=== PATIENT | female | born 1960 | race Caucasian/White ===

== ENCOUNTER → 2016-03-07 | Outpatient (CLI) | payer BC ==
[2016-03-07 14:01] LABS: ALBUMIN/GLOBULIN RATIO 1.25 (1.00-1.93); ALKALINE PHOSPHATASE 73 U/L (45-117); ALT/SGPT 23 U/L (12-78); ANION GAP 8 MEQ/L (8-16); AST/SGOT 25 U/L (15-37); BILIRUBIN,TOTAL 0.3 MG/DL (0.2-1.0); BLOOD UREA NITROGEN 12 MG/DL (7-18); CALCIUM LEVEL 9.2 MG/DL (8.5-10.1); CARBON DIOXIDE LEVEL 27 MEQ/L (21-32); CHLORIDE LEVEL 105 MEQ/L (98-107); CREATININE FOR GFR 0.78 MG/DL (0.55-1.02); FERRITIN 68 NG/ML (8-252); GLOMERULAR FILTRATION RATE > 60.0 (>51); GLUCOSE, FASTING 88 MG/DL (70-105); PERCENT SATURATION 37.8 % (13.2-37.4); POTASSIUM SERUM 4.3 MEQ/L (3.5-5.1); SODIUM LEVEL 140 MEQ/L (136-145); TOTAL IRON BINDING CAPACITY 362 UG/DL (250-450); TOTAL PROTEIN 7.2 GM/DL (6.4-8.2)
== END ==
LOC: M SMT 08:37
PROVIDERS: ATTEND Family Medicine
DX: K50.90 Crohn's disease, unspecified, without complications (principal); I10 Essential (primary) hypertension

== ENCOUNTER → 2016-07-05 | Outpatient (CLI) | payer BC ==
[2016-07-05 13:48] LABS: MEAN CORPUSCULAR HEMOGLOBIN 32.6 pg (27.0-33.0); MEAN CORPUSCULAR HGB CONC 33.2 g/dl (32.0-36.5); MEAN CORPUSCULAR VOLUME 98.3 fl (80.0-96.0); WHITE BLOOD COUNT 5.9 K/mm3 (4.0-10.0)
[2016-07-05 13:55] LABS: VITAMIN B12 LEVEL 475 PG/ML (247-911)
[2016-07-05 14:05] LABS: ALBUMIN 3.6 GM/DL (3.2-5.2); ALBUMIN/GLOBULIN RATIO 1.09 (1.00-1.93); ALKALINE PHOSPHATASE 70 U/L (45-117); ALT/SGPT 30 U/L (12-78); ANION GAP 6 MEQ/L (8-16); AST/SGOT 31 U/L (15-37); BILIRUBIN,TOTAL 0.4 MG/DL (0.2-1.0); BLOOD UREA NITROGEN 9 MG/DL (7-18); CALCIUM LEVEL 8.5 MG/DL (8.5-10.1); CARBON DIOXIDE LEVEL 27 MEQ/L (21-32); CHLORIDE LEVEL 106 MEQ/L (98-107); CHOLESTEROL LEVEL 95 MG/DL (<200); CREATININE FOR GFR 0.72 MG/DL (0.55-1.02); FREE T4 1.09 NG/DL (0.76-1.46); GLOMERULAR FILTRATION RATE > 60.0 (>51); GLUCOSE, FASTING 84 MG/DL (70-105); POTASSIUM SERUM 4.3 MEQ/L (3.5-5.1); SODIUM LEVEL 139 MEQ/L (136-145); TOTAL PROTEIN 6.9 GM/DL (6.4-8.2); TRIGLYCERIDES LEVEL 74 MG/DL (<150)
[2016-07-05 14:33] LABS: EOSINOPHILS 5 % (0-5)
[2016-07-05 20:07] LABS: PRETREATED FOLATE FOR RBCFOL 9.3 NG/ML
[2016-07-06 08:48] LABS: ALBUMIN % 55.1 % (55.8-66.1); GAMMA GLOBULIN % 17.4 % (11.1-18.8)
== END ==
LOC: M SMT 08:05
PROVIDERS: ATTEND Family Medicine
DX: D75.89 Other specified diseases of blood and blood-forming organs (principal); E78.5 Hyperlipidemia, unspecified; E03.9 Hypothyroidism, unspecified

== ENCOUNTER → 2016-07-19 | Outpatient (CLI) | payer BC ==
--- NOTE | 2016-07-21 12:37 | SLEEPHOME ---
DATE OF STUDY: 07/19/2016 ORDERED BY: Evan Smith MD Diagnostic home sleep testing was performed due to the concern for the obstructive sleep apnea syndrome. For testing, a NOX-T3 respiratory monitoring device was used. Continuous record was made of pulse, oxygen saturation, airflow, chest and abdominal strain, and body position. 9 hours and 59 minutes of data were reviewed. There were 7 hours and 47 minutes marked as time in bed. During the interval marked time in bed, there were 187 respiratory events identified of 10 seconds in duration or greater for a respiratory event index of 24. The events were obstructive in nature. Baseline pulse rate 65. Pulse rate ranged 32 to 142. Baseline saturation 93%. Lowest oxygen saturation 83%. Testing was performed in both supine and non supine positions. IMPRESSION: Abnormal home sleep testing with repetitive respiratory events and oxygen desaturations to 83% with a respiratory event index of 24 is consistent with the obstructive sleep apnea syndrome. RECOMMENDATION: The patient should be encouraged to undergo form sleep evaluation and in laboratory pressure titration.
== END ==
LOC: M SLEEP HO 15:29
PROVIDERS: ATTEND Family Medicine
DX: R53.83 Other fatigue (principal)

== ENCOUNTER → 2016-07-21 | Outpatient (CLI) | payer BC ==
--- NOTE | 2016-07-21 10:08 | REPMRS ---
Patient History The patient states she has not had a clinical breast exam in over a year. Patient is postmenopausal, has history of large B cell lymphoma cancer at age 46, and had previous chemotherapy at age 46. No known family history of cancer. Taking unspecified hormones for 9 years. Digital Woman Screen Mammo: July 21, 2016 - Exam #: [id number] Bilateral CC and MLO view(s) were taken. Technologist: Shari Lui, Technologist Prior study comparison: September 25, 2013, digital woman screen mammo performed at [facility]. September 06, 2012, digital woman screen mammo performed at [facility]. April 14, 2010, bilateral bilat screen digital mammo performed at [facility]. FINDINGS: There are scattered fibroglandular densities. There is a moderate amount of residual fibroglandular tissue which is fairly symmetric. There is no interval development of dominant mass, architectural distortion, or clustered microcalcification typical of malignancy. There has been no change in the appearance of the mammogram from the prior studies. ASSESSMENT: BI-RADS/ACR category 1 mammogram. Negative. Recommendation Routine screening mammogram of both breasts in 1 year (for women over age 40). This mammogram was interpreted with the aid of an FDA-approved computer-aided dectection system. Electronically Signed By: Ty Casas MD 07/21/16 [id number]
== END ==
LOC: M WHC 09:18
PROVIDERS: ATTEND Family Medicine
DX: Z12.31 Encounter for screening mammogram for malignant neoplasm of breast (principal); Z78.0 Asymptomatic menopausal state; Z92.0 Personal history of contraception

== ENCOUNTER → 2016-11-07 | Outpatient (CLI) | payer BC ==
[~2016-11-07] MED LIST: AMIT75TA; ATEN50TA2; ATOR1TAB21; BALS75CA PO; CARBAMAZEPINE; LINZ145C; OMEP20CA3; SYNT75TA; ZOFR4TAB3 PO
[2016-11-07 13:34] LABS: MEAN CORPUSCULAR HEMOGLOBIN 33.6 pg (27.0-33.0); MEAN CORPUSCULAR HGB CONC 34.2 g/dl (32.0-36.5); MEAN CORPUSCULAR VOLUME 98.1 fl (80.0-96.0); RED CELL DISTRIBUTION WIDTH 12.2 % (11.5-14.5); WHITE BLOOD COUNT 4.8 K/mm3 (4.0-10.0)
[2016-11-07 14:21] LABS: BASOPHILS 1 % (0-4); EOSINOPHILS 1 % (0-5)
[2016-11-07 15:09] LABS: ALBUMIN/GLOBULIN RATIO 1.18 (1.00-1.93); ALKALINE PHOSPHATASE 67 U/L (45-117); ALT/SGPT 29 U/L (12-78); ANION GAP 11 MEQ/L (8-16); AST/SGOT 26 U/L (15-37); BILIRUBIN,TOTAL 0.5 MG/DL (0.2-1.0); BLOOD UREA NITROGEN 14 MG/DL (7-18); CALCIUM LEVEL 9.3 MG/DL (8.5-10.1); CARBON DIOXIDE LEVEL 24 MEQ/L (21-32); CHLORIDE LEVEL 108 MEQ/L (98-107); CREATININE FOR GFR 0.84 MG/DL (0.55-1.02); GLOMERULAR FILTRATION RATE > 60.0 (>51); GLUCOSE, FASTING 88 MG/DL (70-105); MAGNESIUM LEVEL 1.9 MG/DL (1.8-2.4); POTASSIUM SERUM 4.4 MEQ/L (3.5-5.1); SODIUM LEVEL 143 MEQ/L (136-145); TOTAL PROTEIN 7.4 GM/DL (6.4-8.2)
== END ==
LOC: M SMT 08:10
PROVIDERS: ATTEND Family Medicine
DX: D75.89 Other specified diseases of blood and blood-forming organs (principal); I10 Essential (primary) hypertension; E55.9 Vitamin D deficiency, unspecified

== ENCOUNTER 2016-12-08 07:56 | Emergency (ER) | payer BC ==
[~2016-12-08] VITALS: Ht 172.7 cm; Wt 100.0 kg
[2016-12-08] MEDS ORDERED: CARBAMAZEPINE (08:10)
[2016-12-08] MEDS ORDERED: BALS75CA PO (08:10)
[2016-12-08] MEDS ORDERED: ATEN50TA2 (08:20)
[2016-12-08] MEDS ORDERED: ATOR1TAB21 (08:20)
[2016-12-08] MEDS ORDERED: LINZ145C (08:20)
[2016-12-08] MEDS ORDERED: SYNT75TA (08:20)
[2016-12-08] MEDS ORDERED: OMEP20CA3 (08:20)
[2016-12-08] MEDS ORDERED: AMIT75TA (08:20)
[2016-12-08] MEDS ORDERED: NS 1,000 ML IV ONE (08:45)
[2016-12-08] MEDS ORDERED: ONDANSETRON 4MG/2ML VIAL (J2405) IV ONE (08:45)
[2016-12-08 08:53] LABS: BASO % 0.6 % (0.0-1.0); EOS # 0.1 10^3/uL (0.0-0.50); EOS % 1.4 % (0.0-3.0); IMMATURE GRANULOCYTE % 0.3 % (0-0); LYMPH % 15.2 % (24.0-44.0); MEAN CORPUSCULAR HEMOGLOBIN 32.6 pg (27.0-33.0); MEAN CORPUSCULAR HGB CONC 34.1 g/dl (32.0-36.5); MEAN CORPUSCULAR VOLUME 95.5 fl (80.0-96.0); MONO # 0.4 10^3/uL (0.0-0.8); MONO % 6.1 % (0.0-5.0); NEUTROPHILS % 76.4 % (36.0-66.0); PLATELET COUNT, AUTOMATED 203 10^3/uL (150-450); RED CELL DISTRIBUTION WIDTH 12.2 % (11.5-14.5); WHITE BLOOD COUNT 6.6 10^3/uL (4.0-10.0)
--- NOTE | 2016-12-08 09:20 | REP ---
ABDOMEN SERIES: Two views. HISTORY: Bloating. No bowel movements. Question small bowel obstruction. FINDINGS: Bowel gas pattern is unremarkable. There are clips and sutures in the right upper quadrant. Some vascular calcification is seen in the aorta. Phleboliths are noted in the pelvis. Flank stripes are intact. Psoas margins are symmetric. No evidence of free air seen. No significant air fluid level noted. IMPRESSION: Normal bowel gas pattern. Postoperative changes on the right. No radiographic evidence of obstruction. Signed by Yang Casas MD 12/08/2016 11:58 A
[2016-12-08 09:23] LABS: ALBUMIN 3.7 GM/DL (3.2-5.2); ALBUMIN/GLOBULIN RATIO 0.95 (1.00-1.93); ALKALINE PHOSPHATASE 70 U/L (45-117); ALT/SGPT 28 U/L (12-78); AMYLASE 72 U/L (25-115); ANION GAP 7 MEQ/L (8-16); AST/SGOT 25 U/L (15-37); BILIRUBIN,DIRECT 0.2 MG/DL (0.0-0.2); BILIRUBIN,TOTAL 0.5 MG/DL (0.2-1.0); BLOOD UREA NITROGEN 11 MG/DL (7-18); CALCIUM LEVEL 9.2 MG/DL (8.5-10.1); CARBON DIOXIDE LEVEL 23 MEQ/L (21-32); CHLORIDE LEVEL 107 MEQ/L (98-107); CREATININE FOR GFR 0.74 MG/DL (0.55-1.02); GLOMERULAR FILTRATION RATE > 60.0 (>51); GLUCOSE, FASTING 98 MG/DL (70-105); POTASSIUM SERUM 3.8 MEQ/L (3.5-5.1); SODIUM LEVEL 137 MEQ/L (136-145); TOTAL PROTEIN 7.6 GM/DL (6.4-8.2)
[2016-12-08] MEDS ORDERED: ZOFR4TAB3 PO (09:30)
[2016-12-08 09:31] VITALS: BP 134/72
== END 2016-12-08 09:36 | disposition home or self-care (01) ==
LOC: M ED 07:56
DX: K59.00 Constipation, unspecified (principal); I10 Essential (primary) hypertension; E07.9 Disorder of thyroid, unspecified; Z79.899 Other long term (current) drug therapy; Z88.1 Allergy status to other antibiotic agents; Z88.8 Allergy status to other drugs, medicaments and biological substances; Z98.890 Other specified postprocedural states
CPT/HCPCS: 36415; 74020; 80048; 80076; 81001; 82150; 83690; 85025; 96361; 96374; 99283; J2405

== ENCOUNTER → 2016-12-20 | Outpatient (REF) | payer BC ==
[2016-12-20 11:48] LABS: ALBUMIN 3.7 GM/DL (3.2-5.2); ANION GAP 7 MEQ/L (8-16); BLOOD UREA NITROGEN 11 MG/DL (7-18); CALCIUM LEVEL 9.2 MG/DL (8.5-10.1); CARBON DIOXIDE LEVEL 29 MEQ/L (21-32); CHLORIDE LEVEL 106 MEQ/L (98-107); GLOMERULAR FILTRATION RATE > 60.0 (>51); GLUCOSE, FASTING 87 MG/DL (70-105); MAGNESIUM LEVEL 2.2 MG/DL (1.8-2.4); POTASSIUM SERUM 4.5 MEQ/L (3.5-5.1); SODIUM LEVEL 142 MEQ/L (136-145)
== END ==
LOC: M SFHCPLAZ 10:17
PROVIDERS: ATTEND Family Medicine
DX: R06.09 Other forms of dyspnea (principal)

== ENCOUNTER 2017-01-11 13:18 | Emergency (ER) | payer OTHER, BC ==
[~2017-01-11] VITALS: Ht 172.7 cm; Wt 95.5 kg
[2017-01-11] MEDS ORDERED: KETOROLAC 60 MG/2 ML VIAL (J1885) IM ONE (15:45)
[2017-01-11] MEDS ORDERED: MOBI4TAB PO (17:03)
[2017-01-11] MEDS ORDERED: CYCL10TA PO (17:03)
[2017-01-11 17:11] VITALS: BP 151/73
== END 2017-01-11 17:12 | disposition home or self-care (01) ==
LOC: M ED 13:18
DX: S39.012A Strain of muscle, fascia and tendon of lower back, initial encounter (principal); X50.9XXA Other and unspecified overexertion or strenuous movements or postures, initial encounter; Y92.531 Health care provider office as the place of occurrence of the external cause; Y93.F2 Activity, caregiving, lifting; Y99.0 Civilian activity done for income or pay; I10 Essential (primary) hypertension; E78.5 Hyperlipidemia, unspecified; E03.9 Hypothyroidism, unspecified; Z79.899 Other long term (current) drug therapy; Z88.1 Allergy status to other antibiotic agents; Z88.8 Allergy status to other drugs, medicaments and biological substances; Z86.14 Personal history of Methicillin resistant Staphylococcus aureus infection; Z98.890 Other specified postprocedural states; Z87.891 Personal history of nicotine dependence; Z85.72 Personal history of non-Hodgkin lymphomas
CPT/HCPCS: 96372; 99283; J1885

== ENCOUNTER → 2017-03-15 | Outpatient (REF) | payer OTHER ==
[2017-03-15 11:16] LABS: ALBUMIN 3.5 GM/DL (3.2-5.2); ALBUMIN/GLOBULIN RATIO 1.03 (1.00-1.93); ALKALINE PHOSPHATASE 70 U/L (45-117); ALT/SGPT 21 U/L (12-78); ANION GAP 7 MEQ/L (8-16); AST/SGOT 24 U/L (7-37); BILIRUBIN,TOTAL 0.4 MG/DL (0.2-1.0); BLOOD UREA NITROGEN 13 MG/DL (7-18); C REACTIVE PROTEIN QUANTITATIV < 0.30 MG/DL (0.00-0.30); CALCIUM LEVEL 8.6 MG/DL (8.5-10.1); CARBON DIOXIDE LEVEL 26 MEQ/L (21-32); CHLORIDE LEVEL 109 MEQ/L (98-107); CHOLESTEROL LEVEL 82 MG/DL (<200); CHOLESTEROL RISK RATIO 3.037 (<5); CPK CREATINE PHOSPHOKINASE 100 U/L (26-192); CREATININE FOR GFR 0.75 MG/DL (0.55-1.02); FREE T4 1.04 NG/DL (0.76-1.46); GLOMERULAR FILTRATION RATE > 60.0 (>51); GLUCOSE, FASTING 86 MG/DL (70-105); HDL CHOLESTEROL 27 MG/DL (>40); NON-HDL-C 55 MG/DL; POTASSIUM SERUM 3.9 MEQ/L (3.5-5.1); SODIUM LEVEL 142 MEQ/L (136-145); TOTAL PROTEIN 6.9 GM/DL (6.4-8.2); TRIGLYCERIDES LEVEL 65 MG/DL (<150)
[2017-03-15 11:32] LABS: TOTAL 25(OH) VITAMIN D 35.8 NG/ML (30.0-100.0)
== END ==
LOC: M SFHCPLAZ 09:09
DX: E03.9 Hypothyroidism, unspecified (principal); E78.5 Hyperlipidemia, unspecified; I10 Essential (primary) hypertension; Z12.39 Encounter for other screening for malignant neoplasm of breast; E55.9 Vitamin D deficiency, unspecified
CPT/HCPCS: 82550

== ENCOUNTER → 2017-03-17 | Outpatient (CLI) | payer OTHER | LOC: M WUC 11:10 | DX: K59.00 Constipation, unspecified (principal) | CPT/HCPCS: 74018 ==

== ENCOUNTER → 2017-04-12 | Outpatient (CLI) | payer OTHER | LOC: M SLEEP 19:34 | DX: G47.33 Obstructive sleep apnea (adult) (pediatric) (principal) ==

== ENCOUNTER 2017-05-03 07:21 | Day surgery (SDC) | payer OTHER ==
[2017-05-03] MEDS: NS 1,000 ML IV (07:30)
[2017-05-03] MEDS ORDERED: LIDOCAINE 2% INJ 100 MG/5 ML SDV (FOR ANES.) As Ordered (09:02)
[2017-05-03] MEDS ORDERED: PROPOFOL 200 MG/20 ML VIAL As Ordered ×2 (09:02→09:12)
== END 2017-05-03 09:56 | disposition home or self-care (01) ==
LOC: M OPP 07:21
DX: K58.1 Irritable bowel syndrome with constipation (principal); K64.0 First degree hemorrhoids; K62.1 Rectal polyp; K57.30 Diverticulosis of large intestine without perforation or abscess without bleeding; I10 Essential (primary) hypertension; E78.5 Hyperlipidemia, unspecified; E03.9 Hypothyroidism, unspecified; K50.90 Crohn's disease, unspecified, without complications; K57.32 Diverticulitis of large intestine without perforation or abscess without bleeding; K21.9 Gastro-esophageal reflux disease without esophagitis; R12 Heartburn; R06.02 Shortness of breath; F41.9 Anxiety disorder, unspecified; F32.9 Major depressive disorder, single episode, unspecified; Z78.0 Asymptomatic menopausal state; G47.30 Sleep apnea, unspecified; R06.83 Snoring; Z85.72 Personal history of non-Hodgkin lymphomas; Z92.21 Personal history of antineoplastic chemotherapy; Z87.891 Personal history of nicotine dependence; Z87.19 Personal history of other diseases of the digestive system; Z88.8 Allergy status to other drugs, medicaments and biological substances; Z88.1 Allergy status to other antibiotic agents; Z79.899 Other long term (current) drug therapy; Z79.82 Long term (current) use of aspirin; Z80.0 Family history of malignant neoplasm of digestive organs; Z80.7 Family history of other malignant neoplasms of lymphoid, hematopoietic and related tissues
CPT/HCPCS: 45380

== ENCOUNTER → 2017-05-09 | Outpatient (CLI) | payer OTHER ==
[2017-05-09 19:19] LABS: BASO # 0.1 10^3/uL (0.0-0.2); BASO % 1.1 % (0.0-1.0); EOS # 0.2 10^3/uL (0.0-0.50); EOS % 4.4 % (0.0-3.0); HEMOGLOBIN 14.3 g/dl (12.0-16.0); IMMATURE GRANULOCYTE % 0.2 % (0-3.0); LYMPH # 1.5 10^3/uL (1.5-4.5); LYMPH % 27.9 % (24.0-44.0); MEAN CORPUSCULAR HEMOGLOBIN 32.1 pg (27.0-33.0); MEAN CORPUSCULAR HGB CONC 33.3 g/dl (32.0-36.5); MEAN CORPUSCULAR VOLUME 96.4 fl (80.0-96.0); MONO # 0.5 10^3/uL (0.0-0.8); MONO % 9.1 % (0.0-5.0); NEUTROPHILS # 3.2 10^3/uL (1.8-7.7); NEUTROPHILS % 57.3 % (36.0-66.0); PLATELET COUNT, AUTOMATED 177 10^3/uL (150-450); RED BLOOD COUNT 4.46 10^6/uL (4.00-5.40); RED CELL DISTRIBUTION WIDTH 12.2 % (11.5-14.5); WHITE BLOOD COUNT 5.5 10^3/uL (4.0-10.0)
[2017-05-09 19:44] LABS: ALBUMIN 3.9 GM/DL (3.2-5.2); ALBUMIN/GLOBULIN RATIO 1.18 (1.00-1.93); ALKALINE PHOSPHATASE 65 U/L (45-117); ALT/SGPT 25 U/L (12-78); ANION GAP 8 MEQ/L (8-16); AST/SGOT 22 U/L (7-37); BILIRUBIN,TOTAL 0.4 MG/DL (0.2-1.0); BLOOD UREA NITROGEN 15 MG/DL (7-18); CALCIUM LEVEL 8.6 MG/DL (8.5-10.1); CARBON DIOXIDE LEVEL 25 MEQ/L (21-32); CHLORIDE LEVEL 108 MEQ/L (98-107); CREATININE FOR GFR 0.86 MG/DL (0.55-1.30); GLOMERULAR FILTRATION RATE > 60.0 (>51); GLUCOSE, FASTING 87 MG/DL (70-100); MAGNESIUM LEVEL 1.9 MG/DL (1.8-2.4); POTASSIUM SERUM 3.9 MEQ/L (3.5-5.1); SODIUM LEVEL 141 MEQ/L (136-145); TOTAL PROTEIN 7.2 GM/DL (6.4-8.2)
[2017-05-09 19:46] LABS: PTH INTACT 55.8 PG/ML (18.5-88.0); TOTAL 25(OH) VITAMIN D 68.8 NG/ML (30.0-100.0); VITAMIN B12 LEVEL 362 PG/ML (247-911)
[2017-05-09 21:12] LABS: ESTIMATED AVERAGE GLUCOSE 114 MG/DL (60-110); HEMOGLOBIN A1c 5.6 %
[2017-05-11 14:18] LABS: INSULIN LEVEL 17.4 uIU/mL (2.6-24.9)
== END ==
LOC: M SMT 13:34
DX: D75.89 Other specified diseases of blood and blood-forming organs (principal); I10 Essential (primary) hypertension; E66.9 Obesity, unspecified

== ENCOUNTER 2017-08-29 08:20 | Emergency (ER) | payer OTHER ==
[2017-08-29 09:17] LABS: BASO % 0.8 % (0.0-1.0); EOS # 0.3 10^3/uL (0.0-0.50); EOS % 5.2 % (0.0-3.0); HEMOGLOBIN 14.4 g/dl (12.0-15.5); IMMATURE GRANULOCYTE % 0.4 % (0-3.0); LYMPH # 1.1 10^3/uL (1.5-4.5); LYMPH % 22.4 % (24.0-44.0); MEAN CORPUSCULAR HGB CONC 34.3 g/dl (32.0-36.5); MEAN CORPUSCULAR VOLUME 96.1 fl (80.0-96.0); MONO # 0.4 10^3/uL (0.0-0.8); MONO % 7.4 % (0.0-5.0); NEUTROPHILS # 3.2 10^3/uL (1.8-7.7); NEUTROPHILS % 63.8 % (36.0-66.0); PLATELET COUNT, AUTOMATED 181 10^3/uL (150-450); RED BLOOD COUNT 4.37 10^6/uL (4.00-5.40); RED CELL DISTRIBUTION WIDTH 12.1 % (11.5-14.5)
[2017-08-29 09:27] LABS: BEDSIDE GLUCOSE 82 MG/DL (70-105)
[2017-08-29 09:33] LABS: ANION GAP 8 MEQ/L (8-16); BLOOD UREA NITROGEN 10 MG/DL (7-18); CALCIUM LEVEL 8.9 MG/DL (8.5-10.1); CARBON DIOXIDE LEVEL 26 MEQ/L (21-32); CHLORIDE LEVEL 104 MEQ/L (98-107); CK-MB VALUE MASS 1.3 NG/ML (<3.6); CPK CREATINE PHOSPHOKINASE 115 U/L (26-192); CREATININE FOR GFR 0.87 MG/DL (0.55-1.30); GLOMERULAR FILTRATION RATE > 60.0 (>51); GLUCOSE, FASTING 85 MG/DL (70-100); MB/CK RELATIVE INDEX 1.13 (< OR =4); POTASSIUM SERUM 3.9 MEQ/L (3.5-5.1); SODIUM LEVEL 138 MEQ/L (136-145); TROPONIN I < 0.02 NG/ML (< 0.10)
[2017-08-29 09:38] LABS: FREE T4 1.14 NG/DL (0.76-1.46)
[2017-08-29] MEDS: IBUPROFEN 600 MG TAB PO (11:11)
[2017-08-29 11:29] LABS: CK-MB VALUE MASS 1.9 NG/ML (<3.6); CPK CREATINE PHOSPHOKINASE 106 U/L (26-192); MB/CK RELATIVE INDEX 1.79 (< OR =4); TROPONIN I < 0.02 NG/ML (< 0.10)
[2017-08-29 14:32] LABS: CK-MB VALUE MASS 1.8 NG/ML (<3.6); CPK CREATINE PHOSPHOKINASE 98 U/L (26-192); MB/CK RELATIVE INDEX 1.83 (< OR =4); TROPONIN I < 0.02 NG/ML (< 0.10)
== END 2017-08-29 14:57 | disposition home or self-care (01) ==
LOC: M ED 08:20
DX: R55 Syncope and collapse (principal); R94.31 Abnormal electrocardiogram [ECG] [EKG]; I25.10 Atherosclerotic heart disease of native coronary artery without angina pectoris; G47.33 Obstructive sleep apnea (adult) (pediatric); K50.90 Crohn's disease, unspecified, without complications; F33.9 Major depressive disorder, recurrent, unspecified; E07.9 Disorder of thyroid, unspecified; Z86.69 Personal history of other diseases of the nervous system and sense organs; Z87.891 Personal history of nicotine dependence; Z88.8 Allergy status to other drugs, medicaments and biological substances; Z88.1 Allergy status to other antibiotic agents; Z79.890 Hormone replacement therapy; Z79.899 Other long term (current) drug therapy; Z79.82 Long term (current) use of aspirin; Z85.72 Personal history of non-Hodgkin lymphomas
CPT/HCPCS: 71045

== ENCOUNTER 2017-12-04 17:45 | Emergency (ER) | payer OTHER ==
[2017-12-04 18:48] LABS: BASO # 0.1 10^3/uL (0.0-0.2); BASO % 1.1 % (0.0-1.0); EOS # 0.4 10^3/uL (0.0-0.50); EOS % 6.8 % (0.0-3.0); HEMATOCRIT 40.8 % (36.0-47.0); HEMOGLOBIN 13.3 g/dl (12.0-15.5); IMMATURE GRANULOCYTE % 0.3 % (0-3.0); LYMPH # 1.6 10^3/uL (1.5-4.5); LYMPH % 25.4 % (24.0-44.0); MEAN CORPUSCULAR HEMOGLOBIN 32.2 pg (27.0-33.0); MEAN CORPUSCULAR HGB CONC 32.6 g/dl (32.0-36.5); MEAN CORPUSCULAR VOLUME 98.8 fl (80.0-96.0); MONO # 0.6 10^3/uL (0.0-0.8); MONO % 8.5 % (0.0-5.0); NEUTROPHILS # 3.7 10^3/uL (1.8-7.7); NEUTROPHILS % 57.9 % (36.0-66.0); PLATELET COUNT, AUTOMATED 169 10^3/uL (150-450); RED BLOOD COUNT 4.13 10^6/uL (4.00-5.40); RED CELL DISTRIBUTION WIDTH 12.6 % (11.5-14.5); WHITE BLOOD COUNT 6.5 10^3/uL (4.0-10.0)
[2017-12-04 19:37] LABS: ALBUMIN 3.4 GM/DL (3.2-5.2); ALBUMIN/GLOBULIN RATIO 0.94 (1.00-1.93); ALKALINE PHOSPHATASE 75 U/L (45-117); ALT/SGPT 22 U/L (12-78); ANION GAP 7 MEQ/L (8-16); AST/SGOT 21 U/L (7-37); BILIRUBIN,DIRECT 0.1 MG/DL (0.0-0.2); BILIRUBIN,TOTAL 0.3 MG/DL (0.2-1.0); BLOOD UREA NITROGEN 13 MG/DL (7-18); CALCIUM LEVEL 8.7 MG/DL (8.5-10.1); CARBON DIOXIDE LEVEL 28 MEQ/L (21-32); CHLORIDE LEVEL 106 MEQ/L (98-107); CPK CREATINE PHOSPHOKINASE 122 U/L (26-192); CREATININE FOR GFR 1.08 MG/DL (0.55-1.30); GLOMERULAR FILTRATION RATE 55.3 (>51); GLUCOSE, FASTING 101 MG/DL (70-100); LIPASE 199 U/L (73-393); MB/CK RELATIVE INDEX 1.64 (< OR =4); POTASSIUM SERUM 3.9 MEQ/L (3.5-5.1); SODIUM LEVEL 141 MEQ/L (136-145); TROPONIN I < 0.02 NG/ML (< 0.10)
[2017-12-04] MEDS: IBUPROFEN 600 MG TAB PO (20:32)
[2017-12-04] MEDS: ALBUTEROL SULFATE 2.5 MG/0.5 ML INH NEB SOLN NEB (20:46)
== END 2017-12-04 22:06 | disposition home or self-care (01) ==
LOC: M ED 17:45
DX: R09.1 Pleurisy (principal); R06.02 Shortness of breath; I10 Essential (primary) hypertension; K21.9 Gastro-esophageal reflux disease without esophagitis; G47.30 Sleep apnea, unspecified; Z88.6 Allergy status to analgesic agent; Z88.1 Allergy status to other antibiotic agents; Z88.8 Allergy status to other drugs, medicaments and biological substances; Z79.899 Other long term (current) drug therapy; Z79.82 Long term (current) use of aspirin
CPT/HCPCS: 71045

== ENCOUNTER → 2017-12-18 | Outpatient (CLI) | payer OTHER | LOC: M WUC 13:40 | DX: R05 Cough (principal) | CPT/HCPCS: 71046 ==

== ENCOUNTER 2018-01-28 04:38 | Emergency (ER) | payer OTHER ==
[2018-01-28 05:16] LABS: BASO # 0.1 10^3/uL (0.0-0.2); BASO % 1.1 % (0.0-1.0); EOS # 0.8 10^3/uL (0.0-0.50); EOS % 13.1 % (0.0-3.0); HEMATOCRIT 42.7 % (36.0-47.0); HEMOGLOBIN 14.5 g/dl (12.0-15.5); IMMATURE GRANULOCYTE % 0.3 % (0-3.0); LYMPH # 1.3 10^3/uL (1.5-4.5); LYMPH % 21.1 % (24.0-44.0); MEAN CORPUSCULAR HEMOGLOBIN 32.4 pg (27.0-33.0); MEAN CORPUSCULAR VOLUME 95.5 fl (80.0-96.0); MONO # 0.4 10^3/uL (0.0-0.8); MONO % 7.1 % (0.0-5.0); NEUTROPHILS # 3.5 10^3/uL (1.8-7.7); NEUTROPHILS % 57.3 % (36.0-66.0); PLATELET COUNT, AUTOMATED 185 10^3/uL (150-450); RED BLOOD COUNT 4.47 10^6/uL (4.00-5.40); RED CELL DISTRIBUTION WIDTH 12.4 % (11.5-14.5); WHITE BLOOD COUNT 6.2 10^3/uL (4.0-10.0)
[2018-01-28 05:32] LABS: INR 0.94; PROTHROMBIN TIME 12.7 SECONDS (12.1-14.4)
[2018-01-28 05:51] LABS: ANION GAP 7 MEQ/L (8-16); BLOOD UREA NITROGEN 10 MG/DL (7-18); CALCIUM LEVEL 8.6 MG/DL (8.5-10.1); CARBON DIOXIDE LEVEL 25 MEQ/L (21-32); CHLORIDE LEVEL 106 MEQ/L (98-107); CPK CREATINE PHOSPHOKINASE 111 U/L (26-192); GLOMERULAR FILTRATION RATE > 60.0 (>51); GLUCOSE, FASTING 104 MG/DL (70-100); MB/CK RELATIVE INDEX 1.44 (< OR =4); NT-PRO BNP 225 PG/ML (<125); POTASSIUM SERUM 3.9 MEQ/L (3.5-5.1); SODIUM LEVEL 138 MEQ/L (136-145); TROPONIN I < 0.02 NG/ML (< 0.10)
[2018-01-28] MEDS: IPRATROPIUM 0.5MG/ALBUTEROL 2.5MG INH SOL UD 3ML (DUONEB)(J7620) NEB (08:16)
[2018-01-28 08:27] LABS: INFLUENZA A AMPLIFICATION NEGATIVE (NEGATIVE); INFLUENZA B AMPLIFICATION NEGATIVE (NEGATIVE)
== END 2018-01-28 11:27 | disposition home or self-care (01) ==
LOC: M ED 04:38
DX: J06.9 Acute upper respiratory infection, unspecified (principal); J98.01 Acute bronchospasm; I25.10 Atherosclerotic heart disease of native coronary artery without angina pectoris; K50.90 Crohn's disease, unspecified, without complications; G47.33 Obstructive sleep apnea (adult) (pediatric); G43.909 Migraine, unspecified, not intractable, without status migrainosus; Z85.72 Personal history of non-Hodgkin lymphomas; Z88.1 Allergy status to other antibiotic agents; Z88.8 Allergy status to other drugs, medicaments and biological substances; Z88.6 Allergy status to analgesic agent; Z79.899 Other long term (current) drug therapy; Z79.82 Long term (current) use of aspirin
CPT/HCPCS: 71046

== ENCOUNTER 2018-02-05 04:00 | Emergency (ER) | payer OTHER | END 2018-02-05 05:13 | disposition home or self-care (01) | LOC: M ED 04:00 | DX: G47.33 Obstructive sleep apnea (adult) (pediatric) (principal) | CPT/HCPCS: 99283 ==

== ENCOUNTER 2018-04-19 03:17 | Emergency (ER) | payer OTHER ==
[~2018-04-19] VITALS: Ht 172.7 cm; Wt 94.1 kg
[~2018-04-19 03:17] MED LIST changes: +ALBU17IN2 INH; +AMIT24CA7 PO; +ASPI1TAB PO; +ATEN25TA PO; +CALCTAB29 PO; +COMB1DIS TD; +CYCL10TA PO; +FLUO20CA8 PO; +FLUO40CA PO; +IBUP-1022 PO; +LEVO75TA4 PO; +LINZ290C PO; +LORA-243 PO; +MOBI4TAB PO; +OMEP20CA3 PO; +PROAAER10 INH; +SENN8.6C PO; +VITA50005 PO; +ZOFR4TAB14 PO; -ZOFR4TAB3 PO
[2018-04-19 05:31] LABS: INFLUENZA A AMPLIFICATION POSITIVE (NEGATIVE); INFLUENZA B AMPLIFICATION NEGATIVE (NEGATIVE)
[2018-04-19] MEDS ORDERED: ALBUTEROL 90 MCG/ACT 8GM HFA INHALER INH ONE (05:45)
[2018-04-19 05:50] VITALS: BP 145/70
--- NOTE | 2018-04-19 06:01 | REP ---
Clinical: Cough. Technique: PA and lateral. Comparison: 01/28/2018. Findings: Mediastinum and cardiac silhouette are normal. Minimal left-sided atelectasis cannot be excluded and should be correlated with physical examination and auscultation. No focal consolidation, effusion, or pneumothorax. Skeletal structures are intact. Impression: Subtle left lower lobe atelectasis cannot be excluded. Electronically Signed by Art Shields MD 04/19/2018 05:52 A
== END 2018-04-19 05:51 | disposition home or self-care (01) ==
LOC: M ED 03:17
DX: J09.X2 Influenza due to identified novel influenza A virus with other respiratory manifestations (principal); Z85.72 Personal history of non-Hodgkin lymphomas; Z79.82 Long term (current) use of aspirin; Z79.899 Other long term (current) drug therapy; Z88.6 Allergy status to analgesic agent; Z88.1 Allergy status to other antibiotic agents; Z88.8 Allergy status to other drugs, medicaments and biological substances

== ENCOUNTER → 2018-07-03 | Outpatient (CLI) | payer OTHER ==
[~2018-07-03] MED LIST changes: -ASPI1TAB PO; +ASPI81TA26 PO
--- NOTE | 2018-07-04 02:39 | REP ---
Clinical: Lumbar and sciatica. Technique: AP, lateral, bilateral oblique and coned-down views of the lumbosacral spine. Comparison: 12/15/2014. Findings: Progressive changes are appreciated including mild chronic-appearing levoconvex scoliosis, endplate sclerosis/irregularity, marginal spurring/early osteophyte formation, disc space narrowing and hypertrophic facet changes. Findings most pronounced at the L4-5 and L5-S1. No obvious spondylolysis. No acute fracture / compression injury or subluxation. Impression: Progressive moderate multilevel degenerative changes. Electronically Signed by Art Shields MD 07/04/2018 02:30 A
== END ==
LOC: M SMT 12:59
PROVIDERS: ATTEND Physician Assistant Medical
DX: M41.9 Scoliosis, unspecified (principal); M25.78 Osteophyte, vertebrae; M51.36 Other intervertebral disc degeneration, lumbar region; M51.37 Other intervertebral disc degeneration, lumbosacral region

== ENCOUNTER → 2018-07-11 | Outpatient (CLI) | payer OTHER ==
[~2018-07-11] MED LIST changes: +E-Z-GAS II EFFERVESCENT PACKET (SODIUM BICARB./CITRIC ACID/SIMETHICONE) As Ordered ONE; +E-Z-HD 98% w/w 340GM SUSP BTL As Ordered ONE; +E-Z-PAQUE 96% w/w SUSP 176GM BTL As Ordered ONE
--- NOTE | 2018-07-11 16:38 | REP ---
Examination Requested: Upper G.I. Series With KUB Reason For Exam: Dysphasia Upper GI Air Contrast The procedure was performed by DREW Rhoades, under the direct supervision of Dr. Casas. The images were reviewed with Dr. Casas. The linux system engineer film shows no organomegaly or pathological masses. The intestinal gas pattern appears normal. Liquid barium and gas producing crystals were given in the erect position as well as liquid barium in the prone oblique position in order to perform a double contrast upper GI examination. The oral and pharyngeal stages of deglutition were unremarkable. Esophageal transport is efficient and there is no esophagitis, stricture, or mucosal ring noted. There is no hiatal hernia. Gastroesophageal reflux was demonstrated. The stomach chisholm are normally outlined. The rugal folds are smooth and regular. There is no gastritis, neoplasm, ulcer disease noted. The duodenal chisholm are normally outlined. The mucosal folds are smooth and regular. There is no duodenitis, peptic ulcer disease, or neoplasm noted. The visualized portion of the proximal small bowel appears normal in course and caliber. Impression; 1. Gastroesophageal reflux 0.7 minutes of fluoroscopy time was utilized for this procedure. Reviewed by DREW Wilks 07/11/2018 04:00 P Electronically Signed by Yang Casas MD 07/11/2018 04:28 P
== END ==
LOC: M RAD 08:24
PROVIDERS: ATTEND Physician Assistant Medical
DX: K21.9 Gastro-esophageal reflux disease without esophagitis (principal)

== ENCOUNTER → 2018-07-16 | Outpatient (REF) | payer OTHER ==
[~2018-07-16] MED LIST changes: -E-Z-GAS II EFFERVESCENT PACKET (SODIUM BICARB./CITRIC ACID/SIMETHICONE) As Ordered ONE; -E-Z-HD 98% w/w 340GM SUSP BTL As Ordered ONE; -E-Z-PAQUE 96% w/w SUSP 176GM BTL As Ordered ONE
[2018-07-16 10:15] LABS: BASO # 0.1 10^3/uL (0.0-0.2); BASO % 1.2 % (0.0-1.0); EOS # 0.6 10^3/uL (0.0-0.50); EOS % 10.4 % (0.0-3.0); HEMATOCRIT 43.4 % (36.0-47.0); HEMOGLOBIN 14.5 g/dl (12.0-15.5); LYMPH # 1.4 10^3/uL (1.5-4.5); LYMPH % 24.3 % (24.0-44.0); MEAN CORPUSCULAR HEMOGLOBIN 32.5 pg (27.0-33.0); MEAN CORPUSCULAR HGB CONC 33.4 g/dl (32.0-36.5); MEAN CORPUSCULAR VOLUME 97.3 fl (80.0-96.0); MONO # 0.6 10^3/uL (0.0-0.8); MONO % 9.7 % (0.0-5.0); NEUTROPHILS # 3.1 10^3/uL (1.8-7.7); NEUTROPHILS % 54.2 % (36.0-66.0); PLATELET COUNT, AUTOMATED 198 10^3/uL (150-450); RED BLOOD COUNT 4.46 10^6/uL (4.00-5.40); WHITE BLOOD COUNT 5.8 10^3/uL (4.0-10.0)
[2018-07-16 11:01] LABS: ALBUMIN 3.7 GM/DL (3.2-5.2); ALT/SGPT 24 U/L (12-78); BILIRUBIN,TOTAL 0.6 MG/DL (0.2-1.0); BLOOD UREA NITROGEN 9 MG/DL (7-18); CALCIUM LEVEL 8.9 MG/DL (8.5-10.1); CARBON DIOXIDE LEVEL 26 MEQ/L (21-32); CHLORIDE LEVEL 106 MEQ/L (98-107); CREATININE FOR GFR 0.86 MG/DL (0.55-1.30); FREE T4 1.03 NG/DL (0.76-1.46); GLOMERULAR FILTRATION RATE > 60.0 (>51); GLUCOSE, FASTING 85 MG/DL (70-100); POTASSIUM SERUM 4.4 MEQ/L (3.5-5.1); PTH INTACT 115.4 PG/ML (18.5-88.0); SODIUM LEVEL 139 MEQ/L (136-145); TOTAL 25(OH) VITAMIN D 103.8 NG/ML (30.0-100.0); TOTAL PROTEIN 7.3 GM/DL (6.4-8.2); VITAMIN B12 LEVEL 347 PG/ML (247-911)
== END ==
LOC: M SFHCPLAZ 08:42
PROVIDERS: ATTEND Nurse Practitioner Family
DX: D75.89 Other specified diseases of blood and blood-forming organs (principal); E55.9 Vitamin D deficiency, unspecified; E03.9 Hypothyroidism, unspecified; E78.5 Hyperlipidemia, unspecified

== ENCOUNTER → 2018-07-19 | Outpatient (CLI) | payer OTHER ==
--- NOTE | 2018-07-19 17:04 | REP ---
Clinical: Left hip/groin pain. Technique: Frontal view of the pelvis with neutral and frog lateral views of the right and left hip. Findings: Mild generalized age-related changes with increase sclerosis to the acetabular roof and very minimal symmetric joint space narrowing noted. No acute fracture or dislocation. No further overt osteoarthritic degenerative findings identified. Surrounding soft tissues are unremarkable. Impression: Mild symmetric age-related degenerative change. Electronically Signed by Art Shields MD 07/19/2018 04:56 P
== END ==
LOC: M WUC 16:33
PROVIDERS: ATTEND Family Medicine
DX: M25.552 Pain in left hip (principal); M16.0 Bilateral primary osteoarthritis of hip

== ENCOUNTER → 2018-08-03 | Outpatient (CLI) | payer OTHER ==
--- NOTE | 2018-08-03 11:34 | REP ---
MR BRAIN WITHOUT AND WITH CONTRAST: HISTORY: Memory loss. CONTRAST: ProHance 19 mL. COMPARISON: 12/12/2012 A single punctate focus of increased signal intensity on T2-weighted images is present in the subcortical white matter of the right frontal lobe. There is no intraparenchymal hemorrhage, infarct, mass, or midline shift. The sella turcica is partially empty. There is no abnormal enhancement. The ventricular system and cortical sulci are dilated consistent with minimal volume loss. The basilar artery is tortuous. There is no extracerebral collection. Mucosal thickening is present in the ethmoid, maxillary, and right frontal sinuses. IMPRESSION: 1. There is a single punctate focus of increased signal intensity in the subcortical white matter of the right frontal lobe. This is a nonspecific finding. 2. Minimal volume loss. Electronically Signed by King Serna MD 08/03/2018 11:38 A
== END ==
LOC: M PLARAD 09:33
PROVIDERS: ATTEND Family Medicine
DX: G31.9 Degenerative disease of nervous system, unspecified (principal); R41.3 Other amnesia

== ENCOUNTER → 2018-08-10 | Outpatient (REF) | payer OTHER ==
[2018-08-10 12:44] LABS: BASO # 0.1 10^3/uL (0.0-0.2); BASO % 1.4 % (0.0-1.0); EOS # 0.4 10^3/uL (0.0-0.50); EOS % 7.4 % (0.0-3.0); HEMATOCRIT 44.4 % (36.0-47.0); HEMOGLOBIN 14.9 g/dl (12.0-15.5); LYMPH # 1.2 10^3/uL (1.5-4.5); LYMPH % 24.1 % (24.0-44.0); MEAN CORPUSCULAR HEMOGLOBIN 33.4 pg (27.0-33.0); MEAN CORPUSCULAR HGB CONC 33.6 g/dl (32.0-36.5); MEAN CORPUSCULAR VOLUME 99.6 fl (80.0-96.0); MONO # 0.4 10^3/uL (0.0-0.8); MONO % 7.4 % (0.0-5.0); NEUTROPHILS # 2.9 10^3/uL (1.8-7.7); NEUTROPHILS % 59.5 % (36.0-66.0); PLATELET COUNT, AUTOMATED 179 10^3/uL (150-450); RED BLOOD COUNT 4.46 10^6/uL (4.00-5.40); WHITE BLOOD COUNT 4.9 10^3/uL (4.0-10.0)
[2018-08-10 12:48] LABS: ALBUMIN 3.4 GM/DL (3.2-5.2); ALT/SGPT 25 U/L (12-78); BILIRUBIN,TOTAL 0.4 MG/DL (0.2-1.0); BLOOD UREA NITROGEN 9 MG/DL (7-18); CALCIUM LEVEL 8.7 MG/DL (8.5-10.1); CARBON DIOXIDE LEVEL 31 MEQ/L (21-32); CHLORIDE LEVEL 105 MEQ/L (98-107); CHOLESTEROL LEVEL 110 MG/DL (<200); CHOLESTEROL RISK RATIO 2.894 (<5); CPK CREATINE PHOSPHOKINASE 81 U/L (26-192); CREATININE FOR GFR 0.76 MG/DL (0.55-1.30); GLOMERULAR FILTRATION RATE > 60.0 (>51); GLUCOSE, FASTING 87 MG/DL (70-100); HDL CHOLESTEROL 38 MG/DL (>40); LDL CHOLESTEROL 57 MG/DL (<100); NON-HDL-C 72 MG/DL; POTASSIUM SERUM 3.9 MEQ/L (3.5-5.1); SODIUM LEVEL 140 MEQ/L (136-145); TOTAL PROTEIN 7.1 GM/DL (6.4-8.2); TRIGLYCERIDES LEVEL 75 MG/DL (<150)
[2018-08-10 12:49] LABS: VITAMIN B12 LEVEL 534 PG/ML (247-911)
[2018-08-10 13:24] LABS: HEMOGLOBIN A1c 5.6 %
[2018-08-12 00:08] LABS: INSULIN LEVEL 8.3 uIU/mL (2.6-24.9)
== END ==
LOC: M SFHCPLAZ 09:11
PROVIDERS: ATTEND Family Medicine
DX: E53.8 Deficiency of other specified B group vitamins (principal); E78.5 Hyperlipidemia, unspecified

== ENCOUNTER → 2018-08-20 | Outpatient (CLI) | payer OTHER ==
--- NOTE | 2018-08-20 12:04 | REP ---
MR angiography the brain without contrast: History: Memory loss. Para send brain MRI study is from August 03, 2018. Technique: 3-D [id number]-[id number] MR angiography of the brain is acquired in the usual fashion and maximal intensity projection images were generated in rotational format about the vertical and horizontal axes. In addition, source axial T1-weighted images are viewed in cine mode. MR angiographic findings: The distal vertebral arteries are patent and co-dominant. Basilar artery is a little tortuous but widely patent. The posterior cerebral and superior cerebellar vessels are normal and symmetric. The distal internal carotid arteries are unremarkable. Anterior and middle cerebral arteries appear intact. There is no visible bautista aneurysm or arteriovenous malformation. Impression: Unremarkable MR angiography the brain. Electronically Signed by Yang Casas MD 08/20/2018 11:54 A
== END ==
LOC: M RAD 10:54
PROVIDERS: ATTEND Family Medicine
DX: R41.3 Other amnesia (principal)

== ENCOUNTER → 2018-10-26 | Outpatient (CLI) | payer OTHER ==
[~2018-10-26] MED LIST changes: -ALBU17IN2 INH; +AMIT75TA PO; +ASPI-161 PO; +ATOR1TAB21 PO; +AZEL0.1S; +BENZ-18 PO; +CEFU1TAB22; +CEFU50TA PO; +CYAN500T3 PO; +FLON1SPR; +FLUO20CA20 PO; -FLUO20CA8 PO; +FLUO60TA3 PO; +IBUP-1720 PO; +OMEP1CAP73; +OMEP1CAP73 PO; -OMEP20CA3; -OMEP20CA3 PO; +PHEN30CA2 PO; +PRED20TA PO; +PROV108A INH; +PROZ10CA7 PO; +SYNT88TA2 PO; +VENTAER INH
--- NOTE | 2018-10-26 15:40 | REPMRS ---
Patient History The patient states she had a clinical breast exam in 09/2018. Patient is postmenopausal, has history of large b-cell lymphoma cancer at age 46, and had previous chemotherapy at age 46. No known family history of cancer. Taking unspecified hormones for 11 years. Digital Woman Screen Mammo: October 26, 2018 - Exam #: [id number] Bilateral CC and MLO view(s) were taken. Technologist: Shari Lui, Technologist Prior study comparison: July 21, 2016, digital woman screen mammo performed at [facility]. September 25, 2013, digital woman screen mammo performed at [facility] [employer]. September 06, 2012, digital woman screen mammo performed at [facility] [employer]. FINDINGS: There are scattered fibroglandular densities. There is a moderate amount of residual fibroglandular tissue which is fairly symmetric. There is no interval development of dominant mass, architectural distortion, or grouped microcalcification typical of malignancy. There has been no change in the appearance of the mammogram from the prior studies. 3-D tomosynthesis shows no additional findings. Assessment: BI-RADS/ACR category 1 mammogram. Negative Mammogram. Recommendation Routine screening mammogram of both breasts in 1 year (for women over age 40). This patient's Lifetime Breast Cancer RIsk is estimated at 5.3 %. This mammogram was interpreted with the aid of an FDA-approved computer-aided dectection system. Electronically Signed By: Ty Casas MD 10/26/18 1959
== END ==
LOC: M WHC 14:00
PROVIDERS: ATTEND Family Medicine
DX: Z12.31 Encounter for screening mammogram for malignant neoplasm of breast (principal); Z78.0 Asymptomatic menopausal state; Z92.21 Personal history of antineoplastic chemotherapy; Z92.23 Personal history of estrogen therapy

== ENCOUNTER → 2018-10-26 | Outpatient (REF) | payer OTHER ==
[~2018-10-26] MED LIST changes: -AMIT75TA PO; -ASPI-161 PO; -ATOR1TAB21 PO; -AZEL0.1S; -BENZ-18 PO; -CEFU1TAB22; -CEFU50TA PO; -CYAN500T3 PO; -FLON1SPR; -FLUO20CA20 PO; +FLUO20CA8 PO; -FLUO60TA3 PO; -IBUP-1720 PO; -OMEP1CAP73; -OMEP1CAP73 PO; +OMEP20CA4; +OMEP20CA4 PO; -PHEN30CA2 PO; -PRED20TA PO; -PROZ10CA7 PO; -SYNT88TA2 PO; -VENTAER INH
[2018-10-31 15:18] LABS: HPV HYBRID CAPTURE II Negative (Negative)
== END ==
LOC: M LAB REF 17:05
PROVIDERS: ATTEND Nurse Practitioner Women's Health
DX: Z12.4 Encounter for screening for malignant neoplasm of cervix (principal)

== ENCOUNTER → 2018-10-26 | Outpatient (REF) | payer OTHER ==
[~2018-10-26] MED LIST changes: +AMIT75TA PO; +ASPI-161 PO; +ATOR1TAB21 PO; +AZEL0.1S; +BENZ-18 PO; +CEFU1TAB22; +CEFU50TA PO; +CYAN500T3 PO; +FLON1SPR; +FLUO20CA20 PO; -FLUO20CA8 PO; +FLUO60TA3 PO; +IBUP-1720 PO; +OMEP1CAP73; +OMEP1CAP73 PO; -OMEP20CA4; -OMEP20CA4 PO; +PHEN30CA2 PO; +PRED20TA PO; +PROZ10CA7 PO; +SYNT88TA2 PO; +VENTAER INH
== END ==
LOC: M SFHCWAGY 14:23
PROVIDERS: ATTEND Nurse Practitioner Women's Health
DX: Z12.4 Encounter for screening for malignant neoplasm of cervix (principal)

== ENCOUNTER → 2018-11-13 | Outpatient (CLI) | payer OTHER ==
[~2018-11-13] MED LIST changes: -AMIT75TA PO; -ASPI-161 PO; -ATOR1TAB21 PO; -AZEL0.1S; -BENZ-18 PO; -CEFU1TAB22; -CEFU50TA PO; -CYAN500T3 PO; -FLON1SPR; -FLUO20CA20 PO; +FLUO20CA8 PO; -FLUO60TA3 PO; -IBUP-1720 PO; -OMEP1CAP73; -OMEP1CAP73 PO; +OMEP20CA4; +OMEP20CA4 PO; -PHEN30CA2 PO; -PRED20TA PO; -PROZ10CA7 PO; -SYNT88TA2 PO; -VENTAER INH
--- NOTE | 2018-11-14 04:36 | REP ---
Clinical: Left adnexal tenderness Technique: Transabdominal pelvic ultrasound followed by transvaginal examination for better evaluation of the endometrium and adnexa with color Doppler evaluation of the ovaries. Findings: Bladder is unremarkable and measures 8.8 x 4.6 x 4.6 cm . Heterogeneous anteverted uterus measures 6.5 x 3.2 x 4.7 cm. The endometrial complex appears heterogeneous with calcifications and thickened to 9.4 mm. Bilateral ovaries are normal in appearance and vascularity without evidence for torsion. Right ovary measures 1.8 x 1.0 x 1.8 cm ; R I = 0.52 . Left ovary measures 1.8 x 0.8 x 1.3 cm ; R I = 0.49 . No pelvic free fluid or adnexal mass lesion. Impression: 1. Heterogeneous thickened endometrium without discrete definable lesion. 2. Otherwise normal pelvic ultrasound.
== END ==
LOC: M WHC 13:49
PROVIDERS: ATTEND Nurse Practitioner Women's Health
DX: R10.2 Pelvic and perineal pain (principal)

== ENCOUNTER → 2018-11-28 | Outpatient (REF) | payer OTHER | LOC: M SFHCWAGY 10:55 | PROVIDERS: ATTEND Nurse Practitioner Women's Health | DX: R93.89 Abnormal findings on diagnostic imaging of other specified body structures (principal) ==

== ENCOUNTER → 2018-12-10 | Outpatient (REF) | payer OTHER ==
[2018-12-10 16:18] LABS: APPEARANCE, URINE CLOUDY (CLEAR); BACTERIA, URINE AUTO 3+ (NEGATIVE); BILIRUBIN, URINE AUTO NEGATIVE (NEGATIVE); BLOOD, URINE BLOOD 1+ (NEGATIVE); COLOR, URINE YELLOW (YELLOW); GLUCOSE, URINE (UA) AUTO NEGATIVE (NEGATIVE); KETONE, URINE AUTO NEGATIVE (NEGATIVE); LEUKOCYTE ESTERASE, URINE AUTO 2+ (NEGATIVE); MUCUS, URINE SMALL (NEGATIVE); NITRITE, URINE AUTO NEGATIVE (NEGATIVE); PROTEIN, URINE AUTO NEGATIVE (NEGATIVE); RBC, URINE AUTO 3 /HPF (0-3); SPECIFIC GRAVITY URINE AUTO 1.016 (1.002-1.035); SQUAMOUS EPITHELIAL CELL UR AU 10 /HPF (0-6); UROBILINOGEN, URINE AUTO 0.2 mg/dL (0.0-2.0); WBC, URINE AUTO 7 /HPF (0-3)
[2018-12-10 16:21] LABS: BASO # 0.1 10^3/uL (0.0-0.2); BASO % 1.1 % (0.0-1.0); EOS # 0.5 10^3/uL (0.0-0.5); HEMATOCRIT 43.1 % (36.0-47.0); HEMOGLOBIN 13.9 g/dl (12.0-15.5); LYMPH # 1.8 10^3/uL (1.5-5.0); LYMPH % 28.7 % (24.0-44.0); MEAN CORPUSCULAR HEMOGLOBIN 31.9 pg (27.0-33.0); MEAN CORPUSCULAR HGB CONC 32.3 g/dl (32.0-36.5); MEAN CORPUSCULAR VOLUME 98.9 fl (80.0-96.0); MONO # 0.5 10^3/uL (0.0-0.8); MONO % 7.8 % (0.0-5.0); NEUTROPHILS # 3.3 10^3/uL (1.5-8.5); NEUTROPHILS % 54.2 % (36.0-66.0); PLATELET COUNT, AUTOMATED 198 10^3/uL (150-450); RED BLOOD COUNT 4.36 10^6/uL (4.00-5.40); WHITE BLOOD COUNT 6.2 10^3/uL (4.0-10.0)
[2018-12-10 16:28] LABS: ALBUMIN 3.7 GM/DL (3.2-5.2); BILIRUBIN,TOTAL 0.4 MG/DL (0.2-1.0); CALCIUM LEVEL 8.7 MG/DL (8.8-10.2); CREATININE FOR GFR 1.03 MG/DL (0.55-1.30); FREE T4 0.9 NG/DL (0.76-1.46); GLOMERULAR FILTRATION RATE 58.2 (>45); POTASSIUM SERUM 4.2 MEQ/L (3.5-5.1); THYROID STIMULATING HORMONE 5.01 uIU/ML (0.358-3.740); TOTAL PROTEIN 7.3 GM/DL (6.4-8.2)
[2018-12-10 16:59] LABS: MALB URINE SIEMENS 8.6 MG/L; MAU/CREAT RATIO 4.1 MCG/MG (0.0-30.0)
== END ==
LOC: M SFHCPLAZ 13:29
PROVIDERS: ATTEND Family Medicine
DX: E03.9 Hypothyroidism, unspecified (principal); E55.9 Vitamin D deficiency, unspecified; D75.89 Other specified diseases of blood and blood-forming organs; I10 Essential (primary) hypertension

== ENCOUNTER → 2018-12-13 | Outpatient (REF) | payer OTHER ==
[2018-12-13 15:58] LABS: BASO # 0.1 10^3/uL (0.0-0.2); BASO % 0.9 % (0.0-1.0); EOS # 0.6 10^3/uL (0.0-0.5); EOS % 9.9 % (0.0-3.0); HEMATOCRIT 42.9 % (36.0-47.0); HEMOGLOBIN 14.4 g/dl (12.0-15.5); LYMPH # 1.5 10^3/uL (1.5-5.0); MEAN CORPUSCULAR HGB CONC 33.6 g/dl (32.0-36.5); MEAN CORPUSCULAR VOLUME 101.4 fl (80.0-96.0); MONO # 0.5 10^3/uL (0.0-0.8); MONO % 8.9 % (0.0-5.0); NEUTROPHILS % 52.9 % (36.0-66.0); PLATELET COUNT, AUTOMATED 186 10^3/uL (150-450); RED BLOOD COUNT 4.23 10^6/uL (4.00-5.40); WHITE BLOOD COUNT 5.6 10^3/uL (4.0-10.0)
[2018-12-13 16:19] LABS: ALBUMIN 3.7 GM/DL (3.2-5.2); ALT/SGPT 28 U/L (12-78); BILIRUBIN,TOTAL 0.7 MG/DL (0.2-1.0); BLOOD UREA NITROGEN 12 MG/DL (7-18); CALCIUM LEVEL 8.9 MG/DL (8.8-10.2); CARBON DIOXIDE LEVEL 30 MEQ/L (21-32); CHLORIDE LEVEL 105 MEQ/L (98-107); GLOMERULAR FILTRATION RATE > 60.0 (>45); GLUCOSE, FASTING 78 MG/DL (70-100); SODIUM LEVEL 140 MEQ/L (136-145); TOTAL PROTEIN 7.3 GM/DL (6.4-8.2); VITAMIN B12 LEVEL 1099 PG/ML (247-911)
== END ==
LOC: M SFHCPLAZ 13:28
PROVIDERS: ATTEND Family Medicine
DX: E53.8 Deficiency of other specified B group vitamins (principal); E03.9 Hypothyroidism, unspecified

== ENCOUNTER → 2018-12-14 | Outpatient (REF) | payer OTHER ==
[2018-12-14 15:53] LABS: C REACTIVE PROTEIN QUANTITATIV < 0.30 MG/DL (0.00-0.30)
[2018-12-18 10:11] LABS: DRVV SCREEN 38.9 SEC; PTT LUPUS TYPE ANTICOAG SCREEN 0.9 (0-1.2)
[2018-12-21 00:10] LABS: ANA (HEP2) Negative (.); ARSENIC BLOOD 12 ug/L (2-23); LEAD BLOOD None Detected ug/dL (0-4); Lyme Disease IgG Ab 18 kDa Ban Absent (.); Lyme Disease IgG Ab 23 kDa Ban Absent (.); Lyme Disease IgG Ab 28 kDa Ban Present (.); Lyme Disease IgG Ab 30 kDa Ban Absent (.); Lyme Disease IgG Ab 39 kDa Ban Absent (.); Lyme Disease IgG Ab 41 kDa Ban Absent (.); Lyme Disease IgG Ab 45 kDa Ban Absent (.); Lyme Disease IgG Ab 58 kDa Ban Absent (.); Lyme Disease IgG Ab 66 kDa Ban Absent (.); Lyme Disease IgG Ab 93 kDa Ban Absent (.); Lyme Disease IgG West Blot Int Negative (.); Lyme Disease IgG/IgM Antibodie <0.91 ISR (0.00-0.90); Lyme Disease IgM Ab 23 kDa Ban Absent (.); Lyme Disease IgM Ab 39 kDa Ban Absent (.); Lyme Disease IgM Ab 41 kDa Ban Absent (.); Lyme Disease IgM Ab Quantitati 0.97 index (0.00-0.79); Lyme Disease IgM West Blot Int Negative (.); MERCURY BLOOD None Detected ug/L (0.0-14.9); VITAMIN B1 LEVEL WHOLE BLOOD 134.7 nmol/L (66.5-200.0); VITAMIN B6,PYRIDOXAL PHOSPHATE 6.5 ug/L (2.0-32.8); VITAMIN E(ALPHA TOCOPHEROL) 6.6 mg/L (9.0-29.0); VITAMIN E(GAMMA TOCOPHEROL) 1.3 mg/L (0.5-4.9)
== END ==
LOC: M SFHCPLAZ 13:42
PROVIDERS: ATTEND Family Medicine
DX: R41.3 Other amnesia (principal)

== ENCOUNTER → 2019-01-01 | Outpatient (CLI) | payer OTHER ==
--- NOTE | 2019-01-02 05:46 | REP ---
Clinical: Thyroid nodule. Technique: Real time reese scale and color evaluation using linear high frequency transducer. Comparison: 01/06/2016 Findings: Right thyroid lobe measures 3.7 x 1.2 x 1.3 cm and includes 7 x 4 x 7 mm isoechoic stable nonspecific nodule. Left lobe measures 3.6 x 1.1 x 1.0 cm without nodule. Isthmus measures 2.3 mm in width. Impression: Stable nonspecific nodule in the right thyroid lobe. Electronically Signed by Art Shields MD 01/02/2019 05:37 A
== END ==
LOC: M RAD 10:53
PROVIDERS: ATTEND Family Medicine
DX: E04.1 Nontoxic single thyroid nodule (principal)

== ENCOUNTER → 2019-02-25 | Outpatient (REF) | payer OTHER ==
[~2019-02-25] MED LIST changes: +AMIT75TA PO; +ASPI-161 PO; +ATOR1TAB21 PO; +AZEL0.1S; +BENZ-18 PO; +CEFU1TAB22; +CEFU50TA PO; +CYAN500T3 PO; +FLON1SPR; +FLUO20CA20 PO; -FLUO20CA8 PO; +FLUO60TA3 PO; +IBUP-1720 PO; +OMEP-172; +OMEP-172 PO; -OMEP20CA4; -OMEP20CA4 PO; +PHEN30CA2 PO; +PRED20TA PO; +PROZ10CA7 PO; +SYNT88TA2 PO; +VENTAER INH
[2019-02-25 18:02] LABS: INFLUENZA A AMPLIFICATION NEGATIVE (NEGATIVE); INFLUENZA B AMPLIFICATION NEGATIVE (NEGATIVE)
== END ==
LOC: M LAB REF 16:28
PROVIDERS: ATTEND Physician Assistant Medical
DX: J11.1 Influenza due to unidentified influenza virus with other respiratory manifestations (principal)

== ENCOUNTER 2019-02-27 17:41 | Inpatient (IN) | payer OTHER ==
[~2019-02-27] VITALS: Ht 172.7 cm; Wt 97.8 kg
[~2019-02-27 17:41] MED LIST changes: -AMIT75TA PO; -ASPI-161 PO; -ATOR1TAB21 PO; -AZEL0.1S; -BENZ-18 PO; -CEFU1TAB22; -CEFU50TA PO; -CYAN500T3 PO; -FLON1SPR; -FLUO60TA3 PO; -IBUP-1720 PO; -PHEN30CA2 PO; -PRED20TA PO; -PROZ10CA7 PO; -SYNT88TA2 PO; -VENTAER INH
[2019-02-27] MEDS ORDERED: PROZ10CA7 PO (17:53)
[2019-02-27] MEDS ORDERED: CEFU1TAB22 (17:53)
[2019-02-27 18:12] LABS: VENOUS BASE EXCESS -1.9 (-2.0-2.0); VENOUS HCO3 19.8 MEQ/L (23.0-27.0); VENOUS O2 SATURATION 93.9 % (60.0-80.0); VENOUS PARTIAL PRESSURE CO2 26.6 mmHg (38.0-50.0); VENOUS PARTIAL PRESSURE O2 63.5 mmHg (30.0-50.0); VENOUS STANDARD HCO3 22.8 MEQ/L; VENOUS TOTAL CO2 20.6 MEQ/L (24.0-28.0)
[2019-02-27] MEDS ORDERED: NS 1,000 ML IV SCH (18:12)
[2019-02-27 18:15] LABS: BASO % 0.8 % (0.0-1.0); EOS # 0.4 10^3/uL (0.0-0.5); EOS % 8.3 % (0.0-3.0); HEMATOCRIT 42.9 % (36.0-47.0); LYMPH # 1.2 10^3/uL (1.5-5.0); LYMPH % 24.2 % (24.0-44.0); MEAN CORPUSCULAR HEMOGLOBIN 31.5 pg (27.0-33.0); MEAN CORPUSCULAR HGB CONC 32.6 g/dl (32.0-36.5); MEAN CORPUSCULAR VOLUME 96.6 fl (80.0-96.0); MONO # 0.6 10^3/uL (0.0-0.8); NEUTROPHILS # 2.8 10^3/uL (1.5-8.5); NEUTROPHILS % 55.5 % (36.0-66.0); PLATELET COUNT, AUTOMATED 164 10^3/uL (150-450); RED BLOOD COUNT 4.44 10^6/uL (4.00-5.40); WHITE BLOOD COUNT 5.1 10^3/uL (4.0-10.0)
[2019-02-27] MEDS ORDERED: methylPREDNISolone INJ 125 MG/2 ML VIAL (J2930) IV ONE (18:15)
[2019-02-27] MEDS ORDERED: IPRATROPIUM 0.5MG/ALBUTEROL 2.5MG INH SOL UD 3ML (DUONEB)(J7620) NEB PRN (18:15)
[2019-02-27 18:46] LABS: BLOOD UREA NITROGEN 5 MG/DL (7-18); CALCIUM LEVEL 8.4 MG/DL (8.8-10.2); CARBON DIOXIDE LEVEL 21 MEQ/L (21-32); CHLORIDE LEVEL 109 MEQ/L (98-107); CK-MB VALUE MASS 3.7 NG/ML (<3.6); CPK CREATINE PHOSPHOKINASE 397 U/L (26-192); CREATININE FOR GFR 0.74 MG/DL (0.55-1.30); GLOMERULAR FILTRATION RATE > 60.0 (>45); GLUCOSE, FASTING 79 MG/DL (70-100); MB/CK RELATIVE INDEX 0.93 (< OR =4); POTASSIUM SERUM 3.4 MEQ/L (3.5-5.1); SODIUM LEVEL 141 MEQ/L (136-145); TROPONIN I < 0.02 NG/ML (< 0.10)
--- NOTE | 2019-02-27 19:08 | REP ---
Clinical: Cough and dyspnea . Comparison: 04/19/2018 . Technique: PA and lateral. Findings: The mediastinum and cardiac silhouette are normal. The lung coreas are clear and without acute consolidation, effusion, or pneumothorax. The skeletal structures are intact and normal. Impression: 1. No acute cardiopulmonary process. Electronically Signed by Art Shields MD 02/27/2019 06:59 P
[2019-02-27] MEDS ORDERED: IPRATROPIUM 0.5MG/ALBUTEROL 2.5MG INH SOL UD 3ML (DUONEB)(J7620) NEB SCH (20:00)
[2019-02-27] MEDS: IPRATROPIUM 0.5MG/ALBUTEROL 2.5MG INH SOL UD 3ML (DUONEB)(J7620) NEB SCH (20:00)
[2019-02-27] MEDS ORDERED: LEVALBUTEROL 1.25 MG/0.5 ML CONCENTRATE NEB NEB ONE (20:00)
[2019-02-27] MEDS ORDERED: KETOROLAC 30 MG/ML VIAL (J1885) IV ONE (20:00)
--- NOTE | 2019-02-27 20:24 | ECGEPIP ---
[facility] - ED Test Date: 2019-02-27 Pat Name: MISBAH BAUTISTA Department: Room: - Gender: Female Submarine Operator: [facility] : 1960 Requested By: CONSUELO Gutierrez Order Number: [id number] Reading MD: Chris Dowd Measurements Intervals [place] Rate: 81 P: 60 NV: 184 QRS: 8 QRSD: 97 T: 85 QT: 423 QTc: 492 Interpretive Statements SINUS RHYTHM WITH SINUS ARRHYTHMIA POSSIBLE INCOMPLETE RIGHT BUNDLE BRANCH BLOCK POOR R WAVE PROGRESSION NONSPECIFIC ST & T-WAVE ABNORMALITY SIMILAR TO 01/28/18 Electronically Signed on 02-27-2019 20:24:10 EST by Chris Dowd
--- NOTE | 2019-02-27 20:28 | HPEPDOC ---
[facility] Medical History & Physical Date of Admission Feb 27, 2019 Date of Service: Feb 27, 2019 Primary Care Physician: Evan Smith M.D. Attending Physician: Bernard Avendaño MD History and Physical TIME OF SERVICE: 8:27 PM CHIEF COMPLAINT: shortness of breath HISTORY OF PRESENT ILLNESS: This is a 58-year-old female who presents with complaints of shortness of breath for several days associated with a cough productive of green sputum, chills, and mid, 8/10 in severity, sharp, chest pain that is made worse by coughing. She went to an urgent care center yesterday, was diagnosed with bronchitis and given antibiotics. She came to the hospital today because the shortness of breath was worse. She denies being exposed to smoke, denies having fevers. 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 She is also complaining of numbness in both feet and the right hand. REVIEW OF SYSTEMS: 12 point review of systems negative except as listed in HPI PAST MEDICAL/ SURGICAL HISTORY: Asthma (per clinic notes) / COPD ? 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 HOME MEDICATIONS: Please see below PHYSICAL EXAMINATION: VITAL SIGNS: Please see below GEN: well nourished / well developed/ NAD INTEGUMENT: she does not have facial plethora but her face is slightly flushed HEENT:NCAT / lips acyanotic / she does not have pursed lip breathing /NC in place mucus membranes slightly dry and pink / sclera anicteric CVS: RRR/ radial pulses intact / no lower extremity edema LUNGS: there is no nasal flaring /she is able to speak full sentences without stopping to take a breath / she has a wet cough / there is decreased respiratory expansion/ lungs are hyper resonant on percussion / she has expiratory wheezing ABDOMEN: there are no masses or lesions / bowel sounds are present / the abdomen is tympanic on percussion, soft & not tender with palpation MSK/EXTREMITIES: There is no finger nail clubbing/ range of motion intact in all 4 extremities NEURO: CN 2-12 are grossly intact / speech is not dysarthric PSYCH: alert and oriented to person place and time/ able to understand and follow all commands LABORATORY DATA: See below. IMAGING: Chest x-ray " Impression: 1. No acute cardiopulmonary process" MICROBIOLOGY: Please see below. ASSESSMENT: Ms. Garvey is a 58-year-old with a past medical history of BLAZE, GERD, Crohn's (no longer on meds), hypothyroidism, depression, OA, CAD, and dyslipid emia who will be admitted for management of dyspnea 2/2 RSV. PLAN: 1.Dyspnea 2/2 RSV She is a former smoker. Per d/w the ER provider she has acute COPD, but the patient denies being told she has COPD. The clinic notes state that she has Asthma Her O2 sats are within normal limits. The chest x-ray, VBG, troponin, d-dimer, and influenza A&B were unremarkable but RSV was positive. EKG showed normal sinus rhythm with a heart rate of 81 Plan: admit to medical floor / Acapella/ supplemental O2 / aspiration precautions / Dunebs Q6H, Levalbuterol Q1HP, Prednisone + PPI (she received Solu-Medrol in the ER) / Zen Pepper / the day time team can reach out the patient's PCP to request a copy of her PFTs 2. Bilateral lower extremity and right upper extremity paresthesia Cause to be determined She has had the symptoms for several months. Her A1c was 5.6 in July. She has a hx of B12 deficiency but is on a B12 supplement Plan: f/u repeat A1C /if this is negative she can f/u w her PCP to discuss EMG and or Neurology referral on an out patient basis 3. Mild hypokalemia Possibly due to albuterol Plan: Replete potassium/ f/u magnesium 4. Chronic CAD / Dyslpidemia Plan: c/w aspirin, atorvastatin, and atenolol 5. Chronic hypertension. Plan: c/w atenolol 6. Depression Plan: c/w amitriptyline and fluoxetine 7. BLAZE Plan: She can use her own CPAP 8. Hypothyroidism Plan: c/w levothyroxine 9. GERD Plan: c/w omeprazole 10. Hip OA Plan: c/w ibuprofen 11. Obesity BMI is 32.1 This complicates her care She has coexisting sleep apnea. Plan: c/w phentermine / can f/u w PCP for manager business information consult & referral for Bariatric Surgeon / recommend cardiovascular exercise for 40 min 4-5 days a week DVT PROPHYLAXIS: Lovenox DISPOSITION: Likely home after more than 2 midnight's stay Vital Signs Vital Signs Date Time Temp Pulse Resp B/P (MAP) Pulse Ox O2 Delivery O2 Flow Rate FiO2 02/27/19 18:05 Room Air 02/27/19 17:54 97.0 87 22 138/87 (104) 93 Laboratory Data Labs 24H Laboratory Tests 2 02/27/19 18:05: Immature Granulocyte % (Auto) 0.2, Neutrophils (%) (Auto) 55.5, Lymphocytes (%) (Auto) 24.2, Monocytes (%) (Auto) 11.0H, Eosinophils (%) (Auto) 8.3H, Basophils (%) (Auto) 0.8, Neutrophils # (Auto) 2.8, Lymphocytes # (Auto) 1.2L, Monocytes # (Auto) 0.6, Eosinophils # (Auto) 0.4, Basophils # (Auto) 0.0, Nucleated Red Blood Cells % (auto) 0.0, Blood Gas Bicarbonate Standard 22.8, Venous Blood pH 7.490H, Venous Blood Partial Pressure CO2 26.6L, Venous Blood Partial Pressure O2 63.5H, Venous Blood Total Carbon Dioxide 20.6L, Venous Blood HCO3 19.8L, Venous Blood Oxygen Saturation 93.9H, Venous Blood Base Excess -1.9, Anion Gap 11, Glomerular Filtration Rate > 60.0, Lactic Acid Level 1.8, Calcium Level 8.4L, Total Creatine Kinase 397H, Creatine Kinase MB 3.7H, Creatine Kinase MB Relative Index 0.93, Troponin I < 0.02 CBC/BMP Laboratory Tests 02/27/19 18:05 Microbiology Microbiology 02/27/19 Blood Culture, Received Pending Home Medications Scheduled Amitriptyline HCl (Amitriptyline HCl) 75 Mg Tablet, 75 MG PO QHS Aspirin (Aspirin EC) 81 Mg Tablet.dr, 81 MG PO QHS Atenolol (Atenolol) 25 Mg Tablet, 25 MG PO QHS Atorvastatin Calcium (Atorvastatin Calcium) 20 Mg Tablet, 20 MG PO QHS Azelastine HCl (Azelastine HCl) 0.1% Butternut.pump, 2 SPRAY NA DAILY Cefuroxime Axetil (Cefuroxime) 500 Mg Tablet, 500 MG PO BID Cyanocobalamin (Vitamin B-12) (Vitamin B-12) 500 Mcg Tablet, 500 MCG PO QHS Ergocalciferol (Vitamin D2) (Vitamin D2) 50,000 Units Cap, 50,000 UNITS PO 1XWK MONDAY MORNING Estradiol/Norethindrone Acet (Combipatch 0.05-0.25 mg Ptch) 1 Dis Dis, 1 PATCH TD 2XWK Fluoxetine HCl (Fluoxetine HCl) 60 Mg Tablet, 60 MG PO DAILY Fluticasone Propionate (Flonase Allergy Relief) 9.9 Ml Butternut.susp, 2 SPRAYS NA DAILY Levothyroxine Sodium (Synthroid) 88 Mcg Tablet, 88 MCG PO DAILY Lubiprostone (Amitiza) 24 Mcg Cap, 24 MCG PO BID Omeprazole (Omeprazole) 20 Mg Cap, 20 MG PO DAILY Phentermine HCl (Phentermine HCl) 30 Mg Capsule, 30 MG PO DAILY Scheduled PRN Albuterol Sulfate (Ventolin Hfa) 18 Gm Hfa.aer.ad, 2 PUFF INH Q4H PRN for SHORTNESS OF BREATH Ibuprofen (Ibuprofen) 200 Mg Tablet, 600 MG PO Q6H PRN for HEADACHE OR PAIN Allergies Coded Allergies: vancomycin (Verified Allergy, Severe, hearing loss, 02/27/19) acetaminophen (Verified Adverse Reaction, Mild, vomiting, 02/27/19) venlafaxine (Verified Adverse Reaction, Unknown, visual changes, 02/27/19) A-FIB/CHADSVASC A-FIB History Current/History of A-Fib/PAF?: No Current PO Anticoag Therapy: ESTRELLA Perea MD Feb 27, 2019 20:28
[2019-02-27] MEDS ORDERED: MOM 30ML SUSPENSION UDC PO PRN (20:30)
[2019-02-27] MEDS ORDERED: MAALOX 30 ML SUSP *UDC PO PRN (20:30)
[2019-02-27] MEDS ORDERED: ALBUTEROL SULFATE 2.5 MG/0.5 ML INH NEB SOLN NEB PRN (20:30)
[2019-02-27] MEDS ORDERED: VENTAER INH (20:42)
[2019-02-27] MEDS ORDERED: LEVALBUTEROL 1.25 MG/0.5 ML CONCENTRATE NEB NEB PRN (20:45)
[2019-02-27] MEDS ORDERED: BENZONATATE 100 MG CAP PO PRN (20:45)
[2019-02-27] MEDS ORDERED: ATOR1TAB21 PO (20:50)
[2019-02-27] MEDS ORDERED: ASPI-161 PO (20:50)
[2019-02-27] MEDS ORDERED: AMIT75TA PO (20:50)
[2019-02-27] MEDS ORDERED: PHEN30CA2 PO (20:50)
[2019-02-27] MEDS ORDERED: VITA50005 PO (20:50)
[2019-02-27] MEDS ORDERED: AZEL0.1S (20:50)
[2019-02-27] MEDS ORDERED: ATEN25TA PO (20:50)
[2019-02-27] MEDS ORDERED: IBUP-1720 PO (20:50)
[2019-02-27] MEDS ORDERED: CYAN500T3 PO (20:50)
[2019-02-27] MEDS ORDERED: FLUO60TA3 PO (20:50)
[2019-02-27] MEDS ORDERED: CEFU50TA PO (20:50)
[2019-02-27] MEDS ORDERED: SYNT88TA2 PO (20:50)
[2019-02-27] MEDS ORDERED: FLON1SPR (20:50)
[2019-02-27] MEDS ORDERED: POTASSIUM CHLORIDE 10 MEQ SR TABLET PO ONE (21:00)
[2019-02-27] MEDS ORDERED: LevoFLOXacin IV 500 MG in IV 1 EA IV SCH (21:00)
[2019-02-27 21:36] LABS: INFLUENZA A AMPLIFICATION NEGATIVE (NEGATIVE); INFLUENZA B AMPLIFICATION NEGATIVE (NEGATIVE)
[2019-02-27 22:00] VITALS: BP 156/92
[2019-02-27] MEDS: DOCUSATE SODIUM 100 MG CAP PO SCH (22:45)
[2019-02-27] MEDS: ASPIRIN 81 MG ENTERIC TAB PO SCH (22:45)
[2019-02-27] MEDS: ATORVASTATIN 20 MG TAB PO SCH (22:46)
[2019-02-27] MEDS: AMITRIPTYLINE 25 MG TAB PO SCH (22:46)
[2019-02-27] MEDS: CYANOCOBALAMIN 500 MCG TAB PO SCH (22:47)
[2019-02-27] MEDS: atenoloL 25 MG TAB PO SCH (22:47)
[2019-02-27] MEDS: ENOXAPARIN 40 MG/0.4 ML SYRINGE (J1650) SC SCH (22:47)
[2019-02-27] MEDS: IBUPROFEN 600 MG TAB PO PRN (22:49)
[2019-02-27] MEDS: guaiFENesin ER 600 MG TAB PO SCH (22:57)
[2019-02-28 01:39] VITALS: O2SAT 94
[2019-02-28 01:52] VITALS: BP 137/87
[2019-02-28 02:24] LABS: ABG BASE EXCESS -3.4 (-2.0-2.0); ABG O2 SATURATION 98.3 % (95.0-99.0); ABG PARTIAL PRESSURE O2 95.2 mmHg (75.0-100.0); ABG STANDARD HCO3 21.7 MEQ/L (22.0-26.0); ABG TOTAL CO2 16.5 MEQ/L (23.0-31.0); ABG pH (ARTERIAL) 7.559 UNITS (7.350-7.450)
[2019-02-28 02:26] LABS: ABG PARTIAL PRESSURE CO2 18.3 mmHg (35.0-45.0)
[2019-02-28 06:00] VITALS: BP 128/56
[2019-02-28] MEDS: LEVOTHYROXINE 88MCG TABLET (0.088 MG) PO SCH (06:16)
[2019-02-28 06:27] LABS: HEMOGLOBIN 13.6 g/dl (12.0-15.5); MEAN CORPUSCULAR HEMOGLOBIN 31.9 pg (27.0-33.0); MEAN CORPUSCULAR HGB CONC 33.2 g/dl (32.0-36.5); PLATELET COUNT, AUTOMATED 184 10^3/uL (150-450); RED BLOOD COUNT 4.27 10^6/uL (4.00-5.40); WHITE BLOOD COUNT 5.2 10^3/uL (4.0-10.0)
[2019-02-28 06:57] LABS: BLOOD UREA NITROGEN 7 MG/DL (7-18); CALCIUM LEVEL 8.8 MG/DL (8.8-10.2); CARBON DIOXIDE LEVEL 22 MEQ/L (21-32); CHLORIDE LEVEL 110 MEQ/L (98-107); CREATININE FOR GFR 0.81 MG/DL (0.55-1.30); GLOMERULAR FILTRATION RATE > 60.0 (>45); GLUCOSE, FASTING 104 MG/DL (70-100); MAGNESIUM LEVEL 1.7 MG/DL (1.8-2.4); SODIUM LEVEL 140 MEQ/L (136-145)
[2019-02-28 07:04] LABS: HEMOGLOBIN A1c 5.6 %
[2019-02-28] MEDS: IPRATROPIUM 0.5MG/ALBUTEROL 2.5MG INH SOL UD 3ML (DUONEB)(J7620) NEB SCH ×6 (07:36→23:13)
--- NOTE | 2019-02-28 08:37 | IPNPDOC ---
Subjective Date Seen The patient was seen on 02/28/19. Subjective Chief Complaint/HPI Breathing improved. No new symptoms Constitutional: Denies: Chills, Fever Pulmonary: Reports: Dyspnea (improving), Cough Cardiovascular: Denies: Chest Pain, Palpitations Gastrointestinal: Denies: Nausea, Vomiting, Abdominal Pain, Diarrhea, Constipation Objective Physical Examination General Exam: Positive: Alert, No Acute Distress Chest Exam: Positive: Clear to auscultation; Negative: Rales, Rhonchi, Wheezing Heart Exam: Positive: Rate Normal, Regular Rhythm Abdomen Exam: Positive: Normal bowel sounds, Soft; Negative: Tenderness Extremity Exam: Negative: Edema Assessment /Plan Problems (1) COPD exacerbation Status: Acute Response to Treatment: Improving Problem Text: improved with nebulizers and steroids. Wean oxygen ambulate If remains stable, could d/c home with nebulizer D/C abx since this seems to be viral in etiology with positive RSV screen (2) RSV bronchitis Status: Acute Problem Text: This acute and self-limited condition seems to have triggered her COPD exacerbation. Plan/VTE VTE Prophylaxis Ordered?: Yes (Lovenox) Plan Family Medicine Attending Note: I saw and examined Ms. Garvey, discussed with CODY Watt. Agree with her note as documented. When I saw her this afternoon she asked if she could be discharged home. She is primarily concerned because she is not sleeping well. I explained she needs to stay for another dose or two of intravenous steroid, but that I could help her with a sleep agent this evening. If she continues to improve we may be able to discharge tomorrow on oral steroids. 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) VS, I&O, 24H, Fishbone Vital Signs/I&O Vital Signs Date Time Temp Pulse Resp B/P (MAP) Pulse Ox O2 Delivery O2 Flow Rate FiO2 02/28/19 06:54 19 96 Nasal Cannula 2.0 02/28/19 06:17 71 02/28/19 06:00 98.5 128/56 (80) I&O- Last 24 Hours up to 6 AM 02/28/19 06:00 Intake Total 1300 ml Output Total 1225 ml Balance 75 ml Laboratory Data 24H LABS Laboratory Tests 2 02/27/19 18:05: Immature Granulocyte % (Auto) 0.2, Neutrophils (%) (Auto) 55.5, Lymphocytes (%) (Auto) 24.2, Monocytes (%) (Auto) 11.0H, Eosinophils (%) (Auto) 8.3H, Basophils (%) (Auto) 0.8, Neutrophils # (Auto) 2.8, Lymphocytes # (Auto) 1.2L, Monocytes # (Auto) 0.6, Eosinophils # (Auto) 0.4, Basophils # (Auto) 0.0, Nucleated Red Blood Cells % (auto) 0.0, Blood Gas Bicarbonate Standard 22.8, Venous Blood pH 7.490H, Venous Blood Partial Pressure CO2 26.6L, Venous Blood Partial Pressure O2 63.5H, Venous Blood Total Carbon Dioxide 20.6L, Venous Blood HCO3 19.8L, Venous Blood Oxygen Saturation 93.9H, Venous Blood Base Excess -1.9, Anion Gap 11, Glomerular Filtration Rate > 60.0, Lactic Acid Level 1.8, Calcium Level 8.4L, Total Creatine Kinase 397H, Creatine Kinase MB 3.7H, Creatine Kinase MB Relative Index 0.93, Troponin I < 0.02 02/27/19 21:01: Influenza Type A (RT-PCR) NEGATIVE, Influenza Type B (RT-PCR) NEGATIVE, Respiratory Syncytial Virus (RT-PCR POSITIVE 02/28/19 02:13: Blood Gas Bicarbonate Standard 21.7L, Arterial Blood pH 7.559H, Arterial Blood Partial Pressure CO2 18.3*L, Arterial Blood Partial Pressure O2 95.2, Arterial Blood Total CO2 16.5L, Arterial Blood HCO3 16.0L, Arterial Blood Base Excess - 3.4L, Arterial Blood Oxygen Saturation 98.3 02/28/19 02:21: D-Dimer, Quantitative 293.08, WJ-Ahj-X-Type Natriuretic Peptide 725H 02/28/19 06:08: Nucleated Red Blood Cells % (auto) 0.0, Anion Gap 8, Glomerular Filtration Rate > 60.0, Estimated Mean Plasma Glucose 114H, Hemoglobin A1c 5.6, Calcium Level 8.8, Magnesium Level 1.7L CBC/BMP Laboratory Tests 02/27/19 18:05 02/28/19 06:08 Microbiology Microbiology 02/27/19 Blood Culture, Received Pending SCOTT POLO PA-C Feb 28, 2019 8:37 am Evan Brito MD Feb 28, 2019 6:11 pm
[2019-02-28] MEDS: AZELASTINE 137MCG NASAL SPY 30 ML (ASTELIN) SCH (08:50)
[2019-02-28] MEDS: FLUTICASONE PROP 0.05% NASAL SPRAY 16 GM (FLONASE) SCH (08:51)
[2019-02-28] MEDS: FLUoxetine 20 MG CAP PO SCH (08:52)
[2019-02-28] MEDS: predniSONE 20 MG TAB PO SCH (08:52)
[2019-02-28] MEDS: guaiFENesin ER 600 MG TAB PO SCH ×2 (08:52→20:47)
[2019-02-28] MEDS: DOCUSATE SODIUM 100 MG CAP PO SCH ×2 (08:52→20:24)
[2019-02-28] MEDS: OMEPRAZOLE 20 MG CAP PO SCH (08:52)
[2019-02-28] MEDS ORDERED: PANTOPRAZOLE 40MG TAB (PROTONIX) PO SCH (09:00)
[2019-02-28 14:00] VITALS: BP 120/65
[2019-02-28] MEDS ORDERED: zolPIDEM TARTRATE 5 MG TAB PO PRN (16:45)
[2019-02-28] MEDS: AMITRIPTYLINE 25 MG TAB PO SCH (20:24)
[2019-02-28] MEDS: IBUPROFEN 600 MG TAB PO PRN (20:24)
[2019-02-28 20:25] VITALS: BP 128/74
[2019-02-28] MEDS: ASPIRIN 81 MG ENTERIC TAB PO SCH (20:25)
[2019-02-28] MEDS: CYANOCOBALAMIN 500 MCG TAB PO SCH (20:25)
[2019-02-28] MEDS: ATORVASTATIN 20 MG TAB PO SCH (20:25)
[2019-02-28] MEDS: atenoloL 25 MG TAB PO SCH (20:25)
[2019-02-28] MEDS: ENOXAPARIN 40 MG/0.4 ML SYRINGE (J1650) SC SCH (20:48)
[2019-02-28 22:00] VITALS: BP 114/64
[2019-03-01] MEDS: IPRATROPIUM 0.5MG/ALBUTEROL 2.5MG INH SOL UD 3ML (DUONEB)(J7620) NEB SCH ×3 (04:00→11:41)
[2019-03-01 06:00] VITALS: BP 117/65
[2019-03-01] MEDS: LEVOTHYROXINE 88MCG TABLET (0.088 MG) PO SCH (06:12)
[2019-03-01] MEDS: DOCUSATE SODIUM 100 MG CAP PO SCH (08:21)
[2019-03-01] MEDS: guaiFENesin ER 600 MG TAB PO SCH (08:22)
[2019-03-01] MEDS: FLUoxetine 20 MG CAP PO SCH (08:22)
[2019-03-01] MEDS: predniSONE 20 MG TAB PO SCH (08:22)
[2019-03-01] MEDS: AZELASTINE 137MCG NASAL SPY 30 ML (ASTELIN) SCH (08:22)
[2019-03-01] MEDS: OMEPRAZOLE 20 MG CAP PO SCH (08:22)
[2019-03-01] MEDS: FLUTICASONE PROP 0.05% NASAL SPRAY 16 GM (FLONASE) SCH (08:22)
[2019-03-01] MEDS ORDERED: PRED20TA PO (11:21)
[2019-03-01] MEDS ORDERED: BENZ-18 PO (11:22)
--- NOTE | 2019-03-01 14:12 | DSES ---
DATE OF ADMISSION: 02/27/2019 DATE OF DISCHARGE: 03/01/2019 BRIEF HISTORY AND PHYSICAL: The patient is a 58-year-old patient with a history of asthma and possibly chronic obstructive pulmonary disease (COPD) who presented with shortness of breath for several days associated with cough productive of green sputum, chills and sharp chest pain, 8 out of 10, worsened by coughing. He went to the urgent care and diagnosed with bronchitis, given antibiotics. He came to the hospital because of increased shortness of breath. LABORATORIES: On admission: White blood count 5, hemoglobin 14, platelets 164,000. Sodium 141, potassium 3.4, BUN 5, creatinine 0.7, glucose 79. CIP and troponin were unremarkable. D-dimer was normal. Chest x-ray showed no acute cardiopulmonary process. Blood cultures were negative. Influenza screen was negative. RSV screen was positive. HOSPITAL COURSE: The patient was admitted for an asthma exacerbation secondary to RSV and bronchitis. She was given IV Solu-Medrol and nebulized bronchodilators, initially treated with antibiotics but these have been discontinued due to the viral nature of her illness and she has been maintaining her oxygen saturations in the 90s on room air for over 24 hours. She has very little end expiratory wheezes on exam today and feels much better without shortness of breath or chest pain and is stable for discharge home. She does not have a nebulizer at home but is comfortable with her albuterol inhaler and will continue to use this as an outpatient on a scheduled basis three to four times a day to continue to manage and prevent recurrent bronchospasm. DISPOSITION: She is stable for discharge home. Followup with Dr. Smith next week. Diet regular. Activity as tolerate. MEDICATIONS: - benzonatate 200 mg every 8 hours as needed for cough - prednisone 40 mg daily for 5 days - albuterol Ventolin HFA 2 puffs every 6 hours and as needed for shortness of breath - amitriptyline 75 mg at bedtime - aspirin 81 mg daily - atenolol 25 mg daily - atorvastatin 20 mg daily - Azelastine two sprays per nostril daily - B12 500 mcg daily - vitamin D 50,000 international units weekly - estradiol one patch two times a week - fluoxetine 60 mg daily - Flonase two sprays daily - ibuprofen 600 mg as needed for headache - levothyroxine 88 mcg daily - Amitiza 25 mcg twice a day - omeprazole 20 mg daily - phentermine 30 mg daily DISCHARGE DIAGNOSIS: Asthma exacerbation secondary to RSV bronchitis.
== END 2019-03-01 12:25 | disposition home or self-care (01) | DRG 202 ==
LOC: M ED 17:41 → EDBD 17:41 → M ED INP 20:23 → ENRESERV 20:57 → M MSPAV 21:36
PROVIDERS: ADMIT Internal Medicine; ATTEND Family Medicine
DX: J20.5 Acute bronchitis due to respiratory syncytial virus (principal); J45.901 Unspecified asthma with (acute) exacerbation; J44.9 Chronic obstructive pulmonary disease, unspecified; E87.6 Hypokalemia; I25.10 Atherosclerotic heart disease of native coronary artery without angina pectoris; E78.5 Hyperlipidemia, unspecified; I10 Essential (primary) hypertension; G47.33 Obstructive sleep apnea (adult) (pediatric); I34.1 Nonrheumatic mitral (valve) prolapse; E03.9 Hypothyroidism, unspecified; F32.9 Major depressive disorder, single episode, unspecified; D50.9 Iron deficiency anemia, unspecified; K59.09 Other constipation; G52.1 Disorders of glossopharyngeal nerve; Z90.49 Acquired absence of other specified parts of digestive tract; Z87.891 Personal history of nicotine dependence; Z79.82 Long term (current) use of aspirin; Z79.899 Other long term (current) drug therapy; Z88.1 Allergy status to other antibiotic agents; Z88.6 Allergy status to analgesic agent; Z88.8 Allergy status to other drugs, medicaments and biological substances

== ENCOUNTER 2019-03-22 03:32 | Emergency (ER) | payer OTHER ==
[~2019-03-22] VITALS: Ht 172.7 cm; Wt 95.9 kg
[~2019-03-22 03:32] MED LIST changes: +AMIT75TA PO; +ASPI-161 PO; +ATOR1TAB21 PO; +AZEL0.1S; +BENZ-18 PO; +CEFU1TAB22; +CEFU50TA PO; +CYAN500T3 PO; +FLON1SPR; +FLUO60TA3 PO; +IBUP-1720 PO; -OMEP-172; -OMEP-172 PO; +OMEP1CAP73; +OMEP1CAP73 PO; +PHEN30CA2 PO; +PRED20TA PO; +PROZ10CA7 PO; +SYNT88TA2 PO; +VENTAER INH
[2019-03-22 06:30] LABS: BASO % 0.4 % (0.0-1.0); EOS # 0.3 10^3/uL (0.0-0.5); EOS % 3.6 % (0.0-3.0); HEMATOCRIT 42.2 % (36.0-47.0); HEMOGLOBIN 13.5 g/dl (12.0-15.5); LYMPH # 0.6 10^3/uL (1.5-5.0); MEAN CORPUSCULAR HEMOGLOBIN 31.6 pg (27.0-33.0); MEAN CORPUSCULAR VOLUME 98.8 fl (80.0-96.0); MONO # 0.6 10^3/uL (0.0-0.8); MONO % 7.6 % (0.0-5.0); NEUTROPHILS # 6.4 10^3/uL (1.5-8.5); PLATELET COUNT, AUTOMATED 161 10^3/uL (150-450); RED BLOOD COUNT 4.27 10^6/uL (4.00-5.40); WHITE BLOOD COUNT 7.9 10^3/uL (4.0-10.0)
[2019-03-22] MEDS ORDERED: IPRATROPIUM 0.5MG/ALBUTEROL 2.5MG INH SOL UD 3ML (DUONEB)(J7620) NEB ONE (06:30)
[2019-03-22 06:56] LABS: INFLUENZA A AMPLIFICATION NEGATIVE (NEGATIVE); INFLUENZA B AMPLIFICATION NEGATIVE (NEGATIVE)
--- NOTE | 2019-03-22 06:57 | REP ---
Clinical: Cough and dyspnea . Comparison: 02/27/2019 . Technique: PA and lateral. Findings: The mediastinum and cardiac silhouette are normal. The lung coreas are clear and without acute consolidation, effusion, or pneumothorax. The skeletal structures are intact and normal. Impression: 1. No acute cardiopulmonary process. Electronically Signed by Art Shields MD 03/22/2019 06:48 A
[2019-03-22 07:08] LABS: BLOOD UREA NITROGEN 5 MG/DL (7-18); CALCIUM LEVEL 8.4 MG/DL (8.8-10.2); CARBON DIOXIDE LEVEL 27 MEQ/L (21-32); CHLORIDE LEVEL 107 MEQ/L (98-107); CK-MB VALUE MASS 1.3 NG/ML (<3.6); CPK CREATINE PHOSPHOKINASE 99 U/L (26-192); CREATININE FOR GFR 0.59 MG/DL (0.55-1.30); GLOMERULAR FILTRATION RATE > 60.0 (>45); GLUCOSE, FASTING 93 MG/DL (70-100); MB/CK RELATIVE INDEX 1.31 (< OR =4); POTASSIUM SERUM 3.9 MEQ/L (3.5-5.1); SODIUM LEVEL 140 MEQ/L (136-145); TROPONIN I < 0.02 NG/ML (< 0.10)
[2019-03-22] MEDS ORDERED: KETOROLAC 30 MG/ML VIAL (J1885) IV ONE (07:15)
[2019-03-22] MEDS ORDERED: MEDR4PAK PO (09:05)
[2019-03-22 10:20] VITALS: BP 130/70
--- NOTE | 2019-03-22 20:27 | ECGEPIP ---
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
== END 2019-03-22 10:32 | disposition home or self-care (01) ==
LOC: M ED 03:32
DX: J44.0 Chronic obstructive pulmonary disease with (acute) lower respiratory infection (principal); J20.9 Acute bronchitis, unspecified; I10 Essential (primary) hypertension; K21.9 Gastro-esophageal reflux disease without esophagitis; E78.5 Hyperlipidemia, unspecified; E03.9 Hypothyroidism, unspecified; G47.33 Obstructive sleep apnea (adult) (pediatric); I34.1 Nonrheumatic mitral (valve) prolapse; Z99.89 Dependence on other enabling machines and devices; Z79.899 Other long term (current) drug therapy; Z79.890 Hormone replacement therapy; Z79.82 Long term (current) use of aspirin; Z88.1 Allergy status to other antibiotic agents; Z88.8 Allergy status to other drugs, medicaments and biological substances
CPT/HCPCS: 71046; 80048; 82550; 82553; 84484; 85025; 87486; 87502; 87581; 87633; 87798; 93005; 93041; 94760; 96374; 99284; J1885

== ENCOUNTER → 2019-03-27 | Outpatient (CLI) | payer OTHER ==
[~2019-03-27] MED LIST changes: +MEDR4PAK PO
--- NOTE | 2019-03-28 01:19 | REPPI ---
Clinical: Shortness of breath. Technique: PA and lateral. Comparison: 03/22/2019. Findings: Mediastinum and cardiac silhouette are stable and within normal limits. Lung coreas demonstrate chronic emphysematous disease and interstitial changes without focal consolidation. No effusion. No pneumothorax. Skeletal structures intact. Impression: Chronic stable changes. Emphysematous disease. Electronically Signed by rAt Shields MD 03/28/2019 01:10 A
== END ==
LOC: M PLAIMG 15:41
PROVIDERS: ATTEND Nurse Practitioner Family
DX: R06.02 Shortness of breath (principal)

== ENCOUNTER → 2019-03-27 | Outpatient (REF) | payer OTHER ==
[2019-03-27 16:14] LABS: BASO # 0.1 10^3/uL (0.0-0.2); BASO % 0.8 % (0.0-1.0); EOS # 0.2 10^3/uL (0.0-0.5); EOS % 2.1 % (0.0-3.0); HEMATOCRIT 45.7 % (36.0-47.0); HEMOGLOBIN 14.5 g/dl (12.0-15.5); LYMPH # 2.1 10^3/uL (1.5-5.0); LYMPH % 28.1 % (24.0-44.0); MEAN CORPUSCULAR HEMOGLOBIN 31.5 pg (27.0-33.0); MEAN CORPUSCULAR HGB CONC 31.7 g/dl (32.0-36.5); MEAN CORPUSCULAR VOLUME 99.3 fl (80.0-96.0); MONO # 0.7 10^3/uL (0.0-0.8); MONO % 9.2 % (0.0-5.0); NEUTROPHILS # 4.4 10^3/uL (1.5-8.5); NEUTROPHILS % 58.9 % (36.0-66.0); PLATELET COUNT, AUTOMATED 250 10^3/uL (150-450); WHITE BLOOD COUNT 7.5 10^3/uL (4.0-10.0)
[2019-03-27 16:39] LABS: ALBUMIN 3.8 GM/DL (3.2-5.2); ALT/SGPT 28 U/L (12-78); BILIRUBIN,TOTAL 0.3 MG/DL (0.2-1.0); BLOOD UREA NITROGEN 18 MG/DL (7-18); CALCIUM LEVEL 8.7 MG/DL (8.8-10.2); CARBON DIOXIDE LEVEL 31 MEQ/L (21-32); CHLORIDE LEVEL 104 MEQ/L (98-107); CREATININE FOR GFR 0.88 MG/DL (0.55-1.30); GLOMERULAR FILTRATION RATE > 60.0 (>45); GLUCOSE, FASTING 86 MG/DL (70-100); POTASSIUM SERUM 3.8 MEQ/L (3.5-5.1); SODIUM LEVEL 140 MEQ/L (136-145); TOTAL PROTEIN 7.8 GM/DL (6.4-8.2)
== END ==
LOC: M SFHCPLAZ 15:27
PROVIDERS: ATTEND Nurse Practitioner Family
DX: R06.02 Shortness of breath (principal)

== ENCOUNTER → 2019-03-28 | Outpatient (REF) | payer OTHER | LOC: M SFHCPLAZ 10:50 | PROVIDERS: ATTEND Nurse Practitioner Family | DX: R06.02 Shortness of breath (principal) ==

== ENCOUNTER → 2019-04-19 | Outpatient (CLI) | payer OTHER ==
--- NOTE | 2019-04-19 08:35 | REP ---
Clinical: Emphysema. Technique: Axial noncontrast images from the thoracic inlet to the upper abdomen with coronal and sagittal re-formations. Comparison: 03/03/2009 Findings: Biapical and minimal bibasilar scarring is appreciated. The lung coreas are otherwise relatively well aerated, symmetric and clear. No significant emphysematous changes are appreciated. No consolidation, nodule or mass. No pleural effusion. No pneumothorax. Tracheobronchial tree is patent and relatively normal. No axillary, hilar, or mediastinal adenopathy. Mild atherosclerotic changes to the coronary arteries and thoracic aorta noted without cardiomegaly or aneurysm. No pericardial effusion. Surrounding musculoskeletal structures are intact. Limited upper abdomen demonstrates normal bilateral adrenal glands. Impression: 1. Mild biapical and bibasilar scarring. 2. No acute mediastinal or pleuroparenchymal process appreciated. Electronically Signed by Art Sheilds MD 04/19/2019 08:26 A
== END ==
LOC: M RAD 06:58
PROVIDERS: ATTEND Nurse Practitioner Family
DX: J43.9 Emphysema, unspecified (principal)

== ENCOUNTER 2019-04-28 07:32 | Emergency (ER) | payer OTHER ==
[~2019-04-28] VITALS: Ht 172.7 cm; Wt 95.5 kg
[2019-04-28] MEDS ORDERED: IBUPROFEN 800 MG TAB PO ONE (08:30)
[2019-04-28 08:46] VITALS: BP 118/72
--- NOTE | 2019-04-28 09:40 | REP ---
LEFT ANKLE, FOUR VIEWS: Four views of left ankle performed. No acute fracture or dislocation is seen. Ankle mortise is anatomic. There is moderate posterior and inferior calcaneal spurring. IMPRESSION: No acute fracture or dislocation. Electronically Signed by Rj Garza MD 04/28/2019 06:28 P
== END 2019-04-28 08:49 | disposition home or self-care (01) ==
LOC: M ED 07:32
DX: S93.402A Sprain of unspecified ligament of left ankle, initial encounter (principal); W18.12XA Fall from or off toilet with subsequent striking against object, initial encounter; Y92.018 Other place in single-family (private) house as the place of occurrence of the external cause; J44.9 Chronic obstructive pulmonary disease, unspecified; I10 Essential (primary) hypertension; C85.10 Unspecified B-cell lymphoma, unspecified site; G47.33 Obstructive sleep apnea (adult) (pediatric); I34.1 Nonrheumatic mitral (valve) prolapse; Z79.899 Other long term (current) drug therapy; Z79.890 Hormone replacement therapy; Z79.82 Long term (current) use of aspirin; Z88.1 Allergy status to other antibiotic agents; Z88.8 Allergy status to other drugs, medicaments and biological substances

== ENCOUNTER → 2019-05-10 | Outpatient (REF) | payer OTHER ==
[2019-05-10 14:10] LABS: BASO # 0.1 10^3/uL (0.0-0.2); EOS # 0.3 10^3/uL (0.0-0.5); EOS % 4.8 % (0.0-3.0); HEMATOCRIT 44.1 % (36.0-47.0); HEMOGLOBIN 14.2 g/dl (12.0-15.5); LYMPH # 1.5 10^3/uL (1.5-5.0); LYMPH % 20.9 % (24.0-44.0); MEAN CORPUSCULAR HEMOGLOBIN 31.5 pg (27.0-33.0); MEAN CORPUSCULAR HGB CONC 32.2 g/dl (32.0-36.5); MEAN CORPUSCULAR VOLUME 97.8 fl (80.0-96.0); MONO # 0.5 10^3/uL (0.0-0.8); MONO % 7.4 % (0.0-5.0); NEUTROPHILS # 4.6 10^3/uL (1.5-8.5); NEUTROPHILS % 65.6 % (36.0-66.0); PLATELET COUNT, AUTOMATED 209 10^3/uL (150-450); RED BLOOD COUNT 4.51 10^6/uL (4.00-5.40)
[2019-05-10 14:22] LABS: ALT/SGPT 37 U/L (12-78); BLOOD UREA NITROGEN 11 MG/DL (7-18); CALCIUM LEVEL 9.8 MG/DL (8.8-10.2); CARBON DIOXIDE LEVEL 33 MEQ/L (21-32); CHLORIDE LEVEL 100 MEQ/L (98-107); CREATININE FOR GFR 0.88 MG/DL (0.55-1.30); GLOMERULAR FILTRATION RATE > 60.0 (>45); GLUCOSE, FASTING 82 MG/DL (70-100); POTASSIUM SERUM 4.5 MEQ/L (3.5-5.1); SODIUM LEVEL 138 MEQ/L (136-145)
[2019-05-10 14:23] LABS: ALBUMIN 3.9 GM/DL (3.2-5.2); BILIRUBIN,TOTAL 0.3 MG/DL (0.2-1.0); C REACTIVE PROTEIN QUANTITATIV < 0.30 MG/DL (0.00-0.30); CHOLESTEROL LEVEL 137 MG/DL (<200); CHOLESTEROL RISK RATIO 3.605 (<5); CPK CREATINE PHOSPHOKINASE 101 U/L (26-192); FREE T4 1.02 NG/DL (0.76-1.46); HDL CHOLESTEROL 38 MG/DL (>40); LDL CHOLESTEROL 76 MG/DL (<100); NON-HDL-C 99 MG/DL; TOTAL PROTEIN 7.5 GM/DL (6.4-8.2); TRIGLYCERIDES LEVEL 115 MG/DL (<150)
[2019-05-10 14:29] LABS: HEMOGLOBIN A1c 5.4 %
[2019-05-10 14:31] LABS: ERYTHROCYTE SEDIMENTATION RATE 14 mm/hr (0-30)
[2019-05-12 00:08] LABS: INSULIN LEVEL 8.6 uIU/mL (2.6-24.9)
== END ==
LOC: M SFHCPLAZ 13:10
PROVIDERS: ATTEND Family Medicine
DX: E55.9 Vitamin D deficiency, unspecified (principal); G62.9 Polyneuropathy, unspecified

== ENCOUNTER → 2019-05-21 | Outpatient (CLI) | payer OTHER ==
--- NOTE | 2019-05-21 16:10 | REP ---
MRI brain without contrast: History: Cognitive impairment. Comparison brain MRI study August 03, 2018. Comparison CT study August 29, 2017. Technique: Axial and sagittal imaging planes are utilized for T1 and T2-weighted scans. Sequences include spin-echo, fast spin echo, FLAIR, and diffusion weighted sequences. MRI findings: No bony calvarial lesion is seen. Craniocervical junction and upper cervical cord are normal in appearance. There is minimal generalized volume loss again seen unchanged. There are two or three tiny foci of subcortical white matter hyperintensity in the frontal lobes bilaterally unchanged from the comparison study allowing for slight differences in instrumentation. These are consistent with mild small vessel changes. There is no evidence of intracranial infarct, hemorrhage, acute ischemia, mass, extra-axial fluid collection or midline shift. Impression: Minimal small vessel changes. No acute intracranial abnormality. Electronically Signed by Yang Casas MD 05/21/2019 05:19 P
== END ==
LOC: M RAD 13:21
PROVIDERS: ATTEND Family Medicine
DX: G31.84 Mild cognitive impairment of uncertain or unknown etiology (principal)

== ENCOUNTER → 2019-07-24 | Outpatient (CLI) | payer OTHER ==
[~2019-07-24] MED LIST changes: +CYCL-707 PO; -CYCL10TA PO
--- NOTE | 2019-07-24 09:14 | PFTRPT ---
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 Review Status: Not Reviewed Pre-Bronch Post-Bronch Pred Actual %Pred Actual %Chng SPIROMETRY FVC (L) 3.79 2.46 64 FEV1 (L) 2.92 1.97 67 FEV1/FVC (%) 78 80 102 FEF 25% (L/sec) 5.38 5.82 108 FEF 50% (L/sec) 3.60 3.49 96 FEF 75% (L/sec) 1.19 1.36 114 FEF 25-75% (L/sec) 2.55 2.83 110 FEF Max (L/sec) 6.88 5.97 86 FIVC (L) 2.22 FIF 50% (L/sec) 3.82 0.72 18 FIF Max (L/sec) 1.42 MVV (L/min) 99 53 53 Expiratory Time (sec) 7.15 Back Extrap Vol (L) 0.10 Time To FEFmax (sec) 0.078 LUNG VOLUMES SVC (L) 3.44 6.39 185 IC (L) 2.43 2.95 121 ERV (L) 1.01 1.66 164 TGV (L) 3.22 2.99 92 DIFFUSION DLCOunc (ml/min/mmHg) 23.16 15.25 65 DL/VA (ml/min/mmHg/L) 4.10 3.25 79 VA (L) 5.65 4.70 83 BHT (sec) 11.09 IVC (L) 2.77 TLC (SB) (L) 4.85 AIRWAYS RESISTANCE Raw (cmH2O/L/s) 1.86 2.02 108 Gaw (L/s/cmH2O) 1.03 0.53 51 sRaw (cmH2O*s) 4.76 6.19 130 sGaw (1/cmH2O*s) 0.20 0.17 86
== END ==
LOC: M CARPUL 08:04
PROVIDERS: ATTEND Family Medicine
DX: J45.20 Mild intermittent asthma, uncomplicated (principal)

== ENCOUNTER → 2019-08-12 | Outpatient (CLI) | payer OTHER ==
--- NOTE | 2019-08-14 11:38 | REP ---
CT IACs/TEMPORAL BONES: 08/12/2019 INDICATION: Ear pain. Vestibulopathy. TECHNIQUE: Axial images of he temporal bone/IACs were performed with coronal reconstructions provided. No IV contrast administered. COMPARISON: 04/19/2006. FINDINGS: There are no pleural effusions bilaterally. The middle and inner ear anatomy is unremarkable bilaterally. The IACs and cerebellopontine/medullary angles are unremarkable bilaterally. No significant ocular, intraorbital or intracranial abnormalities are detected. The EACs are unremarkable bilaterally. IMPRESSION: Unremarkable IACs/Temporal bones bilaterally. Electronically Signed by Max Paez DO 08/16/2019 08:35 A
== END ==
LOC: M RAD 06:51
PROVIDERS: ATTEND Family Medicine
DX: H81.91 Unspecified disorder of vestibular function, right ear (principal)

== ENCOUNTER → 2019-08-12 | Outpatient (CLI) | payer OTHER ==
[~2019-08-12] MED LIST changes: +METHACHOLINE KIT (J7674) INH ONE
--- NOTE | 2019-08-12 08:26 | PFTRPT ---
Height: 68.00 Inches Weight: 215.00 Lbs BSA: 2.11 Diagnosis: J45.20 DATE OF PROCEDURE: 08/12/2019 ORDERED BY: Dr. Smith INTERPRETATION: Study of excellent technical quality. Under protocol, methacholine was administered. At a dose of 0.25 mg or 1.375 CDUs, a 35% decline in the FEV1 was noted. PC of 0.06 is significant. Flow rates did return to baseline post bronchodilator administration. IMPRESSION: Positive methacholine challenge study. MTDD
== END ==
LOC: M CARPUL 08-05 12:47
PROVIDERS: ATTEND Family Medicine
DX: J45.20 Mild intermittent asthma, uncomplicated (principal)
CPT/HCPCS: 94070; J7674

== ENCOUNTER → 2019-10-22 | Outpatient (CLI) | payer OTHER, SELFPAY ==
[~2019-10-22] MED LIST changes: -METHACHOLINE KIT (J7674) INH ONE
[2019-10-22 16:45] LABS: HEMATOCRIT 42.6 % (36.0-47.0); HEMOGLOBIN 14.1 g/dl (12.0-15.5); MEAN CORPUSCULAR HEMOGLOBIN 31.8 pg (27.0-33.0); MEAN CORPUSCULAR HGB CONC 33.1 g/dl (32.0-36.5); MEAN CORPUSCULAR VOLUME 96.2 fl (80.0-96.0); PLATELET COUNT, AUTOMATED 189 10^3/uL (150-450); RED BLOOD COUNT 4.43 10^6/uL (4.00-5.40); WHITE BLOOD COUNT 5.2 10^3/uL (4.0-10.0)
[2019-10-22 18:31] LABS: ALBUMIN 3.6 GM/DL (3.2-5.2); ALT/SGPT 39 U/L (12-78); BILIRUBIN,TOTAL 0.6 MG/DL (0.2-1.0); BLOOD UREA NITROGEN 12 MG/DL (7-18); CALCIUM LEVEL 9.3 MG/DL (8.8-10.2); CARBON DIOXIDE LEVEL 28 MEQ/L (21-32); CHLORIDE LEVEL 104 MEQ/L (98-107); CREATININE FOR GFR 0.83 MG/DL (0.55-1.30); FREE T4 1.28 NG/DL (0.76-1.46); GLOMERULAR FILTRATION RATE > 60.0 (>45); GLUCOSE, FASTING 85 MG/DL (70-100); LDH LACTATE DEHYDROGENASE 229 U/L (84-246); POTASSIUM SERUM 4.1 MEQ/L (3.5-5.1); SODIUM LEVEL 139 MEQ/L (136-145); TOTAL PROTEIN 7.6 GM/DL (6.4-8.2); VITAMIN B12 LEVEL 1162 PG/ML (247-911)
[2019-10-22 22:21] LABS: HEMOGLOBIN A1c 5.5 %
== END ==
LOC: M PLALAB 13:47
PROVIDERS: ATTEND Family Medicine
DX: R73.01 Impaired fasting glucose (principal); G31.84 Mild cognitive impairment of uncertain or unknown etiology; E03.9 Hypothyroidism, unspecified

== ENCOUNTER → 2019-12-03 | Outpatient (CLI) | payer OTHER, SELFPAY ==
[2019-12-03 13:50] LABS: BLOOD UREA NITROGEN 10 MG/DL (7-18); CREATININE FOR GFR 0.72 MG/DL (0.55-1.30); GLOMERULAR FILTRATION RATE > 60.0 (>45); RHEUMATOID FACTOR QUANT < 10.0 IU/ML (<15.0); TOTAL PROTEIN 7.2 GM/DL (6.4-8.2)
[2019-12-03 13:59] LABS: VITAMIN B12 LEVEL 608 PG/ML
[2019-12-03 14:01] LABS: FOLATE 4.9 NG/ML
[2019-12-03 14:22] LABS: HEMOGLOBIN A1c 5.3 %
[2019-12-05 14:54] LABS: ALBUMIN % 53.3 % (55.8-66.1); ALPHA-1-GLOBULIN % 4.1 % (2.9-4.9); ALPHA-2-GLOBULINS % 9.6 % (7.1-11.8)
[2019-12-05 14:55] LABS: ALBUMIN 3.84 GM/DL (3.29-5.55); ALPHA-2-GLOBULINS 0.69 GM/DL (0.42-0.99); BETA-1-GLOBULINS 0.55 GM/DL (0.28-0.60); BETA-1-GLOBULINS % 7.7 % (4.7-7.2); BETA-2-GLOBULINS 0.37 GM/DL (0.19-0.55); BETA-2-GLOBULINS % 5.2 % (3.2-6.5); GAMMA GLOBULIN % 20.1 % (11.1-18.8); GAMMA GLOBULINS 1.45 GM/DL (0.65-1.58)
[2019-12-06 13:07] LABS: ANTINUCLEAR ANTIBODIES DIRECT Negative (Negative); Lyme Disease IgG/IgM Antibodie <0.91 ISR (0.00-0.90); Lyme Disease IgM Ab Quantitati <0.80 index (0.00-0.79); VITAMIN E(ALPHA TOCOPHEROL) 11.5 mg/L (9.0-29.0); VITAMIN E(GAMMA TOCOPHEROL) 0.6 mg/L (0.5-4.9)
[2019-12-08 18:07] LABS: CERULOPLASMIN 25.7 mg/dL (19.0-39.0); VITAMIN B1 LEVEL WHOLE BLOOD 116.3 nmol/L (66.5-200.0); VITAMIN B6,PYRIDOXAL PHOSPHATE 4.7 ug/L (2.0-32.8)
== END ==
LOC: M WUC 09:45
PROVIDERS: ATTEND Psychiatry & Neurology Neurology
DX: G62.9 Polyneuropathy, unspecified (principal); M10.9 Gout, unspecified; R53.1 Weakness

== ENCOUNTER → 2019-12-05 | Outpatient (CLI) | payer OTHER, SELFPAY ==
[2019-12-09 23:08] LABS: LEAD BLOOD ADULT 1 ug/dL (0-4); MERCURY LEVEL <1.0 ug/L (0.0-14.9)
== END ==
LOC: M WUC 13:44
PROVIDERS: ATTEND Psychiatry & Neurology Neurology
DX: G62.9 Polyneuropathy, unspecified (principal); R53.1 Weakness; R26.9 Unspecified abnormalities of gait and mobility

== ENCOUNTER → 2019-12-16 | Outpatient (REF) | payer SELFPAY | LOC: M LABWUC 14:30 | PROVIDERS: ATTEND Psychiatry & Neurology Neurology | DX: M10.9 Gout, unspecified (principal); G62.9 Polyneuropathy, unspecified; R53.83 Other fatigue ==

== ENCOUNTER → 2020-03-12 | Outpatient (REF) | payer OTHER ==
[2020-03-12 14:07] LABS: BASO # 0.1 10^3/uL (0.0-0.2); BASO % 1.3 % (0.0-1.0); EOS # 0.4 10^3/uL (0.0-0.5); EOS % 9.6 % (0.0-3.0); HEMATOCRIT 43.8 % (36.0-47.0); HEMOGLOBIN 13.8 g/dl (12.0-15.5); LYMPH # 1.3 10^3/uL (1.5-5.0); LYMPH % 28.3 % (24.0-44.0); MEAN CORPUSCULAR HEMOGLOBIN 31.3 pg (27.0-33.0); MEAN CORPUSCULAR HGB CONC 31.5 g/dl (32.0-36.5); MEAN CORPUSCULAR VOLUME 99.3 fl (80.0-96.0); MONO # 0.5 10^3/uL (0.0-0.8); MONO % 10.3 % (0.0-5.0); NEUTROPHILS # 2.3 10^3/uL (1.5-8.5); NEUTROPHILS % 50.5 % (36.0-66.0); PLATELET COUNT, AUTOMATED 169 10^3/uL (150-450); RED BLOOD COUNT 4.41 10^6/uL (4.00-5.40); WHITE BLOOD COUNT 4.5 10^3/uL (4.0-10.0)
[2020-03-12 14:39] LABS: ALBUMIN 3.5 GM/DL (3.2-5.2); ALT/SGPT 50 U/L (12-78); BILIRUBIN,TOTAL 0.3 MG/DL (0.2-1.0); BLOOD UREA NITROGEN 17 MG/DL (7-18); CALCIUM LEVEL 9.3 MG/DL (8.8-10.2); CARBON DIOXIDE LEVEL 30 MEQ/L (21-32); CHLORIDE LEVEL 107 MEQ/L (98-107); CHOLESTEROL LEVEL 118 MG/DL (<200); CHOLESTEROL RISK RATIO 3.189 (<5); GLOMERULAR FILTRATION RATE > 60.0 (>45); GLUCOSE, FASTING 93 MG/DL (70-100); HDL CHOLESTEROL 37 MG/DL (>40); LDL CHOLESTEROL 63 MG/DL (<100); NON-HDL-C 81 MG/DL; POTASSIUM SERUM 4.6 MEQ/L (3.5-5.1); SODIUM LEVEL 139 MEQ/L (136-145); TOTAL PROTEIN 7.1 GM/DL (6.4-8.2); TRIGLYCERIDES LEVEL 88 MG/DL (<150)
[2020-03-12 14:45] LABS: PTH INTACT 47.3 PG/ML (18.5-88.0)
[2020-03-17 06:38] LABS: ALBUMIN 3.78 GM/DL (3.29-5.55); ALBUMIN % 53.2 % (55.8-66.1); ALPHA-1-GLOBULIN % 4.1 % (2.9-4.9); ALPHA-1-GLOBULINS 0.29 GM/DL (0.17-0.41); ALPHA-2-GLOBULINS % 11.2 % (7.1-11.8); BETA-1-GLOBULINS % 7.1 % (4.7-7.2); BETA-2-GLOBULINS % 5.1 % (3.2-6.5); GAMMA GLOBULIN % 19.3 % (11.1-18.8)
[2020-03-17 06:39] LABS: BETA-2-GLOBULINS 0.36 GM/DL (0.19-0.55); GAMMA GLOBULINS 1.37 GM/DL (0.65-1.58)
== END ==
LOC: M SFHCPLAZ 09:11
PROVIDERS: ATTEND Family Medicine
DX: D75.89 Other specified diseases of blood and blood-forming organs (principal); E55.9 Vitamin D deficiency, unspecified; E78.5 Hyperlipidemia, unspecified

== ENCOUNTER → 2020-07-21 | Outpatient (REF) | payer OTHER ==
[2020-07-21 14:23] LABS: BLOOD UREA NITROGEN 8 MG/DL (7-18); CALCIUM LEVEL 9.1 MG/DL (8.8-10.2); CARBON DIOXIDE LEVEL 28 MEQ/L (21-32); CHLORIDE LEVEL 105 MEQ/L (98-107); CREATININE FOR GFR 0.63 MG/DL (0.55-1.30); GLOMERULAR FILTRATION RATE > 60.0 (>45); GLUCOSE, FASTING 83 MG/DL (70-100); NT-PRO BNP 356 PG/ML (<125); POTASSIUM SERUM 4.2 MEQ/L (3.5-5.1); SODIUM LEVEL 140 MEQ/L (136-145)
== END ==
LOC: M SFHCPLAZ 11:14
PROVIDERS: ATTEND Nurse Practitioner Family
DX: M79.89 Other specified soft tissue disorders (principal)

== ENCOUNTER → 2020-07-21 | Outpatient (CLI) | payer OTHER ==
[~2020-07-21] MED LIST changes: +ERGO500029 PO
--- NOTE | 2020-07-21 14:45 | REP ---
INDICATION: SWELLING MADDI LEG COMPARISON: None. TECHNIQUE: Garza scale and color Doppler evaluation bilateral lower extremities using linear high frequency transducer. FINDINGS: Ultrasound examination of the right and left lower extremity deep venous structures from the common femoral vein to the popliteal vein demonstrates normal compressibility flow and wave patterns in response to respiration and augmentation. There is no evidence for deep venous thrombosis. IMPRESSION: No evidence for deep venous thrombosis. <Electronically signed by Art Shields > 07/21/20 [id number]
== END ==
LOC: M RAD 14:17
PROVIDERS: ATTEND Nurse Practitioner Family
DX: M79.89 Other specified soft tissue disorders (principal)

== ENCOUNTER → 2020-07-31 | Outpatient (REF) | payer OTHER ==
[2020-07-31 17:23] LABS: ALBUMIN 3.6 GM/DL (3.2-5.2); BLOOD UREA NITROGEN 13 MG/DL (7-18); CARBON DIOXIDE LEVEL 26 MEQ/L (21-32); CHLORIDE LEVEL 105 MEQ/L (98-107); CREATININE FOR GFR 0.74 MG/DL (0.55-1.30); GLOMERULAR FILTRATION RATE > 60.0 (>45); GLUCOSE, FASTING 85 MG/DL (70-100); NT-PRO BNP 218 PG/ML (<125); PHOSPHORUS LEVEL 3.6 MG/DL (2.5-4.9); POTASSIUM SERUM 3.8 MEQ/L (3.5-5.1); SODIUM LEVEL 140 MEQ/L (136-145); TROPONIN I < 0.02 NG/ML (< 0.10)
== END ==
LOC: M PLALAB 13:34
PROVIDERS: ATTEND Family Medicine
DX: M79.89 Other specified soft tissue disorders (principal)

== ENCOUNTER → 2020-08-05 | Outpatient (CLI) | payer OTHER ==
[~2020-08-05] MED LIST changes: -ERGO500029 PO
--- NOTE | 2020-08-06 14:38 | ECHO ---
ECHOCARDIOGRAM DATE OF PROCEDURE: 08/05/2020 Age: 59 Gender: Height: Weight: REFERRING PROVIDER: HUSSAIN Zapien. REASON FOR THE TESTING: Essential hypertension. 2D MEASUREMENTS: IVS 1.1 cm LV 5.1 cm LVPW 1.0 cm LA 3.3 cm Aorta 3.7 cm DOPPLER MEASUREMENT Peak velocity across the LVOT 1.0 m/s Mitral E 1.0 Mitral A 0.9 with a ratio of 1.1 2D COMMENTS: 1. Normal left ventricular size, wall thickness, and normal global left ventricular systolic function. The estimated left ventricular systolic ejection fraction is 60 to 65%. 2. Normal left atrium. Normal right atrium and right ventricle. 3. The atrial septum appeared to be normal without evidence of defect or shunt. 4. Borderline enlarged aortic root at 3.7 cm. 5. No pericardial effusion seen. 6. Normal aortic valve and tricuspid valve, and the pulmonic valve was not well visualized. The posterior mitral valve leaflets appeared to be mildly prolapsing. The proximal pulmonary artery branches were not well visualized. 7. The inferior vena cava was not visualized. DOPPLER: Doppler detects mild eccentric anteriorly directed mitral regurgitation, trace tricuspid regurgitation, and trace pulmonic regurgitation. Could not assess the pulmonary pressure. IMPRESSION: 1. Normal global left ventricular systolic function. Assessment of the left ventricular diastolic function also appeared to be normal. 2. Posterior mitral valve leaflet prolapse with only mild mitral regurgitation. 3. Trace tricuspid regurgitation. Could not assess the pulmonary artery systolic pressure.
== END ==
LOC: M CARPUL 11:16
PROVIDERS: ATTEND Nurse Practitioner Family
DX: I10 Essential (primary) hypertension (principal)

== ENCOUNTER → 2020-09-21 | Outpatient (CLI) | payer OTHER ==
[~2020-09-21] MED LIST changes: +ERGO500029 PO
[2020-09-21 10:38] LABS: BASO # 0.1 10^3/uL (0.0-0.2); BASO % 1.2 % (0.0-1.0); EOS # 0.3 10^3/uL (0.0-0.5); EOS % 5.8 % (0.0-3.0); HEMATOCRIT 42.9 % (36.0-47.0); LYMPH # 1.2 10^3/uL (1.5-5.0); LYMPH % 24.4 % (24.0-44.0); MEAN CORPUSCULAR HGB CONC 32.6 g/dl (32.0-36.5); MEAN CORPUSCULAR VOLUME 94.9 fl (80.0-96.0); MONO # 0.5 10^3/uL (0.0-0.8); MONO % 10.1 % (2.0-8.0); NEUTROPHILS # 2.9 10^3/uL (1.5-8.5); NEUTROPHILS % 58.1 % (36.0-66.0); PLATELET COUNT, AUTOMATED 173 10^3/uL (150-450); RED BLOOD COUNT 4.52 10^6/uL (4.00-5.40)
[2020-09-21 10:54] LABS: HEMATOCRIT 42.9 % (36.0-47.0)
[2020-09-21 11:35] LABS: ALBUMIN 3.5 GM/DL (3.2-5.2); ALT/SGPT 38 U/L (12-78); BILIRUBIN,TOTAL 0.8 MG/DL (0.2-1.0); BLOOD UREA NITROGEN 15 MG/DL (7-18); CALCIUM LEVEL 8.9 MG/DL (8.8-10.2); CARBON DIOXIDE LEVEL 27 MEQ/L (21-32); CHLORIDE LEVEL 102 MEQ/L (98-107); CREATININE FOR GFR 0.76 MG/DL (0.55-1.30); FREE T4 1.05 NG/DL (0.76-1.46); GLOMERULAR FILTRATION RATE > 60.0 (>45); GLUCOSE, FASTING 97 MG/DL (70-100); POTASSIUM SERUM 3.6 MEQ/L (3.5-5.1); SODIUM LEVEL 136 MEQ/L (136-145); THYROID STIMULATING HORMONE 0.693 uIU/ML (0.358-3.740); TOTAL PROTEIN 7.1 GM/DL (6.4-8.2); VITAMIN B12 LEVEL 577 PG/ML (247-911)
[2020-09-21 12:00] LABS: HEMOGLOBIN A1c 5.5 %
== END ==
LOC: M PLALAB 09:00
PROVIDERS: ATTEND Family Medicine
DX: E03.9 Hypothyroidism, unspecified (principal); E53.8 Deficiency of other specified B group vitamins; C85.90 Non-Hodgkin lymphoma, unspecified, unspecified site

== ENCOUNTER → 2020-11-04 | Outpatient (CLI) | payer OTHER ==
--- NOTE | 2020-11-04 15:37 | REPMRS ---
Patient History The patient states she has not had a clinical breast exam in over a year. Patient is postmenopausal, has history of lymphoma at age 46, and had previous chemotherapy at age 46. No known family history of cancer. Took unspecified hormones for 11 years. Patient states no breast complaints today. Patient has signed MRS History Sheet. Digital Woman Screen Mammo: November 04, 2020 - Exam #: [id number] Bilateral CC and MLO view(s) were taken. Technologist: Deana Guerra, Technologist Prior study comparison: October 26, 2018, bilateral digital woman screen mammo performed at [facility]. July 21, 2016, digital woman screen mammo performed at [facility]. FINDINGS: There are scattered fibroglandular densities. Screening. Digital screening (2D) mammography was performed bilaterally in the CC and MLO projections. Additionally, breast tomosynthesis (3D mammography) was performed bilaterally in the CC and MLO projections. Todays exam was compared to the prior exam/exams. By history, the patient has no complaints of a palpable breast abnormality or other significant breast complaints. The breasts are unchanged in size and shape. There are no john-soft tissue densities or spiculated masses. There is no internal architectural distortion. Once again, stable benign appearing calcifications are seen..There are no suspicious john-calcific clusters. Skin thickening or nipple retraction is not present. IMPRESSION: BI-RADS Category 2- Benign Findings. There is no evidence of malignant alteration of the breasts. Followup examination recommended in one year. The Volpara volumetric breast density category is B, there are scattered areas of fibroglandular densities. This mammogram was read with the assistance of [facility],an FDA approved computer aided detection system for mammography. The lifetime Tyrer-Cuzick score is 4.9 % Negative x-ray reports should not delay surgical consultation if a dominant or clinically suspicious mass is present. Not all breast cancers can be identified by mammography. Therefore, we recommend that you continue to perform regular breast self-examination and physical examination and then promptly contact your physician of any concerns or changes. Adenosis and dense breasts may obscure an underlying neoplasm. Assessment: BI-RADS/ACR category 2 mammogram. Benign Findings. Recommendation Routine screening mammogram of both breasts in 1 year. Electronically Signed By: Shahzad Taveras, 11/04/20 [id number]
--- NOTE | 2020-11-04 15:50 | DEXAMM ---
INDICATION: BORDERLINE OSTEOPENIA. COMPARISON: 09/25/2013, 04/25/2007. TECHNIQUE: Bone density was measured using dual-energy x-ray absorptiometry (DEXA). FINDINGS: AP SPINE L1-L4 BMD 1.511 g/cm2 Young Adult T-Score 2.4 Age Matched Z-Score 3.7. LT FEMUR, TOTAL BMD 1.036 g/cm2 Young Adult T-Score 0.2 Age Matched Z-Score 1.3. LT NECK BMD 0.960 g/cm2 Young Adult T-Score -0.6 Age Matched Z-Score 0.8. RT FEMUR, TOTAL BMD 1.066 g/cm2 Young Adult T-Score 0.5 Age Matched Z-Score 1.5. RT NECK BMD 0.990 g/cm2 Young Adult T-Score -0.3 Age Matched Z-Score 1.0. IMPRESSION: There is normal bone density of the spine. There is normal bone density of the left hip. There is normal bone density of the right hip. The density of the spine has increased 13.8% since the initial exam on 04/25/2007. The density of the spine decreased 4.8% since most recent exam on 09/25/2013. The density of the left hip has decreased 0.7% since initial exam on 04/25/2007. The density of the left hip has decreased 10.1% since most recent exam on 09/25/2013. The density of the right hip has increased 2.1% since the initial exam on 04/25/2007. The density of the right hip has decreased 7.5% since the most recent exam on 09/25/2013. FOLLOW-UP: Recommendation for the next bone density exam: 5 years. <Electronically signed by Rj Garza > 11/04/20 [id number]
== END ==
LOC: M WHC 14:39
PROVIDERS: ATTEND Family Medicine
DX: Z12.31 Encounter for screening mammogram for malignant neoplasm of breast (principal); M81.0 Age-related osteoporosis without current pathological fracture

== ENCOUNTER → 2021-02-02 | Outpatient (CLI) | payer OTHER ==
[2021-02-02 11:40] LABS: BASO # 0.1 10^3/uL (0.0-0.2); BASO % 1.3 % (0.0-1.0); EOS # 0.4 10^3/uL (0.0-0.5); HEMOGLOBIN 13.7 g/dl (12.0-15.5); LYMPH # 1.5 10^3/uL (1.5-5.0); MEAN CORPUSCULAR HEMOGLOBIN 31.1 pg (27.0-33.0); MEAN CORPUSCULAR HGB CONC 31.9 g/dl (32.0-36.5); MEAN CORPUSCULAR VOLUME 97.5 fl (80.0-96.0); MONO # 0.5 10^3/uL (0.0-0.8); NEUTROPHILS # 2.8 10^3/uL (1.5-8.5); NEUTROPHILS % 53.3 % (36.0-66.0); PLATELET COUNT, AUTOMATED 197 10^3/uL (150-450); RED BLOOD COUNT 4.41 10^6/uL (4.00-5.40); WHITE BLOOD COUNT 5.3 10^3/uL (4.0-10.0)
[2021-02-02 12:27] LABS: ALBUMIN 3.4 GM/DL (3.2-5.2); ALT/SGPT 36 U/L (12-78); BILIRUBIN,TOTAL 0.4 MG/DL (0.2-1.0); BLOOD UREA NITROGEN 9 MG/DL (7-18); CALCIUM LEVEL 8.8 MG/DL (8.8-10.2); CARBON DIOXIDE LEVEL 31 MEQ/L (21-32); CHLORIDE LEVEL 105 MEQ/L (98-107); CREATININE FOR GFR 0.86 MG/DL (0.55-1.30); GLOMERULAR FILTRATION RATE > 60.0 (>45); GLUCOSE, FASTING 100 MG/DL (70-100); MAGNESIUM LEVEL 2.9 MG/DL (1.8-2.4); NT-PRO BNP 75 PG/ML (<125); POTASSIUM SERUM 3.9 MEQ/L (3.5-5.1); SODIUM LEVEL 140 MEQ/L (136-145); TOTAL PROTEIN 7.3 GM/DL (6.4-8.2)
[2021-02-02 12:30] LABS: HEMOGLOBIN A1c 5.3 %
[2021-02-02 13:01] LABS: TOTAL 25(OH) VITAMIN D 88.6 NG/ML (30.0-100.0)
== END ==
LOC: M WUC 09:28
PROVIDERS: ATTEND Family Medicine
DX: I50.32 Chronic diastolic (congestive) heart failure (principal); E55.9 Vitamin D deficiency, unspecified; D75.89 Other specified diseases of blood and blood-forming organs; R73.01 Impaired fasting glucose

== ENCOUNTER → 2021-02-16 | Outpatient (CLI) | payer OTHER ==
[2021-02-16 16:07] LABS: APPEARANCE, URINE CLOUDY (CLEAR); BACTERIA, URINE AUTO NEGATIVE (NEGATIVE); BILIRUBIN, URINE AUTO NEGATIVE (NEGATIVE); BLOOD, URINE BLOOD 2+ (NEGATIVE); COLOR, URINE STRAW (YELLOW); GLUCOSE, URINE (UA) AUTO NEGATIVE (NEGATIVE); KETONE, URINE AUTO NEGATIVE (NEGATIVE); LEUKOCYTE ESTERASE, URINE AUTO 3+ (NEGATIVE); NITRITE, URINE AUTO NEGATIVE (NEGATIVE); PROTEIN, URINE AUTO NEGATIVE (NEGATIVE); RBC, URINE AUTO 18 /HPF (0-3); SPECIFIC GRAVITY URINE AUTO 1.003 (1.002-1.035); SQUAMOUS EPITHELIAL CELL UR AU 1 /HPF (0-6); UROBILINOGEN, URINE AUTO 0.2 mg/dL (0.0-2.0); WBC, URINE AUTO TNTC /HPF (0-3)
== END ==
LOC: M WUC 14:12
PROVIDERS: ATTEND Family Medicine
DX: R30.0 Dysuria (principal)

== ENCOUNTER → 2021-04-30 | Outpatient (CLI) | payer OTHER ==
[~2021-04-30] MED LIST changes: +FLUO-96 PO; -FLUO20CA20 PO; -PHEN30CA2 PO; +PHEN30CA21 PO
[2021-04-30 16:15] LABS: BASO # 0.1 10^3/uL (0.0-0.2); BASO % 1.4 % (0.0-1.0); EOS # 0.5 10^3/uL (0.0-0.5); EOS % 7.8 % (0.0-3.0); HEMATOCRIT 41.5 % (36.0-47.0); HEMOGLOBIN 13.2 g/dl (12.0-15.5); LYMPH # 1.9 10^3/uL (1.5-5.0); LYMPH % 32.5 % (24.0-44.0); MEAN CORPUSCULAR HEMOGLOBIN 31.3 pg (27.0-33.0); MEAN CORPUSCULAR HGB CONC 31.8 g/dl (32.0-36.5); MEAN CORPUSCULAR VOLUME 98.3 fl (80.0-96.0); MONO # 0.6 10^3/uL (0.0-0.8); MONO % 10.4 % (2.0-8.0); NEUTROPHILS # 2.8 10^3/uL (1.5-8.5); NEUTROPHILS % 47.7 % (36.0-66.0); PLATELET COUNT, AUTOMATED 203 10^3/uL (150-450); RED BLOOD COUNT 4.22 10^6/uL (4.00-5.40); WHITE BLOOD COUNT 5.8 10^3/uL (4.0-10.0)
[2021-04-30 16:42] LABS: ALBUMIN 3.6 GM/DL (3.2-5.2); ALT/SGPT 51 U/L (12-78); BILIRUBIN,TOTAL 0.2 MG/DL (0.2-1.0); BLOOD UREA NITROGEN 11 MG/DL (7-18); C REACTIVE PROTEIN QUANTITATIV 0.33 MG/DL (0.00-0.30); CALCIUM LEVEL 9.1 MG/DL (8.8-10.2); CARBON DIOXIDE LEVEL 31 MEQ/L (21-32); CHLORIDE LEVEL 104 MEQ/L (98-107); CHOLESTEROL LEVEL 127 MG/DL (<200); CHOLESTEROL RISK RATIO 3.527 (<5); CREATININE FOR GFR 0.75 MG/DL (0.55-1.30); FERRITIN 61 NG/ML (8-252); FREE T4 1.09 NG/DL (0.76-1.46); GLOMERULAR FILTRATION RATE > 60.0 (>45); GLUCOSE, FASTING 112 MG/DL (70-100); HDL CHOLESTEROL 36 MG/DL (>40); LDL CHOLESTEROL 64 MG/DL (<100); NON-HDL-C 91 MG/DL; POTASSIUM SERUM 3.9 MEQ/L (3.5-5.1); SODIUM LEVEL 140 MEQ/L (136-145); THYROID STIMULATING HORMONE 0.791 uIU/ML (0.358-3.740); TOTAL PROTEIN 7.2 GM/DL (6.4-8.2); TRIGLYCERIDES LEVEL 137 MG/DL (<150); VITAMIN B12 LEVEL 1010 PG/ML (247-911)
== END ==
LOC: M WUC 10:23
PROVIDERS: ATTEND Family Medicine
DX: E78.5 Hyperlipidemia, unspecified (principal); E53.8 Deficiency of other specified B group vitamins

== ENCOUNTER 2021-05-24 03:27 | Emergency (ER) | payer OTHER ==
[~2021-05-24] VITALS: Ht 172.7 cm; Wt 102.3 kg
[2021-05-24] MEDS ORDERED: ALKATAB12 PO (03:36)
[2021-05-24] MEDS ORDERED: COMBIVENT RESPIMAT 100-20MCG INHALER 4GM INH ONE (04:55)
[2021-05-24 05:16] LABS: BASO % 0.4 % (0.0-1.0); EOS # 0.4 10^3/uL (0.0-0.5); EOS % 5.7 % (0.0-3.0); HEMATOCRIT 37.2 % (36.0-47.0); HEMOGLOBIN 12.4 g/dl (12.0-15.5); LYMPH # 0.9 10^3/uL (1.5-5.0); LYMPH % 12.2 % (24.0-44.0); MEAN CORPUSCULAR HEMOGLOBIN 31.2 pg (27.0-33.0); MEAN CORPUSCULAR HGB CONC 33.3 g/dl (32.0-36.5); MEAN CORPUSCULAR VOLUME 93.5 fl (80.0-96.0); MONO # 0.7 10^3/uL (0.0-0.8); MONO % 10.2 % (2.0-8.0); NEUTROPHILS % 71.2 % (36.0-66.0); PLATELET COUNT, AUTOMATED 151 10^3/uL (150-450); RED BLOOD COUNT 3.98 10^6/uL (4.00-5.40)
[2021-05-24 05:38] LABS: BLOOD UREA NITROGEN 7 MG/DL (7-18); CALCIUM LEVEL 8.3 MG/DL (8.8-10.2); CARBON DIOXIDE LEVEL 30 MEQ/L (21-32); CHLORIDE LEVEL 105 MEQ/L (98-107); CREATININE FOR GFR 0.72 MG/DL (0.55-1.30); GLOMERULAR FILTRATION RATE > 60.0 (>45); GLUCOSE, FASTING 107 MG/DL (70-100); MAGNESIUM LEVEL 2.1 MG/DL (1.8-2.4); POTASSIUM SERUM 3.6 MEQ/L (3.5-5.1); SODIUM LEVEL 139 MEQ/L (136-145)
[2021-05-24] MEDS ORDERED: PRED20TA PO (06:26)
[2021-05-24] MEDS ORDERED: DOXY-443 PO (06:26)
[2021-05-24] MEDS ORDERED: BENZ200C70 PO (06:26)
[2021-05-24 06:46] VITALS: BP 159/92
== END 2021-05-24 07:00 | disposition home or self-care (01) ==
LOC: M ED 03:27
DX: J45.901 Unspecified asthma with (acute) exacerbation (principal); R53.1 Weakness; I10 Essential (primary) hypertension; K21.9 Gastro-esophageal reflux disease without esophagitis; E78.5 Hyperlipidemia, unspecified; E03.9 Hypothyroidism, unspecified; F32.A Depression, unspecified; Z88.1 Allergy status to other antibiotic agents; Z88.8 Allergy status to other drugs, medicaments and biological substances; Z79.890 Hormone replacement therapy; Z79.899 Other long term (current) drug therapy

== ENCOUNTER → 2021-07-02 | Outpatient (CLI) | payer OTHER ==
[~2021-07-02] MED LIST changes: +ALKATAB12 PO; +BENZ200C70 PO; +DOXY-443 PO
== END ==
LOC: M PLALAB 13:49
PROVIDERS: ATTEND Physician Assistant
DX: R05.9 Cough, unspecified (principal)

== ENCOUNTER → 2021-08-12 | Outpatient (REF) | payer OTHER | LOC: M SFHCPLAZ 15:06 | PROVIDERS: ATTEND Physician Assistant | DX: R30.0 Dysuria (principal) ==

== ENCOUNTER 2021-08-31 06:03 | Emergency (ER) | payer OTHER ==
[~2021-08-31] VITALS: Ht 172.7 cm; Wt 102.5 kg
[2021-08-31] MEDS ORDERED: MONT10TA97 PO (06:22)
[2021-08-31] MEDS ORDERED: GOOD8.6T2 PO (06:22)
[2021-08-31] MEDS ORDERED: ANOR1AER PO (06:22)
[2021-08-31] MEDS ORDERED: CELE1CAP4 PO (06:22)
[2021-08-31 06:48] LABS: BILIRUBIN, URINE MANUAL NEGATIVE (NEGATIVE); GLUCOSE, URINE (UA) MANUAL NEGATIVE (NEGATIVE); KETONE, URINE MANUAL NEGATIVE (NEGATIVE); UROBILINOGEN, URINE MANUAL NORMAL (NORMAL)
[2021-08-31 07:00] LABS: RBC, URINE TNTC /hpf (0-3); SQUAMOUS EPITHELIAL CELL URINE SMALL AMOUNT /hpf (SMALL AMT)
[2021-08-31 07:01] LABS: BACTERIA, URINE LARGE AMOUNT
[2021-08-31] MEDS ORDERED: BACT800T5 PO (07:38)
[2021-08-31] MEDS ORDERED: BACTRIM 160MG/800MG DS TAB PO ONE (07:40)
[2021-08-31 07:43] VITALS: BP 117/70
== END 2021-08-31 07:47 | disposition home or self-care (01) ==
LOC: M ED 06:03
DX: N39.0 Urinary tract infection, site not specified (principal); E78.5 Hyperlipidemia, unspecified; I10 Essential (primary) hypertension; F17.200 Nicotine dependence, unspecified, uncomplicated; J44.9 Chronic obstructive pulmonary disease, unspecified; Z88.1 Allergy status to other antibiotic agents; Z88.6 Allergy status to analgesic agent; Z88.8 Allergy status to other drugs, medicaments and biological substances

== ENCOUNTER → 2021-09-13 | Outpatient (CLI) | payer OTHER ==
[~2021-09-13] MED LIST changes: +ANOR1AER PO; +BACT800T5 PO; +CELE1CAP4 PO; +GOOD8.6T2 PO; +MONT10TA97 PO
== END ==
LOC: M WHC 11:50
PROVIDERS: ATTEND Family Medicine
DX: N39.0 Urinary tract infection, site not specified (principal)

== ENCOUNTER → 2021-09-14 | Outpatient (REF) | payer OTHER | LOC: M SFHCPLAZ 16:44 | PROVIDERS: ATTEND Physician Assistant | DX: R33.9 Retention of urine, unspecified (principal) ==

== ENCOUNTER → 2021-09-16 | Outpatient (REF) | payer OTHER ==
[2021-09-16 18:47] LABS: APPEARANCE, URINE CLEAR (CLEAR); BACTERIA, URINE AUTO 1+ (NEGATIVE); BILIRUBIN, URINE AUTO NEGATIVE (NEGATIVE); BLOOD, URINE BLOOD NEGATIVE (NEGATIVE); COLOR, URINE YELLOW (YELLOW); GLUCOSE, URINE (UA) AUTO NEGATIVE (NEGATIVE); KETONE, URINE AUTO NEGATIVE (NEGATIVE); LEUKOCYTE ESTERASE, URINE AUTO 3+ (NEGATIVE); MUCUS, URINE SMALL (NEGATIVE); NITRITE, URINE AUTO NEGATIVE (NEGATIVE); PROTEIN, URINE AUTO NEGATIVE (NEGATIVE); RBC, URINE AUTO 2 /HPF (0-3); SPECIFIC GRAVITY URINE AUTO 1.009 (1.002-1.035); SQUAMOUS EPITHELIAL CELL UR AU 3 /HPF (0-6); UROBILINOGEN, URINE AUTO 0.2 mg/dL (0.0-2.0); WBC, URINE AUTO 9 /HPF (0-3)
== END ==
LOC: M SMT 16:48
PROVIDERS: ATTEND Nurse Practitioner Women's Health
DX: N39.0 Urinary tract infection, site not specified (principal)

== ENCOUNTER → 2021-11-03 | Outpatient (CLI) | payer OTHER ==
[~2021-11-03] MED LIST changes: +ALBU6.7H6 INH; -PROV108A INH
[2021-11-03 12:52] LABS: BASO # 0.1 10^3/uL (0.0-0.2); BASO % 0.9 % (0.0-1.0); EOS # 0.3 10^3/uL (0.0-0.5); HEMATOCRIT 42.8 % (36.0-47.0); HEMOGLOBIN 13.7 g/dl (12.0-15.5); LYMPH # 1.4 10^3/uL (1.5-5.0); LYMPH % 25.6 % (24.0-44.0); MEAN CORPUSCULAR HEMOGLOBIN 30.7 pg (27.0-33.0); MONO # 0.5 10^3/uL (0.0-0.8); NEUTROPHILS % 57.3 % (36.0-66.0); PLATELET COUNT, AUTOMATED 189 10^3/uL (150-450); RED BLOOD COUNT 4.46 10^6/uL (4.00-5.40); WHITE BLOOD COUNT 5.3 10^3/uL (4.0-10.0)
[2021-11-03 13:44] LABS: ALBUMIN 3.5 GM/DL (3.2-5.2); ALT/SGPT 43 U/L (12-78); BILIRUBIN,TOTAL 0.4 MG/DL (0.2-1.0); BLOOD UREA NITROGEN 13 MG/DL (7-18); CALCIUM LEVEL 9.6 MG/DL (8.8-10.2); CARBON DIOXIDE LEVEL 32 MEQ/L (21-32); CHLORIDE LEVEL 102 MEQ/L (98-107); CREATININE FOR GFR 0.79 MG/DL (0.55-1.30); FERRITIN 24 NG/ML (8-252); GLOMERULAR FILTRATION RATE > 60.0 (>45); GLUCOSE, FASTING 97 MG/DL (70-100); MAGNESIUM LEVEL 2.1 MG/DL (1.8-2.4); NT-PRO BNP 167 PG/ML (<125); POTASSIUM SERUM 3.4 MEQ/L (3.5-5.1); SODIUM LEVEL 137 MEQ/L (136-145); TOTAL PROTEIN 6.8 GM/DL (6.4-8.2)
[2021-11-03 14:16] LABS: PTH INTACT 75.6 PG/ML (18.5-88.0); TOTAL 25(OH) VITAMIN D 98.7 NG/ML (30.0-100.0)
== END ==
LOC: M WUC 09:08
PROVIDERS: ATTEND Family Medicine
DX: I50.32 Chronic diastolic (congestive) heart failure (principal); E55.9 Vitamin D deficiency, unspecified; D75.89 Other specified diseases of blood and blood-forming organs

== ENCOUNTER → 2021-11-04 | Outpatient (REF) | payer MEDICARE, OTHER ==
[2021-11-04 20:06] LABS: APPEARANCE, URINE MANUAL HAZY (CLEAR); COLOR, URINE MANUAL YELLOW (YELLOW)
[2021-11-04 20:07] LABS: BILIRUBIN, URINE MANUAL NEGATIVE (NEGATIVE); BLOOD URINE MANUAL POSITIVE (NEGATIVE); GLUCOSE, URINE (UA) MANUAL NEGATIVE (NEGATIVE); KETONE, URINE MANUAL NEGATIVE (NEGATIVE); LEUKOCYTE ESTERASE, URINE MAN POSITIVE (NEGATIVE); NITRITE, URINE MANUAL POSITIVE (NEGATIVE); PH,URINE MAN 6.5 UNITS (5.0 - 7.0); PROTEIN, URINE MANUAL 1+ mg/dL (NEGATIVE); UROBILINOGEN, URINE MANUAL NORMAL (NORMAL)
[2021-11-04 20:13] LABS: BACTERIA, URINE MOD AMOUNT; RBC, URINE TNTC /hpf (0-3); SQUAMOUS EPITHELIAL CELL URINE MOD AMOUNT /hpf (SMALL AMT); WBC, URINE TNTC /hpf (0-3)
[2021-11-04 20:14] LABS: HYALINE CAST, URINE 0-1 /lpf (0-1)
== END ==
LOC: M SFHCPLAZ 12:45
PROVIDERS: ATTEND Family Medicine
DX: N39.0 Urinary tract infection, site not specified (principal)

== ENCOUNTER → 2022-01-06 | Outpatient (CLI) | payer MEDICARE, OTHER | LOC: M RAD 09:22 | PROVIDERS: ATTEND Family Medicine | DX: E04.1 Nontoxic single thyroid nodule (principal) ==

== ENCOUNTER → 2022-03-21 | Outpatient (CLI) | payer MEDICARE, OTHER ==
[~2022-03-21] MED LIST changes: +FLUO60TA PO; -FLUO60TA3 PO
[2022-03-21 12:43] LABS: BASO % 0.8 % (0.0-1.0); EOS # 0.3 10^3/uL (0.0-0.5); EOS % 5.9 % (0.0-3.0); HEMATOCRIT 43.8 % (36.0-47.0); HEMOGLOBIN 14.1 g/dl (12.0-15.5); LYMPH # 1.6 10^3/uL (1.5-5.0); LYMPH % 33.1 % (24.0-44.0); MEAN CORPUSCULAR HEMOGLOBIN 31.2 pg (27.0-33.0); MEAN CORPUSCULAR HGB CONC 32.2 g/dl (32.0-36.5); MEAN CORPUSCULAR VOLUME 96.9 fl (80.0-96.0); MONO # 0.5 10^3/uL (0.0-0.8); MONO % 9.8 % (2.0-8.0); NEUTROPHILS # 2.5 10^3/uL (1.5-8.5); NEUTROPHILS % 50.2 % (36.0-66.0); PLATELET COUNT, AUTOMATED 180 10^3/uL (150-450); RED BLOOD COUNT 4.52 10^6/uL (4.00-5.40); WHITE BLOOD COUNT 4.9 10^3/uL (4.0-10.0)
[2022-03-21 13:08] LABS: ALBUMIN 3.4 G/DL (3.2-5.2); ALKALINE PHOSPHATASE 127 U/L (46-116); ALT/SGPT 45 U/L (7.0-40); AST/SGOT 38 U/L (<34); BILIRUBIN,TOTAL 0.4 MG/DL (0.3-1.2); BLOOD UREA NITROGEN 11 MG/DL (9-23); CALCIUM LEVEL 8.8 MG/DL (8.3-10.6); CARBON DIOXIDE LEVEL 31 MMOL/L (20-31); CHLORIDE LEVEL 106 MMOL/L (98-107); CHOLESTEROL LEVEL 90 MG/DL (<200); CHOLESTEROL RISK RATIO 2.91 (<5); CPK CREATINE PHOSPHOKINASE 64 U/L (34-145); CREATININE FOR GFR 0.75 MG/DL (0.55-1.30); GLOMERULAR FILTRATION RATE > 60.0 (>45); GLUCOSE, FASTING 89 MG/DL (74-106); HDL CHOLESTEROL 30.9 MG/DL (>40); LDL CHOLESTEROL 44.7 MG/DL (<100); NON-HDL-C 59 MG/DL; POTASSIUM SERUM 4.1 MMOL/L (3.5-5.1); SODIUM LEVEL 142 MMOL/L (136-145); TOTAL PROTEIN 6.6 G/DL (5.7-8.2); TRIGLYCERIDES LEVEL 72 MG/DL (<150)
[2022-03-21 13:12] LABS: C REACTIVE PROTEIN QUANTITATIV < 0.40 MG/DL (<1.0); FERRITIN 45.2 NG/ML (7.3-270.7)
[2022-03-22 06:08] LABS: APOLIPOPROTEIN B/A-1 RATIO 0.5 ratio (0.0-0.6)
== END ==
LOC: M WUC 11:10
PROVIDERS: ATTEND Family Medicine
DX: E53.8 Deficiency of other specified B group vitamins (principal); E78.5 Hyperlipidemia, unspecified

== ENCOUNTER → 2022-07-18 | Outpatient (CLI) | payer MEDICARE, OTHER ==
[~2022-07-18] MED LIST changes: -FLUO60TA PO; +FLUO60TA16 PO
[2022-07-18 17:12] LABS: BASO # 0.1 10^3/uL (0.0-0.2); BASO % 1.1 % (0.0-1.0); EOS # 0.3 10^3/uL (0.0-0.5); EOS % 5.5 % (0.0-3.0); HEMATOCRIT 43.4 % (36.0-47.0); HEMOGLOBIN 14.1 g/dl (12.0-15.5); LYMPH # 1.5 10^3/uL (1.5-5.0); LYMPH % 26.5 % (24.0-44.0); MEAN CORPUSCULAR HGB CONC 32.5 g/dl (32.0-36.5); MEAN CORPUSCULAR VOLUME 98.4 fl (80.0-96.0); MONO # 0.5 10^3/uL (0.0-0.8); MONO % 9.2 % (2.0-8.0); NEUTROPHILS # 3.3 10^3/uL (1.5-8.5); NEUTROPHILS % 57.5 % (36.0-66.0); PLATELET COUNT, AUTOMATED 193 10^3/uL (150-450); RED BLOOD COUNT 4.41 10^6/uL (4.00-5.40); WHITE BLOOD COUNT 5.7 10^3/uL (4.0-10.0)
[2022-07-18 17:20] LABS: ALBUMIN 3.6 G/DL (3.2-5.2); ALKALINE PHOSPHATASE 112 U/L (46-116); ALT/SGPT 38 U/L (7.0-40); AST/SGOT 35 U/L (<34); BILIRUBIN,TOTAL 0.4 MG/DL (0.3-1.2); BLOOD UREA NITROGEN 10 MG/DL (9-23); CARBON DIOXIDE LEVEL 29 MMOL/L (20-31); CHLORIDE LEVEL 104 MMOL/L (98-107); CREATININE FOR GFR 0.74 MG/DL (0.55-1.30); GLOMERULAR FILTRATION RATE > 60.0 (>45); GLUCOSE, FASTING 88 MG/DL (74-106); SODIUM LEVEL 136 MMOL/L (136-145); TOTAL PROTEIN 7.1 G/DL (5.7-8.2)
[2022-07-18 17:22] LABS: THYROID STIMULATING HORMONE 0.868 uIU/ML (0.55-4.78); VITAMIN B12 LEVEL 434 PG/ML (211-911)
[2022-07-18 17:23] LABS: FREE T4 1.07 NG/DL (0.89-1.76)
[2022-07-18 17:42] LABS: HEMOGLOBIN A1c 5.3 % (4.0-6.0)
== END ==
LOC: M WUC 11:10
PROVIDERS: ATTEND Family Medicine
DX: R73.01 Impaired fasting glucose (principal); E03.9 Hypothyroidism, unspecified; E53.8 Deficiency of other specified B group vitamins; C85.90 Non-Hodgkin lymphoma, unspecified, unspecified site; D50.9 Iron deficiency anemia, unspecified; K76.0 Fatty (change of) liver, not elsewhere classified

== ENCOUNTER → 2022-07-20 | Outpatient (REF) | payer MEDICARE | LOC: M SFHCWAGY 15:22 | PROVIDERS: ATTEND Nurse Practitioner Family | DX: Z12.4 Encounter for screening for malignant neoplasm of cervix (principal); R87.610 Atypical squamous cells of undetermined significance on cytologic smear of cervix (ASC-US); N95.2 Postmenopausal atrophic vaginitis | CPT/HCPCS: 87624; G0123 ==

== ENCOUNTER → 2022-07-20 | Outpatient (CLI) | payer MEDICARE, OTHER | LOC: M WHC 10:37 | PROVIDERS: ATTEND Nurse Practitioner Family | DX: Z12.31 Encounter for screening mammogram for malignant neoplasm of breast (principal) ==

== ENCOUNTER 2022-08-02 05:59 | Emergency (ER) | payer MEDICARE ==
[~2022-08-02] VITALS: Ht 172.7 cm; Wt 99.1 kg
[2022-08-02] MEDS ORDERED: NYST-38 (06:11)
[2022-08-02] MEDS ORDERED: PHEN30CA21 (06:11)
[2022-08-02] MEDS ORDERED: CETIRIZINE (ZyrTEC) 10 MG TAB PO ONE (07:35)
[2022-08-02] MEDS ORDERED: CETI-24 PO (08:03)
[2022-08-02 08:08] VITALS: BP 116/85; TEMP 97.6; O2SAT 96
== END 2022-08-02 08:44 | disposition home or self-care (01) ==
LOC: M ED 05:59
DX: K14.6 Glossodynia (principal); Z88.6 Allergy status to analgesic agent; Z88.1 Allergy status to other antibiotic agents; Z88.8 Allergy status to other drugs, medicaments and biological substances; Z79.51 Long term (current) use of inhaled steroids; Z79.82 Long term (current) use of aspirin; Z79.899 Other long term (current) drug therapy

== ENCOUNTER → 2022-08-18 | Outpatient (REF) | payer MEDICARE ==
[~2022-08-18] MED LIST changes: +CETI-24 PO; +NYST-38; +PHEN30CA21
== END ==
LOC: M SFHCPLAZ 16:57
PROVIDERS: ATTEND Family Medicine
DX: K76.0 Fatty (change of) liver, not elsewhere classified (principal); D50.9 Iron deficiency anemia, unspecified; E78.5 Hyperlipidemia, unspecified

== ENCOUNTER 2022-09-20 09:42 | Emergency (ER) | payer MEDICARE ==
[~2022-09-20] VITALS: Ht 172.7 cm; Wt 97.5 kg
[2022-09-20 09:43] VITALS: BP 140/92; TEMP 97.4; O2SAT 93
[2022-09-20] MEDS ORDERED: IPRATROPIUM 0.5MG/ALBUTEROL 2.5MG INH SOL UD 3ML (DUONEB) NEB ONE (12:10)
[2022-09-20 12:51] LABS: BASO % 0.9 % (0.0-1.0); EOS # 0.2 10^3/uL (0.0-0.5); EOS % 4.5 % (0.0-3.0); HEMOGLOBIN 13.9 g/dl (12.0-15.5); LYMPH # 0.8 10^3/uL (1.5-5.0); LYMPH % 18.4 % (24.0-44.0); MEAN CORPUSCULAR HEMOGLOBIN 31.4 pg (27.0-33.0); MEAN CORPUSCULAR HGB CONC 33.1 g/dl (32.0-36.5); MONO # 0.5 10^3/uL (0.0-0.8); MONO % 10.5 % (2.0-8.0); NEUTROPHILS # 2.9 10^3/uL (1.5-8.5); NEUTROPHILS % 65.5 % (36.0-66.0); PLATELET COUNT, AUTOMATED 156 10^3/uL (150-450); RED BLOOD COUNT 4.42 10^6/uL (4.00-5.40); WHITE BLOOD COUNT 4.4 10^3/uL (4.0-10.0)
[2022-09-20 13:09] LABS: INR 0.98; PROTHROMBIN TIME 13.2 SECONDS (12.5-14.5)
[2022-09-20 13:10] LABS: PARTIAL THROMBOPLASTIN TIME 28.9 SECONDS (24.8-34.2)
[2022-09-20 13:12] LABS: ALBUMIN 3.4 G/DL (3.2-5.2); BILIRUBIN,DIRECT 0.2 MG/DL (<0.4); BILIRUBIN,TOTAL 0.4 MG/DL (0.3-1.2); MB/CK RELATIVE INDEX 1.19 (< OR =4); TOTAL PROTEIN 6.8 G/DL (5.7-8.2)
[2022-09-20 13:14] LABS: FREE T4 1.1 NG/DL (0.89-1.76); THYROID STIMULATING HORMONE 0.129 uIU/ML (0.55-4.78); THYROXINE (T4) 13.3 UG/DL (4.5-10.9)
[2022-09-20] MEDS ORDERED: ISOVUE-370 76% 100ML VIAL As Ordered ONE (13:19)
== END 2022-09-20 15:45 | disposition left against medical advice (07) ==
LOC: M ED 09:42
DX: R07.9 Chest pain, unspecified (principal); I11.9 Hypertensive heart disease without heart failure; I50.20 Unspecified systolic (congestive) heart failure; E78.5 Hyperlipidemia, unspecified; K21.9 Gastro-esophageal reflux disease without esophagitis; G47.33 Obstructive sleep apnea (adult) (pediatric); J44.9 Chronic obstructive pulmonary disease, unspecified; E03.9 Hypothyroidism, unspecified; F41.9 Anxiety disorder, unspecified; F32.A Depression, unspecified; Z85.79 Personal history of other malignant neoplasms of lymphoid, hematopoietic and related tissues; Z87.891 Personal history of nicotine dependence; Z79.82 Long term (current) use of aspirin; Z88.6 Allergy status to analgesic agent; Z88.8 Allergy status to other drugs, medicaments and biological substances; Z88.1 Allergy status to other antibiotic agents; Z79.899 Other long term (current) drug therapy; Z79.51 Long term (current) use of inhaled steroids
CPT/HCPCS: 71275; 80047; 80076; 82550; 82553; 83605; 83690; 83880; 84436; 84439; 84443; 84484; 85025; 85610; 85730; 87040; 87880; 93005; 94640; 94760; 99284; Q9967

== ENCOUNTER → 2022-09-26 | Outpatient (CLI) | payer MEDICARE ==
[2022-09-26 13:20] LABS: BASO % 0.8 % (0.0-1.0); EOS # 0.4 10^3/uL (0.0-0.5); EOS % 7.5 % (0.0-3.0); HEMATOCRIT 44.2 % (36.0-47.0); HEMOGLOBIN 14.6 g/dl (12.0-15.5); LYMPH # 1.4 10^3/uL (1.5-5.0); LYMPH % 27.6 % (24.0-44.0); MEAN CORPUSCULAR HEMOGLOBIN 31.5 pg (27.0-33.0); MEAN CORPUSCULAR VOLUME 95.5 fl (80.0-96.0); MONO # 0.5 10^3/uL (0.0-0.8); MONO % 9.9 % (2.0-8.0); NEUTROPHILS # 2.7 10^3/uL (1.5-8.5); NEUTROPHILS % 54.2 % (36.0-66.0); PLATELET COUNT, AUTOMATED 205 10^3/uL (150-450); RED BLOOD COUNT 4.63 10^6/uL (4.00-5.40); WHITE BLOOD COUNT 4.9 10^3/uL (4.0-10.0)
[2022-09-26 13:31] LABS: INR 0.95; PROTHROMBIN TIME 12.9 SECONDS (12.5-14.5)
[2022-09-26 13:32] LABS: PARTIAL THROMBOPLASTIN TIME 29.5 SECONDS (24.8-34.2)
[2022-09-26 13:49] LABS: C REACTIVE PROTEIN QUANTITATIV < 0.40 MG/DL (<1.0)
[2022-09-26 13:50] LABS: CPK CREATINE PHOSPHOKINASE 53 U/L (34-145)
[2022-09-26 13:54] LABS: ALBUMIN 3.9 G/DL (3.2-5.2); ALKALINE PHOSPHATASE 106 U/L (46-116); ALT/SGPT 34 U/L (7.0-40); AST/SGOT 29 U/L (<34); BILIRUBIN,TOTAL 0.4 MG/DL (0.3-1.2); BLOOD UREA NITROGEN 11 MG/DL (9-23); CALCIUM LEVEL 9.2 MG/DL (8.3-10.6); CARBON DIOXIDE LEVEL 30 MMOL/L (20-31); CHLORIDE LEVEL 102 MMOL/L (98-107); CHOLESTEROL LEVEL 109 MG/DL (<200); CHOLESTEROL RISK RATIO 3.82 (<5); CREATININE FOR GFR 0.72 MG/DL (0.55-1.30); GLOMERULAR FILTRATION RATE > 60.0 (>45); GLUCOSE, FASTING 84 MG/DL (74-106); HDL CHOLESTEROL 28.5 MG/DL (>40); LDL CHOLESTEROL 58.1 MG/DL (<100); NON-HDL-C 80.5 MG/DL; POTASSIUM SERUM 4.5 MMOL/L (3.5-5.1); SODIUM LEVEL 139 MMOL/L (136-145); TOTAL PROTEIN 7.4 G/DL (5.7-8.2); TRIGLYCERIDES LEVEL 112 MG/DL (<150)
[2022-09-27 20:07] LABS: H PYLORI SERUM QUANT IgG ABY 0.59 (0.00-0.79); TISSUE TRANSGLUTAMINASE IgA <2 U/mL (0-3)
== END ==
LOC: M PLALAB 11:39
PROVIDERS: ATTEND Family Medicine
DX: D50.9 Iron deficiency anemia, unspecified (principal); K76.0 Fatty (change of) liver, not elsewhere classified; E78.5 Hyperlipidemia, unspecified

== ENCOUNTER → 2022-10-04 | Outpatient (CLI) | payer MEDICARE | LOC: M CARPUL 10:11 | PROVIDERS: ATTEND Family Medicine | DX: I05.9 Rheumatic mitral valve disease, unspecified (principal) ==

== ENCOUNTER 2022-10-19 17:37 | Emergency (ER) | payer MEDICARE ==
[~2022-10-19] VITALS: Ht 172.7 cm; Wt 95.9 kg
[2022-10-19] MEDS ORDERED: FURO40TA2 (18:02)
[2022-10-19] MEDS ORDERED: GAS-CAP4 PO (18:02)
[2022-10-19 19:11] LABS: LIPASE 31 U/L (12-53)
[2022-10-19 19:13] LABS: ALBUMIN 3.6 G/DL (3.2-5.2); ALKALINE PHOSPHATASE 98 U/L (46-116); ALT/SGPT 33 U/L (7.0-40); AST/SGOT 28 U/L (<34); BILIRUBIN,DIRECT 0.1 MG/DL (<0.4); BILIRUBIN,TOTAL 0.4 MG/DL (0.3-1.2); BLOOD UREA NITROGEN 13 MG/DL (9-23); CALCIUM LEVEL 9.6 MG/DL (8.3-10.6); CARBON DIOXIDE LEVEL 28 MMOL/L (20-31); CHLORIDE LEVEL 102 MMOL/L (98-107); CREATININE FOR GFR 0.74 MG/DL (0.55-1.30); GLOMERULAR FILTRATION RATE > 60.0 (>45); GLUCOSE, FASTING 91 MG/DL (74-106); POTASSIUM SERUM 3.9 MMOL/L (3.5-5.1); SODIUM LEVEL 140 MMOL/L (136-145); TOTAL PROTEIN 7.1 G/DL (5.7-8.2)
[2022-10-19 19:14] LABS: BASO # 0.1 10^3/uL (0.0-0.2); BASO % 0.8 % (0.0-1.0); EOS # 0.5 10^3/uL (0.0-0.5); EOS % 6.8 % (0.0-3.0); HEMATOCRIT 43.4 % (36.0-47.0); HEMOGLOBIN 14.3 g/dl (12.0-15.5); LYMPH # 2.4 10^3/uL (1.5-5.0); MEAN CORPUSCULAR HEMOGLOBIN 31.4 pg (27.0-33.0); MEAN CORPUSCULAR HGB CONC 32.9 g/dl (32.0-36.5); MEAN CORPUSCULAR VOLUME 95.2 fl (80.0-96.0); MONO # 0.8 10^3/uL (0.0-0.8); MONO % 9.6 % (2.0-8.0); NEUTROPHILS # 4.1 10^3/uL (1.5-8.5); NEUTROPHILS % 52.7 % (36.0-66.0); PLATELET COUNT, AUTOMATED 212 10^3/uL (150-450); RED BLOOD COUNT 4.56 10^6/uL (4.00-5.40); THYROID STIMULATING HORMONE 0.886 uIU/ML (0.55-4.78); WHITE BLOOD COUNT 7.8 10^3/uL (4.0-10.0)
[2022-10-19 19:19] LABS: CPK CREATINE PHOSPHOKINASE 65 U/L (34-145); MB/CK RELATIVE INDEX 1.53 (< OR =4)
[2022-10-19] MEDS ORDERED: SUCRALFATE SUSP 1GM/10ML UD PO ONE (19:40)
[2022-10-19] MEDS ORDERED: MORPHINE 2 MG/ML 1ML VIAL IV PRN (19:40)
[2022-10-19] MEDS ORDERED: ISOVUE-370 76% 100ML VIAL As Ordered ONE (19:41)
[2022-10-19 19:59] LABS: CK-MB VALUE MASS 1.1 NG/ML (<3.6)
[2022-10-19 20:04] LABS: MB/CK RELATIVE INDEX 1.8 (< OR =4)
[2022-10-19] MEDS ORDERED: PRED20TA PO (21:55)
[2022-10-19] MEDS ORDERED: SUCR1TA PO (21:55)
[2022-10-19] MEDS ORDERED: KETOROLAC 30 MG/ML 1ML VIAL IV ONE (21:55)
[2022-10-19] MEDS ORDERED: OMEP40CA4 PO (21:55)
[2022-10-19 22:17] VITALS: BP 129/68; TEMP 96.4; O2SAT 96
== END 2022-10-19 22:19 | disposition home or self-care (01) ==
LOC: M ED 17:37 → EDBD 17:37 → M ED 22:19
DX: R07.89 Other chest pain (principal); I25.10 Atherosclerotic heart disease of native coronary artery without angina pectoris; G43.909 Migraine, unspecified, not intractable, without status migrainosus; K50.90 Crohn's disease, unspecified, without complications; K76.0 Fatty (change of) liver, not elsewhere classified; Z85.72 Personal history of non-Hodgkin lymphomas; Z87.891 Personal history of nicotine dependence; Z88.6 Allergy status to analgesic agent; Z88.1 Allergy status to other antibiotic agents; Z79.82 Long term (current) use of aspirin; Z79.899 Other long term (current) drug therapy
CPT/HCPCS: 71045; 71275; 74177; 80048; 80076; 81001; 82550; 82553; 83690; 83880; 84443; 84484; 85025; 87086; 87486; 87581; 87633; 87798; 93005; 93041; 94760; 96374; 96375; 99285; J1885; Q9967

== ENCOUNTER → 2022-12-09 | Outpatient (CLI) | payer MEDICARE ==
[~2022-12-09] MED LIST changes: +CLOP75TA99 PO; +FURO40TA2; +GAS-CAP4 PO; +OMEP40CA4 PO; +SUCR1TA PO
[2022-12-09 14:52] LABS: BASO # 0.1 10^3/uL (0.0-0.2); BASO % 1.1 % (0.0-1.0); EOS # 0.5 10^3/uL (0.0-0.5); EOS % 7.1 % (0.0-3.0); HEMATOCRIT 42.9 % (36.0-47.0); HEMOGLOBIN 14.5 g/dl (12.0-15.5); LYMPH % 30.8 % (24.0-44.0); MEAN CORPUSCULAR HEMOGLOBIN 32.1 pg (27.0-33.0); MEAN CORPUSCULAR HGB CONC 33.8 g/dl (32.0-36.5); MEAN CORPUSCULAR VOLUME 94.9 fl (80.0-96.0); MONO # 0.5 10^3/uL (0.0-0.8); MONO % 7.9 % (2.0-8.0); NEUTROPHILS # 3.5 10^3/uL (1.5-8.5); NEUTROPHILS % 52.9 % (36.0-66.0); PLATELET COUNT, AUTOMATED 222 10^3/uL (150-450); RED BLOOD COUNT 4.52 10^6/uL (4.00-5.40); WHITE BLOOD COUNT 6.6 10^3/uL (4.0-10.0)
[2022-12-09 15:15] LABS: BLOOD UREA NITROGEN 12 MG/DL (9-23); CALCIUM LEVEL 9.5 MG/DL (8.3-10.6); CARBON DIOXIDE LEVEL 30 MMOL/L (20-31); CHLORIDE LEVEL 101 MMOL/L (98-107); CREATININE FOR GFR 0.86 MG/DL (0.55-1.30); GLOMERULAR FILTRATION RATE > 60.0 (>45); GLUCOSE, FASTING 89 MG/DL (74-106); SODIUM LEVEL 137 MMOL/L (136-145)
== END ==
LOC: M LAB 14:11
PROVIDERS: ATTEND Internal Medicine Cardiovascular Disease
DX: I25.118 Atherosclerotic heart disease of native coronary artery with other forms of angina pectoris (principal)

== ENCOUNTER → 2022-12-09 | Outpatient (CLI) | payer MEDICARE ==
[2022-12-09 16:23] LABS: BASO # 0.1 10^3/uL (0.0-0.2); BASO % 1.2 % (0.0-1.0); EOS # 0.5 10^3/uL (0.0-0.5); EOS % 7.1 % (0.0-3.0); HEMATOCRIT 43.9 % (36.0-47.0); HEMOGLOBIN 14.5 g/dl (12.0-15.5); LYMPH # 2.3 10^3/uL (1.5-5.0); LYMPH % 31.5 % (24.0-44.0); MEAN CORPUSCULAR HEMOGLOBIN 31.9 pg (27.0-33.0); MEAN CORPUSCULAR VOLUME 96.7 fl (80.0-96.0); MONO # 0.7 10^3/uL (0.0-0.8); NEUTROPHILS # 3.7 10^3/uL (1.5-8.5); NEUTROPHILS % 50.9 % (36.0-66.0); PLATELET COUNT, AUTOMATED 235 10^3/uL (150-450); RED BLOOD COUNT 4.54 10^6/uL (4.00-5.40); WHITE BLOOD COUNT 7.3 10^3/uL (4.0-10.0)
[2022-12-09 16:38] LABS: PROTHROMBIN TIME 12.9 SECONDS (12.5-14.5)
[2022-12-09 16:51] LABS: ALBUMIN 3.9 G/DL (3.2-5.2); ALKALINE PHOSPHATASE 124 U/L (46-116); ALT/SGPT 44 U/L (7.0-40); AST/SGOT 37 U/L (<34); BILIRUBIN,TOTAL 0.4 MG/DL (0.3-1.2); BLOOD UREA NITROGEN 12 MG/DL (9-23); CALCIUM LEVEL 9.3 MG/DL (8.3-10.6); CARBON DIOXIDE LEVEL 33 MMOL/L (20-31); CHLORIDE LEVEL 101 MMOL/L (98-107); CREATININE FOR GFR 0.88 MG/DL (0.55-1.30); GLOMERULAR FILTRATION RATE > 60.0 (>45); GLUCOSE, FASTING 85 MG/DL (74-106); POTASSIUM SERUM 4.3 MMOL/L (3.5-5.1); SODIUM LEVEL 139 MMOL/L (136-145); TOTAL PROTEIN 7.8 G/DL (5.7-8.2)
== END ==
LOC: M WUC 13:56
PROVIDERS: ATTEND Family Medicine
DX: I25.118 Atherosclerotic heart disease of native coronary artery with other forms of angina pectoris (principal)

== ENCOUNTER → 2022-12-29 | Outpatient (CLI) | payer MEDICARE ==
[2022-12-29 14:19] LABS: CPK CREATINE PHOSPHOKINASE 81 U/L (34-145)
[2022-12-29 14:20] LABS: RHEUMATOID FACTOR QUANT < 3.5 IU/ML (<14)
[2023-01-04 14:08] LABS: ANA (HEP2) Negative (.); ASPERGILLUS FUMIGATUS AB Negative (Negative); AUREOBASIDIUM PULLULANS Negative (Negative); CYCLIC CITRULLINATED PEPTIDE 11 units (0-19); MICROPOLYSPORA FAENI AB Negative (Negative); PIGEON SERUM AB Negative (Negative); THERMOACTINOMYCES SACCHARI Negative (Negative); THERMOACTINOMYCES VULGARIS Negative (Negative)
== END ==
LOC: M PLALAB 09:29
PROVIDERS: ATTEND Family Medicine
DX: J84.9 Interstitial pulmonary disease, unspecified (principal)

== ENCOUNTER → 2022-12-29 | Outpatient (REF) | payer MEDICARE | LOC: M SFHCPLAZ 09:20 | PROVIDERS: ATTEND Family Medicine | DX: J84.9 Interstitial pulmonary disease, unspecified (principal) ==

== ENCOUNTER → 2023-01-06 | Outpatient (REF) | payer MEDICARE | LOC: M SFHCPLAZ 13:50 | PROVIDERS: ATTEND Family Medicine | DX: J45.30 Mild persistent asthma, uncomplicated (principal) ==

== ENCOUNTER → 2023-01-23 | Outpatient (REF) | payer MEDICARE | LOC: M SFHCPLAZ 11:28 | PROVIDERS: ATTEND Family Medicine | DX: J84.9 Interstitial pulmonary disease, unspecified (principal) ==

== ENCOUNTER → 2023-01-25 | Outpatient (CLI) | payer MEDICARE ==
[~2023-01-25] MED LIST changes: +ISOVUE-370 76% 100ML VIAL ONE
== END ==
LOC: M PLAIMG 08:29
PROVIDERS: ATTEND Family Medicine
DX: J84.9 Interstitial pulmonary disease, unspecified (principal)
CPT/HCPCS: 71260; Q9967

== ENCOUNTER 2023-02-02 15:31 | Emergency (ER) | payer MEDICARE ==
[~2023-02-02] VITALS: Ht 172.7 cm; Wt 102.6 kg
[~2023-02-02 15:31] MED LIST changes: -ISOVUE-370 76% 100ML VIAL ONE
[2023-02-02 16:36] LABS: BASO % 0.8 % (0.0-1.0); EOS # 0.3 10^3/uL (0.0-0.5); EOS % 5.6 % (0.0-3.0); HEMATOCRIT 43.5 % (36.0-47.0); HEMOGLOBIN 14.3 g/dl (12.0-15.5); LYMPH # 1.5 10^3/uL (1.5-5.0); LYMPH % 29.3 % (24.0-44.0); MEAN CORPUSCULAR HEMOGLOBIN 31.4 pg (27.0-33.0); MEAN CORPUSCULAR HGB CONC 32.9 g/dl (32.0-36.5); MEAN CORPUSCULAR VOLUME 95.4 fl (80.0-96.0); MONO # 0.4 10^3/uL (0.0-0.8); MONO % 7.3 % (2.0-8.0); NEUTROPHILS % 56.8 % (36.0-66.0); PLATELET COUNT, AUTOMATED 202 10^3/uL (150-450); RED BLOOD COUNT 4.56 10^6/uL (4.00-5.40); WHITE BLOOD COUNT 5.2 10^3/uL (4.0-10.0)
[2023-02-02 16:47] LABS: INR 1.06; PROTHROMBIN TIME 13.5 SECONDS (12.5-14.5)
[2023-02-02 17:06] LABS: ALBUMIN 3.8 G/DL (3.2-5.2); ALKALINE PHOSPHATASE 94 U/L (46-116); ALT/SGPT 33 U/L (7.0-40); AST/SGOT 28 U/L (<34); BILIRUBIN,DIRECT 0.1 MG/DL (<0.4); BILIRUBIN,TOTAL 0.3 MG/DL (0.3-1.2); BLOOD UREA NITROGEN 12 MG/DL (9-23); CALCIUM LEVEL 9.4 MG/DL (8.3-10.6); CARBON DIOXIDE LEVEL 27 MMOL/L (20-31); CHLORIDE LEVEL 105 MMOL/L (98-107); CREATININE FOR GFR 0.79 MG/DL (0.55-1.30); GLOMERULAR FILTRATION RATE > 60.0 (>45); GLUCOSE, FASTING 90 MG/DL (74-106); POTASSIUM SERUM 3.9 MMOL/L (3.5-5.1); SODIUM LEVEL 139 MMOL/L (136-145); TOTAL PROTEIN 7.4 G/DL (5.7-8.2)
[2023-02-02 17:08] LABS: THYROID STIMULATING HORMONE 2.788 uIU/ML (0.55-4.78)
[2023-02-02] MEDS ORDERED: ISOVUE-370 76% 100ML VIAL As Ordered ONE (17:35)
[2023-02-02 18:18] VITALS: BP 118/75; TEMP 97; O2SAT 98
== END 2023-02-02 18:25 | disposition home or self-care (01) ==
LOC: M ED 15:31
DX: R53.83 Other fatigue (principal); I50.9 Heart failure, unspecified; F32.A Depression, unspecified; F41.9 Anxiety disorder, unspecified; D50.9 Iron deficiency anemia, unspecified; E66.9 Obesity, unspecified; Z85.72 Personal history of non-Hodgkin lymphomas; Z86.14 Personal history of Methicillin resistant Staphylococcus aureus infection; Z87.891 Personal history of nicotine dependence; Z79.82 Long term (current) use of aspirin; Z79.899 Other long term (current) drug therapy; Z79.02 Long term (current) use of antithrombotics/antiplatelets; Z88.6 Allergy status to analgesic agent; Z88.1 Allergy status to other antibiotic agents; Z88.8 Allergy status to other drugs, medicaments and biological substances
CPT/HCPCS: 71045; 71275; 80048; 80076; 81001; 83605; 84443; 85025; 85610; 87040; 87086; 87486; 87581; 87633; 87798; 93005; 94760; 99284; Q9967

== ENCOUNTER → 2023-02-13 | Outpatient (CLI) | payer MEDICARE | LOC: M CARPUL 13:24 | PROVIDERS: ATTEND Family Medicine | DX: J84.9 Interstitial pulmonary disease, unspecified (principal) ==

== ENCOUNTER 2023-02-19 18:31 | Emergency (ER) | payer MEDICARE ==
[2023-02-19] MEDS ORDERED: dexAMETHasone 20MG/5ML VIAL IM ONE (19:25)
[2023-02-19] MEDS ORDERED: IPRATROPIUM 0.5MG/ALBUTEROL 2.5MG INH SOL UD 3ML (DUONEB) NEB ONE ×3 (19:25)
[2023-02-19] MEDS ORDERED: KETOROLAC TROMETHAMINE 10 MG TAB PO ONE ×2 (21:10)
[2023-02-19] MEDS ORDERED: LIDOCAINE 5% (LIDODERM) PATCH TD ONE (21:10)
[2023-02-19] MEDS ORDERED: KETO10TAB PO (21:22)
[2023-02-19] MEDS ORDERED: COMBAER6 INH (21:22)
[2023-02-19] MEDS ORDERED: PRED20TA PO (21:22)
[2023-02-19] MEDS ORDERED: LIDO5DIS41 TD (21:22)
[2023-02-19 22:18] VITALS: BP 134/85; TEMP 98.5; O2SAT 97
[2023-02-20] MEDS ORDERED: COMBIVENT RESPIMAT 100-20MCG INHALER 4GM INH SCH ×2 (09:00)
== END 2023-02-19 22:23 | disposition home or self-care (01) ==
LOC: M ED 18:31
DX: J06.9 Acute upper respiratory infection, unspecified (principal); J45.909 Unspecified asthma, uncomplicated; Z87.09 Personal history of other diseases of the respiratory system; I50.9 Heart failure, unspecified; I10 Essential (primary) hypertension; E78.5 Hyperlipidemia, unspecified; K21.9 Gastro-esophageal reflux disease without esophagitis; F41.9 Anxiety disorder, unspecified; Z85.72 Personal history of non-Hodgkin lymphomas; Z79.02 Long term (current) use of antithrombotics/antiplatelets; Z79.82 Long term (current) use of aspirin; Z79.899 Other long term (current) drug therapy; Z88.6 Allergy status to analgesic agent; Z88.1 Allergy status to other antibiotic agents; Z88.8 Allergy status to other drugs, medicaments and biological substances
CPT/HCPCS: 71101; 87486; 87581; 87633; 87798; 93005; 94640; 96372; 99284; J1100

== ENCOUNTER 2023-02-23 13:40 | Inpatient (IN) | payer MEDICARE ==
[~2023-02-23] VITALS: Ht 172.7 cm; Wt 104.5 kg
[~2023-02-23 13:40] MED LIST changes: +COMBAER6 INH; +KETO10TAB PO; +LIDO5DIS41 TD
[2023-02-23 14:00] LABS: ABG BASE EXCESS -0.3 (-2.0-2.0); ABG HCO3 23.7 MMOL/L (22.0-26.0); ABG O2 SATURATION 95.5 % (95.0-99.0); ABG PARTIAL PRESSURE CO2 36.9 mmHg (35.0-45.0); ABG STANDARD HCO3 24.2 MMOL/L. (22.0-26.0); ABG TOTAL CO2 24.9 MMOL/L (23.0-31.0); ABG pH (ARTERIAL) 7.426 UNITS (7.350-7.450)
[2023-02-23] MEDS ORDERED: ACETAMINOPHEN 650MG SUPP PR ONE (14:00)
[2023-02-23] MEDS ORDERED: ACETAMINOPHEN 650MG SUPP As Ordered ONE (14:01)
[2023-02-23 14:19] LABS: BASO % 0.2 % (0.0-1.0); EOS % 0.2 % (0.0-3.0); HEMATOCRIT 46.2 % (36.0-47.0); HEMOGLOBIN 14.8 g/dl (12.0-15.5); LYMPH # 0.8 10^3/uL (1.5-5.0); LYMPH % 17.8 % (24.0-44.0); MEAN CORPUSCULAR HEMOGLOBIN 31.8 pg (27.0-33.0); MEAN CORPUSCULAR VOLUME 99.4 fl (80.0-96.0); MONO # 0.1 10^3/uL (0.0-0.8); MONO % 1.8 % (2.0-8.0); NEUTROPHILS # 3.5 10^3/uL (1.5-8.5); NEUTROPHILS % 79.8 % (36.0-66.0); PLATELET COUNT, AUTOMATED 149 10^3/uL (150-450); RED BLOOD COUNT 4.65 10^6/uL (4.00-5.40); WHITE BLOOD COUNT 4.4 10^3/uL (4.0-10.0)
[2023-02-23] MEDS ORDERED: AZITHROMYCIN INJ 500 MG, VIAL MATE ADAPTER 1 EACH in NS 250 ML IV ONE (14:40)
[2023-02-23] MEDS ORDERED: NS 500 ML IV ONE (14:40)
[2023-02-23] MEDS ORDERED: cefTRIAXone SOD 2 GM in D5W MINI-BAG PLUS 50 ML IV ONE (14:40)
[2023-02-23 14:48] LABS: ALBUMIN 3.2 G/DL (3.2-5.2); ALKALINE PHOSPHATASE 86 U/L (46-116); ALT/SGPT 44 U/L (7.0-40); AST/SGOT 33 U/L (<34); BILIRUBIN,DIRECT 0.2 MG/DL (<0.4); BILIRUBIN,TOTAL 0.7 MG/DL (0.3-1.2); BLOOD UREA NITROGEN 14 MG/DL (9-23); CALCIUM LEVEL 8.4 MG/DL (8.3-10.6); CARBON DIOXIDE LEVEL 29 MMOL/L (20-31); CHLORIDE LEVEL 104 MMOL/L (98-107); CK-MB VALUE MASS < 1.0 NG/ML (<3.6); CREATININE FOR GFR 0.84 MG/DL (0.55-1.30); GLOMERULAR FILTRATION RATE > 60.0 (>45); GLUCOSE, FASTING 106 MG/DL (74-106); SODIUM LEVEL 139 MMOL/L (136-145); THYROID STIMULATING HORMONE 2.176 uIU/ML (0.55-4.78); TOTAL PROTEIN 6.8 G/DL (5.7-8.2)
[2023-02-23 14:51] LABS: PROCALCITONIN 0.15 ng/ml
[2023-02-23] MEDS: NS 1,000 ML IV SCH ×2 (14:53→22:40)
[2023-02-23 15:23] LABS: CPK CREATINE PHOSPHOKINASE 67 U/L (34-145); MB/CK RELATIVE INDEX 1.49 (< OR =4)
[2023-02-23] MEDS ORDERED: IBUPROFEN 600MG TAB PO ONE (15:25)
[2023-02-23 15:35] LABS: CK-MB VALUE MASS < 1.0 NG/ML (<3.6)
[2023-02-23 15:38] LABS: CPK CREATINE PHOSPHOKINASE 64 U/L (34-145); MB/CK RELATIVE INDEX 1.56 (< OR =4)
[2023-02-23 15:42] LABS: THYROXINE (T4) 5.6 UG/DL (4.5-10.9)
[2023-02-23] MEDS ORDERED: NS 2,620 ML in IV 1 EA IV ONE (15:50)
[2023-02-23] MEDS ORDERED: HYDROCORTISONE 100MG/2ML VIAL IV ONE (16:35)
[2023-02-23] MEDS ORDERED: MOM 30ML SUSPENSION UDC PO PRN (18:05)
[2023-02-23] MEDS ORDERED: HYDROCORTISONE 100MG/2ML VIAL IV SCH (18:20)
[2023-02-23] MEDS ORDERED: FLUO40CA PO (19:18)
[2023-02-23] MEDS ORDERED: FLUTISP NARES (19:18)
[2023-02-23] MEDS ORDERED: SYMB80INH INH (19:18)
[2023-02-23] MEDS ORDERED: LEVO100T5 PO (19:23)
[2023-02-23] MEDS ORDERED: KETO10TAB PO (19:23)
[2023-02-23 19:28] LABS: INR 1.26; PROTHROMBIN TIME 15.4 SECONDS (12.5-14.5)
[2023-02-23] MEDS ORDERED: med rec comment (19:28)
[2023-02-23] MEDS ORDERED: HOME MED LIST COMPLETE! XX SCH (19:30)
[2023-02-23] MEDS: IPRATROPIUM 0.5MG/ALBUTEROL 2.5MG INH SOL UD 3ML (DUONEB) NEB SCH (20:11)
[2023-02-23 20:47] VITALS: BP 101/58; TEMP 97; O2SAT 94
[2023-02-23] MEDS ORDERED: ALBUTEROL 90 MCG/ACT 8GM HFA INHALER INH PRN (21:40)
[2023-02-23] MEDS: DOCUSATE SODIUM 100MG CAPSULE PO SCH (21:44)
[2023-02-23] MEDS: PIPERACILLIN/TAZOBACTAM SOD 4.5 GM in D5W MINI-BAG PLUS 50 ML IV SCH (21:44)
[2023-02-23] MEDS: CYANOCOBALAMIN 500 MCG TAB PO SCH (23:30)
[2023-02-23] MEDS: HYDROCORTISONE 100MG/2ML VIAL IV SCH (23:30)
[2023-02-23] MEDS: ATORVASTATIN 20 MG TAB PO SCH (23:31)
[2023-02-23] MEDS: KETOROLAC TROMETHAMINE 10 MG TAB PO SCH (23:31)
[2023-02-23] MEDS: AMITRIPTYLINE 25MG TABLET PO SCH (23:32)
[2023-02-23 23:36] VITALS: BP 98/56; TEMP 97.8; O2SAT 94
[2023-02-23] MEDS: ASPIRIN 81MG ENTERIC TABLET PO SCH (23:38)
[2023-02-24] VITALS (16 sets, daily range): BP systolic 109–137; BP diastolic 57–69; TEMP 96.6–98.6; O2SAT 92–99
[2023-02-24] MEDS: IPRATROPIUM 0.5MG/ALBUTEROL 2.5MG INH SOL UD 3ML (DUONEB) NEB SCH ×7 (00:07→23:35)
[2023-02-24] MEDS: PIPERACILLIN/TAZOBACTAM SOD 4.5 GM in D5W MINI-BAG PLUS 50 ML IV SCH ×4 (02:35→21:09)
[2023-02-24] MEDS: NS 1,000 ML IV SCH (06:15)
[2023-02-24] MEDS: LEVOTHYROXINE 100MCG TABLET (0.1MG) PO SCH (06:15)
[2023-02-24] MEDS: SYMBICORT 80/4.5MCG INHALER 6GM INH SCH ×2 (07:50→19:58)
[2023-02-24] MEDS: HYDROCORTISONE 100MG/2ML VIAL IV SCH (08:56)
[2023-02-24] MEDS: LIDOCAINE 5% (LIDODERM) PATCH TD SCH (08:56)
[2023-02-24] MEDS: CLOPIDOGREL 75 MG TAB PO SCH (08:57)
[2023-02-24] MEDS: ENOXAPARIN 40MG/0.4ML SYRINGE (J1650 PER 10MG) SC SCH (08:57)
[2023-02-24] MEDS: FLUoxetine 20MG CAP PO SCH (08:57)
[2023-02-24] MEDS: DOCUSATE SODIUM 100MG CAPSULE PO SCH ×2 (08:57→21:11)
[2023-02-24] MEDS: KETOROLAC TROMETHAMINE 10 MG TAB PO SCH (08:57)
[2023-02-24] MEDS: FLUTICASONE PROP 0.05% NASAL SPRAY 16 GM (FLONASE) NARES SCH (08:58)
[2023-02-24] MEDS ORDERED: AZITHROMYCIN INJ 500 MG, VIAL MATE ADAPTER 1 EACH in NS 250 ML IV SCH (09:00)
[2023-02-24 09:20] LABS: MEAN CORPUSCULAR HEMOGLOBIN 31.8 pg (27.0-33.0); MEAN CORPUSCULAR HGB CONC 32.2 g/dl (32.0-36.5); MEAN CORPUSCULAR VOLUME 98.8 fl (80.0-96.0); PLATELET COUNT, AUTOMATED 112 10^3/uL (150-450); RED BLOOD COUNT 3.46 10^6/uL (4.00-5.40)
[2023-02-24 09:23] LABS: HEMATOCRIT 34.2 % (36.0-47.0)
[2023-02-24 09:39] LABS: BLOOD UREA NITROGEN 15 MG/DL (9-23); CALCIUM LEVEL 7.3 MG/DL (8.3-10.6); CARBON DIOXIDE LEVEL 24 MMOL/L (20-31); CHLORIDE LEVEL 110 MMOL/L (98-107); CREATININE FOR GFR 0.65 MG/DL (0.55-1.30); GLOMERULAR FILTRATION RATE > 60.0 (>45); GLUCOSE, FASTING 111 MG/DL (74-106); MAGNESIUM LEVEL 1.6 MG/DL (1.8-2.4); POTASSIUM SERUM 3.6 MMOL/L (3.5-5.1); SODIUM LEVEL 142 MMOL/L (136-145)
[2023-02-24] MEDS: AZITHROMYCIN 250MG TABLET PO SCH (11:14)
[2023-02-24] MEDS: MAG SULF 1GM/100ML (MAG RUN) 1 GM in IV 1 EA IV SCH ×4 (12:42→15:13)
[2023-02-24] MEDS: MIRALAX *UNIT DOSE* 17GM PACKET PO SCH (21:10)
[2023-02-24] MEDS: CYANOCOBALAMIN 500 MCG TAB PO SCH (21:10)
[2023-02-24] MEDS: AMITRIPTYLINE 25MG TABLET PO SCH (21:10)
[2023-02-24] MEDS: ASPIRIN 81MG ENTERIC TABLET PO SCH (21:10)
[2023-02-24] MEDS: ATORVASTATIN 20 MG TAB PO SCH (21:11)
[2023-02-25] VITALS (13 sets, daily range): BP systolic 122–158; BP diastolic 68–74; TEMP 97–97.8; O2SAT 92–97
[2023-02-25] MEDS: PIPERACILLIN/TAZOBACTAM SOD 4.5 GM in D5W MINI-BAG PLUS 50 ML IV SCH ×3 (02:21→14:42)
[2023-02-25] MEDS: IPRATROPIUM 0.5MG/ALBUTEROL 2.5MG INH SOL UD 3ML (DUONEB) NEB SCH ×6 (03:00→23:21)
[2023-02-25 05:56] LABS: HEMOGLOBIN 10.5 g/dl (12.0-15.5); MEAN CORPUSCULAR HEMOGLOBIN 31.1 pg (27.0-33.0); MEAN CORPUSCULAR HGB CONC 31.8 g/dl (32.0-36.5); MEAN CORPUSCULAR VOLUME 97.6 fl (80.0-96.0); PLATELET COUNT, AUTOMATED 116 10^3/uL (150-450); RED BLOOD COUNT 3.38 10^6/uL (4.00-5.40); WHITE BLOOD COUNT 9.2 10^3/uL (4.0-10.0)
[2023-02-25] MEDS: LEVOTHYROXINE 100MCG TABLET (0.1MG) PO SCH (05:59)
[2023-02-25 06:20] LABS: BLOOD UREA NITROGEN 11 MG/DL (9-23); CALCIUM LEVEL 7.7 MG/DL (8.3-10.6); CARBON DIOXIDE LEVEL 27 MMOL/L (20-31); CHLORIDE LEVEL 109 MMOL/L (98-107); CREATININE FOR GFR 0.61 MG/DL (0.55-1.30); GLOMERULAR FILTRATION RATE > 60.0 (>45); GLUCOSE, FASTING 114 MG/DL (74-106); MAGNESIUM LEVEL 2.1 MG/DL (1.8-2.4); SODIUM LEVEL 142 MMOL/L (136-145)
[2023-02-25] MEDS: SYMBICORT 80/4.5MCG INHALER 6GM INH SCH ×2 (07:23→20:16)
[2023-02-25] MEDS ORDERED: IBUPROFEN 600MG TAB PO PRN (08:05)
[2023-02-25] MEDS ORDERED: IBUPROFEN 400MG TAB PO PRN (08:05)
[2023-02-25] MEDS: LIDOCAINE 5% (LIDODERM) PATCH TD SCH ×2 (09:00→09:21)
[2023-02-25] MEDS: methylPREDNISolone 125MG 2ML VIAL IV SCH ×3 (09:20→21:39)
[2023-02-25] MEDS: AZITHROMYCIN 250MG TABLET PO SCH (09:20)
[2023-02-25] MEDS: ENOXAPARIN 40MG/0.4ML SYRINGE (J1650 PER 10MG) SC SCH (09:20)
[2023-02-25] MEDS: CLOPIDOGREL 75 MG TAB PO SCH (09:21)
[2023-02-25] MEDS: POTASSIUM CHLORIDE 10MEQ SR TABLET PO SCH ×2 (09:21→11:26)
[2023-02-25] MEDS: MIRALAX *UNIT DOSE* 17GM PACKET PO SCH ×2 (09:21→20:33)
[2023-02-25] MEDS: FLUoxetine 20MG CAP PO SCH (09:21)
[2023-02-25] MEDS: FLUTICASONE PROP 0.05% NASAL SPRAY 16 GM (FLONASE) NARES SCH (09:21)
[2023-02-25] MEDS: DOCUSATE SODIUM 100MG CAPSULE PO SCH ×2 (09:22→20:35)
[2023-02-25] MEDS: guaiFENesin/CODEINE SYRUP 5 ML UDC PO SCH ×3 (11:26→23:56)
[2023-02-25] MEDS: BENZONATATE 100MG CAPSULE PO SCH ×2 (14:42→20:34)
[2023-02-25] MEDS: GABAPENTIN 100 MG CAP PO SCH ×2 (14:42→20:35)
[2023-02-25] MEDS ORDERED: cefTRIAXone SOD 1 GM in D5W MINI-BAG PLUS 50 ML IV SCH (20:00)
[2023-02-25] MEDS: ASPIRIN 81MG ENTERIC TABLET PO SCH (20:33)
[2023-02-25] MEDS: AMITRIPTYLINE 25MG TABLET PO SCH (20:34)
[2023-02-25] MEDS: CYANOCOBALAMIN 500 MCG TAB PO SCH (20:34)
[2023-02-25] MEDS: ATORVASTATIN 20 MG TAB PO SCH (20:35)
[2023-02-26] VITALS (11 sets, daily range): BP systolic 136–153; BP diastolic 74–80; TEMP 97–97.1; O2SAT 90–99
[2023-02-26] MEDS: IPRATROPIUM 0.5MG/ALBUTEROL 2.5MG INH SOL UD 3ML (DUONEB) NEB SCH ×3 (03:51→11:55)
[2023-02-26] MEDS: methylPREDNISolone 125MG 2ML VIAL IV SCH ×2 (04:58→10:28)
[2023-02-26] MEDS: LEVOTHYROXINE 100MCG TABLET (0.1MG) PO SCH (05:01)
[2023-02-26] MEDS: guaiFENesin/CODEINE SYRUP 5 ML UDC PO SCH ×2 (05:01→12:30)
[2023-02-26 06:02] LABS: HEMATOCRIT 33.9 % (36.0-47.0); HEMOGLOBIN 11.1 g/dl (12.0-15.5); MEAN CORPUSCULAR HEMOGLOBIN 31.4 pg (27.0-33.0); MEAN CORPUSCULAR HGB CONC 32.7 g/dl (32.0-36.5); PLATELET COUNT, AUTOMATED 130 10^3/uL (150-450); RED BLOOD COUNT 3.53 10^6/uL (4.00-5.40); WHITE BLOOD COUNT 8.7 10^3/uL (4.0-10.0)
[2023-02-26 06:41] LABS: BLOOD UREA NITROGEN 11 MG/DL (9-23); CALCIUM LEVEL 8.2 MG/DL (8.3-10.6); CARBON DIOXIDE LEVEL 25 MMOL/L (20-31); CHLORIDE LEVEL 108 MMOL/L (98-107); CREATININE FOR GFR 0.49 MG/DL (0.55-1.30); GLOMERULAR FILTRATION RATE > 60.0 (>45); GLUCOSE, FASTING 155 MG/DL (74-106); SODIUM LEVEL 141 MMOL/L (136-145)
[2023-02-26] MEDS: SYMBICORT 80/4.5MCG INHALER 6GM INH SCH (07:04)
[2023-02-26] MEDS: LIDOCAINE 5% (LIDODERM) PATCH TD SCH ×2 (09:00→10:31)
[2023-02-26] MEDS: BENZONATATE 100MG CAPSULE PO SCH (10:27)
[2023-02-26] MEDS: AZITHROMYCIN 250MG TABLET PO SCH (10:27)
[2023-02-26] MEDS: ENOXAPARIN 40MG/0.4ML SYRINGE (J1650 PER 10MG) SC SCH (10:27)
[2023-02-26] MEDS: GABAPENTIN 100 MG CAP PO SCH (10:27)
[2023-02-26] MEDS: FLUoxetine 20MG CAP PO SCH (10:28)
[2023-02-26] MEDS: CLOPIDOGREL 75 MG TAB PO SCH (10:28)
[2023-02-26] MEDS: DOCUSATE SODIUM 100MG CAPSULE PO SCH (10:28)
[2023-02-26] MEDS: FLUTICASONE PROP 0.05% NASAL SPRAY 16 GM (FLONASE) NARES SCH (10:28)
[2023-02-26] MEDS: MIRALAX *UNIT DOSE* 17GM PACKET PO SCH (10:28)
[2023-02-26] MEDS ORDERED: IPRA0.00 INH ×2 (12:51→12:54)
[2023-02-26] MEDS ORDERED: IPRA0.00 NEB (12:51)
[2023-02-26] MEDS ORDERED: PRED20TA PO (12:51)
[2023-02-26] MEDS ORDERED: BENZ-18 PO (12:51)
[2023-02-26] MEDS ORDERED: AMOX875T2 PO (12:51)
[2023-02-26] MEDS ORDERED: PRED10TA2 PO (12:51)
[2023-02-26] MEDS ORDERED: GUAI1SOL7 PO (12:51)
[2023-02-26] MEDS ORDERED: MIRA3350 PO (12:51)
[2023-02-26] MEDS ORDERED: NEBU1EAC78 MC (14:40)
[2023-02-27] MEDS ORDERED: predniSONE 20 MG TAB PO SCH (09:00)
== END 2023-02-26 14:30 | disposition home health service (06) | DRG 871 ==
LOC: M ED 13:40 → EDBD 13:40 → M ED INP 18:02 → M PCU 20:30
PROVIDERS: ADMIT Student in an Organized Health Care Education/Training Program; ATTEND Student in an Organized Health Care Education/Training Program
DX: A41.9 Sepsis, unspecified organism (principal); J12.89 Other viral pneumonia; J96.01 Acute respiratory failure with hypoxia; J15.69 Pneumonia due to other Gram-negative bacteria; G93.41 Metabolic encephalopathy; I50.32 Chronic diastolic (congestive) heart failure; K50.90 Crohn's disease, unspecified, without complications; J45.31 Mild persistent asthma with (acute) exacerbation; I25.10 Atherosclerotic heart disease of native coronary artery without angina pectoris; F17.200 Nicotine dependence, unspecified, uncomplicated; D50.9 Iron deficiency anemia, unspecified; K29.80 Duodenitis without bleeding; K57.90 Diverticulosis of intestine, part unspecified, without perforation or abscess without bleeding; L92.0 Granuloma annulare; E03.9 Hypothyroidism, unspecified; K59.00 Constipation, unspecified; M72.2 Plantar fascial fibromatosis; G47.33 Obstructive sleep apnea (adult) (pediatric); G31.84 Mild cognitive impairment of uncertain or unknown etiology; G89.29 Other chronic pain; F32.A Depression, unspecified; G50.0 Trigeminal neuralgia; I11.0 Hypertensive heart disease with heart failure; E87.6 Hypokalemia; B97.29 Other coronavirus as the cause of diseases classified elsewhere; E83.42 Hypomagnesemia; Z79.82 Long term (current) use of aspirin; Z79.02 Long term (current) use of antithrombotics/antiplatelets; Z79.899 Other long term (current) drug therapy; Z79.890 Hormone replacement therapy; Z88.1 Allergy status to other antibiotic agents; Z88.6 Allergy status to analgesic agent; Z85.79 Personal history of other malignant neoplasms of lymphoid, hematopoietic and related tissues; Z88.8 Allergy status to other drugs, medicaments and biological substances; Z90.49 Acquired absence of other specified parts of digestive tract

== ENCOUNTER → 2023-04-13 | Outpatient (CLI) | payer MEDICARE ==
[~2023-04-13] MED LIST changes: +AMOX875T2 PO; -ASPI-161 PO; +ASPI-615 PO; +FLUTISP NARES; +GUAI1SOL7 PO; +IPRA0.00 INH; +IPRA0.00 NEB; +LEVO100T5 PO; +MIRA3350 PO; +NEBU1EAC78 MC; +PRED10TA2 PO; +SYMB80INH INH; +med rec comment
[2023-04-13 11:38] LABS: BASO # 0.1 10^3/uL (0.0-0.2); BASO % 1.6 % (0.0-1.0); EOS # 0.4 10^3/uL (0.0-0.5); EOS % 7.7 % (0.0-3.0); HEMATOCRIT 40.8 % (36.0-47.0); HEMOGLOBIN 13.4 g/dl (12.0-15.5); LYMPH # 1.5 10^3/uL (1.5-5.0); LYMPH % 29.5 % (24.0-44.0); MEAN CORPUSCULAR HEMOGLOBIN 30.8 pg (27.0-33.0); MEAN CORPUSCULAR HGB CONC 32.8 g/dl (32.0-36.5); MEAN CORPUSCULAR VOLUME 93.8 fl (80.0-96.0); MONO # 0.5 10^3/uL (0.0-0.8); MONO % 9.8 % (2.0-8.0); NEUTROPHILS # 2.6 10^3/uL (1.5-8.5); NEUTROPHILS % 51.2 % (36.0-66.0); PLATELET COUNT, AUTOMATED 189 10^3/uL (150-450); RED BLOOD COUNT 4.35 10^6/uL (4.00-5.40); WHITE BLOOD COUNT 5.1 10^3/uL (4.0-10.0)
[2023-04-13 11:50] LABS: INR 1.05; PROTHROMBIN TIME 13.4 SECONDS (12.5-14.5)
[2023-04-13 11:51] LABS: PARTIAL THROMBOPLASTIN TIME 31.1 SECONDS (24.8-34.2)
[2023-04-13 11:59] LABS: C REACTIVE PROTEIN QUANTITATIV < 0.40 MG/DL (<1.0)
[2023-04-13 12:00] LABS: ALBUMIN 3.6 G/DL (3.2-5.2); ALKALINE PHOSPHATASE 93 U/L (46-116); ALT/SGPT 28 U/L (7.0-40); AST/SGOT 26 U/L (<34); BILIRUBIN,TOTAL 0.4 MG/DL (0.3-1.2); BLOOD UREA NITROGEN 10 MG/DL (9-23); CALCIUM LEVEL 8.8 MG/DL (8.3-10.6); CARBON DIOXIDE LEVEL 30 MMOL/L (20-31); CHLORIDE LEVEL 101 MMOL/L (98-107); CHOLESTEROL LEVEL 112 MG/DL (<200); CHOLESTEROL RISK RATIO 3.28 (<5); CPK CREATINE PHOSPHOKINASE 72 U/L (34-145); CREATININE FOR GFR 0.75 MG/DL (0.55-1.30); GLOMERULAR FILTRATION RATE > 60.0 (>45); GLUCOSE, FASTING 94 MG/DL (74-106); HDL CHOLESTEROL 34.1 MG/DL (>40); LDL CHOLESTEROL 62.1 MG/DL (<100); NON-HDL-C 77.9 MG/DL; SODIUM LEVEL 135 MMOL/L (136-145); TOTAL PROTEIN 7.1 G/DL (5.7-8.2); TRIGLYCERIDES LEVEL 79 MG/DL (<150)
[2023-04-13 12:03] LABS: FERRITIN 52.2 NG/ML (7.3-270.7)
== END ==
LOC: M WUC 10:06
PROVIDERS: ATTEND Family Medicine
DX: K76.0 Fatty (change of) liver, not elsewhere classified (principal); D50.9 Iron deficiency anemia, unspecified; E78.5 Hyperlipidemia, unspecified

== ENCOUNTER → 2023-04-20 | Outpatient (REF) | payer MEDICARE | LOC: M SFHCPLAZ 16:41 | PROVIDERS: ATTEND Family Medicine | DX: I50.32 Chronic diastolic (congestive) heart failure (principal); G50.0 Trigeminal neuralgia; E03.9 Hypothyroidism, unspecified ==

== ENCOUNTER → 2023-04-24 | Outpatient (CLI) | payer MEDICARE ==
[2023-04-24 10:32] LABS: ALBUMIN 3.5 G/DL (3.2-5.2); ALKALINE PHOSPHATASE 95 U/L (46-116); ALT/SGPT 30 U/L (7.0-40); AST/SGOT 30 U/L (<34); BILIRUBIN,TOTAL 0.3 MG/DL (0.3-1.2); BLOOD UREA NITROGEN 11 MG/DL (9-23); CALCIUM LEVEL 9.1 MG/DL (8.3-10.6); CARBON DIOXIDE LEVEL 30 MMOL/L (20-31); CHLORIDE LEVEL 103 MMOL/L (98-107); CREATININE FOR GFR 0.72 MG/DL (0.55-1.30); GLOMERULAR FILTRATION RATE > 60.0 (>45); GLUCOSE, FASTING 93 MG/DL (74-106); MAGNESIUM LEVEL 1.8 MG/DL (1.8-2.4); SODIUM LEVEL 136 MMOL/L (136-145)
[2023-04-24 10:36] LABS: FREE T4 0.64 NG/DL (0.89-1.76); THYROID STIMULATING HORMONE 1.881 uIU/ML (0.55-4.78)
[2023-04-24 10:53] LABS: HEMOGLOBIN A1c 5.3 % (4.0-6.0)
== END ==
LOC: M WUC 08:48
PROVIDERS: ATTEND Family Medicine
DX: I50.32 Chronic diastolic (congestive) heart failure (principal); G50.0 Trigeminal neuralgia

== ENCOUNTER → 2023-07-14 | Outpatient (CLI) | payer MEDICARE ==
[~2023-07-14] MED LIST changes: +DOXY-323 PO; -DOXY-443 PO
[2023-07-14 15:20] LABS: BASO # 0.1 10^3/uL (0.0-0.2); EOS # 0.4 10^3/uL (0.0-0.5); EOS % 4.3 % (0.0-3.0); HEMATOCRIT 42.2 % (36.0-47.0); HEMOGLOBIN 14.5 g/dl (12.0-15.5); LYMPH # 1.6 10^3/uL (1.5-5.0); LYMPH % 19.7 % (24.0-44.0); MEAN CORPUSCULAR HEMOGLOBIN 31.4 pg (27.0-33.0); MEAN CORPUSCULAR HGB CONC 34.4 g/dl (32.0-36.5); MEAN CORPUSCULAR VOLUME 91.3 fl (80.0-96.0); MONO # 0.7 10^3/uL (0.0-0.8); MONO % 8.1 % (2.0-8.0); NEUTROPHILS # 5.5 10^3/uL (1.5-8.5); NEUTROPHILS % 66.7 % (36.0-66.0); PLATELET COUNT, AUTOMATED 226 10^3/uL (150-450); RED BLOOD COUNT 4.62 10^6/uL (4.00-5.40); WHITE BLOOD COUNT 8.2 10^3/uL (4.0-10.0)
[2023-07-14 15:45] LABS: ALBUMIN 3.9 G/DL (3.2-5.2); ALKALINE PHOSPHATASE 123 U/L (46-116); ALT/SGPT 51 U/L (7.0-40); AST/SGOT 40 U/L (<34); BILIRUBIN,TOTAL 0.4 MG/DL (0.3-1.2); BLOOD UREA NITROGEN 11 MG/DL (9-23); CALCIUM LEVEL 9.4 MG/DL (8.3-10.6); CARBON DIOXIDE LEVEL 29 MMOL/L (20-31); CHLORIDE LEVEL 96 MMOL/L (98-107); CREATININE FOR GFR 0.73 MG/DL (0.55-1.30); GLOMERULAR FILTRATION RATE > 60.0 (>45); GLUCOSE, FASTING 89 MG/DL (74-106); POTASSIUM SERUM 4.3 MMOL/L (3.5-5.1); SODIUM LEVEL 132 MMOL/L (136-145); TOTAL PROTEIN 7.8 G/DL (5.7-8.2)
== END ==
LOC: M PLALAB 14:28
PROVIDERS: ATTEND Physician Assistant
DX: R05.1 Acute cough (principal); J18.9 Pneumonia, unspecified organism; E42 Marasmic kwashiorkor; R06.02 Shortness of breath

== ENCOUNTER → 2023-07-28 | Outpatient (CLI) | payer MEDICARE ==
[~2023-07-28] MED LIST changes: +BREO1INH3; +FLUC100T3; +ONDA-282; +cephalexin
== END ==
LOC: M PLAIMG 09:41
PROVIDERS: ATTEND Physician Assistant
DX: J18.9 Pneumonia, unspecified organism (principal)

== ENCOUNTER 2023-07-30 07:47 | Emergency (ER) | payer MEDICARE ==
[~2023-07-30] VITALS: Ht 172.7 cm; Wt 99.0 kg
[~2023-07-30 07:47] MED LIST changes: -BREO1INH3; -FLUC100T3; -ONDA-282; -cephalexin
[2023-07-30] MEDS ORDERED: ONDA-282 (08:05)
[2023-07-30] MEDS ORDERED: BREO1INH3 (08:05)
[2023-07-30] MEDS ORDERED: FLUC100T3 (08:05)
[2023-07-30] MEDS ORDERED: cephalexin (08:05)
[2023-07-30] MEDS: ALBUTEROL SULFATE 2.5MG/0.5ML INH NEB SOLN NEB ONE (10:42)
[2023-07-30 10:52] LABS: BASO % 0.6 % (0.0-1.0); EOS # 0.3 10^3/uL (0.0-0.5); EOS % 6.4 % (0.0-3.0); HEMOGLOBIN 13.6 g/dl (12.0-15.5); LYMPH % 20.8 % (24.0-44.0); MEAN CORPUSCULAR HEMOGLOBIN 31.3 pg (27.0-33.0); MONO # 0.4 10^3/uL (0.0-0.8); MONO % 8.8 % (2.0-8.0); NEUTROPHILS # 3.2 10^3/uL (1.5-8.5); NEUTROPHILS % 63.2 % (36.0-66.0); PLATELET COUNT, AUTOMATED 183 10^3/uL (150-450); RED BLOOD COUNT 4.35 10^6/uL (4.00-5.40)
[2023-07-30 11:17] LABS: BLOOD UREA NITROGEN 18 MG/DL (9-23); CALCIUM LEVEL 8.9 MG/DL (8.3-10.6); CARBON DIOXIDE LEVEL 31 MMOL/L (20-31); CHLORIDE LEVEL 94 MMOL/L (98-107); CREATININE FOR GFR 0.81 MG/DL (0.55-1.30); GLOMERULAR FILTRATION RATE > 60.0 (>45); GLUCOSE, FASTING 87 MG/DL (74-106); MAGNESIUM LEVEL 1.8 MG/DL (1.8-2.4); POTASSIUM SERUM 3.8 MMOL/L (3.5-5.1); SODIUM LEVEL 128 MMOL/L (136-145)
[2023-07-30 11:22] LABS: FREE T4 0.83 NG/DL (0.89-1.76); THYROID STIMULATING HORMONE 1.423 uIU/ML (0.55-4.78)
[2023-07-30] MEDS: NS 1,000 ML IV ONE (11:22)
[2023-07-30 14:09] VITALS: BP 112/66; TEMP 97.8; O2SAT 95
== END 2023-07-30 14:17 | disposition home or self-care (01) ==
LOC: M ED 07:47
DX: I95.1 Orthostatic hypotension (principal); E87.1 Hypo-osmolality and hyponatremia; I44.0 Atrioventricular block, first degree; R00.1 Bradycardia, unspecified; I45.81 Long QT syndrome; M51.36 Other intervertebral disc degeneration, lumbar region; M25.861 Other specified joint disorders, right knee; I10 Essential (primary) hypertension; J44.9 Chronic obstructive pulmonary disease, unspecified; C83.30 Diffuse large B-cell lymphoma, unspecified site; Z87.891 Personal history of nicotine dependence; Z88.6 Allergy status to analgesic agent; Z88.1 Allergy status to other antibiotic agents; Z88.8 Allergy status to other drugs, medicaments and biological substances; Z79.52 Long term (current) use of systemic steroids; Z79.82 Long term (current) use of aspirin; Z79.02 Long term (current) use of antithrombotics/antiplatelets; Z79.899 Other long term (current) drug therapy

== ENCOUNTER → 2023-08-04 | Outpatient (CLI) | payer MEDICARE ==
[~2023-08-04] MED LIST changes: +BREO1INH3; +FLUC100T3; +ONDA-282; +cephalexin
[2023-08-04 13:34] LABS: OSMOLALITY URINE 371 MOSM/KG (50-1400)
[2023-08-04 13:40] LABS: BASO # 0.1 10^3/uL (0.0-0.2); BASO % 1.2 % (0.0-1.0); EOS # 0.4 10^3/uL (0.0-0.5); EOS % 7.2 % (0.0-3.0); HEMATOCRIT 41.6 % (36.0-47.0); HEMOGLOBIN 14.3 g/dl (12.0-15.5); LYMPH # 1.4 10^3/uL (1.5-5.0); LYMPH % 24.7 % (24.0-44.0); MEAN CORPUSCULAR HEMOGLOBIN 31.5 pg (27.0-33.0); MEAN CORPUSCULAR HGB CONC 34.4 g/dl (32.0-36.5); MEAN CORPUSCULAR VOLUME 91.6 fl (80.0-96.0); MONO # 0.6 10^3/uL (0.0-0.8); MONO % 10.7 % (2.0-8.0); NEUTROPHILS # 3.3 10^3/uL (1.5-8.5); NEUTROPHILS % 55.9 % (36.0-66.0); PLATELET COUNT, AUTOMATED 205 10^3/uL (150-450); RED BLOOD COUNT 4.54 10^6/uL (4.00-5.40); WHITE BLOOD COUNT 5.8 10^3/uL (4.0-10.0)
[2023-08-04 13:53] LABS: SODIUM,RANDOM URINE 54 MMOL/L
[2023-08-04 14:03] LABS: CORTISOL BASELINE 10.4 UG/DL (4.3-22.4)
[2023-08-04 14:05] LABS: C REACTIVE PROTEIN QUANTITATIV < 0.40 MG/DL (<1.0)
[2023-08-04 14:06] LABS: FREE T4 0.85 NG/DL (0.89-1.76)
[2023-08-04 14:07] LABS: IRON (FE) 95 UG/DL (50-170); PERCENT SATURATION 25.2 % (13.2-45.0); THYROID STIMULATING HORMONE 4.736 uIU/ML (0.55-4.78); TOTAL IRON BINDING CAPACITY 377 UG/DL (250-425)
[2023-08-04 14:08] LABS: ALBUMIN 3.6 G/DL (3.2-5.2); ALKALINE PHOSPHATASE 119 U/L (46-116); ALT/SGPT 46 U/L (7.0-40); AST/SGOT 39 U/L (<34); BILIRUBIN,TOTAL 0.3 MG/DL (0.3-1.2); BLOOD UREA NITROGEN 10 MG/DL (9-23); CALCIUM LEVEL 9.4 MG/DL (8.3-10.6); CARBON DIOXIDE LEVEL 28 MMOL/L (20-31); CHLORIDE LEVEL 92 MMOL/L (98-107); FERRITIN 51.1 NG/ML (7.3-270.7); GLOMERULAR FILTRATION RATE > 60.0 (>45); GLUCOSE, FASTING 78 MG/DL (74-106); POTASSIUM SERUM 5.1 MMOL/L (3.5-5.1); SODIUM LEVEL 124 MMOL/L (136-145); TOTAL PROTEIN 7.3 G/DL (5.7-8.2)
[2023-08-04 14:12] LABS: ERYTHROCYTE SEDIMENTATION RATE 34 mm/hr (0-30)
[2023-08-04 14:21] LABS: OSMOLALITY SERUM 260 MOSM/KG (280-301)
== END ==
LOC: M PLALAB 12:28
PROVIDERS: ATTEND Physician Assistant
DX: R55 Syncope and collapse (principal); R42 Dizziness and giddiness; R53.1 Weakness; R53.83 Other fatigue; R79.89 Other specified abnormal findings of blood chemistry; I50.32 Chronic diastolic (congestive) heart failure

== ENCOUNTER → 2023-08-04 | Outpatient (CLI) | payer MEDICARE | LOC: M RAD 13:14 | PROVIDERS: ATTEND Physician Assistant | DX: R55 Syncope and collapse (principal); R42 Dizziness and giddiness; R53.1 Weakness; R53.83 Other fatigue; R79.89 Other specified abnormal findings of blood chemistry; I50.32 Chronic diastolic (congestive) heart failure; E22.2 Syndrome of inappropriate secretion of antidiuretic hormone | CPT/HCPCS: 36415; 70450; 80053; 80183; 82533; 82728; 83550; 83880; 83930; 83935; 84300; 84439; 84443; 84484; 85025; 85652; 86140; G0463 ==

== ENCOUNTER → 2023-08-07 | Outpatient (CLI) | payer MEDICARE ==
[2023-08-07 15:40] LABS: ALBUMIN 3.8 G/DL (3.2-5.2); BLOOD UREA NITROGEN 10 MG/DL (9-23); CALCIUM LEVEL 9.4 MG/DL (8.3-10.6); CARBON DIOXIDE LEVEL 30 MMOL/L (20-31); CHLORIDE LEVEL 92 MMOL/L (98-107); CREATININE FOR GFR 0.74 MG/DL (0.55-1.30); GLOMERULAR FILTRATION RATE > 60.0 (>45); GLUCOSE, FASTING 79 MG/DL (74-106); PHOSPHORUS LEVEL 5.1 MG/DL (2.4-5.1); POTASSIUM SERUM 4.8 MMOL/L (3.5-5.1); SODIUM LEVEL 125 MMOL/L (136-145)
== END ==
LOC: M PLALAB 13:15
PROVIDERS: ATTEND Physician Assistant
DX: R55 Syncope and collapse (principal); R42 Dizziness and giddiness; R53.1 Weakness; R79.89 Other specified abnormal findings of blood chemistry

== ENCOUNTER → 2023-08-24 | Outpatient (REF) | payer MEDICARE | LOC: M SFHCPLAZ 17:05 | PROVIDERS: ATTEND Family Medicine | DX: I50.32 Chronic diastolic (congestive) heart failure (principal); J47.9 Bronchiectasis, uncomplicated; E22.2 Syndrome of inappropriate secretion of antidiuretic hormone ==

== ENCOUNTER → 2023-08-25 | Outpatient (CLI) | payer MEDICARE ==
[2023-08-25 17:01] LABS: C REACTIVE PROTEIN QUANTITATIV < 0.40 MG/DL (<1.0)
[2023-08-25 17:03] LABS: ALBUMIN 3.5 G/DL (3.2-5.2); ALKALINE PHOSPHATASE 116 U/L (46-116); ALT/SGPT 44 U/L (7.0-40); AST/SGOT 39 U/L (<34); BILIRUBIN,TOTAL 0.4 MG/DL (0.3-1.2); BLOOD UREA NITROGEN 12 MG/DL (9-23); CARBON DIOXIDE LEVEL 29 MMOL/L (20-31); CHLORIDE LEVEL 103 MMOL/L (98-107); CREATININE FOR GFR 0.76 MG/DL (0.55-1.30); GLOMERULAR FILTRATION RATE > 60.0 (>45); GLUCOSE, FASTING 85 MG/DL (74-106); POTASSIUM SERUM 4.4 MMOL/L (3.5-5.1); SODIUM LEVEL 137 MMOL/L (136-145)
[2023-08-25 17:05] LABS: FERRITIN 49.6 NG/ML (7.3-270.7)
[2023-08-25 17:12] LABS: BASO # 0.1 10^3/uL (0.0-0.2); BASO % 0.8 % (0.0-1.0); EOS # 0.4 10^3/uL (0.0-0.5); EOS % 4.6 % (0.0-3.0); HEMATOCRIT 40.9 % (36.0-47.0); HEMOGLOBIN 13.5 g/dl (12.0-15.5); LYMPH # 1.6 10^3/uL (1.5-5.0); MEAN CORPUSCULAR HEMOGLOBIN 31.8 pg (27.0-33.0); MEAN CORPUSCULAR VOLUME 96.5 fl (80.0-96.0); MONO # 0.7 10^3/uL (0.0-0.8); MONO % 8.4 % (2.0-8.0); NEUTROPHILS # 5.9 10^3/uL (1.5-8.5); PLATELET COUNT, AUTOMATED 213 10^3/uL (150-450); RED BLOOD COUNT 4.24 10^6/uL (4.00-5.40); WHITE BLOOD COUNT 8.7 10^3/uL (4.0-10.0)
[2023-08-25 17:19] LABS: ERYTHROCYTE SEDIMENTATION RATE 29 mm/hr (0-30)
[2023-08-25 17:30] LABS: OSMOLALITY SERUM 292 MOSM/KG (280-301)
== END ==
LOC: M WUC 10:49
PROVIDERS: ATTEND Family Medicine
DX: I50.32 Chronic diastolic (congestive) heart failure (principal); J47.9 Bronchiectasis, uncomplicated; E22.2 Syndrome of inappropriate secretion of antidiuretic hormone

== ENCOUNTER → 2023-08-28 | Outpatient (REF) | payer MEDICARE | LOC: M SFHCPLAZ 09:05 | PROVIDERS: ATTEND Family Medicine | DX: I50.32 Chronic diastolic (congestive) heart failure (principal); J47.9 Bronchiectasis, uncomplicated; E22.2 Syndrome of inappropriate secretion of antidiuretic hormone ==

== ENCOUNTER → 2023-08-30 | Outpatient (CLI) | payer MEDICARE | LOC: M WHC 07:46 | PROVIDERS: ATTEND Family Medicine | DX: Z12.31 Encounter for screening mammogram for malignant neoplasm of breast (principal) ==

== ENCOUNTER → 2023-09-01 | Outpatient (CLI) | payer MEDICARE ==
[~2023-09-01] MED LIST changes: +ISOVUE-370 76% 100ML VIAL As Ordered ONE
== END ==
LOC: M RAD 07:24
PROVIDERS: ATTEND Family Medicine
DX: R05.8 Other specified cough (principal)
CPT/HCPCS: 71260; Q9967

== ENCOUNTER 2023-09-13 05:43 | Emergency (ER) | payer MEDICARE ==
[~2023-09-13] VITALS: Ht 172.7 cm; Wt 104.9 kg
[~2023-09-13 05:43] MED LIST changes: -ISOVUE-370 76% 100ML VIAL As Ordered ONE
[2023-09-13] MEDS: IPRATROPIUM 0.5MG/ALBUTEROL 2.5MG INH SOL UD 3ML (DUONEB) NEB SCH (07:16)
[2023-09-13 07:54] LABS: ALBUMIN 3.7 G/DL (3.2-5.2); ALKALINE PHOSPHATASE 121 U/L (46-116); ALT/SGPT 52 U/L (7.0-40); AST/SGOT 46 U/L (<34); BILIRUBIN,TOTAL 0.3 MG/DL (0.3-1.2); BLOOD UREA NITROGEN 9 MG/DL (9-23); CALCIUM LEVEL 8.9 MG/DL (8.3-10.6); CARBON DIOXIDE LEVEL 31 MMOL/L (20-31); CHLORIDE LEVEL 104 MMOL/L (98-107); CREATININE FOR GFR 0.72 MG/DL (0.55-1.30); GLOMERULAR FILTRATION RATE > 60.0 (>45); GLUCOSE, FASTING 98 MG/DL (74-106); POTASSIUM SERUM 4.2 MMOL/L (3.5-5.1); SODIUM LEVEL 139 MMOL/L (136-145); TOTAL PROTEIN 7.3 G/DL (5.7-8.2)
[2023-09-13 07:57] LABS: BASO # 0.1 10^3/uL (0.0-0.2); BASO % 1.4 % (0.0-1.0); EOS # 0.4 10^3/uL (0.0-0.5); EOS % 7.4 % (0.0-3.0); HEMATOCRIT 42.8 % (36.0-47.0); HEMOGLOBIN 13.9 g/dl (12.0-15.5); LYMPH # 1.2 10^3/uL (1.5-5.0); LYMPH % 21.4 % (24.0-44.0); MEAN CORPUSCULAR HEMOGLOBIN 31.8 pg (27.0-33.0); MEAN CORPUSCULAR HGB CONC 32.5 g/dl (32.0-36.5); MEAN CORPUSCULAR VOLUME 97.9 fl (80.0-96.0); MONO # 0.6 10^3/uL (0.0-0.8); MONO % 9.8 % (2.0-8.0); NEUTROPHILS # 3.4 10^3/uL (1.5-8.5); NEUTROPHILS % 59.8 % (36.0-66.0); PLATELET COUNT, AUTOMATED 176 10^3/uL (150-450); RED BLOOD COUNT 4.37 10^6/uL (4.00-5.40); WHITE BLOOD COUNT 5.7 10^3/uL (4.0-10.0)
[2023-09-13 08:06] LABS: CK-MB VALUE MASS 1.6 NG/ML (<3.6)
[2023-09-13] MEDS ORDERED: CLOT10TR (08:06)
[2023-09-13] MEDS ORDERED: MIRA3350 (08:06)
[2023-09-13] MEDS ORDERED: PREG50CA3 (08:06)
[2023-09-13] MEDS ORDERED: ESOM20CA25 (08:06)
[2023-09-13] MEDS ORDERED: AZEL1SPR3 (08:06)
[2023-09-13 08:07] LABS: MB/CK RELATIVE INDEX 2.25 (< OR =4)
[2023-09-13 09:53] VITALS: BP 144/69; TEMP 96.4; O2SAT 97
[2023-09-13] MEDS ORDERED: CEPH250T PO (09:57)
[2023-09-13] MEDS ORDERED: VENTAER INH (09:57)
[2023-09-13] MEDS ORDERED: PRED20TA PO (09:57)
== END 2023-09-13 10:27 | disposition home or self-care (01) ==
LOC: M ED 05:43
DX: R07.9 Chest pain, unspecified (principal); R05.9 Cough, unspecified; R74.01 Elevation of levels of liver transaminase levels; Z88.1 Allergy status to other antibiotic agents; Z88.8 Allergy status to other drugs, medicaments and biological substances; Z79.51 Long term (current) use of inhaled steroids; Z79.1 Long term (current) use of non-steroidal anti-inflammatories (NSAID); Z79.52 Long term (current) use of systemic steroids; Z79.899 Other long term (current) drug therapy

== ENCOUNTER → 2023-10-12 | Outpatient (CLI) | payer MEDICARE ==
[~2023-10-12] MED LIST changes: +AZEL1SPR3; +CEPH250T PO; +CLOT10TR; +ESOM20CA25; +MIRA3350; +PREG50CA3
[2023-10-12 13:07] LABS: BASO % 0.8 % (0.0-1.0); EOS # 0.3 10^3/uL (0.0-0.5); HEMATOCRIT 41.7 % (36.0-47.0); HEMOGLOBIN 13.8 g/dl (12.0-15.5); LYMPH # 1.1 10^3/uL (1.5-5.0); LYMPH % 22.6 % (24.0-44.0); MEAN CORPUSCULAR HEMOGLOBIN 32.2 pg (27.0-33.0); MEAN CORPUSCULAR HGB CONC 33.1 g/dl (32.0-36.5); MEAN CORPUSCULAR VOLUME 97.2 fl (80.0-96.0); MONO # 0.5 10^3/uL (0.0-0.8); MONO % 11.2 % (2.0-8.0); NEUTROPHILS # 2.9 10^3/uL (1.5-8.5); NEUTROPHILS % 59.2 % (36.0-66.0); PLATELET COUNT, AUTOMATED 185 10^3/uL (150-450); RED BLOOD COUNT 4.29 10^6/uL (4.00-5.40); WHITE BLOOD COUNT 4.8 10^3/uL (4.0-10.0)
[2023-10-12 13:28] LABS: ALBUMIN 3.7 G/DL (3.2-5.2); ALKALINE PHOSPHATASE 111 U/L (46-116); ALT/SGPT 54 U/L (7.0-40); AST/SGOT 53 U/L (<34); BILIRUBIN,TOTAL 0.3 MG/DL (0.3-1.2); BLOOD UREA NITROGEN 10 MG/DL (9-23); CARBON DIOXIDE LEVEL 29 MMOL/L (20-31); CHLORIDE LEVEL 105 MMOL/L (98-107); CREATININE FOR GFR 0.74 MG/DL (0.55-1.30); GLOMERULAR FILTRATION RATE > 60.0 (>45); GLUCOSE, FASTING 93 MG/DL (74-106); MAGNESIUM LEVEL 1.8 MG/DL (1.8-2.4); SODIUM LEVEL 139 MMOL/L (136-145)
== END ==
LOC: M LAB 12:07
PROVIDERS: ATTEND Physician Assistant Medical
DX: J40 Bronchitis, not specified as acute or chronic (principal)

== ENCOUNTER → 2023-10-19 | Outpatient (CLI) | payer MEDICARE | LOC: M PLALAB 09:01 → M PLAIMG 09:01 | PROVIDERS: ATTEND Physician Assistant Medical | DX: J45.901 Unspecified asthma with (acute) exacerbation (principal); I51.7 Cardiomegaly; I70.0 Atherosclerosis of aorta ==

== ENCOUNTER 2023-11-25 09:23 | Emergency (ER) | payer MEDICARE ==
[~2023-11-25] VITALS: Ht 172.7 cm; Wt 105.9 kg
[2023-11-25] MEDS ORDERED: GABA-284 (09:31)
[2023-11-25 11:38] VITALS: BP 136/85; TEMP 97.6; O2SAT 94
== END 2023-11-25 11:51 | disposition home or self-care (01) ==
LOC: M ED 09:23
DX: K05.5 Other periodontal diseases (principal); I10 Essential (primary) hypertension; I25.119 Atherosclerotic heart disease of native coronary artery with unspecified angina pectoris; Z88.1 Allergy status to other antibiotic agents; Z88.8 Allergy status to other drugs, medicaments and biological substances; Z79.51 Long term (current) use of inhaled steroids; Z79.1 Long term (current) use of non-steroidal anti-inflammatories (NSAID); Z79.899 Other long term (current) drug therapy

== ENCOUNTER → 2023-11-28 | Outpatient (REF) | payer MEDICARE ==
[~2023-11-28] MED LIST changes: -DOXY-323 PO; +DOXY-441 PO; +GABA-284
== END ==
LOC: M SFHCPLAZ 10:10
DX: J15.211 Pneumonia due to Methicillin susceptible Staphylococcus aureus (principal)

== ENCOUNTER → 2023-11-28 | Outpatient (CLI) | payer MEDICARE ==
[~2023-11-28] MED LIST changes: +DOXY-323 PO; -DOXY-441 PO
== END ==
LOC: M PLAIMG 10:43
PROVIDERS: ATTEND Family Medicine
DX: J15.211 Pneumonia due to Methicillin susceptible Staphylococcus aureus (principal)

== ENCOUNTER → 2023-12-22 | Outpatient (CLI) | payer MEDICARE ==
[~2023-12-22] MED LIST changes: -DOXY-323 PO; +DOXY-441 PO
== END ==
LOC: M PLALAB 09:40
PROVIDERS: ATTEND Family Medicine
DX: J47.1 Bronchiectasis with (acute) exacerbation (principal); Z53.9 Procedure and treatment not carried out, unspecified reason

== ENCOUNTER → 2023-12-26 | Outpatient (REF) | payer MEDICARE | LOC: M SFHCPLAZ 15:02 | PROVIDERS: ATTEND Family Medicine | DX: J47.9 Bronchiectasis, uncomplicated (principal) ==

== ENCOUNTER 2024-01-04 15:45 | Inpatient (IN) | payer MEDICARE ==
[~2024-01-04] VITALS: Ht 172.7 cm; Wt 104.7 kg
[2024-01-04] VITALS (16 sets, daily range): BP systolic 133; BP diastolic 76; TEMP 97.5; O2SAT 85–93
[~2024-01-04 15:45] MED LIST changes: -AZEL0.1S; +AZEL137S8; -BREO1INH3; +BREO1INH3 INH; -ESOM20CA25; +ESOM20CA25 PO; -GABA-284; +GABA-284 PO; -GOOD8.6T2 PO; -MIRA3350; +SENN-117 PO
[2024-01-04] MEDS ORDERED: MONT10TA97 PO (16:05)
[2024-01-04] MEDS ORDERED: TORS10TA3 PO (16:05)
[2024-01-04] MEDS ORDERED: BACTDSTA PO (16:05)
[2024-01-04] MEDS: IPRATROPIUM 0.5MG/ALBUTEROL 2.5MG INH SOL UD 3ML (DUONEB) NEB ONE (16:22)
[2024-01-04 16:41] LABS: BASO # 0.1 10^3/uL (0.0-0.2); BASO % 0.8 % (0.0-1.0); EOS # 0.3 10^3/uL (0.0-0.5); EOS % 3.8 % (0.0-3.0); HEMATOCRIT 43.4 % (36.0-47.0); HEMOGLOBIN 14.3 g/dl (12.0-15.5); LYMPH # 1.4 10^3/uL (1.5-5.0); LYMPH % 18.5 % (24.0-44.0); MEAN CORPUSCULAR HEMOGLOBIN 31.3 pg (27.0-33.0); MEAN CORPUSCULAR HGB CONC 32.9 g/dl (32.0-36.5); MONO # 0.4 10^3/uL (0.0-0.8); MONO % 5.7 % (2.0-8.0); NEUTROPHILS # 5.3 10^3/uL (1.5-8.5); NEUTROPHILS % 70.8 % (36.0-66.0); PLATELET COUNT, AUTOMATED 219 10^3/uL (150-450); RED BLOOD COUNT 4.57 10^6/uL (4.00-5.40); WHITE BLOOD COUNT 7.4 10^3/uL (4.0-10.0)
[2024-01-04] MEDS: methylPREDNISolone 125MG 2ML VIAL IV ONE (16:50)
[2024-01-04] MEDS: IPRATROPIUM 0.5MG/ALBUTEROL 2.5MG INH SOL UD 3ML (DUONEB) NEB SCH ×2 (16:58→20:00)
[2024-01-04 17:03] LABS: ALBUMIN 3.5 G/DL (3.2-5.2); ALKALINE PHOSPHATASE 125 U/L (35-104); ALT/SGPT 84 U/L (7.0-40); AST/SGOT 88 U/L (<34); BILIRUBIN,DIRECT < 0.1 MG/DL (<0.4); BILIRUBIN,TOTAL 0.3 MG/DL (0.3-1.2); BLOOD UREA NITROGEN 16 MG/DL (9-23); CALCIUM LEVEL 9.5 MG/DL (8.3-10.6); CARBON DIOXIDE LEVEL 26 MMOL/L (20-31); CHLORIDE LEVEL 102 MMOL/L (98-107); CREATININE FOR GFR 0.91 MG/DL (0.55-1.30); GLOMERULAR FILTRATION RATE > 60.0 (>45); GLUCOSE, FASTING 171 MG/DL (74-106); POTASSIUM SERUM 3.7 MMOL/L (3.5-5.1); SODIUM LEVEL 134 MMOL/L (136-145); TOTAL PROTEIN 7.9 G/DL (5.7-8.2)
[2024-01-04] MEDS ORDERED: HOME MED LIST COMPLETE! XX SCH (19:05)
[2024-01-04] MEDS ORDERED: LevoFLOXacin 750 MG TABLET PO SCH (19:30)
[2024-01-04] MEDS ORDERED: MIRALAX *UNIT DOSE* 17GM PACKET PO PRN (19:30)
[2024-01-04] MEDS ORDERED: ALBUTEROL SULFATE 2.5MG/0.5ML INH NEB SOLN NEB PRN (19:30)
[2024-01-04] MEDS ORDERED: MAALOX 30 ML SUSP *UDC PO PRN (19:30)
[2024-01-04] MEDS ORDERED: ALBUTEROL 90 MCG/ACT 8GM HFA INHALER INH PRN (19:30)
[2024-01-04 20:43] LABS: MAGNESIUM LEVEL 1.9 MG/DL (1.8-2.4); PHOSPHORUS LEVEL 4.3 MG/DL (2.4-5.1)
[2024-01-04 20:50] LABS: PROCALCITONIN 0.04 ng/ml
[2024-01-04] MEDS ORDERED: POTASSIUM CHLORIDE 10MEQ SR TABLET PO SCH (21:00)
[2024-01-04 21:09] LABS: VENOUS BASE EXCESS -5.7 (-2.0-2.0); VENOUS HCO3 19.7 MMOL/L (23.0-27.0); VENOUS O2 SATURATION 84.4 % (60.0-80.0); VENOUS PARTIAL PRESSURE CO2 38.3 mmHg (38.0-50.0); VENOUS PARTIAL PRESSURE O2 52.6 mmHg (30.0-50.0); VENOUS PH 7.329 UNITS (7.330-7.430); VENOUS STANDARD HCO3 19.6 MMOL/L; VENOUS TOTAL CO2 20.9 MMOL/L (24.0-28.0)
[2024-01-04] MEDS: CEFDINIR 300 MG CAP (OMNICEF) PO SCH (21:15)
[2024-01-04] MEDS: AMITRIPTYLINE 25MG TABLET PO SCH (21:15)
[2024-01-04] MEDS: methylPREDNISolone 125MG 2ML VIAL IV SCH (21:15)
[2024-01-04] MEDS: MONTELUKAST 10 MG TAB PO SCH (21:15)
[2024-01-04] MEDS: FUROSEMIDE 20MG/2ML VIAL IV SCH (21:15)
[2024-01-04] MEDS: DOCUSATE SODIUM 100MG CAPSULE PO SCH (21:15)
[2024-01-04] MEDS: GABAPENTIN 400MG CAP PO SCH (21:15)
[2024-01-04] MEDS: atenoloL 25 MG TAB PO SCH (21:16)
[2024-01-04] MEDS: CYANOCOBALAMIN 500 MCG TAB PO SCH (21:16)
[2024-01-04 21:22] LABS: INR 0.96; PARTIAL THROMBOPLASTIN TIME 27.3 SECONDS (24.8-34.2); PROTHROMBIN TIME 13.1 SECONDS (12.5-14.5)
[2024-01-05 04:00] VITALS: BP 119/71; TEMP 97.9; O2SAT 91
[2024-01-05] MEDS: LEVOTHYROXINE 100MCG TABLET (0.1MG) PO SCH (05:36)
[2024-01-05 06:15] LABS: HEMATOCRIT 41.3 % (36.0-47.0); MEAN CORPUSCULAR HGB CONC 33.9 g/dl (32.0-36.5); MEAN CORPUSCULAR VOLUME 94.5 fl (80.0-96.0); PLATELET COUNT, AUTOMATED 218 10^3/uL (150-450); RED BLOOD COUNT 4.37 10^6/uL (4.00-5.40); WHITE BLOOD COUNT 10.1 10^3/uL (4.0-10.0)
[2024-01-05] MEDS: IBUPROFEN 600MG TAB PO PRN (06:44)
[2024-01-05 06:48] LABS: ALBUMIN 3.3 G/DL (3.2-5.2); ALKALINE PHOSPHATASE 116 U/L (35-104); ALT/SGPT 80 U/L (7.0-40); AST/SGOT 71 U/L (<34); BILIRUBIN,TOTAL 0.3 MG/DL (0.3-1.2); BLOOD UREA NITROGEN 16 MG/DL (9-23); CARBON DIOXIDE LEVEL 24 MMOL/L (20-31); CHLORIDE LEVEL 102 MMOL/L (98-107); CHOLESTEROL LEVEL 119 MG/DL (<200); CHOLESTEROL RISK RATIO 2.89 (<5); CREATININE FOR GFR 0.73 MG/DL (0.55-1.30); GLOMERULAR FILTRATION RATE > 60.0 (>45); GLUCOSE, FASTING 158 MG/DL (74-106); HDL CHOLESTEROL 41.1 MG/DL (>40); LDL CHOLESTEROL 70.1 MG/DL (<100); NON-HDL-C 77.9 MG/DL; POTASSIUM SERUM 4.2 MMOL/L (3.5-5.1); SODIUM LEVEL 135 MMOL/L (136-145); TOTAL PROTEIN 7.6 G/DL (5.7-8.2); TRIGLYCERIDES LEVEL 39 MG/DL (<150)
[2024-01-05 06:53] LABS: PROCALCITONIN <0.04 ng/ml
[2024-01-05 08:16] VITALS: BP 119/71; TEMP 97; O2SAT 93
[2024-01-05] MEDS ORDERED: ENTER DRUG NAME HERE (PATIENT'S OWN MED) INH SCH (09:00)
[2024-01-05] MEDS: FLUTICASONE PROP 0.05% NASAL SPRAY 16 GM (FLONASE) NARES SCH (09:57)
[2024-01-05] MEDS: ENOXAPARIN 40MG/0.4ML SYRINGE (J1650 PER 10MG) SC SCH (09:58)
[2024-01-05] MEDS: ASPIRIN 81MG ENTERIC TABLET PO SCH (10:59)
[2024-01-05] MEDS: PANTOPRAZOLE 40MG TAB (PROTONIX) PO SCH (11:00)
[2024-01-05] MEDS: FLUoxetine 20MG CAP PO SCH (11:00)
[2024-01-05] MEDS: ADVAIR HFA 230/21MCG INHALER INH SCH (11:48)
[2024-01-05] MEDS: IPRATROPIUM 0.5MG/ALBUTEROL 2.5MG INH SOL UD 3ML (DUONEB) NEB SCH (11:49)
[2024-01-05 12:27] VITALS: BP 122/67; TEMP 97; O2SAT 97
[2024-01-05 16:00] VITALS: BP 115/78; TEMP 97.7; O2SAT 91
[2024-01-05] MEDS ORDERED: ACETAMINOPHEN 500 MG TAB PO ONE (16:35)
[2024-01-05] MEDS: methylPREDNISolone 125MG 2ML VIAL IV SCH (16:54)
[2024-01-05] MEDS: ACETAMINOPHEN *IV* 1,000 MG in IV 1 EA IV ONE (17:48)
[2024-01-05 20:00] VITALS: BP 110/67; TEMP 97.9; O2SAT 93
[2024-01-05] MEDS ORDERED: SYMBICORT 160/4.5MCG INHALER 6GM INH SCH (20:00)
[2024-01-05] MEDS: MOM 30ML SUSPENSION UDC PO PRN (20:58)
[2024-01-05] MEDS: METHOCARBAMOL 1,000 MG/10 ML VIAL IV ONE (22:37)
[2024-01-06] VITALS (12 sets, daily range): BP systolic 103–121; BP diastolic 48–80; TEMP 97–98.1; O2SAT 86–96
[2024-01-06 06:22] LABS: BASO % 0.1 % (0.0-1.0); HEMATOCRIT 38.4 % (36.0-47.0); HEMOGLOBIN 13.1 g/dl (12.0-15.5); LYMPH # 0.7 10^3/uL (1.5-5.0); LYMPH % 3.8 % (24.0-44.0); MEAN CORPUSCULAR HEMOGLOBIN 31.9 pg (27.0-33.0); MEAN CORPUSCULAR HGB CONC 34.1 g/dl (32.0-36.5); MEAN CORPUSCULAR VOLUME 93.4 fl (80.0-96.0); MONO # 0.4 10^3/uL (0.0-0.8); MONO % 2.4 % (2.0-8.0); NEUTROPHILS # 17.3 10^3/uL (1.5-8.5); PLATELET COUNT, AUTOMATED 217 10^3/uL (150-450); RED BLOOD COUNT 4.11 10^6/uL (4.00-5.40); WHITE BLOOD COUNT 18.6 10^3/uL (4.0-10.0)
[2024-01-06 07:01] LABS: BLOOD UREA NITROGEN 26 MG/DL (9-23); CARBON DIOXIDE LEVEL 23 MMOL/L (20-31); CHLORIDE LEVEL 103 MMOL/L (98-107); CREATININE FOR GFR 0.85 MG/DL (0.55-1.30); GLOMERULAR FILTRATION RATE > 60.0 (>45); GLUCOSE, FASTING 144 MG/DL (74-106); POTASSIUM SERUM 4.2 MMOL/L (3.5-5.1); SODIUM LEVEL 134 MMOL/L (136-145)
[2024-01-06] MEDS: FUROSEMIDE 40 MG TAB PO SCH (17:03)
[2024-01-06] MEDS: methylPREDNISolone 125MG 2ML VIAL IV SCH (20:50)
[2024-01-07] VITALS: BP 111/47; TEMP 97.9; O2SAT 90
[2024-01-07 04:00] VITALS: BP 112/52; TEMP 97.7; O2SAT 89
[2024-01-07 06:24] LABS: BASO % 0.1 % (0.0-1.0); HEMATOCRIT 38.1 % (36.0-47.0); HEMOGLOBIN 12.7 g/dl (12.0-15.5); LYMPH # 1.6 10^3/uL (1.5-5.0); LYMPH % 15.5 % (24.0-44.0); MEAN CORPUSCULAR HGB CONC 33.3 g/dl (32.0-36.5); MONO # 0.8 10^3/uL (0.0-0.8); MONO % 7.1 % (2.0-8.0); NEUTROPHILS # 8.1 10^3/uL (1.5-8.5); NEUTROPHILS % 76.9 % (36.0-66.0); PLATELET COUNT, AUTOMATED 181 10^3/uL (150-450); RED BLOOD COUNT 3.97 10^6/uL (4.00-5.40); WHITE BLOOD COUNT 10.5 10^3/uL (4.0-10.0)
[2024-01-07 06:50] LABS: ALBUMIN 3.1 G/DL (3.2-5.2); ALKALINE PHOSPHATASE 84 U/L (35-104); ALT/SGPT 62 U/L (7.0-40); AST/SGOT 48 U/L (<34); BILIRUBIN,DIRECT 0.1 MG/DL (<0.4); BILIRUBIN,TOTAL 0.3 MG/DL (0.3-1.2); BLOOD UREA NITROGEN 25 MG/DL (9-23); CALCIUM LEVEL 9.5 MG/DL (8.3-10.6); CARBON DIOXIDE LEVEL 26 MMOL/L (20-31); CHLORIDE LEVEL 107 MMOL/L (98-107); CREATININE FOR GFR 0.82 MG/DL (0.55-1.30); GLOMERULAR FILTRATION RATE > 60.0 (>45); GLUCOSE, FASTING 102 MG/DL (74-106); POTASSIUM SERUM 4.1 MMOL/L (3.5-5.1); SODIUM LEVEL 139 MMOL/L (136-145); TOTAL PROTEIN 6.4 G/DL (5.7-8.2)
[2024-01-07 08:44] VITALS: BP 111/54
[2024-01-07] MEDS ORDERED: PRED10TA2 PO (11:59)
[2024-01-07] MEDS ORDERED: CEFD300CAP PO (11:59)
[2024-01-07] MEDS: PREVNAR-20 VACCINE 0.5ML SYRINGE IM.IMMUN ONE (12:03)
[2024-01-07] MEDS: predniSONE 20 MG TAB PO SCH (12:03)
== END 2024-01-07 13:07 | disposition home or self-care (01) | DRG 291 ==
LOC: M ED 15:45 → EDBD 15:45 → M ED INP 19:28 → M MSPAV 20:46
PROVIDERS: ADMIT Student in an Organized Health Care Education/Training Program; ATTEND Internal Medicine Nephrology
PROC: B246ZZZ Ultrasonography of Right and Left Heart (ICD-10-PCS; principal; 2024-01-05)
DX: I11.0 Hypertensive heart disease with heart failure (principal); I50.33 Acute on chronic diastolic (congestive) heart failure; J96.01 Acute respiratory failure with hypoxia; J44.1 Chronic obstructive pulmonary disease with (acute) exacerbation; K50.90 Crohn's disease, unspecified, without complications; J45.909 Unspecified asthma, uncomplicated; I25.10 Atherosclerotic heart disease of native coronary artery without angina pectoris; G47.33 Obstructive sleep apnea (adult) (pediatric); G50.0 Trigeminal neuralgia; G43.909 Migraine, unspecified, not intractable, without status migrainosus; K21.9 Gastro-esophageal reflux disease without esophagitis; E03.9 Hypothyroidism, unspecified; F41.9 Anxiety disorder, unspecified; I34.0 Nonrheumatic mitral (valve) insufficiency; F32.A Depression, unspecified; I27.20 Pulmonary hypertension, unspecified; R27.0 Ataxia, unspecified; R29.6 Repeated falls; G25.3 Myoclonus; D50.9 Iron deficiency anemia, unspecified; K59.09 Other constipation; E78.5 Hyperlipidemia, unspecified; G31.84 Mild cognitive impairment of uncertain or unknown etiology; K74.00 Hepatic fibrosis, unspecified; Z87.891 Personal history of nicotine dependence; Z79.82 Long term (current) use of aspirin; Z79.890 Hormone replacement therapy; Z79.899 Other long term (current) drug therapy; Z88.1 Allergy status to other antibiotic agents; Z88.6 Allergy status to analgesic agent; Z88.8 Allergy status to other drugs, medicaments and biological substances; Z85.79 Personal history of other malignant neoplasms of lymphoid, hematopoietic and related tissues; Z90.49 Acquired absence of other specified parts of digestive tract

== ENCOUNTER 2024-01-24 05:58 | Inpatient (IN) | payer MEDICARE ==
[~2024-01-24] VITALS: Ht 170.2 cm; Wt 104.5 kg
[2024-01-24] VITALS (22 sets, daily range): BP systolic 106–120; BP diastolic 59–64; TEMP 96.5–96.8; O2SAT 84–98
[~2024-01-24 05:58] MED LIST changes: +BACTDSTA PO; +CEFD300CAP PO; +TORS10TA3 PO
[2024-01-24 06:25] LABS: VENOUS BASE EXCESS 3.9 (-2.0-2.0); VENOUS HCO3 28.6 MMOL/L (23.0-27.0); VENOUS O2 SATURATION 94.9 % (60.0-80.0); VENOUS PARTIAL PRESSURE CO2 43.3 mmHg (38.0-50.0); VENOUS PARTIAL PRESSURE O2 75.1 mmHg (30.0-50.0); VENOUS PH 7.438 UNITS (7.330-7.430); VENOUS STANDARD HCO3 27.9 MMOL/L; VENOUS TOTAL CO2 29.9 MMOL/L (24.0-28.0)
[2024-01-24 06:38] LABS: BASO % 0.2 % (0.0-1.0); EOS # 0.1 10^3/uL (0.0-0.5); HEMATOCRIT 37.6 % (36.0-47.0); HEMOGLOBIN 12.6 g/dl (12.0-15.5); LYMPH % 7.6 % (24.0-44.0); MEAN CORPUSCULAR HEMOGLOBIN 31.7 pg (27.0-33.0); MEAN CORPUSCULAR HGB CONC 33.5 g/dl (32.0-36.5); MEAN CORPUSCULAR VOLUME 94.7 fl (80.0-96.0); MONO # 0.9 10^3/uL (0.0-0.8); MONO % 6.6 % (2.0-8.0); NEUTROPHILS # 11.4 10^3/uL (1.5-8.5); NEUTROPHILS % 83.9 % (36.0-66.0); PLATELET COUNT, AUTOMATED 134 10^3/uL (150-450); RED BLOOD COUNT 3.97 10^6/uL (4.00-5.40); WHITE BLOOD COUNT 13.6 10^3/uL (4.0-10.0)
[2024-01-24 07:03] LABS: CPK CREATINE PHOSPHOKINASE 150 U/L (34-145)
[2024-01-24 07:32] LABS: ALBUMIN 2.6 G/DL (3.2-5.2); ALKALINE PHOSPHATASE 131 U/L (35-104); ALT/SGPT 75 U/L (7.0-40); AST/SGOT 59 U/L (<34); BILIRUBIN,DIRECT 0.3 MG/DL (<0.4); BILIRUBIN,TOTAL 0.5 MG/DL (0.3-1.2); BLOOD UREA NITROGEN 10 MG/DL (9-23); CALCIUM LEVEL 8.5 MG/DL (8.3-10.6); CARBON DIOXIDE LEVEL 32 MMOL/L (20-31); CHLORIDE LEVEL 99 MMOL/L (98-107); CK-MB VALUE MASS < 1.0 NG/ML (<3.6); CREATININE FOR GFR 0.79 MG/DL (0.55-1.30); GLOMERULAR FILTRATION RATE > 60.0 (>45); GLUCOSE, FASTING 116 MG/DL (74-106); MB/CK RELATIVE INDEX 0.66 (< OR =4); SODIUM LEVEL 139 MMOL/L (136-145); TOTAL PROTEIN 6.1 G/DL (5.7-8.2)
[2024-01-24] MEDS: cefTRIAXone SOD 1 GM in DEXTROSE 5% (D5W) ADV/MINI-BAG 50 ML IV ONE ×2 (08:40→16:35)
[2024-01-24] MEDS ORDERED: ATOR1TAB21 PO (09:16)
[2024-01-24] MEDS ORDERED: IPRA0.00 INH (09:16)
[2024-01-24] MEDS ORDERED: HOME MED LIST COMPLETE! XX SCH (09:20)
[2024-01-24] MEDS ORDERED: ACETAMINOPHEN 650MG ER TAB (TYLENOL ARTHRITIS) PO SCH (11:40)
[2024-01-24] MEDS: IBUPROFEN 600MG TAB PO ONE (11:50)
[2024-01-24] MEDS ORDERED: IPRATROPIUM 0.02% SOLN 0.5MG 2.5ML NEB INH PRN (13:15)
[2024-01-24] MEDS ORDERED: FORMOTEROL FUMARATE 20 MCG/2 ML INHALATION SOLUTION (PERFOROMIST) INH ONE (14:30)
[2024-01-24 14:49] LABS: CK-MB VALUE MASS < 1.0 NG/ML (<3.6)
[2024-01-24 14:51] LABS: CPK CREATINE PHOSPHOKINASE 105 U/L (34-145); MB/CK RELATIVE INDEX 0.95 (< OR =4)
[2024-01-24] MEDS: DOXYCYCLINE HYCLATE 100MG TABLET PO SCH (14:54)
[2024-01-24] MEDS: POTASSIUM CHLORIDE 10MEQ SR TABLET PO ONE (14:54)
[2024-01-24] MEDS: guaiFENesin ER TABLET 600 MG TAB PO SCH (14:54)
[2024-01-24] MEDS: methylPREDNISolone 125MG 2ML VIAL IV ONE (14:54)
[2024-01-24] MEDS: MIDODRINE 5 MG TAB PO ONE ×2 (14:55→16:36)
[2024-01-24 15:04] LABS: PROCALCITONIN 0.21 ng/ml
[2024-01-24] MEDS ORDERED: IPRATROPIUM 0.5MG/ALBUTEROL 2.5MG INH SOL UD 3ML (DUONEB) INH PRN (15:15)
[2024-01-24] MEDS ORDERED: FLUTICASONE PROP 0.05% NASAL SPRAY 16 GM (FLONASE) NARES PRN (15:15)
[2024-01-24] MEDS ORDERED: MIRALAX *UNIT DOSE* 17GM PACKET PO PRN (15:15)
[2024-01-24] MEDS: LEVALBUTEROL 1.25MG 0.5ML CONCENTRATE NEB INH SCH (15:50)
[2024-01-24] MEDS: FORMOTEROL FUMARATE 20 MCG/2 ML INHALATION SOLUTION (PERFOROMIST) INH ONE (15:50)
[2024-01-24] MEDS: IPRATROPIUM 0.02% SOLN 0.5MG 2.5ML NEB INH SCH (15:50)
[2024-01-24] MEDS: GABAPENTIN 400MG CAP PO SCH (16:36)
[2024-01-24] MEDS: AMITRIPTYLINE 25MG TABLET PO SCH (20:15)
[2024-01-24] MEDS: MONTELUKAST 10 MG TAB PO SCH (20:15)
[2024-01-24] MEDS: atenoloL 25 MG TAB PO SCH (20:15)
[2024-01-24] MEDS: methylPREDNISolone 40MG 1ML VIAL IV SCH (20:16)
[2024-01-24] MEDS: CYANOCOBALAMIN 500 MCG TAB PO SCH (20:16)
[2024-01-24] MEDS: HEPARIN SOD (PORCINE) 5000UNITS/ML 1ML VIAL/SYRINGE SQ SCH (20:16)
[2024-01-24] MEDS: FORMOTEROL FUMARATE 20 MCG/2 ML INHALATION SOLUTION (PERFOROMIST) INH SCH (20:33)
[2024-01-24] MEDS: GLYCOPYRROLATE INJ 0.2 MG/ML 2 ML VIAL NEB SCH (20:33)
[2024-01-24 22:08] LABS: ABG BASE EXCESS 3.2 (-2.0-2.0); ABG HCO3 25.5 MMOL/L (22.0-26.0); ABG O2 SATURATION 88.6 % (95.0-99.0); ABG PARTIAL PRESSURE O2 51.4 mmHg (75.0-100.0); ABG STANDARD HCO3 27.1 MMOL/L. (22.0-26.0); ABG TOTAL CO2 26.5 MMOL/L (23.0-31.0)
[2024-01-24] MEDS: LEVALBUTEROL 1.25MG 0.5ML CONCENTRATE NEB INH PRN (22:32)
[2024-01-24 22:37] LABS: BASO % 0.1 % (0.0-1.0); HEMATOCRIT 36.8 % (36.0-47.0); HEMOGLOBIN 12.5 g/dl (12.0-15.5); LYMPH # 0.3 10^3/uL (1.5-5.0); LYMPH % 2.6 % (24.0-44.0); MEAN CORPUSCULAR HEMOGLOBIN 31.8 pg (27.0-33.0); MEAN CORPUSCULAR VOLUME 93.6 fl (80.0-96.0); MONO # 0.1 10^3/uL (0.0-0.8); MONO % 1.1 % (2.0-8.0); NEUTROPHILS # 12.3 10^3/uL (1.5-8.5); NEUTROPHILS % 95.2 % (36.0-66.0); PLATELET COUNT, AUTOMATED 164 10^3/uL (150-450); RED BLOOD COUNT 3.93 10^6/uL (4.00-5.40); WHITE BLOOD COUNT 12.9 10^3/uL (4.0-10.0)
[2024-01-25] VITALS (9 sets, daily range): BP systolic 104–125; BP diastolic 55–62; TEMP 97.4–97.7; O2SAT 91–96
[2024-01-25] MEDS: RAMELTEON 8 MG TAB (ROZEREM) PO PRN (02:23)
[2024-01-25] MEDS: LEVOTHYROXINE 100MCG TABLET (0.1MG) PO SCH (05:51)
[2024-01-25 06:36] LABS: BASO % 0.1 % (0.0-1.0); HEMATOCRIT 34.2 % (36.0-47.0); HEMOGLOBIN 11.7 g/dl (12.0-15.5); LYMPH # 0.6 10^3/uL (1.5-5.0); LYMPH % 4.4 % (24.0-44.0); MEAN CORPUSCULAR HEMOGLOBIN 31.4 pg (27.0-33.0); MEAN CORPUSCULAR HGB CONC 34.2 g/dl (32.0-36.5); MEAN CORPUSCULAR VOLUME 91.7 fl (80.0-96.0); MONO # 0.3 10^3/uL (0.0-0.8); MONO % 2.4 % (2.0-8.0); NEUTROPHILS # 12.9 10^3/uL (1.5-8.5); NEUTROPHILS % 92.4 % (36.0-66.0); PLATELET COUNT, AUTOMATED 171 10^3/uL (150-450); RED BLOOD COUNT 3.73 10^6/uL (4.00-5.40)
[2024-01-25] MEDS: MIDODRINE 5 MG TAB PO ONE (06:54)
[2024-01-25 07:15] LABS: HEPATITIS B SURFACE ANTIGEN NEGATIVE (NEGATIVE)
[2024-01-25 07:18] LABS: BLOOD UREA NITROGEN 12 MG/DL (9-23); CALCIUM LEVEL 8.7 MG/DL (8.3-10.6); CARBON DIOXIDE LEVEL 27 MMOL/L (20-31); CHLORIDE LEVEL 100 MMOL/L (98-107); CREATININE FOR GFR 0.66 MG/DL (0.55-1.30); GLOMERULAR FILTRATION RATE > 60.0 (>45); GLUCOSE, FASTING 167 MG/DL (74-106); POTASSIUM SERUM 2.9 MMOL/L (3.5-5.1); SODIUM LEVEL 134 MMOL/L (136-145)
[2024-01-25] MEDS ORDERED: ISOVUE-370 76% 100ML VIAL As Ordered ONE (07:22)
[2024-01-25 07:34] LABS: HEPATITIS B CORE ANTIBODY IGM NEGATIVE (NEGATIVE)
[2024-01-25 07:35] LABS: HEPATITIS C VIRUS ABY INDEX 0.21 INDEX (<0.8)
[2024-01-25] MEDS: ATORVASTATIN 20 MG TAB PO SCH (08:40)
[2024-01-25] MEDS: guaiFENesin ER TABLET 600 MG TAB PO SCH (08:40)
[2024-01-25] MEDS: ASPIRIN 81MG ENTERIC TABLET PO SCH (08:40)
[2024-01-25] MEDS: cefTRIAXone SOD 2 GM in DEXTROSE 5% (D5W) ADV/MINI-BAG 50 ML IV SCH (08:40)
[2024-01-25] MEDS: FLUoxetine 20MG CAP PO SCH (08:41)
[2024-01-25] MEDS: TORSEMIDE 10 MG TABLET PO SCH (08:41)
[2024-01-25] MEDS: POTASSIUM CHLORIDE 10MEQ SR TABLET PO ONE (08:41)
[2024-01-26] VITALS (9 sets, daily range): BP systolic 100–141; BP diastolic 52–71; TEMP 96.5–97.5; O2SAT 92–96
[2024-01-26 07:04] LABS: BASO % 0.1 % (0.0-1.0); HEMOGLOBIN 12.2 g/dl (12.0-15.5); LYMPH # 0.6 10^3/uL (1.5-5.0); LYMPH % 3.4 % (24.0-44.0); MEAN CORPUSCULAR HEMOGLOBIN 32.3 pg (27.0-33.0); MEAN CORPUSCULAR HGB CONC 33.9 g/dl (32.0-36.5); MEAN CORPUSCULAR VOLUME 95.2 fl (80.0-96.0); MONO # 0.5 10^3/uL (0.0-0.8); MONO % 2.8 % (2.0-8.0); NEUTROPHILS # 15.1 10^3/uL (1.5-8.5); NEUTROPHILS % 92.6 % (36.0-66.0); PLATELET COUNT, AUTOMATED 192 10^3/uL (150-450); RED BLOOD COUNT 3.78 10^6/uL (4.00-5.40); WHITE BLOOD COUNT 16.3 10^3/uL (4.0-10.0)
[2024-01-26 08:08] LABS: BLOOD UREA NITROGEN 18 MG/DL (9-23); CALCIUM LEVEL 9.5 MG/DL (8.3-10.6); CARBON DIOXIDE LEVEL 25 MMOL/L (20-31); CHLORIDE LEVEL 105 MMOL/L (98-107); CREATININE FOR GFR 0.68 MG/DL (0.55-1.30); GLOMERULAR FILTRATION RATE > 60.0 (>45); GLUCOSE, FASTING 147 MG/DL (74-106); POTASSIUM SERUM 3.7 MMOL/L (3.5-5.1); SODIUM LEVEL 139 MMOL/L (136-145)
[2024-01-26] MEDS: MIDODRINE 5 MG TAB PO ONE (09:41)
[2024-01-26] MEDS: metOLazone 5 MG TAB PO ONE (09:42)
[2024-01-26] MEDS: POTASSIUM CHLORIDE 10MEQ SR TABLET PO SCH (09:42)
[2024-01-26] MEDS: FUROSEMIDE 40MG/4ML VIAL IV SCH (10:27)
[2024-01-26] MEDS ORDERED: CALCIUM CARBONATE 500 MG CHEW U/D PO PRN (10:40)
[2024-01-26] MEDS: CALCIUM CARBONATE 500 MG CHEW U/D PO ONE (11:40)
[2024-01-26] MEDS: FUROSEMIDE 40MG/4ML VIAL IV ONE (15:28)
[2024-01-26 18:53] LABS: BLOOD UREA NITROGEN 22 MG/DL (9-23); CALCIUM LEVEL 9.8 MG/DL (8.3-10.6); CARBON DIOXIDE LEVEL 27 MMOL/L (20-31); CHLORIDE LEVEL 100 MMOL/L (98-107); CREATININE FOR GFR 0.97 MG/DL (0.55-1.30); GLOMERULAR FILTRATION RATE > 60.0 (>45); GLUCOSE, FASTING 243 MG/DL (74-106); MAGNESIUM LEVEL 1.7 MG/DL (1.8-2.4); POTASSIUM SERUM 3.2 MMOL/L (3.5-5.1); SODIUM LEVEL 137 MMOL/L (136-145)
[2024-01-26] MEDS: MAGNESIUM OXIDE 400MG TAB (MAG-OX) PO ONE (20:38)
[2024-01-26] MEDS: POTASSIUM CHLORIDE 10MEQ SR TABLET PO ONE (20:39)
[2024-01-26] MEDS: MAG SULF 1GM/100ML (MAG RUN) 1 GM in IV 1 EA IV ONE (20:39)
[2024-01-26] MEDS ORDERED: FUROSEMIDE 40MG/4ML VIAL IV ONE (21:00)
[2024-01-26] MEDS: methylPREDNISolone 40MG 1ML VIAL IV SCH (21:52)
[2024-01-26] MEDS: IBUPROFEN 600MG TAB PO ONE (23:19)
[2024-01-27] VITALS (9 sets, daily range): BP systolic 111–137; BP diastolic 53–78; TEMP 97.1–97.9; O2SAT 84–97
[2024-01-27] MEDS: metOLazone 5 MG TAB PO ONE (05:47)
[2024-01-27] MEDS: FUROSEMIDE 40MG/4ML VIAL IV ONE (06:34)
[2024-01-27 07:14] LABS: BASO % 0.2 % (0.0-1.0); HEMATOCRIT 38.1 % (36.0-47.0); LYMPH # 0.8 10^3/uL (1.5-5.0); LYMPH % 6.5 % (24.0-44.0); MEAN CORPUSCULAR HEMOGLOBIN 31.9 pg (27.0-33.0); MEAN CORPUSCULAR HGB CONC 34.1 g/dl (32.0-36.5); MEAN CORPUSCULAR VOLUME 93.4 fl (80.0-96.0); MONO # 0.6 10^3/uL (0.0-0.8); MONO % 4.3 % (2.0-8.0); NEUTROPHILS # 11.3 10^3/uL (1.5-8.5); NEUTROPHILS % 88.5 % (36.0-66.0); PLATELET COUNT, AUTOMATED 215 10^3/uL (150-450); RED BLOOD COUNT 4.08 10^6/uL (4.00-5.40); WHITE BLOOD COUNT 12.8 10^3/uL (4.0-10.0)
[2024-01-27 07:30] LABS: BLOOD UREA NITROGEN 24 MG/DL (9-23); CALCIUM LEVEL 9.8 MG/DL (8.3-10.6); CARBON DIOXIDE LEVEL 26 MMOL/L (20-31); CHLORIDE LEVEL 100 MMOL/L (98-107); CREATININE FOR GFR 0.85 MG/DL (0.55-1.30); GLOMERULAR FILTRATION RATE > 60.0 (>45); GLUCOSE, FASTING 139 MG/DL (74-106); POTASSIUM SERUM 3.9 MMOL/L (3.5-5.1); SODIUM LEVEL 135 MMOL/L (136-145)
[2024-01-27] MEDS: POTASSIUM CHLORIDE 10MEQ SR TABLET PO SCH (08:13)
[2024-01-27] MEDS: MAGNESIUM OXIDE 400MG TAB (MAG-OX) PO SCH (09:00)
[2024-01-27 09:17] LABS: MAGNESIUM LEVEL 2.6 MG/DL (1.8-2.4)
[2024-01-27] MEDS: IBUPROFEN 400MG TAB PO PRN (15:56)
[2024-01-28 03:17] VITALS: BP 131/63; TEMP 97.6; O2SAT 90
[2024-01-28 06:35] LABS: BASO % 0.2 % (0.0-1.0); HEMATOCRIT 40.5 % (36.0-47.0); HEMOGLOBIN 13.6 g/dl (12.0-15.5); LYMPH # 1.1 10^3/uL (1.5-5.0); LYMPH % 11.3 % (24.0-44.0); MEAN CORPUSCULAR HEMOGLOBIN 31.1 pg (27.0-33.0); MEAN CORPUSCULAR HGB CONC 33.6 g/dl (32.0-36.5); MEAN CORPUSCULAR VOLUME 92.7 fl (80.0-96.0); MONO # 0.6 10^3/uL (0.0-0.8); MONO % 6.4 % (2.0-8.0); NEUTROPHILS # 7.5 10^3/uL (1.5-8.5); NEUTROPHILS % 80.6 % (36.0-66.0); PLATELET COUNT, AUTOMATED 231 10^3/uL (150-450); RED BLOOD COUNT 4.37 10^6/uL (4.00-5.40); WHITE BLOOD COUNT 9.3 10^3/uL (4.0-10.0)
[2024-01-28 07:05] LABS: BLOOD UREA NITROGEN 25 MG/DL (9-23); CALCIUM LEVEL 10.1 MG/DL (8.3-10.6); CARBON DIOXIDE LEVEL 27 MMOL/L (20-31); CHLORIDE LEVEL 96 MMOL/L (98-107); CREATININE FOR GFR 0.76 MG/DL (0.55-1.30); GLOMERULAR FILTRATION RATE > 60.0 (>45); GLUCOSE, FASTING 129 MG/DL (74-106); POTASSIUM SERUM 4.1 MMOL/L (3.5-5.1); SODIUM LEVEL 135 MMOL/L (136-145)
[2024-01-28 07:52] LABS: MAGNESIUM LEVEL 2.2 MG/DL (1.8-2.4)
[2024-01-28] MEDS: CEFDINIR 300 MG CAP (OMNICEF) PO SCH (08:36)
[2024-01-28 08:43] VITALS: BP 152/79; TEMP 97.5; O2SAT 91
[2024-01-28] MEDS ORDERED: predniSONE 20 MG TAB PO ONE (08:45)
[2024-01-28] MEDS ORDERED: DOXY100T PO (08:50)
[2024-01-28] MEDS ORDERED: CEFD300CAP PO (08:50)
[2024-01-28] MEDS ORDERED: IPRA0.00 INH (08:53)
[2024-01-28] MEDS ORDERED: TALK1KIT MC (08:53)
[2024-01-28] MEDS ORDERED: METO25TA PO (08:53)
[2024-01-28] MEDS ORDERED: ALBU8.5H INH (08:53)
[2024-01-28] MEDS ORDERED: PRED20TA PO (08:53)
[2024-01-28] MEDS ORDERED: LASI40TA9 PO (08:53)
[2024-01-28] MEDS ORDERED: PRED10TA2 PO (08:54)
[2024-01-28] MEDS: metOLazone 5 MG TAB PO ONE (09:08)
[2024-01-28 09:46] VITALS: BP 136/78
[2024-01-28] MEDS: FUROSEMIDE 40MG/4ML VIAL IV ONE ×2 (09:51→12:22)
[2024-01-28] MEDS: MIDODRINE 5 MG TAB PO ONE (12:21)
[2024-01-28 12:27] VITALS: BP 119/73
[2024-01-29] MEDS ORDERED: predniSONE 20 MG TAB PO SCH (09:00)
[2024-01-29 20:01] LABS: URINE STREP PNEUMONIAE ANTIGEN NOT DETECTED (NOT DETECT)
[2024-01-30 06:10] LABS: ANA PATTERN Cytoplasmic (NEGATIVE); ANA SCREEN, IFA POSITIVE (NEGATIVE); ANA TITER 1:40 titer (<1:40)
[2024-01-30 16:26] LABS: MYCOPLASMA PNEUMONIAE IGG 1.71 (<=0.90)
== END 2024-01-28 13:26 | disposition home health service (06) | DRG 193 ==
LOC: M ED 05:58 → EDBD 05:58 → M ED INP 13:09 → M MS4PR 14:45 → M PCU 01-25 11:05
PROVIDERS: ADMIT General Practice; ATTEND General Practice
DX: J18.9 Pneumonia, unspecified organism (principal); J96.01 Acute respiratory failure with hypoxia; I50.33 Acute on chronic diastolic (congestive) heart failure; J44.0 Chronic obstructive pulmonary disease with (acute) lower respiratory infection; J44.1 Chronic obstructive pulmonary disease with (acute) exacerbation; Z68.41 Body mass index [BMI] 40.0-44.9, adult; E66.2 Morbid (severe) obesity with alveolar hypoventilation; K50.90 Crohn's disease, unspecified, without complications; J47.0 Bronchiectasis with acute lower respiratory infection; E87.6 Hypokalemia; K76.0 Fatty (change of) liver, not elsewhere classified; M47.817 Spondylosis without myelopathy or radiculopathy, lumbosacral region; R53.1 Weakness; G50.0 Trigeminal neuralgia; G43.909 Migraine, unspecified, not intractable, without status migrainosus; E78.5 Hyperlipidemia, unspecified; I25.10 Atherosclerotic heart disease of native coronary artery without angina pectoris; I11.0 Hypertensive heart disease with heart failure; J45.909 Unspecified asthma, uncomplicated; K21.9 Gastro-esophageal reflux disease without esophagitis; E03.9 Hypothyroidism, unspecified; F41.9 Anxiety disorder, unspecified; F32.A Depression, unspecified; R26.0 Ataxic gait; R29.6 Repeated falls; K59.09 Other constipation; D50.9 Iron deficiency anemia, unspecified; G31.84 Mild cognitive impairment of uncertain or unknown etiology; K74.00 Hepatic fibrosis, unspecified; I95.9 Hypotension, unspecified; Z79.82 Long term (current) use of aspirin; Z79.890 Hormone replacement therapy; Z79.899 Other long term (current) drug therapy; Z88.1 Allergy status to other antibiotic agents; Z88.6 Allergy status to analgesic agent; Z88.8 Allergy status to other drugs, medicaments and biological substances

== ENCOUNTER 2024-02-01 15:40 | Inpatient (IN) | payer MEDICARE ==
[2024-01-31] MEDS: NS 1,000 ML IV SCH (01:07)
[~2024-02-01] VITALS: Ht 172.7 cm; Wt 105.8 kg
[~2024-02-01 15:40] MED LIST changes: +ALBU8.5H INH; +DOXY100T PO; +LASI40TA9 PO; +METO25TA PO; +TALK1KIT MC
[2024-02-01 16:21] LABS: BASO % 0.3 % (0.0-1.0); EOS % 0.1 % (0.0-3.0); HEMATOCRIT 49.7 % (36.0-47.0); HEMOGLOBIN 16.9 g/dl (12.0-15.5); LYMPH % 6.4 % (24.0-44.0); MEAN CORPUSCULAR HEMOGLOBIN 31.7 pg (27.0-33.0); MEAN CORPUSCULAR VOLUME 93.2 fl (80.0-96.0); MONO # 0.5 10^3/uL (0.0-0.8); MONO % 3.2 % (2.0-8.0); NEUTROPHILS # 13.6 10^3/uL (1.5-8.5); NEUTROPHILS % 87.6 % (36.0-66.0); PLATELET COUNT, AUTOMATED 354 10^3/uL (150-450); RED BLOOD COUNT 5.33 10^6/uL (4.00-5.40); WHITE BLOOD COUNT 15.5 10^3/uL (4.0-10.0)
[2024-02-01 17:42] LABS: FREE T4 1.28 NG/DL (0.89-1.76); THYROID STIMULATING HORMONE 1.164 uIU/ML (0.55-4.78)
[2024-02-01 17:43] LABS: ALBUMIN 3.3 G/DL (3.2-5.2); BILIRUBIN,DIRECT 0.1 MG/DL (<0.4); BILIRUBIN,TOTAL 0.3 MG/DL (0.3-1.2); CALCIUM LEVEL 10.1 MG/DL (8.3-10.6); CREATININE FOR GFR 1.46 MG/DL (0.55-1.30); GLOMERULAR FILTRATION RATE 38.3 (>45); MAGNESIUM LEVEL 2.1 MG/DL (1.8-2.4); POTASSIUM SERUM 3.4 MMOL/L (3.5-5.1); TOTAL PROTEIN 7.4 G/DL (5.7-8.2)
[2024-02-01] MEDS: NS 500 ML IV ONE (18:21)
[2024-02-01] MEDS ORDERED: DOXY100T PO (19:24)
[2024-02-01] MEDS ORDERED: CEFD1CAP9 PO (19:24)
[2024-02-01] MEDS ORDERED: HOME MED LIST COMPLETE! XX SCH (19:25)
[2024-02-01 21:15] LABS: AMORPHOUS SEDIMENT SMALL (NEGATIVE); APPEARANCE, URINE HAZY (CLEAR); BACTERIA, URINE AUTO NEGATIVE (NEGATIVE); BILIRUBIN, URINE AUTO NEGATIVE (NEGATIVE); BLOOD, URINE BLOOD NEGATIVE (NEGATIVE); COLOR, URINE YELLOW (YELLOW); GLUCOSE, URINE (UA) AUTO NEGATIVE (NEGATIVE); KETONE, URINE AUTO NEGATIVE (NEGATIVE); LEUKOCYTE ESTERASE, URINE AUTO TRACE (NEGATIVE); MUCUS, URINE SMALL (NEGATIVE); NITRITE, URINE AUTO NEGATIVE (NEGATIVE); PROTEIN, URINE AUTO NEGATIVE (NEGATIVE); RBC, URINE AUTO 2 /HPF (0-3); SPECIFIC GRAVITY URINE AUTO 1.014 (1.002-1.035); SQUAMOUS EPITHELIAL CELL UR AU 2 /HPF (0-6); UROBILINOGEN, URINE AUTO 0.2 mg/dL (0.0-2.0); WBC, URINE AUTO 2 /HPF (0-3)
[2024-02-01] MEDS ORDERED: ACETAMINOPHEN 325 MG TAB PO PRN (22:10)
[2024-02-01] MEDS ORDERED: MAALOX 30 ML SUSP *UDC PO PRN (22:10)
[2024-02-01] MEDS: IPRATROPIUM 0.5MG/ALBUTEROL 2.5MG INH SOL UD 3ML (DUONEB) NEB PRN (22:55)
[2024-02-01 23:02] LABS: PROCALCITONIN 0.07 ng/ml
[2024-02-01] MEDS: NS 1,000 ML IV ONE (23:06)
[2024-02-01] MEDS: DOCUSATE SODIUM 100MG CAPSULE PO SCH (23:15)
[2024-02-01] MEDS: POTASSIUM CHLORIDE 10% LIQ 20MEQ/15ML UDC PO ONE (23:15)
[2024-02-02] MEDS: HEPARIN SOD (PORCINE) 5000UNITS/ML 1ML VIAL/SYRINGE SC SCH (06:21)
[2024-02-02 06:29] LABS: HEMATOCRIT 42.5 % (36.0-47.0); MEAN CORPUSCULAR HEMOGLOBIN 31.8 pg (27.0-33.0); MEAN CORPUSCULAR HGB CONC 34.1 g/dl (32.0-36.5); MEAN CORPUSCULAR VOLUME 93.2 fl (80.0-96.0); PLATELET COUNT, AUTOMATED 308 10^3/uL (150-450); RED BLOOD COUNT 4.56 10^6/uL (4.00-5.40); WHITE BLOOD COUNT 13.5 10^3/uL (4.0-10.0)
[2024-02-02 06:40] LABS: HEMOGLOBIN 14.5 g/dl (12.0-15.5)
[2024-02-02 06:57] LABS: ALBUMIN 2.8 G/DL (3.2-5.2); BILIRUBIN,TOTAL 0.5 MG/DL (0.3-1.2); CALCIUM LEVEL 8.9 MG/DL (8.3-10.6); CREATININE FOR GFR 1.05 MG/DL (0.55-1.30); POTASSIUM SERUM 3.5 MMOL/L (3.5-5.1); TOTAL PROTEIN 6.2 G/DL (5.7-8.2)
[2024-02-02] MEDS: MOM 30ML SUSPENSION UDC PO PRN (08:11)
[2024-02-02 09:05] VITALS: BP 113/94; TEMP 97.3; O2SAT 94
[2024-02-02] MEDS ORDERED: ONDANSETRON 4MG 2ML VIAL IV PRN (09:30)
[2024-02-02] MEDS: oxyCODONE 5MG TAB PO ONE (10:02)
[2024-02-02] MEDS ORDERED: FLUTICASONE PROP 0.05% NASAL SPRAY 16 GM (FLONASE) NARES PRN (10:50)
[2024-02-02] MEDS ORDERED: ALBUTEROL 90 MCG/ACT 8GM HFA INHALER INH PRN (10:50)
[2024-02-02] MEDS ORDERED: IPRATROPIUM 0.5MG/ALBUTEROL 2.5MG INH SOL UD 3ML (DUONEB) INH PRN (10:50)
[2024-02-02] MEDS: MIRALAX *UNIT DOSE* 17GM PACKET PO PRN (11:25)
[2024-02-02] MEDS: ATORVASTATIN 20 MG TAB PO SCH (11:26)
[2024-02-02] MEDS: predniSONE 10MG TAB PO SCH (11:26)
[2024-02-02] MEDS: ASPIRIN 81MG ENTERIC TABLET PO SCH (11:26)
[2024-02-02] MEDS: SENNA 8.6 MG TAB (SENOKOT) PO PRN (11:26)
[2024-02-02] MEDS: PANTOPRAZOLE 40MG TAB (PROTONIX) PO SCH (11:26)
[2024-02-02] MEDS: BISACODYL 10MG SUPP PR PRN (11:26)
[2024-02-02 11:45] VITALS: BP 108/89; TEMP 97.3; O2SAT 92
[2024-02-02] MEDS: LEVOTHYROXINE 100MCG TABLET (0.1MG) PO SCH (13:00)
[2024-02-02 16:30] VITALS: BP 130/75; TEMP 97.2; O2SAT 93
[2024-02-02] MEDS: IBUPROFEN 600MG TAB PO ONE (18:15)
[2024-02-02] MEDS: guaiFENesin ER TABLET 600 MG TAB PO PRN (18:16)
[2024-02-02 20:00] VITALS: BP 152/81; TEMP 97.3; O2SAT 89
[2024-02-02] MEDS: CYANOCOBALAMIN 500 MCG TAB PO SCH (20:59)
[2024-02-02] MEDS: MONTELUKAST 10 MG TAB PO SCH (20:59)
[2024-02-03 00:23] VITALS: BP 116/67; TEMP 97.3; O2SAT 90
[2024-02-03 04:00] VITALS: BP 108/51; TEMP 97.7; O2SAT 97
[2024-02-03 04:03] VITALS: BP 110/60
[2024-02-03 04:10] VITALS: BP 112/59
[2024-02-03 06:15] LABS: HEMATOCRIT 37.7 % (36.0-47.0); MEAN CORPUSCULAR HEMOGLOBIN 31.5 pg (27.0-33.0); MEAN CORPUSCULAR HGB CONC 32.9 g/dl (32.0-36.5); MEAN CORPUSCULAR VOLUME 95.7 fl (80.0-96.0); RED BLOOD COUNT 3.94 10^6/uL (4.00-5.40); WHITE BLOOD COUNT 6.8 10^3/uL (4.0-10.0)
[2024-02-03 06:17] LABS: HEMOGLOBIN 12.4 g/dl (12.0-15.5); PLATELET COUNT, AUTOMATED 175 10^3/uL (150-450)
[2024-02-03 06:32] LABS: ALBUMIN 2.5 G/DL (3.2-5.2); ALKALINE PHOSPHATASE 110 U/L (35-104); ALT/SGPT 68 U/L (7.0-40); AST/SGOT 45 U/L (<34); BILIRUBIN,TOTAL 0.6 MG/DL (0.3-1.2); BLOOD UREA NITROGEN 29 MG/DL (9-23); CALCIUM LEVEL 8.9 MG/DL (8.3-10.6); CARBON DIOXIDE LEVEL 29 MMOL/L (20-31); CHLORIDE LEVEL 104 MMOL/L (98-107); CREATININE FOR GFR 0.74 MG/DL (0.55-1.30); GLOMERULAR FILTRATION RATE > 60.0 (>45); GLUCOSE, FASTING 76 MG/DL (74-106); POTASSIUM SERUM 3.7 MMOL/L (3.5-5.1); SODIUM LEVEL 137 MMOL/L (136-145); TOTAL PROTEIN 5.5 G/DL (5.7-8.2)
[2024-02-03] MEDS: oxyCODONE 5MG TAB PO ONE (06:58)
[2024-02-03] MEDS: ADVAIR HFA 230/21MCG INHALER INH SCH (07:13)
[2024-02-03 08:06] VITALS: BP_SYST 110; BP_SYST 128; BP_SYST 131; BP_DIAS 58; BP_DIAS 66
[2024-02-03] MEDS: guaiFENesin ER TABLET 600 MG TAB PO SCH (10:16)
[2024-02-03] MEDS: MELOXICAM (MOBIC) 7.5 MG TAB PO ONE (10:16)
[2024-02-03] MEDS: NS 500 ML IV ONE (10:17)
[2024-02-03] MEDS ORDERED: MUCI600T31 PO (11:05)
[2024-02-03] MEDS ORDERED: MELO15TA28 PO ×2 (11:05→11:43)
[2024-02-03] MEDS ORDERED: SENO8.6T5 PO (11:05)
[2024-02-03] MEDS ORDERED: ATEN25TA PO (11:34)
[2024-02-03 11:50] VITALS: BP 132/69; TEMP 97; O2SAT 93
[2024-02-06] MEDS ORDERED: predniSONE 20 MG TAB PO SCH (09:00)
[2024-02-10] MEDS ORDERED: predniSONE 10MG TAB PO SCH (09:00)
== END 2024-02-03 13:21 | disposition home health service (06) | DRG 312 ==
LOC: EDBD 15:40 → EDSEX 15:40 → M ED 15:40 → M ED INP 22:06 → M MSPAV 02-02 09:05
PROVIDERS: ADMIT Family Medicine; ATTEND Student in an Organized Health Care Education/Training Program
PROC: B246ZZZ Ultrasonography of Right and Left Heart (ICD-10-PCS; principal; 2024-02-03)
DX: I95.1 Orthostatic hypotension (principal); K50.90 Crohn's disease, unspecified, without complications; N17.9 Acute kidney failure, unspecified; C83.30 Diffuse large B-cell lymphoma, unspecified site; I50.32 Chronic diastolic (congestive) heart failure; J44.9 Chronic obstructive pulmonary disease, unspecified; J45.909 Unspecified asthma, uncomplicated; I25.10 Atherosclerotic heart disease of native coronary artery without angina pectoris; G43.909 Migraine, unspecified, not intractable, without status migrainosus; K21.9 Gastro-esophageal reflux disease without esophagitis; E78.5 Hyperlipidemia, unspecified; I11.0 Hypertensive heart disease with heart failure; F32.A Depression, unspecified; J47.9 Bronchiectasis, uncomplicated; K59.09 Other constipation; E86.0 Dehydration; E03.9 Hypothyroidism, unspecified; K76.0 Fatty (change of) liver, not elsewhere classified; D50.9 Iron deficiency anemia, unspecified; E87.6 Hypokalemia; F41.9 Anxiety disorder, unspecified; G47.33 Obstructive sleep apnea (adult) (pediatric); G50.0 Trigeminal neuralgia; Z90.49 Acquired absence of other specified parts of digestive tract; K74.00 Hepatic fibrosis, unspecified; Z79.82 Long term (current) use of aspirin; Z79.890 Hormone replacement therapy; Z79.899 Other long term (current) drug therapy; Z88.1 Allergy status to other antibiotic agents; Z88.6 Allergy status to analgesic agent; Z88.8 Allergy status to other drugs, medicaments and biological substances

== ENCOUNTER → 2024-02-06 | Outpatient (CLI) | payer MEDICARE ==
[~2024-02-06] MED LIST changes: +CEFD1CAP9 PO; +MELO15TA28 PO; +MUCI600T31 PO; +SENO8.6T5 PO
[2024-02-06 14:34] LABS: BASO % 0.2 % (0.0-1.0); EOS # 0.1 10^3/uL (0.0-0.5); EOS % 0.4 % (0.0-3.0); HEMATOCRIT 41.5 % (36.0-47.0); HEMOGLOBIN 13.8 g/dl (12.0-15.5); LYMPH # 2.6 10^3/uL (1.5-5.0); LYMPH % 21.9 % (24.0-44.0); MEAN CORPUSCULAR HEMOGLOBIN 31.4 pg (27.0-33.0); MEAN CORPUSCULAR HGB CONC 33.3 g/dl (32.0-36.5); MEAN CORPUSCULAR VOLUME 94.3 fl (80.0-96.0); MONO % 8.5 % (2.0-8.0); NEUTROPHILS # 8.2 10^3/uL (1.5-8.5); NEUTROPHILS % 68.1 % (36.0-66.0); PLATELET COUNT, AUTOMATED 194 10^3/uL (150-450)
[2024-02-06 14:43] LABS: ALBUMIN 2.9 G/DL (3.2-5.2); ALKALINE PHOSPHATASE 113 U/L (35-104); ALT/SGPT 101 U/L (7.0-40); AST/SGOT 72 U/L (<34); BILIRUBIN,TOTAL 0.5 MG/DL (0.3-1.2); BLOOD UREA NITROGEN 16 MG/DL (9-23); CALCIUM LEVEL 9.6 MG/DL (8.3-10.6); CARBON DIOXIDE LEVEL 28 MMOL/L (20-31); CHLORIDE LEVEL 105 MMOL/L (98-107); CREATININE FOR GFR 0.74 MG/DL (0.55-1.30); GLOMERULAR FILTRATION RATE > 60.0 (>45); GLUCOSE, FASTING 79 MG/DL (74-106); MAGNESIUM LEVEL 1.8 MG/DL (1.8-2.4); POTASSIUM SERUM 4.1 MMOL/L (3.5-5.1); SODIUM LEVEL 139 MMOL/L (136-145); TOTAL PROTEIN 6.4 G/DL (5.7-8.2)
[2024-02-06 14:46] LABS: FERRITIN 150.4 NG/ML (7.3-270.7)
== END ==
LOC: M PLALAB 10:30
DX: J47.9 Bronchiectasis, uncomplicated (principal); I50.32 Chronic diastolic (congestive) heart failure; J15.212 Pneumonia due to Methicillin resistant Staphylococcus aureus; R09.89 Other specified symptoms and signs involving the circulatory and respiratory systems

== ENCOUNTER → 2024-02-06 | Outpatient (REF) | payer MEDICARE | LOC: M SFHCPLAZ 10:27 | DX: R09.89 Other specified symptoms and signs involving the circulatory and respiratory systems (principal); J47.9 Bronchiectasis, uncomplicated; I50.32 Chronic diastolic (congestive) heart failure; J15.212 Pneumonia due to Methicillin resistant Staphylococcus aureus ==

== ENCOUNTER 2024-02-16 13:39 | Emergency (ER) | payer MEDICARE ==
[~2024-02-16] VITALS: Ht 172.7 cm; Wt 107.4 kg
[2024-02-16 14:45] LABS: BASO % 0.5 % (0.0-1.0); EOS # 0.1 10^3/uL (0.0-0.5); HEMATOCRIT 38.7 % (36.0-47.0); HEMOGLOBIN 12.7 g/dl (12.0-15.5); LYMPH # 1.2 10^3/uL (1.5-5.0); LYMPH % 20.3 % (24.0-44.0); MEAN CORPUSCULAR HEMOGLOBIN 31.5 pg (27.0-33.0); MEAN CORPUSCULAR HGB CONC 32.8 g/dl (32.0-36.5); MONO # 0.5 10^3/uL (0.0-0.8); NEUTROPHILS # 4.1 10^3/uL (1.5-8.5); NEUTROPHILS % 68.9 % (36.0-66.0); PLATELET COUNT, AUTOMATED 143 10^3/uL (150-450); RED BLOOD COUNT 4.03 10^6/uL (4.00-5.40); WHITE BLOOD COUNT 5.9 10^3/uL (4.0-10.0)
[2024-02-16 15:07] LABS: LIPASE 57 U/L (12-53)
[2024-02-16 15:08] LABS: CK-MB VALUE MASS < 1.0 NG/ML (<3.6)
[2024-02-16 15:09] LABS: CPK CREATINE PHOSPHOKINASE 51 U/L (34-145); INR 0.89; MB/CK RELATIVE INDEX 1.96 (< OR =4); PARTIAL THROMBOPLASTIN TIME 26.3 SECONDS (24.8-34.2); PROTHROMBIN TIME 12.4 SECONDS (12.5-14.5)
[2024-02-16 15:10] LABS: ALBUMIN 3.3 G/DL (3.2-5.2); ALKALINE PHOSPHATASE 106 U/L (35-104); ALT/SGPT 86 U/L (7.0-40); AST/SGOT 63 U/L (<34); BILIRUBIN,DIRECT 0.1 MG/DL (<0.4); BILIRUBIN,TOTAL 0.4 MG/DL (0.3-1.2); BLOOD UREA NITROGEN 20 MG/DL (9-23); CARBON DIOXIDE LEVEL 26 MMOL/L (20-31); CHLORIDE LEVEL 107 MMOL/L (98-107); CREATININE FOR GFR 0.88 MG/DL (0.55-1.30); GLOMERULAR FILTRATION RATE > 60.0 (>45); GLUCOSE, FASTING 85 MG/DL (74-106); POTASSIUM SERUM 3.9 MMOL/L (3.5-5.1); SODIUM LEVEL 140 MMOL/L (136-145); TOTAL PROTEIN 6.5 G/DL (5.7-8.2)
[2024-02-16 15:12] LABS: FREE T4 0.98 NG/DL (0.89-1.76)
[2024-02-16] MEDS ORDERED: ISOVUE-370 76% 100ML VIAL As Ordered ONE (15:29)
[2024-02-16 16:11] LABS: CK-MB VALUE MASS < 1.0 NG/ML (<3.6)
[2024-02-16 16:13] LABS: CPK CREATINE PHOSPHOKINASE 46 U/L (34-145); MB/CK RELATIVE INDEX 2.17 (< OR =4)
[2024-02-16 18:15] VITALS: O2SAT 96
[2024-02-16 18:30] VITALS: BP 131/60; TEMP 97.9
== END 2024-02-16 18:32 | disposition home or self-care (01) ==
LOC: M ED 13:39
DX: R07.9 Chest pain, unspecified (principal); I45.81 Long QT syndrome; I10 Essential (primary) hypertension; I25.2 Old myocardial infarction; E78.5 Hyperlipidemia, unspecified; E03.9 Hypothyroidism, unspecified; F10.10 Alcohol abuse, uncomplicated; Z87.891 Personal history of nicotine dependence; Z88.1 Allergy status to other antibiotic agents; Z88.8 Allergy status to other drugs, medicaments and biological substances; Z79.51 Long term (current) use of inhaled steroids; Z79.1 Long term (current) use of non-steroidal anti-inflammatories (NSAID); Z79.2 Long term (current) use of antibiotics; Z79.52 Long term (current) use of systemic steroids; Z79.899 Other long term (current) drug therapy
CPT/HCPCS: 36415; 70450; 71045; 71275; 74177; 80047; 80048; 80076; 82550; 82553; 83605; 83690; 83880; 84439; 84443; 84484; 85025; 85610; 85730; 87040; 93005; 93041; 94760; 99285; Q9967

== ENCOUNTER → 2024-02-16 | Outpatient (REF) | payer MEDICARE | LOC: M SFHCPLAZ 08:11 | DX: Z53.9 Procedure and treatment not carried out, unspecified reason (principal) ==

== ENCOUNTER → 2024-02-27 | Outpatient (REF) | payer MEDICARE | LOC: M SFHCPLAZ 12:20 | DX: J15.212 Pneumonia due to Methicillin resistant Staphylococcus aureus (principal) ==

== ENCOUNTER → 2024-03-07 | Outpatient (REF) | payer MEDICARE | LOC: M SFHCPLAZ 10:18 | DX: J18.9 Pneumonia, unspecified organism (principal) ==

== ENCOUNTER → 2024-03-07 | Outpatient (CLI) | payer MEDICARE ==
[2024-03-07 13:08] LABS: HEMATOCRIT 40.9 % (36.0-47.0); HEMOGLOBIN 13.3 g/dl (12.0-15.5); MEAN CORPUSCULAR HEMOGLOBIN 31.4 pg (27.0-33.0); MEAN CORPUSCULAR HGB CONC 32.5 g/dl (32.0-36.5); MEAN CORPUSCULAR VOLUME 96.7 fl (80.0-96.0); PLATELET COUNT, AUTOMATED 199 10^3/uL (150-450); RED BLOOD COUNT 4.23 10^6/uL (4.00-5.40); WHITE BLOOD COUNT 6.8 10^3/uL (4.0-10.0)
[2024-03-07 13:37] LABS: ALBUMIN 3.4 G/DL (3.2-5.2); ALKALINE PHOSPHATASE 111 U/L (35-104); ALT/SGPT 69 U/L (7.0-40); AST/SGOT 85 U/L (<34); BILIRUBIN,TOTAL 0.3 MG/DL (0.3-1.2); BLOOD UREA NITROGEN 12 MG/DL (9-23); CALCIUM LEVEL 9.6 MG/DL (8.3-10.6); CARBON DIOXIDE LEVEL 25 MMOL/L (20-31); CHLORIDE LEVEL 110 MMOL/L (98-107); CREATININE FOR GFR 0.74 MG/DL (0.55-1.30); GLOMERULAR FILTRATION RATE > 60.0 (>45); GLUCOSE, FASTING 93 MG/DL (74-106); POTASSIUM SERUM 4.3 MMOL/L (3.5-5.1); SODIUM LEVEL 141 MMOL/L (136-145); TOTAL PROTEIN 6.8 G/DL (5.7-8.2)
== END ==
LOC: M PLALAB 09:53
DX: I50.32 Chronic diastolic (congestive) heart failure (principal)

== ENCOUNTER 2024-03-24 18:48 | Emergency (ER) | payer MEDICARE ==
[~2024-03-24] VITALS: Ht 172.7 cm; Wt 105.0 kg
[2024-03-24 19:01] VITALS: BP 163/81; TEMP 102.7; O2SAT 95
== END 2024-03-24 20:24 | disposition left against medical advice (07) ==
LOC: EDBD 18:48 → M ED 18:48
DX: Z53.21 Procedure and treatment not carried out due to patient leaving prior to being seen by health care provider (principal)

== ENCOUNTER → 2024-04-16 | Outpatient (CLI) | payer MEDICARE ==
[~2024-04-16] MED LIST changes: -AMIT24CA7 PO; +LUBI24CA32 PO
[2024-04-16 11:20] LABS: ALBUMIN 3.4 G/DL (3.2-5.2); ALKALINE PHOSPHATASE 124 U/L (35-104); ALT/SGPT 103 U/L (7.0-40); AST/SGOT 106 U/L (<34); BILIRUBIN,TOTAL 0.5 MG/DL (0.3-1.2); BLOOD UREA NITROGEN 11 MG/DL (9-23); CALCIUM LEVEL 9.8 MG/DL (8.3-10.6); CARBON DIOXIDE LEVEL 34 MMOL/L (20-31); CHLORIDE LEVEL 98 MMOL/L (98-107); CREATININE FOR GFR 0.69 MG/DL (0.55-1.30); GLOMERULAR FILTRATION RATE > 60.0 (>45); GLUCOSE, FASTING 92 MG/DL (74-106); POTASSIUM SERUM 3.3 MMOL/L (3.5-5.1); SODIUM LEVEL 142 MMOL/L (136-145); TOTAL PROTEIN 7.1 G/DL (5.7-8.2)
== END ==
LOC: M PLALAB 08:46
DX: I10 Essential (primary) hypertension (principal)

== ENCOUNTER → 2024-04-30 | Outpatient (CLI) | payer MEDICARE ==
[2024-04-30 15:48] LABS: BASO # 0.1 10^3/uL (0.0-0.2); BASO % 0.7 % (0.0-1.0); EOS # 0.4 10^3/uL (0.0-0.5); EOS % 4.8 % (0.0-3.0); HEMATOCRIT 41.5 % (36.0-47.0); HEMOGLOBIN 13.2 g/dl (12.0-15.5); LYMPH # 1.5 10^3/uL (1.5-5.0); LYMPH % 20.4 % (24.0-44.0); MEAN CORPUSCULAR HEMOGLOBIN 30.7 pg (27.0-33.0); MEAN CORPUSCULAR HGB CONC 31.8 g/dl (32.0-36.5); MEAN CORPUSCULAR VOLUME 96.5 fl (80.0-96.0); MONO # 0.7 10^3/uL (0.0-0.8); MONO % 9.5 % (2.0-8.0); NEUTROPHILS # 4.7 10^3/uL (1.5-8.5); NEUTROPHILS % 64.3 % (36.0-66.0); PLATELET COUNT, AUTOMATED 208 10^3/uL (150-450); WHITE BLOOD COUNT 7.2 10^3/uL (4.0-10.0)
[2024-04-30 16:19] LABS: FERRITIN 58.3 NG/ML (7.3-270.7)
[2024-04-30 16:27] LABS: ALBUMIN 3.2 G/DL (3.2-5.2); ALKALINE PHOSPHATASE 128 U/L (35-104); ALT/SGPT 80 U/L (7.0-40); AST/SGOT 90 U/L (<34); BILIRUBIN,TOTAL 0.3 MG/DL (0.3-1.2); BLOOD UREA NITROGEN < 5 MG/DL (9-23); CALCIUM LEVEL 8.9 MG/DL (8.3-10.6); CARBON DIOXIDE LEVEL 28 MMOL/L (20-31); CHLORIDE LEVEL 106 MMOL/L (98-107); CREATININE FOR GFR 0.67 MG/DL (0.55-1.30); GLOMERULAR FILTRATION RATE > 60.0 (>45); GLUCOSE, FASTING 95 MG/DL (74-106); POTASSIUM SERUM 4.5 MMOL/L (3.5-5.1); SODIUM LEVEL 142 MMOL/L (136-145); TOTAL PROTEIN 6.9 G/DL (5.7-8.2)
== END ==
LOC: M WUC 09:52
PROVIDERS: ATTEND Family Medicine
DX: I10 Essential (primary) hypertension (principal); E03.9 Hypothyroidism, unspecified; D50.9 Iron deficiency anemia, unspecified

== ENCOUNTER → 2024-05-21 | Outpatient (CLI) | payer MEDICARE ==
[2024-05-21 09:24] LABS: ALBUMIN 3.1 G/DL (3.2-5.2); ALKALINE PHOSPHATASE 169 U/L (35-104); ALT/SGPT 95 U/L (7.0-40); AST/SGOT 124 U/L (<34); BILIRUBIN,TOTAL 0.3 MG/DL (0.3-1.2); BLOOD UREA NITROGEN 6 MG/DL (9-23); CALCIUM LEVEL 9.5 MG/DL (8.3-10.6); CARBON DIOXIDE LEVEL 32 MMOL/L (20-31); CHLORIDE LEVEL 104 MMOL/L (98-107); CREATININE FOR GFR 0.72 MG/DL (0.55-1.30); GLOMERULAR FILTRATION RATE > 60.0 (>45); GLUCOSE, FASTING 90 MG/DL (74-106); POTASSIUM SERUM 4.5 MMOL/L (3.5-5.1); SODIUM LEVEL 141 MMOL/L (136-145); TOTAL PROTEIN 7.6 G/DL (5.7-8.2)
[2024-05-21 09:31] LABS: BASO # 0.1 10^3/uL (0.0-0.2); BASO % 1.1 % (0.0-1.0); EOS # 0.3 10^3/uL (0.0-0.5); EOS % 4.7 % (0.0-3.0); HEMATOCRIT 43.7 % (36.0-47.0); HEMOGLOBIN 14.1 g/dl (12.0-15.5); LYMPH # 1.4 10^3/uL (1.5-5.0); LYMPH % 19.4 % (24.0-44.0); MEAN CORPUSCULAR HEMOGLOBIN 29.7 pg (27.0-33.0); MEAN CORPUSCULAR HGB CONC 32.3 g/dl (32.0-36.5); MONO # 0.6 10^3/uL (0.0-0.8); MONO % 8.8 % (2.0-8.0); NEUTROPHILS # 4.7 10^3/uL (1.5-8.5); NEUTROPHILS % 65.6 % (36.0-66.0); PLATELET COUNT, AUTOMATED 244 10^3/uL (150-450); RED BLOOD COUNT 4.75 10^6/uL (4.00-5.40); WHITE BLOOD COUNT 7.1 10^3/uL (4.0-10.0)
[2024-05-21 09:33] LABS: PROCALCITONIN 0.08 ng/ml
== END ==
LOC: M LAB 08:38
PROVIDERS: ATTEND Family Medicine
DX: J40 Bronchitis, not specified as acute or chronic (principal)

== ENCOUNTER → 2024-05-21 | Outpatient (REF) | payer MEDICARE | LOC: M SFHCPLAZ 09:52 | PROVIDERS: ATTEND Physician Assistant Medical | DX: J40 Bronchitis, not specified as acute or chronic (principal) ==

== ENCOUNTER → 2024-05-29 | Outpatient (REF) | payer MEDICARE | LOC: M SFHCPLAZ 12:03 | PROVIDERS: ATTEND Family Medicine | DX: J40 Bronchitis, not specified as acute or chronic (principal) ==

== ENCOUNTER 2024-07-11 21:09 | Emergency (ER) | payer MEDICARE ==
[~2024-07-11] VITALS: Ht 172.7 cm; Wt 105.0 kg
[~2024-07-11 21:09] MED LIST changes: -CLOT10TR; +CLOT10TR11; +LIDO1ADH93 TD; -LIDO5DIS41 TD
[2024-07-11 22:42] LABS: BASO # 0.1 10^3/uL (0.0-0.2); BASO % 1.1 % (0.0-1.0); EOS # 0.2 10^3/uL (0.0-0.5); EOS % 2.4 % (0.0-3.0); HEMATOCRIT 46.7 % (36.0-47.0); HEMOGLOBIN 15.7 g/dl (12.0-15.5); LYMPH # 1.9 10^3/uL (1.5-5.0); LYMPH % 22.8 % (24.0-44.0); MEAN CORPUSCULAR HGB CONC 33.6 g/dl (32.0-36.5); MEAN CORPUSCULAR VOLUME 89.3 fl (80.0-96.0); MONO # 0.9 10^3/uL (0.0-0.8); MONO % 10.4 % (2.0-8.0); NEUTROPHILS # 5.3 10^3/uL (1.5-8.5); NEUTROPHILS % 63.2 % (36.0-66.0); PLATELET COUNT, AUTOMATED 234 10^3/uL (150-450); RED BLOOD COUNT 5.23 10^6/uL (4.00-5.40); WHITE BLOOD COUNT 8.4 10^3/uL (4.0-10.0)
[2024-07-11 23:10] LABS: ALBUMIN 3.6 G/DL (3.2-5.2); ALKALINE PHOSPHATASE 254 U/L (35-104); ALT/SGPT 95 U/L (7.0-40); AST/SGOT 158 U/L (<34); BILIRUBIN,TOTAL 0.5 MG/DL (0.3-1.2); BLOOD UREA NITROGEN 23 MG/DL (9-23); CALCIUM LEVEL 9.8 MG/DL (8.3-10.6); CARBON DIOXIDE LEVEL 33 MMOL/L (20-31); CHLORIDE LEVEL 90 MMOL/L (98-107); CREATININE FOR GFR 1.02 MG/DL (0.55-1.30); GLOMERULAR FILTRATION RATE 61.1 (>45); GLUCOSE, FASTING 133 MG/DL (74-106); POTASSIUM SERUM 2.6 MMOL/L (3.5-5.1); SODIUM LEVEL 136 MMOL/L (136-145); TOTAL PROTEIN 8.1 G/DL (5.7-8.2)
[2024-07-12] MEDS: POTASSIUM CHLORIDE 10% LIQ 20MEQ/15ML UDC PO ONE ×2 (00:32→01:52)
[2024-07-12] MEDS: KCL 10MEQ/100ML SWI (KRUN) 10 MEQ in IV 1 EA IV ONE ×2 (00:35→01:53)
[2024-07-12 00:44] LABS: MAGNESIUM LEVEL 1.8 MG/DL (1.8-2.4)
[2024-07-12 00:51] LABS: CK-MB VALUE MASS < 1.0 NG/ML (<3.6)
[2024-07-12 01:07] LABS: CPK CREATINE PHOSPHOKINASE 75 U/L (34-145); MB/CK RELATIVE INDEX 1.33 (< OR =4)
[2024-07-12] MEDS: CALCIUM CARBONATE 500 MG CHEW U/D PO ONE (02:22)
[2024-07-12 03:02] VITALS: BP 98/51; TEMP 97; O2SAT 94
[2024-07-12] MEDS ORDERED: POTA-298 PO (03:08)
== END 2024-07-12 03:40 | disposition home or self-care (01) ==
LOC: M ED 21:09
DX: E87.6 Hypokalemia (principal); K21.9 Gastro-esophageal reflux disease without esophagitis; E55.9 Vitamin D deficiency, unspecified; I50.22 Chronic systolic (congestive) heart failure; I11.0 Hypertensive heart disease with heart failure; J44.9 Chronic obstructive pulmonary disease, unspecified; E78.5 Hyperlipidemia, unspecified; F17.210 Nicotine dependence, cigarettes, uncomplicated; Z88.1 Allergy status to other antibiotic agents; Z88.6 Allergy status to analgesic agent; Z88.8 Allergy status to other drugs, medicaments and biological substances; Z79.1 Long term (current) use of non-steroidal anti-inflammatories (NSAID); Z79.51 Long term (current) use of inhaled steroids; Z79.899 Other long term (current) drug therapy

== ENCOUNTER → 2024-09-06 | Outpatient (REF) | payer MEDICARE ==
[~2024-09-06] MED LIST changes: +ALBU2.5V10 NEB; +BUDE10.2 PO; +CALC500T60 PO; +DICL100G10 TOP; +POTA-298 PO
== END ==
LOC: M SFHCPLAZ 16:09
PROVIDERS: ATTEND Family Medicine
DX: R25.2 Cramp and spasm (principal)

== ENCOUNTER 2024-10-01 06:43 | Emergency (ER) | payer MEDICARE ==
[~2024-10-01] VITALS: Ht 172.7 cm; Wt 101.7 kg
[~2024-10-01 06:43] MED LIST changes: +PROZ10CA11 PO; -PROZ10CA7 PO; +SENN-225 PO; -SENO8.6T5 PO
[2024-10-01 07:35] LABS: BASO # 0.1 10^3/uL (0.0-0.2); BASO % 1.4 % (0.0-1.0); EOS # 0.2 10^3/uL (0.0-0.5); EOS % 3.1 % (0.0-3.0); LYMPH # 0.9 10^3/uL (1.5-5.0); LYMPH % 18.1 % (24.0-44.0); MONO # 0.5 10^3/uL (0.0-0.8); MONO % 9.6 % (2.0-8.0); NEUTROPHILS # 3.5 10^3/uL (1.5-8.5); NEUTROPHILS % 67.8 % (36.0-66.0); PLATELET COUNT, AUTOMATED 125 10^3/uL (150-450)
[2024-10-01 08:04] LABS: CALCIUM LEVEL 8.3 MG/DL (8.3-10.6); CARBON DIOXIDE LEVEL 27.0 MMOL/L (20-31); CHLORIDE LEVEL 104.0 MMOL/L (98-107); CREATININE FOR GFR 0.78 MG/DL (0.55-1.30); GLOMERULAR FILTRATION RATE 83.7 (>45); POTASSIUM SERUM 3.4 MMOL/L (3.5-5.1); SODIUM LEVEL 142.0 MMOL/L (136-145)
[2024-10-01 08:12] VITALS: BP 115/65; TEMP 97.7; O2SAT 94
== END 2024-10-01 08:38 | disposition home or self-care (01) ==
LOC: M ED 06:43
DX: R53.83 Other fatigue (principal); I10 Essential (primary) hypertension; J44.9 Chronic obstructive pulmonary disease, unspecified; Z88.1 Allergy status to other antibiotic agents; Z88.8 Allergy status to other drugs, medicaments and biological substances; Z79.51 Long term (current) use of inhaled steroids; Z79.1 Long term (current) use of non-steroidal anti-inflammatories (NSAID); Z79.2 Long term (current) use of antibiotics; Z79.899 Other long term (current) drug therapy

== ENCOUNTER → 2024-10-09 | Outpatient (CLI) | payer MEDICARE ==
[~2024-10-09] MED LIST changes: -IBUP-1022 PO; +IBUP600T42 PO; +LEVO125T4 PO; +LEVO1TAB39 PO; +PRAM0.123 PO; +TAMS-18 PO
[2024-10-09 17:49] LABS: PLATELET COUNT, AUTOMATED 146 10^3/uL (150-450)
[2024-10-09 18:09] LABS: ALT/SGPT 60.0 U/L (7.0-40); AST/SGOT 129.0 U/L (<34); CALCIUM LEVEL 8.9 MG/DL (8.3-10.6); CARBON DIOXIDE LEVEL 27.0 MMOL/L (20-31); CHLORIDE LEVEL 104.0 MMOL/L (98-107); CREATININE FOR GFR 0.85 MG/DL (0.55-1.30); GLOMERULAR FILTRATION RATE 75.5 (>45); POTASSIUM SERUM 4.2 MMOL/L (3.5-5.1); SODIUM LEVEL 142.0 MMOL/L (136-145)
== END ==
LOC: M PLALAB 14:43
PROVIDERS: ATTEND Nurse Practitioner Adult Health
DX: I10 Essential (primary) hypertension (principal); M25.561 Pain in right knee; M25.562 Pain in left knee; N39.0 Urinary tract infection, site not specified

== ENCOUNTER 2024-10-27 11:48 | Emergency (ER) | payer MEDICARE ==
[~2024-10-27] VITALS: Ht 172.7 cm; Wt 100.5 kg
[~2024-10-27 11:48] MED LIST changes: -LEVO125T4 PO; -LEVO1TAB39 PO; -PRAM0.123 PO; -TAMS-18 PO
[2024-10-27 17:31] LABS: BASO # 0.1 10^3/uL (0.0-0.2); BASO % 1.0 % (0.0-1.0); EOS # 0.2 10^3/uL (0.0-0.5); EOS % 3.1 % (0.0-3.0); LYMPH # 1.0 10^3/uL (1.5-5.0); LYMPH % 20.0 % (24.0-44.0); MONO # 0.4 10^3/uL (0.0-0.8); MONO % 8.4 % (2.0-8.0); NEUTROPHILS # 3.4 10^3/uL (1.5-8.5); NEUTROPHILS % 67.3 % (36.0-66.0); PLATELET COUNT, AUTOMATED 115 10^3/uL (150-450)
[2024-10-27 18:04] LABS: CALCIUM LEVEL 8.3 MG/DL (8.3-10.6); CARBON DIOXIDE LEVEL 29 MMOL/L (20-31); CHLORIDE LEVEL 106 MMOL/L (98-107); CREATININE FOR GFR 0.67 MG/DL (0.55-1.30); GLOMERULAR FILTRATION RATE > 90.0 (>45); POTASSIUM SERUM 3.2 MMOL/L (3.5-5.1); SODIUM LEVEL 144 MMOL/L (136-145)
[2024-10-27 18:09] LABS: CPK CREATINE PHOSPHOKINASE 112 U/L (34-145)
[2024-10-27 19:43] VITALS: BP 123/63; TEMP 96.8; O2SAT 95
[2024-10-28] MEDS ORDERED: PRAM0.123 PO (16:02)
[2024-10-28] MEDS ORDERED: COMBAER6 INH (16:02)
[2024-10-30 15:06] LABS: VITAMIN D 1,25 DIHYDROXY 51.1 pg/mL (24.8-81.5)
[2024-11-01 13:29] LABS: VITAMIN B2 (RIBOFLAVIN) 22.1 nmol/L (6.2-39.0)
== END 2024-10-27 19:44 | disposition home or self-care (01) ==
LOC: M ED 11:48
DX: R29.6 Repeated falls (principal); R94.6 Abnormal results of thyroid function studies; I45.81 Long QT syndrome; I25.119 Atherosclerotic heart disease of native coronary artery with unspecified angina pectoris; D50.9 Iron deficiency anemia, unspecified; E03.9 Hypothyroidism, unspecified; Z87.891 Personal history of nicotine dependence; Z88.1 Allergy status to other antibiotic agents; Z88.6 Allergy status to analgesic agent; Z79.51 Long term (current) use of inhaled steroids; Z79.1 Long term (current) use of non-steroidal anti-inflammatories (NSAID); Z79.899 Other long term (current) drug therapy

== ENCOUNTER 2024-10-28 10:12 | Observation (INO) | payer MEDICARE ==
[~2024-10-28] VITALS: Ht 172.7 cm; Wt 99.2 kg
[~2024-10-28 10:12] MED LIST changes: +ALBU2.5V10 INH; -ALBU2.5V10 NEB
[2024-10-28 10:50] LABS: VENOUS BASE EXCESS 2.5 (-2.0-2.0); VENOUS HCO3 27.3 MMOL/L (23.0-27.0); VENOUS O2 SATURATION 72.6 % (60.0-80.0); VENOUS PARTIAL PRESSURE CO2 42.8 mmHg (38.0-50.0); VENOUS PARTIAL PRESSURE O2 39.9 mmHg (30.0-50.0); VENOUS PH 7.423 UNITS (7.330-7.430); VENOUS STANDARD HCO3 26.1 MMOL/L; VENOUS TOTAL CO2 28.6 MMOL/L (24.0-28.0)
[2024-10-28] MEDS ORDERED: ISOVUE-370 76% 100 ML VIAL As Ordered ONE (11:05)
[2024-10-28 11:06] LABS: BASO # 0.1 10^3/uL (0.0-0.2); BASO % 1.2 % (0.0-1.0); EOS # 0.2 10^3/uL (0.0-0.5); EOS % 3.3 % (0.0-3.0); LYMPH # 0.8 10^3/uL (1.5-5.0); LYMPH % 14.0 % (24.0-44.0); MONO # 0.5 10^3/uL (0.0-0.8); MONO % 8.7 % (2.0-8.0); NEUTROPHILS # 4.2 10^3/uL (1.5-8.5); NEUTROPHILS % 72.5 % (36.0-66.0); PLATELET COUNT, AUTOMATED 131 10^3/uL (150-450)
[2024-10-28] MEDS: IPRATROPIUM 0.5 MG/ALBUTEROL 2.5 MG INH SOL UD 3 ML NEB ONE (11:08)
[2024-10-28] MEDS: ALBUTEROL SULFATE 2.5 MG/0.5 ML INH CONCENTRATE NEB SOLN INH ONE (11:08)
[2024-10-28 11:17] LABS: INR 1.14
[2024-10-28 11:31] LABS: CK-MB VALUE MASS 2.5 NG/ML (<3.6)
[2024-10-28 11:33] LABS: ALT/SGPT 56.0 U/L (7.0-40); AST/SGOT 120.0 U/L (<34); CALCIUM LEVEL 8.2 MG/DL (8.3-10.6); CARBON DIOXIDE LEVEL 27.0 MMOL/L (20-31); CHLORIDE LEVEL 104.0 MMOL/L (98-107); CPK CREATINE PHOSPHOKINASE 112.0 U/L (34-145); CREATININE FOR GFR 0.76 MG/DL (0.55-1.30); GLOMERULAR FILTRATION RATE 86.4 (>45); MB/CK RELATIVE INDEX 2.23 (< OR =4); POTASSIUM SERUM 3.0 MMOL/L (3.5-5.1); SODIUM LEVEL 144.0 MMOL/L (136-145)
[2024-10-28 11:34] LABS: THYROXINE (T4) 10.0 UG/DL (4.5-10.9)
[2024-10-28] MEDS: LIDOCAINE 2% 5 ML JELLY UROJET TOP ONE ×2 (11:50→14:35)
[2024-10-28 12:08] LABS: MAGNESIUM LEVEL 1.7 MG/DL (1.8-2.4)
[2024-10-28] MEDS: PIPERACILLIN/TAZOBACTAM SOD 4.5 GM in DEXTROSE 5% (D5W) ADV/MINI-BAG 50 ML IV ONE (13:09)
[2024-10-28] MEDS: MAG SULF 1GM/100ML (MAG RUN) 1 GM in IV 1 EA IV ONE (13:10)
[2024-10-28] MEDS: KCL 10MEQ/100ML SWI (KRUN) 10 MEQ in IV 1 EA IV ONE (13:10)
[2024-10-28] MEDS: POTASSIUM CHLORIDE 10MEQ SR TABLET PO ONE (13:11)
[2024-10-28 13:46] LABS: CK-MB VALUE MASS 2.3 NG/ML (<3.6); CPK CREATINE PHOSPHOKINASE 140.0 U/L (34-145); MB/CK RELATIVE INDEX 1.64 (< OR =4)
[2024-10-28 14:53] LABS: KETONE, URINE AUTO RFX NEGATIVE (NEGATIVE); MUCUS, URINE RFX SMALL (NEGATIVE); NITRITE, URINE AUTO RFX NEGATIVE (NEGATIVE); RBC, URINE AUTO RFX 3 /HPF (0-3); SQUAM EPITHELIAL CELL UR AURFX 0 /HPF (0-6)
[2024-10-28 14:54] LABS: LEUKOCYTE ESTERASE UR AUTO RFX 3+ (NEGATIVE); WBC, URINE AUTO RFX 164 /HPF (0-3)
[2024-10-28] MEDS: NS 500 ML IV ONE (15:00)
[2024-10-28] MEDS ORDERED: PRAM0.123 PO (16:02)
[2024-10-28] MEDS ORDERED: COMBAER6 INH (16:02)
[2024-10-28] MEDS ORDERED: HOME MED LIST COMPLETE! XX SCH (16:05)
[2024-10-28] MEDS: cefTRIAXone SOD 1 GM in DEXTROSE 5% (D5W) ADV/MINI-BAG 50 ML IV SCH (16:51)
[2024-10-28 17:04] LABS: FREE T4 1.17 NG/DL (0.89-1.76)
[2024-10-28 17:30] VITALS: BP 152/80; TEMP 97.4; O2SAT 94
[2024-10-28 17:37] LABS: HEPATITIS C VIRUS ABY INDEX 0.11 INDEX (<0.8)
[2024-10-28 17:39] LABS: VITAMIN B12 LEVEL > 2000 PG/ML (211-911)
[2024-10-28] MEDS: KCL 20MEQ IN 0.45NS 1000ML 1,000 ML IV SCH (18:43)
[2024-10-28] MEDS: MAGNESIUM OXIDE 400 MG TAB PO SCH (20:16)
[2024-10-28 20:53] VITALS: BP 121/78; TEMP 98.1; O2SAT 99
[2024-10-28 23:45] VITALS: BP 96/65; TEMP 98; O2SAT 93
[2024-10-29 04:22] VITALS: BP 125/75; TEMP 97.7; O2SAT 94
[2024-10-29] MEDS: LEVOTHYROXINE 125 MCG TABLET (0.125 MG) PO SCH (05:42)
[2024-10-29 06:28] LABS: PLATELET COUNT, AUTOMATED 108 10^3/uL (150-450)
[2024-10-29 06:59] LABS: CALCIUM LEVEL 8.5 MG/DL (8.3-10.6); CARBON DIOXIDE LEVEL 26 MMOL/L (20-31); CHLORIDE LEVEL 107 MMOL/L (98-107); CREATININE FOR GFR 0.59 MG/DL (0.55-1.30); GLOMERULAR FILTRATION RATE > 90.0 (>45); POTASSIUM SERUM 3.4 MMOL/L (3.5-5.1); SODIUM LEVEL 143 MMOL/L (136-145)
[2024-10-29] MEDS: IPRATROPIUM 0.5 MG/ALBUTEROL 2.5 MG INH SOL UD 3 ML NEB SCH (07:27)
[2024-10-29] MEDS: ENOXAPARIN 40 MG/0.4 ML SYRINGE (J1650 PER 10MG) SC SCH (08:07)
[2024-10-29] MEDS ORDERED: LIDOCAINE 2% 5 ML JELLY UROJET TOP PRN (08:30)
[2024-10-29 12:00] VITALS: BP 137/74; TEMP 96.5; O2SAT 96
[2024-10-29] MEDS ORDERED: FLUTICASONE PROPIONATE 0.05% NASAL SPRAY 16 GM NARES PRN (12:00)
[2024-10-29] MEDS: POTASSIUM CHLORIDE 10MEQ SR TABLET PO ONE ×3 (12:32→22:58)
[2024-10-29] MEDS: IBUPROFEN 400 MG TAB PO ONE (12:32)
[2024-10-29] MEDS: FLUoxetine 20 MG CAP PO SCH (14:59)
[2024-10-29] MEDS: CYANOCOBALAMIN 500 MCG TAB PO SCH (14:59)
[2024-10-29] MEDS: ASPIRIN 81 MG ENTERIC TABLET PO SCH (14:59)
[2024-10-29] MEDS: CALCIUM CARBONATE 500 MG CHEW U/D PO SCH (14:59)
[2024-10-29] MEDS: GABAPENTIN 100 MG CAP PO SCH (15:00)
[2024-10-29] MEDS: CYCLOBENZAPRINE 10 MG TABLET PO ONE (17:01)
[2024-10-29] MEDS ORDERED: IPRATROPIUM 0.5 MG/ALBUTEROL 2.5 MG INH SOL UD 3 ML NEB PRN (17:05)
[2024-10-29] MEDS: IPRATROPIUM 0.5 MG/ALBUTEROL 2.5 MG INH SOL UD 3 ML NEB ONE (17:19)
[2024-10-29 17:54] LABS: MAGNESIUM LEVEL 1.8 MG/DL (1.8-2.4); POTASSIUM SERUM 3.4 MMOL/L (3.5-5.1)
[2024-10-29] MEDS: CALCIUM CARBONATE 500 MG CHEW U/D PO ONE (18:26)
[2024-10-29] MEDS: MAG SULF 1GM/100ML (MAG RUN) 1 GM in IV 1 EA IV ONE ×2 (18:54→22:59)
[2024-10-29 19:48] VITALS: BP 131/60; TEMP 97; O2SAT 97
[2024-10-29] MEDS: TAMSULOSIN 0.4 MG CAP PO SCH (20:34)
[2024-10-29] MEDS: PRAMIPEXOLE 0.125 MG TAB PO SCH (20:34)
[2024-10-29] MEDS: MONTELUKAST 10 MG TAB PO SCH (20:35)
[2024-10-29] MEDS: AMITRIPTYLINE 25 MG TABLET PO SCH (20:35)
[2024-10-29] MEDS: ATORVASTATIN 20 MG TAB PO SCH (20:35)
[2024-10-30 01:00] VITALS: BP 158/53; TEMP 97.9; O2SAT 98
[2024-10-30] MEDS: DICLOFENAC EPOLAMINE 1.3% PATCH TOP SCH (02:25)
[2024-10-30 03:54] VITALS: BP 128/59; TEMP 97.9; O2SAT 95
[2024-10-30] MEDS: IBUPROFEN 400 MG TAB PO ONE (05:23)
[2024-10-30 06:21] LABS: BASO # 0.1 10^3/uL (0.0-0.2); BASO % 0.9 % (0.0-1.0); EOS # 0.2 10^3/uL (0.0-0.5); EOS % 2.9 % (0.0-3.0); LYMPH # 0.9 10^3/uL (1.5-5.0); LYMPH % 15.5 % (24.0-44.0); MONO # 0.6 10^3/uL (0.0-0.8); MONO % 11.2 % (2.0-8.0); NEUTROPHILS # 3.8 10^3/uL (1.5-8.5); NEUTROPHILS % 69.1 % (36.0-66.0); PLATELET COUNT, AUTOMATED 102 10^3/uL (150-450)
[2024-10-30 06:53] LABS: IRON (FE) 52 UG/DL (50-170); PERCENT SATURATION 17.2 % (13.2-45.0)
[2024-10-30 06:56] LABS: CALCIUM LEVEL 8.6 MG/DL (8.3-10.6); CARBON DIOXIDE LEVEL 25 MMOL/L (20-31); CHLORIDE LEVEL 107 MMOL/L (98-107); CREATININE FOR GFR 0.61 MG/DL (0.55-1.30); GLOMERULAR FILTRATION RATE > 90.0 (>45); POTASSIUM SERUM 4.7 MMOL/L (3.5-5.1); SODIUM LEVEL 142 MMOL/L (136-145)
[2024-10-30] MEDS ORDERED: LEVO1TAB39 PO (10:38)
[2024-10-30] MEDS ORDERED: TAMS-18 PO (10:38)
[2024-10-30] MEDS ORDERED: LEVO125T4 PO (10:39)
== END 2024-10-30 12:14 | disposition home or self-care (01) ==
LOC: M ED 10:12 → EDBD 10:12 → M ED INP 15:26 → M MSPAV 17:43
PROVIDERS: ADMIT Internal Medicine; ATTEND General Practice
DX: R53.1 Weakness (principal); R29.6 Repeated falls; M25.511 Pain in right shoulder; R53.81 Other malaise; R42 Dizziness and giddiness; N39.0 Urinary tract infection, site not specified; R33.9 Retention of urine, unspecified; Z96.0 Presence of urogenital implants; E87.6 Hypokalemia; E83.42 Hypomagnesemia; E03.9 Hypothyroidism, unspecified; J44.9 Chronic obstructive pulmonary disease, unspecified; I50.32 Chronic diastolic (congestive) heart failure; I11.0 Hypertensive heart disease with heart failure; K74.60 Unspecified cirrhosis of liver; K76.0 Fatty (change of) liver, not elsewhere classified; G50.0 Trigeminal neuralgia; E78.5 Hyperlipidemia, unspecified; K21.9 Gastro-esophageal reflux disease without esophagitis; F32.A Depression, unspecified; F03.90 Unspecified dementia, unspecified severity, without behavioral disturbance, psychotic disturbance, mood disturbance, and anxiety; M25.551 Pain in right hip; W01.190A Fall on same level from slipping, tripping and stumbling with subsequent striking against furniture, initial encounter; Y92.230 Patient room in hospital as the place of occurrence of the external cause; Y93.01 Activity, walking, marching and hiking; Z90.89 Acquired absence of other organs; Z98.51 Tubal ligation status; Z86.69 Personal history of other diseases of the nervous system and sense organs; Z98.890 Other specified postprocedural states; Z88.1 Allergy status to other antibiotic agents; Z88.8 Allergy status to other drugs, medicaments and biological substances; Z88.6 Allergy status to analgesic agent; Z91.81 History of falling; Z79.899 Other long term (current) drug therapy; Z79.82 Long term (current) use of aspirin; Z79.890 Hormone replacement therapy
CPT/HCPCS: 36415; 51701; 70450; 70551; 71045; 71275; 73030; 73521; 74177; 80047; 80048; 80074; 80076; 81001; 82140; 82330; 82550; 82553; 82607; 82803; 83550; 83605; 83735; 83880; 84132; 84145; 84436; 84439; 84443; 84484; 85025; 85027; 85610; 87040; 87088; 87186; 87486; 87581; 87633; 87798; 93005; 93041; 94640; 94760; 96365; 96366; 96367; 96372; 96375; 97116; 97161; 97165; 97530; 97535; 99285; G0378; J0696; J1650; J2543; J2919; J3475; Q9967

== ENCOUNTER 2024-11-10 19:28 | Inpatient (IN) | payer MEDICARE ==
[~2024-11-10] VITALS: Ht 172.7 cm; Wt 103.0 kg
[~2024-11-10 19:28] MED LIST changes: +LEVO125T4 PO; +LEVO1TAB39 PO; +PRAM0.123 PO; +TAMS-18 PO
[2024-11-10 20:05] LABS: BASO # 0.1 10^3/uL (0.0-0.2); BASO % 1.0 % (0.0-1.0); EOS # 0.3 10^3/uL (0.0-0.5); EOS % 3.1 % (0.0-3.0); LYMPH # 1.4 10^3/uL (1.5-5.0); LYMPH % 13.0 % (24.0-44.0); MONO # 1.2 10^3/uL (0.0-0.8); MONO % 10.6 % (2.0-8.0); NEUTROPHILS # 7.9 10^3/uL (1.5-8.5); NEUTROPHILS % 71.9 % (36.0-66.0); PLATELET COUNT, AUTOMATED 166 10^3/uL (150-450)
[2024-11-10 20:31] LABS: CALCIUM LEVEL 7.8 MG/DL (8.3-10.6); CARBON DIOXIDE LEVEL 28 MMOL/L (20-31); CHLORIDE LEVEL 104 MMOL/L (98-107); CREATININE FOR GFR 0.72 MG/DL (0.55-1.30); GLOMERULAR FILTRATION RATE > 90.0 (>45); POTASSIUM SERUM 3.3 MMOL/L (3.5-5.1); SODIUM LEVEL 140 MMOL/L (136-145)
[2024-11-10] MEDS: CEFEPIME HCL 1 GM in DEXTROSE 5% (D5W) ADV/MINI-BAG 50 ML IV ONE (22:29)
[2024-11-10] MEDS: IPRATROPIUM 0.5 MG/ALBUTEROL 2.5 MG INH SOL UD 3 ML NEB ONE (22:29)
[2024-11-10 23:13] LABS: ALT/SGPT 50.0 U/L (7.0-40); AST/SGOT 112.0 U/L (<34); CK-MB VALUE MASS 1.8 NG/ML (<3.6)
[2024-11-10 23:37] LABS: CPK CREATINE PHOSPHOKINASE 117.0 U/L (34-145); MB/CK RELATIVE INDEX 1.53 (< OR =4)
[2024-11-10] MEDS: LACTULOSE 20 GM/30 ML SYRUP UDC PO ONE (23:59)
[2024-11-11] MEDS ORDERED: ISOVUE-370 76% 100 ML VIAL As Ordered ONE (00:03)
[2024-11-11 00:19] LABS: KETONE, URINE AUTO RFX NEGATIVE (NEGATIVE); LEUKOCYTE ESTERASE UR AUTO RFX 1+ (NEGATIVE); MUCUS, URINE RFX SMALL (NEGATIVE); NITRITE, URINE AUTO RFX NEGATIVE (NEGATIVE); RBC, URINE AUTO RFX 0 /HPF (0-3); SQUAM EPITHELIAL CELL UR AURFX 1 /HPF (0-6); WBC, URINE AUTO RFX 9 /HPF (0-3)
[2024-11-11] MEDS ORDERED: LACTULOSE 20 GM/30 ML SYRUP UDC PO PRN (02:45)
[2024-11-11 04:43] LABS: PLATELET COUNT, AUTOMATED 133 10^3/uL (150-450)
[2024-11-11 05:00] LABS: INR 1.29
[2024-11-11 05:20] LABS: ALT/SGPT 49.0 U/L (7.0-40); AST/SGOT 102.0 U/L (<34); CALCIUM LEVEL 7.5 MG/DL (8.3-10.6); CARBON DIOXIDE LEVEL 28.0 MMOL/L (20-31); CHLORIDE LEVEL 106.0 MMOL/L (98-107); CREATININE FOR GFR 0.78 MG/DL (0.55-1.30); GLOMERULAR FILTRATION RATE 83.7 (>45); MAGNESIUM LEVEL 1.6 MG/DL (1.8-2.4); POTASSIUM SERUM 3.2 MMOL/L (3.5-5.1); SODIUM LEVEL 138.0 MMOL/L (136-145)
[2024-11-11] MEDS: CEFEPIME HCL 2 GM in DEXTROSE 5% (D5W) ADV/MINI-BAG 50 ML IV SCH (06:12)
[2024-11-11] MEDS: POTASSIUM CHLORIDE 10% LIQ 20MEQ/15ML UDC PO ONE (06:32)
[2024-11-11] MEDS: KCL 10MEQ/100ML SWI (KRUN) 10 MEQ in IV 1 EA IV SCH (06:48)
[2024-11-11] MEDS: LIDOCAINE 1% MDV 20 ML VIAL SC SCH (08:15)
[2024-11-11] MEDS: MAG SULF 1GM/100ML (MAG RUN) 1 GM in IV 1 EA IV SCH (09:29)
[2024-11-11 09:32] LABS: APPEARANCE, BODY FLUID CLEAR (CLEAR); ASCITES FL COLOR PALE YELLOW (COLORLESS); SOURCE, BODY FLUID ASCITES
[2024-11-11] MEDS: LACTULOSE 20 GM/30 ML SYRUP UDC PO SCH ×2 (09:36→21:00)
[2024-11-11] MEDS ORDERED: LEVO125T4 PO (12:12)
[2024-11-11] MEDS ORDERED: TAMS-18 PO (12:15)
[2024-11-11] MEDS ORDERED: FURO40TA2 PO (12:15)
[2024-11-11] MEDS ORDERED: VENTAER INH (12:17)
[2024-11-11] MEDS ORDERED: VITA200C21 PO (12:17)
[2024-11-11] MEDS ORDERED: HOME MED LIST COMPLETE! XX SCH (12:20)
[2024-11-11 12:54] VITALS: BP 132/80; TEMP 97.3; O2SAT 94
[2024-11-11 15:49] LABS: CALCIUM LEVEL 8.0 MG/DL (8.3-10.6); CARBON DIOXIDE LEVEL 28 MMOL/L (20-31); CHLORIDE LEVEL 107 MMOL/L (98-107); CREATININE FOR GFR 0.67 MG/DL (0.55-1.30); GLOMERULAR FILTRATION RATE > 90.0 (>45); MAGNESIUM LEVEL 2.1 MG/DL (1.8-2.4); POTASSIUM SERUM 3.8 MMOL/L (3.5-5.1); SODIUM LEVEL 138 MMOL/L (136-145)
[2024-11-11] MEDS ORDERED: ALBUTEROL SULFATE 2.5 MG/0.5 ML INH CONCENTRATE NEB SOLN INH PRN (16:45)
[2024-11-11] MEDS ORDERED: FLUTICASONE PROPIONATE 0.05% NASAL SPRAY 16 GM NARES PRN (16:45)
[2024-11-11] MEDS ORDERED: ALBUTEROL 90 MCG/ACT 8 GM HFA INHALER INH PRN (16:45)
[2024-11-11] MEDS: KETOROLAC 30 MG/ML 1 ML VIAL IV ONE (17:02)
[2024-11-11] MEDS: COMBIVENT RESPIMAT 100-20 MCG INHALER 4 GM INH SCH (17:35)
[2024-11-11] MEDS ORDERED: LACTULOSE 20 GM/30 ML SYRUP UDC PR ONE (18:00)
[2024-11-11 20:45] VITALS: BP 125/84; TEMP 97.7; O2SAT 95
[2024-11-11] MEDS: HEPARIN SOD 5000 UNITS/ML 1 ML VIAL/SYRINGE SQ SCH (21:09)
[2024-11-11] MEDS: GABAPENTIN 400 MG CAP PO SCH (21:09)
[2024-11-11] MEDS: AMITRIPTYLINE 25 MG TABLET PO SCH (21:09)
[2024-11-11] MEDS: TAMSULOSIN 0.4 MG CAP PO SCH (21:10)
[2024-11-11] MEDS: MONTELUKAST 10 MG TAB PO SCH (21:10)
[2024-11-11] MEDS: ATORVASTATIN 20 MG TAB PO SCH (21:10)
[2024-11-11] MEDS: PRAMIPEXOLE 0.125 MG TAB PO SCH (21:15)
[2024-11-12] VITALS (24 sets, daily range): BP systolic 121–171; BP diastolic 59–92; TEMP 97–98.4; O2SAT 93–100
[2024-11-12] MEDS: LEVOTHYROXINE 125 MCG TABLET (0.125 MG) PO SCH (05:33)
[2024-11-12 06:23] LABS: PLATELET COUNT, AUTOMATED 119 10^3/uL (150-450)
[2024-11-12 06:57] LABS: ALT/SGPT 46 U/L (7.0-40); AST/SGOT 100 U/L (<34); CALCIUM LEVEL 8.0 MG/DL (8.3-10.6); CARBON DIOXIDE LEVEL 24 MMOL/L (20-31); CHLORIDE LEVEL 105 MMOL/L (98-107); CREATININE FOR GFR 0.65 MG/DL (0.55-1.30); GLOMERULAR FILTRATION RATE > 90.0 (>45); POTASSIUM SERUM 3.7 MMOL/L (3.5-5.1); SODIUM LEVEL 137 MMOL/L (136-145)
[2024-11-12] MEDS ORDERED: levETIRAcetam INJection 1,000 MG in DEXTROSE 5% (D5W) MINI-BAG PLU 100 ML IV ONE (09:10)
[2024-11-12 09:32] LABS: ABG BASE EXCESS 1.5 (-2.0-2.0); ABG HCO3 25.0 MMOL/L (22.0-26.0); ABG O2 SATURATION 98.2 % (95.0-99.0); ABG PARTIAL PRESSURE CO2 36.0 mmHg (35.0-45.0); ABG PARTIAL PRESSURE O2 121.1 mmHg (75.0-100.0); ABG STANDARD HCO3 25.8 MMOL/L. (22.0-26.0); ABG TOTAL CO2 26.1 MMOL/L (23.0-31.0); ABG pH (ARTERIAL) 7.459 UNITS (7.350-7.450)
[2024-11-12] MEDS: FUROSEMIDE 40 MG/4 ML VIAL IV STA (09:34)
[2024-11-12] MEDS: levETIRAcetam INJection 1,000 MG in IV 1 EA IV STA (09:34)
[2024-11-12 09:47] LABS: CPK CREATINE PHOSPHOKINASE 99 U/L (34-145)
[2024-11-12 10:01] LABS: ALT/SGPT 52 U/L (7.0-40); AST/SGOT 105 U/L (<34); CALCIUM LEVEL 8.4 MG/DL (8.3-10.6); CARBON DIOXIDE LEVEL 24 MMOL/L (20-31); CHLORIDE LEVEL 104 MMOL/L (98-107); CK-MB VALUE MASS 3.4 NG/ML (<3.6); CREATININE FOR GFR 0.65 MG/DL (0.55-1.30); GLOMERULAR FILTRATION RATE > 90.0 (>45); MB/CK RELATIVE INDEX 3.43 (< OR =4); POTASSIUM SERUM 3.6 MMOL/L (3.5-5.1); SODIUM LEVEL 136 MMOL/L (136-145)
[2024-11-12] MEDS: CALCIUM CARBONATE 500 MG CHEW U/D PO SCH (11:00)
[2024-11-12] MEDS: FLUoxetine 20 MG CAP PO SCH (11:00)
[2024-11-12] MEDS: DOXYCYCLINE HYCLATE 100 MG TABLET PO SCH (11:00)
[2024-11-12] MEDS: FUROSEMIDE 40 MG TAB PO SCH (11:00)
[2024-11-12] MEDS: ASPIRIN 81 MG ENTERIC TABLET PO SCH (11:02)
[2024-11-12] MEDS: LACTULOSE 20 GM/30 ML SYRUP UDC PR ONE (11:34)
[2024-11-12] MEDS: LACTULOSE 20 GM/30 ML SYRUP UDC PR SCH (14:00)
[2024-11-12] MEDS ORDERED: D10W 1,000 ML IV SCH (17:15)
[2024-11-12] MEDS ORDERED: cefTRIAXone SOD 1 GM in DEXTROSE 5% (D5W) ADV/MINI-BAG 50 ML IV SCH (18:00)
[2024-11-12] MEDS ORDERED: CEFEPIME HCL 1 GM in DEXTROSE 5% (D5W) ADV/MINI-BAG 50 ML IV SCH (18:00)
[2024-11-12] MEDS: D10W 500 ML IV SCH (18:40)
[2024-11-12] MEDS: CEFEPIME HCL 2 GM in DEXTROSE 5% (D5W) ADV/MINI-BAG 50 ML IV SCH (21:13)
[2024-11-12] MEDS: DOXYCYCLINE HYCLATE 100 MG in DEXTROSE 5% (D5W) MINI-BAG PLU 100 ML IV SCH (21:38)
[2024-11-13] VITALS (8 sets, daily range): BP systolic 127–148; BP diastolic 63–77; TEMP 97.1–98.1; O2SAT 91–95
[2024-11-13 06:07] LABS: PLATELET COUNT, AUTOMATED 121 10^3/uL (150-450)
[2024-11-13 06:44] LABS: ALT/SGPT 48 U/L (7.0-40); AST/SGOT 88 U/L (<34); CALCIUM LEVEL 8.7 MG/DL (8.3-10.6); CARBON DIOXIDE LEVEL 25 MMOL/L (20-31); CHLORIDE LEVEL 108 MMOL/L (98-107); CREATININE FOR GFR 0.61 MG/DL (0.55-1.30); GLOMERULAR FILTRATION RATE > 90.0 (>45); POTASSIUM SERUM 3.4 MMOL/L (3.5-5.1); SODIUM LEVEL 141 MMOL/L (136-145)
[2024-11-13] MEDS ORDERED: POTASSIUM CHLORIDE 10% LIQ 20MEQ/15ML UDC PO ONE (08:05)
[2024-11-13] MEDS: DOXYCYCLINE HYCLATE 100 MG TABLET PO SCH (08:47)
[2024-11-13] MEDS: POTASSIUM CHLORIDE 10MEQ SR TABLET PO ONE (08:49)
[2024-11-13] MEDS: predniSONE 20 MG TAB PO SCH (08:49)
[2024-11-13] MEDS ORDERED: predniSONE 20 MG TAB PO SCH (09:00)
[2024-11-13] MEDS: CEFDINIR 300 MG CAP PO SCH (11:50)
[2024-11-13] MEDS: IPRATROPIUM 0.5 MG/ALBUTEROL 2.5 MG INH SOL UD 3 ML NEB SCH (12:13)
[2024-11-13 12:33] LABS: MAGNESIUM LEVEL 1.9 MG/DL (1.8-2.4); PHOSPHORUS LEVEL 2.6 MG/DL (2.4-5.1)
[2024-11-13] MEDS ORDERED: LACTULOSE 20 GM/30 ML SYRUP UDC PO SCH (21:00)
[2024-11-14 00:07] VITALS: BP 115/62; TEMP 97.8; O2SAT 92
[2024-11-14 04:14] VITALS: BP 126/69; TEMP 96.8; O2SAT 93
[2024-11-14 06:22] LABS: PLATELET COUNT, AUTOMATED 146 10^3/uL (150-450)
[2024-11-14 06:57] LABS: ALT/SGPT 46 U/L (7.0-40); AST/SGOT 81 U/L (<34); CALCIUM LEVEL 8.6 MG/DL (8.3-10.6); CARBON DIOXIDE LEVEL 24 MMOL/L (20-31); CHLORIDE LEVEL 106 MMOL/L (98-107); CREATININE FOR GFR 0.67 MG/DL (0.55-1.30); GLOMERULAR FILTRATION RATE > 90.0 (>45); POTASSIUM SERUM 3.4 MMOL/L (3.5-5.1); SODIUM LEVEL 139 MMOL/L (136-145)
[2024-11-14 08:12] VITALS: BP 141/68; TEMP 96.8; O2SAT 94
[2024-11-14 08:15] VITALS: BP 141/68
[2024-11-14] MEDS: POTASSIUM CHLORIDE 10MEQ SR TABLET PO SCH (08:15)
[2024-11-14] MEDS: LACTULOSE 20 GM/30 ML SYRUP UDC PO SCH (08:16)
[2024-11-14] MEDS ORDERED: LACT20EL PO (11:59)
[2024-11-14] MEDS ORDERED: CEFD300CAP PO (11:59)
[2024-11-14] MEDS ORDERED: PRED20TA PO (11:59)
[2024-11-14] MEDS ORDERED: DOXY100T PO (11:59)
== END 2024-11-14 13:11 | disposition home health service (06) | DRG 193 ==
LOC: M ED 19:28 → M ED INP 19:29 → M MSPAV 11-11 12:53 → EEVIPCON 11-11 18:45 → OBSVTOIN 11-11 18:45 → M ICU 11-12 09:30
PROVIDERS: ADMIT Student in an Organized Health Care Education/Training Program; ATTEND Internal Medicine
PROC: 0W9G3ZZ Drainage of Peritoneal Cavity, Percutaneous Approach (ICD-10-PCS; principal; 2024-11-11 08:08)
DX: J18.9 Pneumonia, unspecified organism (principal); J96.01 Acute respiratory failure with hypoxia; G93.41 Metabolic encephalopathy; I50.32 Chronic diastolic (congestive) heart failure; J44.0 Chronic obstructive pulmonary disease with (acute) lower respiratory infection; R18.8 Other ascites; N39.0 Urinary tract infection, site not specified; J44.1 Chronic obstructive pulmonary disease with (acute) exacerbation; Y95 Nosocomial condition; K74.60 Unspecified cirrhosis of liver; K76.0 Fatty (change of) liver, not elsewhere classified; E03.9 Hypothyroidism, unspecified; G50.0 Trigeminal neuralgia; E78.5 Hyperlipidemia, unspecified; K21.9 Gastro-esophageal reflux disease without esophagitis; F32.A Depression, unspecified; F03.90 Unspecified dementia, unspecified severity, without behavioral disturbance, psychotic disturbance, mood disturbance, and anxiety; K59.00 Constipation, unspecified; R94.31 Abnormal electrocardiogram [ECG] [EKG]; E83.42 Hypomagnesemia; K76.82 Hepatic encephalopathy; E87.6 Hypokalemia; E83.51 Hypocalcemia; E88.09 Other disorders of plasma-protein metabolism, not elsewhere classified; R54 Age-related physical debility; Z79.82 Long term (current) use of aspirin; Z79.890 Hormone replacement therapy; Z79.899 Other long term (current) drug therapy; Z88.1 Allergy status to other antibiotic agents; Z88.6 Allergy status to analgesic agent; Z88.8 Allergy status to other drugs, medicaments and biological substances

== ENCOUNTER 2024-11-19 10:45 | Inpatient (IN) | payer MEDICARE ==
[~2024-11-19 10:45] MED LIST changes: +FURO40TA2 PO; +LACT20EL PO; +VITA200C21 PO
[2024-11-19 11:23] LABS: BASO # 0.0 10^3/uL (0.0-0.2); BASO % 0.4 % (0.0-1.0); EOS # 0.2 10^3/uL (0.0-0.5); EOS % 2.2 % (0.0-3.0); LYMPH # 1.5 10^3/uL (1.5-5.0); LYMPH % 14.9 % (24.0-44.0); MONO # 1.5 10^3/uL (0.0-0.8); MONO % 15.0 % (2.0-8.0); NEUTROPHILS # 6.9 10^3/uL (1.5-8.5); NEUTROPHILS % 67.2 % (36.0-66.0); PLATELET COUNT, AUTOMATED 129 10^3/uL (150-450)
[2024-11-19 11:32] LABS: INR 1.17
[2024-11-19 12:01] LABS: ALT/SGPT 95.0 U/L (7.0-40); AST/SGOT 163.0 U/L (<34); CALCIUM LEVEL 7.8 MG/DL (8.3-10.6); CARBON DIOXIDE LEVEL 27.0 MMOL/L (20-31); CHLORIDE LEVEL 98.0 MMOL/L (98-107); CK-MB VALUE MASS 2.0 NG/ML (<3.6); CPK CREATINE PHOSPHOKINASE 70.0 U/L (34-145); CREATININE FOR GFR 0.81 MG/DL (0.55-1.30); GLOMERULAR FILTRATION RATE 80.0 (>45); MB/CK RELATIVE INDEX 2.85 (< OR =4); POTASSIUM SERUM 4.6 MMOL/L (3.5-5.1); SODIUM LEVEL 137.0 MMOL/L (136-145)
[2024-11-19] MEDS ORDERED: PRED20TA PO (13:22)
[2024-11-19] MEDS ORDERED: SPIR50TA4 PO (13:22)
[2024-11-19] MEDS ORDERED: LACT20EL PO (13:22)
[2024-11-19] MEDS ORDERED: FLEEENE12 PR (13:24)
[2024-11-19] MEDS ORDERED: MILKSUS3 PO (13:24)
[2024-11-19] MEDS ORDERED: HOME MED LIST COMPLETE! XX SCH (13:25)
[2024-11-19] MEDS ORDERED: ISOVUE-370 76% 100 ML VIAL As Ordered ONE (14:11)
[2024-11-19] MEDS: LACTULOSE 20 GM/30 ML SYRUP UDC PO ONE (14:15)
[2024-11-19] MEDS: LACTULOSE 20 GM/30 ML SYRUP UDC PO SCH (18:11)
[2024-11-19] MEDS: PANTOPRAZOLE 40MG TAB PO SCH (20:46)
[2024-11-19] MEDS: TAMSULOSIN 0.4 MG CAP PO SCH (20:46)
[2024-11-19] MEDS: GABAPENTIN 400 MG CAP PO SCH (20:46)
[2024-11-19] MEDS: ATORVASTATIN 20 MG TAB PO SCH (20:46)
[2024-11-19] MEDS: MONTELUKAST 10 MG TAB PO SCH (20:46)
[2024-11-19] MEDS: DOCUSATE SODIUM 100 MG CAPSULE PO SCH (20:47)
[2024-11-19] MEDS: CEFDINIR 300 MG CAP PO SCH (22:13)
[2024-11-19] MEDS: AMITRIPTYLINE 25 MG TABLET PO SCH (22:13)
[2024-11-19] MEDS: PRAMIPEXOLE 0.125 MG TAB PO SCH (22:13)
[2024-11-19] MEDS: IPRATROPIUM 0.5 MG/ALBUTEROL 2.5 MG INH SOL UD 3 ML NEB SCH (22:20)
[2024-11-20 01:02] VITALS: BP 109/56; TEMP 97.3; O2SAT 93
[2024-11-20 03:20] VITALS: BP 110/57; TEMP 97.7; O2SAT 94
[2024-11-20] MEDS: LEVOTHYROXINE 125 MCG TABLET (0.125 MG) PO SCH (06:23)
[2024-11-20 06:48] LABS: BASO # 0.0 10^3/uL (0.0-0.2); BASO % 0.7 % (0.0-1.0); EOS # 0.2 10^3/uL (0.0-0.5); EOS % 3.7 % (0.0-3.0); LYMPH # 0.9 10^3/uL (1.5-5.0); LYMPH % 15.0 % (24.0-44.0); MONO # 0.8 10^3/uL (0.0-0.8); MONO % 13.0 % (2.0-8.0); NEUTROPHILS # 4.1 10^3/uL (1.5-8.5); NEUTROPHILS % 67.3 % (36.0-66.0); PLATELET COUNT, AUTOMATED 98 10^3/uL (150-450)
[2024-11-20 07:28] LABS: CALCIUM LEVEL 7.9 MG/DL (8.3-10.6); CARBON DIOXIDE LEVEL 31 MMOL/L (20-31); CHLORIDE LEVEL 101 MMOL/L (98-107); CREATININE FOR GFR 0.70 MG/DL (0.55-1.30); GLOMERULAR FILTRATION RATE > 90.0 (>45); POTASSIUM SERUM 3.6 MMOL/L (3.5-5.1); SODIUM LEVEL 138 MMOL/L (136-145)
[2024-11-20] MEDS: FLUoxetine 20 MG CAP PO SCH (08:17)
[2024-11-20] MEDS: predniSONE 20 MG TAB PO SCH (08:18)
[2024-11-20] MEDS: ASPIRIN 81 MG ENTERIC TABLET PO SCH (08:18)
[2024-11-20 08:19] VITALS: BP 115/76
[2024-11-20] MEDS: SPIRONOLACTONE 50 MG TAB PO SCH (08:19)
[2024-11-20] MEDS: FUROSEMIDE 40 MG TAB PO SCH (08:19)
[2024-11-20 10:23] LABS: ALT/SGPT 74 U/L (7.0-40); AST/SGOT 114 U/L (<34)
[2024-11-20] MEDS ORDERED: LACT20EL PO (11:13)
[2024-11-20] MEDS ORDERED: PRED20TA PO (11:13)
[2024-11-20] MEDS: BISACODYL 10 MG SUPP PR ONE (11:16)
== END 2024-11-20 13:10 | disposition home or self-care (01) | DRG 433 ==
LOC: M ED 10:45 → M ED INP 16:38 → M MSPAV 11-20 00:58
PROVIDERS: ADMIT Internal Medicine Nephrology; ATTEND Internal Medicine Nephrology
DX: K74.60 Unspecified cirrhosis of liver (principal); R18.8 Other ascites; I85.10 Secondary esophageal varices without bleeding; J90 Pleural effusion, not elsewhere classified; J98.11 Atelectasis; K76.6 Portal hypertension; K50.90 Crohn's disease, unspecified, without complications; I50.32 Chronic diastolic (congestive) heart failure; K76.82 Hepatic encephalopathy; F03.90 Unspecified dementia, unspecified severity, without behavioral disturbance, psychotic disturbance, mood disturbance, and anxiety; J44.9 Chronic obstructive pulmonary disease, unspecified; J47.9 Bronchiectasis, uncomplicated; Z79.82 Long term (current) use of aspirin; Z79.890 Hormone replacement therapy; Z79.899 Other long term (current) drug therapy; Z88.1 Allergy status to other antibiotic agents; Z88.6 Allergy status to analgesic agent; Z88.8 Allergy status to other drugs, medicaments and biological substances; J45.30 Mild persistent asthma, uncomplicated; I25.10 Atherosclerotic heart disease of native coronary artery without angina pectoris; G47.33 Obstructive sleep apnea (adult) (pediatric); R26.89 Other abnormalities of gait and mobility; K57.30 Diverticulosis of large intestine without perforation or abscess without bleeding; K44.9 Diaphragmatic hernia without obstruction or gangrene; K21.9 Gastro-esophageal reflux disease without esophagitis; I27.20 Pulmonary hypertension, unspecified; E03.9 Hypothyroidism, unspecified; G25.81 Restless legs syndrome; I11.0 Hypertensive heart disease with heart failure; E78.5 Hyperlipidemia, unspecified; D50.9 Iron deficiency anemia, unspecified; K59.09 Other constipation; Z90.49 Acquired absence of other specified parts of digestive tract; Z85.79 Personal history of other malignant neoplasms of lymphoid, hematopoietic and related tissues; Z99.3 Dependence on wheelchair

== ENCOUNTER 2024-11-25 11:07 | Inpatient (IN) | payer MEDICARE ==
[~2024-11-25] VITALS: Ht 172.7 cm; Wt 105.1 kg
[~2024-11-25 11:07] MED LIST changes: +FLEEENE12 PR; +MILKSUS3 PO; +SPIR50TA4 PO
[2024-11-25 11:39] LABS: BASO # 0.0 10^3/uL (0.0-0.2); BASO % 0.4 % (0.0-1.0); EOS # 0.2 10^3/uL (0.0-0.5); EOS % 1.5 % (0.0-3.0); LYMPH # 1.2 10^3/uL (1.5-5.0); LYMPH % 10.7 % (24.0-44.0); MONO # 0.8 10^3/uL (0.0-0.8); MONO % 7.2 % (2.0-8.0); NEUTROPHILS # 8.7 10^3/uL (1.5-8.5); NEUTROPHILS % 79.9 % (36.0-66.0); PLATELET COUNT, AUTOMATED 111 10^3/uL (150-450)
[2024-11-25 12:23] LABS: KETONE, URINE AUTO RFX NEGATIVE (NEGATIVE); LEUKOCYTE ESTERASE UR AUTO RFX NEGATIVE (NEGATIVE); MUCUS, URINE RFX SMALL (NEGATIVE); NITRITE, URINE AUTO RFX NEGATIVE (NEGATIVE); RBC, URINE AUTO RFX 0 /HPF (0-3); SQUAM EPITHELIAL CELL UR AURFX 0 /HPF (0-6); WBC, URINE AUTO RFX 2 /HPF (0-3); YEAST LIKE CELL URINE AUTO RFX LARGE
[2024-11-25 12:35] LABS: AMPHETAMINES LEVEL URINE NEGATIVE (NEGATIVE); BARBITURATES URINE NEGATIVE (NEGATIVE); BENZODIAZEPINES URINE NEGATIVE (NEGATIVE); CANNABINOIDS URINE NEGATIVE (NEGATIVE); COCAINE METABOLITE URINE NEGATIVE (NEGATIVE); METHADONE URINE NEGATIVE (NEGATIVE); OPIATES URINE NEGATIVE (NEGATIVE); PHENCYCLIDINE URINE NEGATIVE (NEGATIVE)
[2024-11-25 12:53] LABS: VENOUS BASE EXCESS 3.6 (-2.0-2.0); VENOUS HCO3 26.4 MMOL/L (23.0-27.0); VENOUS O2 SATURATION 99.5 % (60.0-80.0); VENOUS PARTIAL PRESSURE CO2 34.2 mmHg (38.0-50.0); VENOUS PARTIAL PRESSURE O2 169.8 mmHg (30.0-50.0); VENOUS PH 7.505 UNITS (7.330-7.430); VENOUS STANDARD HCO3 27.8 MMOL/L; VENOUS TOTAL CO2 27.4 MMOL/L (24.0-28.0)
[2024-11-25 12:57] LABS: ALT/SGPT 74 U/L (7.0-40); AST/SGOT 103 U/L (<34); CALCIUM LEVEL 8.5 MG/DL (8.3-10.6); CARBON DIOXIDE LEVEL 29 MMOL/L (20-31); CHLORIDE LEVEL 101 MMOL/L (98-107); CREATININE FOR GFR 0.70 MG/DL (0.55-1.30); GLOMERULAR FILTRATION RATE > 90.0 (>45); POTASSIUM SERUM 3.8 MMOL/L (3.5-5.1); SODIUM LEVEL 138 MMOL/L (136-145)
[2024-11-25 14:37] LABS: SALICYLATE LEVEL < 3.0 MG/DL (<30)
[2024-11-25 14:40] LABS: ETHYL ALCOHOL (ETHANOL) < 0.003 % (0.000-0.010)
[2024-11-25] MEDS: LACTULOSE 20 GM/30 ML SYRUP UDC PO ONE (15:03)
[2024-11-25] MEDS ORDERED: FLUTICASONE PROPIONATE 0.05% NASAL SPRAY 16 GM NARES PRN (15:45)
[2024-11-25] MEDS ORDERED: HOME MED LIST COMPLETE! XX SCH (15:45)
[2024-11-25] MEDS ORDERED: XIFA550T PO (15:56)
[2024-11-25] MEDS ORDERED: PILL CUTTER 1 EACH XX PRN (16:05)
[2024-11-25] MEDS: LACTULOSE 20 GM/30 ML SYRUP UDC PO SCH (16:54)
[2024-11-25] MEDS: COMBIVENT RESPIMAT 100-20 MCG INHALER 4 GM INH SCH (19:39)
[2024-11-25] MEDS: AMITRIPTYLINE 25 MG TABLET PO SCH (21:36)
[2024-11-25] MEDS: MONTELUKAST 10 MG TAB PO SCH (21:36)
[2024-11-25] MEDS: ATORVASTATIN 20 MG TAB PO SCH (21:36)
[2024-11-25] MEDS: PRAMIPEXOLE 0.125 MG TAB PO SCH (21:36)
[2024-11-25] MEDS: TAMSULOSIN 0.4 MG CAP PO SCH (21:36)
[2024-11-26] MEDS: LEVOTHYROXINE 125 MCG TABLET (0.125 MG) PO SCH (06:25)
[2024-11-26] MEDS: FLUoxetine 20 MG CAP PO SCH (10:09)
[2024-11-26] MEDS: CALCIUM CARBONATE 500 MG CHEW U/D PO SCH (10:11)
[2024-11-26] MEDS: FUROSEMIDE 40 MG TAB PO SCH (10:16)
[2024-11-26] MEDS: SPIRONOLACTONE 50 MG TAB PO SCH (10:20)
[2024-11-26] MEDS: HEPARIN SOD 5000 UNITS/ML 1 ML VIAL/SYRINGE SC SCH (10:21)
[2024-11-26] MEDS: LACTULOSE 20 GM/30 ML SYRUP UDC PO SCH (10:21)
[2024-11-26 11:26] LABS: CALCIUM LEVEL 7.9 MG/DL (8.3-10.6); CARBON DIOXIDE LEVEL 26.0 MMOL/L (20-31); CHLORIDE LEVEL 107.0 MMOL/L (98-107); CREATININE FOR GFR 0.74 MG/DL (0.55-1.30); GLOMERULAR FILTRATION RATE 89.2 (>45); MAGNESIUM LEVEL 2.2 MG/DL (1.8-2.4); POTASSIUM SERUM 3.5 MMOL/L (3.5-5.1); SODIUM LEVEL 140.0 MMOL/L (136-145)
[2024-11-26 12:00] LABS: KETONE, URINE AUTO RFX NEGATIVE (NEGATIVE); LEUKOCYTE ESTERASE UR AUTO RFX NEGATIVE (NEGATIVE); MUCUS, URINE RFX SMALL (NEGATIVE); NITRITE, URINE AUTO RFX NEGATIVE (NEGATIVE); RBC, URINE AUTO RFX 156 /HPF (0-3); SQUAM EPITHELIAL CELL UR AURFX 0 /HPF (0-6); YEAST LIKE CELL URINE AUTO RFX LARGE
[2024-11-26 12:01] LABS: WBC, URINE AUTO RFX 14 /HPF (0-3)
[2024-11-26 12:13] LABS: VENOUS BASE EXCESS 2.1 (-2.0-2.0); VENOUS HCO3 26.5 MMOL/L (23.0-27.0); VENOUS O2 SATURATION 88.0 % (60.0-80.0); VENOUS PARTIAL PRESSURE CO2 40.4 mmHg (38.0-50.0); VENOUS PARTIAL PRESSURE O2 57.9 mmHg (30.0-50.0); VENOUS PH 7.434 UNITS (7.330-7.430); VENOUS STANDARD HCO3 26.1 MMOL/L; VENOUS TOTAL CO2 27.7 MMOL/L (24.0-28.0)
[2024-11-26 12:32] VITALS: BP 156/88; TEMP 97.3; O2SAT 98
[2024-11-26] MEDS: FLUZONE HIGH DOSE (65+) 0.5 ML SYRINGE (25-26) IM.IMMUN ONE (15:36)
[2024-11-26 19:30] VITALS: BP 149/86; TEMP 97.5; O2SAT 92
[2024-11-26] MEDS: LIDOCAINE 5% PATCH TD SCH (21:00)
[2024-11-27 05:10] VITALS: BP 132/81; TEMP 97.7; O2SAT 91
[2024-11-27 06:19] LABS: BASO # 0.0 10^3/uL (0.0-0.2); BASO % 0.3 % (0.0-1.0); EOS # 0.1 10^3/uL (0.0-0.5); EOS % 0.7 % (0.0-3.0); LYMPH # 0.7 10^3/uL (1.5-5.0); LYMPH % 7.4 % (24.0-44.0); MONO # 0.8 10^3/uL (0.0-0.8); MONO % 8.8 % (2.0-8.0); NEUTROPHILS # 7.9 10^3/uL (1.5-8.5); NEUTROPHILS % 82.4 % (36.0-66.0); PLATELET COUNT, AUTOMATED 127 10^3/uL (150-450)
[2024-11-27 06:49] LABS: CALCIUM LEVEL 8.3 MG/DL (8.3-10.6); CARBON DIOXIDE LEVEL 26 MMOL/L (20-31); CHLORIDE LEVEL 103 MMOL/L (98-107); CREATININE FOR GFR 0.72 MG/DL (0.55-1.30); GLOMERULAR FILTRATION RATE > 90.0 (>45); MAGNESIUM LEVEL 2.1 MG/DL (1.8-2.4); POTASSIUM SERUM 3.6 MMOL/L (3.5-5.1); SODIUM LEVEL 140 MMOL/L (136-145)
[2024-11-27] MEDS ORDERED: LIDOCAINE 5% PATCH TD SCH (10:30)
[2024-11-27] MEDS: MORPHINE 4 MG/ML 1 ML VIAL IV PRN (11:10)
[2024-11-27] MEDS: DICLOFENAC EPOLAMINE 1.3% PATCH TOP SCH (11:11)
[2024-11-27 12:00] VITALS: BP 131/75; TEMP 98; O2SAT 96
[2024-11-27 20:32] VITALS: BP 132/73; TEMP 97.5; O2SAT 93
[2024-11-27] MEDS: diphenhydrAMINE 50 MG/ML VIAL IV ONE (22:07)
[2024-11-27] MEDS: D5W/LR 1,000 ML IV SCH (22:30)
[2024-11-27] MEDS: LACTULOSE 20 GM/30 ML SYRUP UDC PO SCH (23:00)
[2024-11-28 04:27] VITALS: BP 135/73; TEMP 98.1; O2SAT 91
[2024-11-28 07:11] LABS: PLATELET COUNT, AUTOMATED 130 10^3/uL (150-450)
[2024-11-28 07:46] LABS: ALT/SGPT 70 U/L (7.0-40); AST/SGOT 97 U/L (<34); CALCIUM LEVEL 8.3 MG/DL (8.3-10.6); CARBON DIOXIDE LEVEL 26 MMOL/L (20-31); CHLORIDE LEVEL 104 MMOL/L (98-107); CREATININE FOR GFR 0.71 MG/DL (0.55-1.30); GLOMERULAR FILTRATION RATE > 90.0 (>45); POTASSIUM SERUM 3.7 MMOL/L (3.5-5.1); SODIUM LEVEL 140 MMOL/L (136-145)
[2024-11-28 12:00] VITALS: BP 137/75; TEMP 97.7; O2SAT 93
[2024-11-28 21:53] VITALS: BP 124/72; TEMP 97.5; O2SAT 95
[2024-11-28] MEDS: PIPERACILLIN/TAZOBACTAM SOD 3.375 GM in DEXTROSE 5% (D5W) ADV/MINI-BAG 50 ML IV SCH (22:07)
[2024-11-28] MEDS: ALBUTEROL SULFATE 2.5 MG/0.5 ML INH CONCENTRATE NEB SOLN INH PRN (22:17)
[2024-11-28 22:57] LABS: VENOUS BASE EXCESS 0.0 (-2.0-2.0); VENOUS HCO3 23.1 MMOL/L (23.0-27.0); VENOUS O2 SATURATION 98.0 % (60.0-80.0); VENOUS PARTIAL PRESSURE CO2 32.8 mmHg (38.0-50.0); VENOUS PARTIAL PRESSURE O2 112.5 mmHg (30.0-50.0); VENOUS PH 7.465 UNITS (7.330-7.430); VENOUS STANDARD HCO3 24.5 MMOL/L; VENOUS TOTAL CO2 24.1 MMOL/L (24.0-28.0)
[2024-11-29] MEDS: LACTULOSE 20 GM/30 ML SYRUP UDC NG SCH (01:00)
[2024-11-29 03:41] VITALS: BP 128/72; TEMP 98.1; O2SAT 94
[2024-11-29] MEDS: DICLOFENAC EPOLAMINE 1.3% PATCH TOP SCH (05:01)
[2024-11-29] MEDS: D5W/LR 1,000 ML IV SCH (06:17)
[2024-11-29 06:41] LABS: PLATELET COUNT, AUTOMATED 106 10^3/uL (150-450)
[2024-11-29 07:04] LABS: CALCIUM LEVEL 8.4 MG/DL (8.3-10.6); CARBON DIOXIDE LEVEL 24.0 MMOL/L (20-31); CHLORIDE LEVEL 107.0 MMOL/L (98-107); CREATININE FOR GFR 0.76 MG/DL (0.55-1.30); GLOMERULAR FILTRATION RATE 86.4 (>45); POTASSIUM SERUM 3.2 MMOL/L (3.5-5.1); SODIUM LEVEL 143.0 MMOL/L (136-145)
[2024-11-29] MEDS: PANTOPRAZOLE 40MG VIAL IV SCH (09:29)
[2024-11-29 09:36] LABS: MAGNESIUM LEVEL 2.0 MG/DL (1.8-2.4)
[2024-11-29] MEDS: POTASSIUM CHLORIDE 10% LIQ 20MEQ/15ML UDC PO ONE (09:49)
[2024-11-29] MEDS: IPRATROPIUM 0.5 MG/ALBUTEROL 2.5 MG INH SOL UD 3 ML NEB SCH (10:23)
[2024-11-29 12:00] VITALS: BP 140/91; TEMP 98.7; O2SAT 95
[2024-11-29] MEDS: MORPHINE 4 MG/ML 1 ML VIAL IV PRN (15:05)
[2024-11-29 20:46] VITALS: BP 172/97; TEMP 97.5; O2SAT 95
[2024-11-30] VITALS (17 sets, daily range): BP systolic 131–152; BP diastolic 64–95; TEMP 97.3–101.3; O2SAT 90–98
[2024-11-30 06:22] LABS: PLATELET COUNT, AUTOMATED 107 10^3/uL (150-450)
[2024-11-30 06:46] LABS: CALCIUM LEVEL 8.4 MG/DL (8.3-10.6); CARBON DIOXIDE LEVEL 23 MMOL/L (20-31); CHLORIDE LEVEL 110 MMOL/L (98-107); CREATININE FOR GFR 0.70 MG/DL (0.55-1.30); GLOMERULAR FILTRATION RATE > 90.0 (>45); POTASSIUM SERUM 3.6 MMOL/L (3.5-5.1); SODIUM LEVEL 145 MMOL/L (136-145)
[2024-11-30] MEDS: LACTULOSE 20 GM/30 ML SYRUP UDC NG SCH (06:53)
[2024-11-30] MEDS: LR 1,000 ML IV ONE (07:02)
[2024-11-30 08:42] LABS: ABG BASE EXCESS -0.1 (-2.0-2.0); ABG HCO3 23.8 MMOL/L (22.0-26.0); ABG O2 SATURATION 97.9 % (95.0-99.0); ABG PARTIAL PRESSURE CO2 36.5 mmHg (35.0-45.0); ABG PARTIAL PRESSURE O2 115.3 mmHg (75.0-100.0); ABG STANDARD HCO3 24.4 MMOL/L. (22.0-26.0); ABG TOTAL CO2 25.0 MMOL/L (23.0-31.0); ABG pH (ARTERIAL) 7.433 UNITS (7.350-7.450)
[2024-11-30] MEDS ORDERED: ISOVUE-370 76% 100 ML VIAL As Ordered ONE (09:15)
[2024-11-30 10:54] LABS: ALT/SGPT 69.0 U/L (7.0-40); AST/SGOT 92.0 U/L (<34)
[2024-11-30] MEDS: KETOROLAC 30 MG/ML 1 ML VIAL IV PRN (21:11)
[2024-12-01] VITALS (11 sets, daily range): BP systolic 122–158; BP diastolic 63–81; TEMP 96.9–97.6; O2SAT 93–97
[2024-12-01] MEDS: D5W 1,000 ML IV SCH (01:58)
[2024-12-01 04:43] LABS: BASO # 0.0 10^3/uL (0.0-0.2); BASO % 0.3 % (0.0-1.0); EOS # 0.2 10^3/uL (0.0-0.5); EOS % 2.4 % (0.0-3.0); LYMPH # 1.2 10^3/uL (1.5-5.0); LYMPH % 12.4 % (24.0-44.0); MONO # 1.1 10^3/uL (0.0-0.8); MONO % 10.8 % (2.0-8.0); NEUTROPHILS # 7.2 10^3/uL (1.5-8.5); NEUTROPHILS % 73.8 % (36.0-66.0); PLATELET COUNT, AUTOMATED 103 10^3/uL (150-450)
[2024-12-01 04:53] LABS: INR 1.38
[2024-12-01 05:13] LABS: ALT/SGPT 63 U/L (7.0-40); AST/SGOT 81 U/L (<34); CALCIUM LEVEL 8.3 MG/DL (8.3-10.6); CARBON DIOXIDE LEVEL 25 MMOL/L (20-31); CHLORIDE LEVEL 111 MMOL/L (98-107); CREATININE FOR GFR 0.66 MG/DL (0.55-1.30); GLOMERULAR FILTRATION RATE > 90.0 (>45); MAGNESIUM LEVEL 2.0 MG/DL (1.8-2.4); PHOSPHORUS LEVEL 3.2 MG/DL (2.4-5.1); POTASSIUM SERUM 3.7 MMOL/L (3.5-5.1); SODIUM LEVEL 145 MMOL/L (136-145)
[2024-12-01 06:41] LABS: HEPATITIS C VIRUS ABY INDEX 0.30 INDEX (<0.8)
[2024-12-01 10:58] LABS: CK-MB VALUE MASS 2.5 NG/ML (<3.6)
[2024-12-01 11:14] LABS: CPK CREATINE PHOSPHOKINASE 94.0 U/L (34-145); MB/CK RELATIVE INDEX 2.65 (< OR =4)
[2024-12-01] MEDS: FLUCONAZOLE 50 MG TABLET PO SCH (11:48)
[2024-12-01] MEDS ORDERED: LACTULOSE 20 GM/30 ML SYRUP UDC NG SCH (13:00)
[2024-12-01] MEDS: LACTULOSE 20 GM/30 ML SYRUP UDC NG SCH (13:56)
[2024-12-01] MEDS: PIPERACILLIN/TAZOBACTAM SOD 3.375 GM in DEXTROSE 5% (D5W) ADV/MINI-BAG 50 ML IV SCH (17:03)
[2024-12-01] MEDS: BISACODYL 10 MG SUPP PR SCH (17:50)
[2024-12-01] MEDS: RAMELTEON 8 MG TAB PO PRN (22:15)
[2024-12-01] MEDS: diphenhydrAMINE 50 MG/ML VIAL IV ONE (23:13)
[2024-12-02] VITALS (11 sets, daily range): BP systolic 125–170; BP diastolic 61–86; TEMP 96.9–98; O2SAT 94–98
[2024-12-02] MEDS: HALOPERIDOL LACTATE 5 MG/ML VIAL IM ONE (00:16)
[2024-12-02] MEDS: MAG SULF 1GM/100ML (MAG RUN) 1 GM in IV 1 EA IV ONE (00:30)
[2024-12-02 05:47] LABS: PLATELET COUNT, AUTOMATED 84 10^3/uL (150-450)
[2024-12-02 06:05] LABS: ALT/SGPT 65 U/L (7.0-40); AST/SGOT 100 U/L (<34); CALCIUM LEVEL 8.1 MG/DL (8.3-10.6); CARBON DIOXIDE LEVEL 24 MMOL/L (20-31); CHLORIDE LEVEL 109 MMOL/L (98-107); CREATININE FOR GFR 0.61 MG/DL (0.55-1.30); GLOMERULAR FILTRATION RATE > 90.0 (>45); POTASSIUM SERUM 3.1 MMOL/L (3.5-5.1); SODIUM LEVEL 145 MMOL/L (136-145)
[2024-12-02] MEDS: NS 0.45% 1,000 ML IV SCH (09:16)
[2024-12-02] MEDS: POTASSIUM CHLORIDE 10% LIQ 20MEQ/15ML UDC PO SCH (09:19)
[2024-12-02] MEDS: diphenhydrAMINE 50 MG/ML VIAL IV ONE (20:10)
[2024-12-03 06:03] LABS: PLATELET COUNT, AUTOMATED 81 10^3/uL (150-450)
[2024-12-03 06:22] LABS: ALT/SGPT 58 U/L (7.0-40); AST/SGOT 82 U/L (<34); CALCIUM LEVEL 7.9 MG/DL (8.3-10.6); CARBON DIOXIDE LEVEL 25 MMOL/L (20-31); CHLORIDE LEVEL 107 MMOL/L (98-107); CREATININE FOR GFR 0.58 MG/DL (0.55-1.30); GLOMERULAR FILTRATION RATE > 90.0 (>45); POTASSIUM SERUM 3.8 MMOL/L (3.5-5.1); SODIUM LEVEL 141 MMOL/L (136-145)
[2024-12-03 06:32] VITALS: BP 154/98; TEMP 96.5; O2SAT 93
[2024-12-03 08:16] VITALS: BP 105/55; TEMP 96.7; O2SAT 97
[2024-12-03 11:22] LABS: APPEARANCE, BODY FLUID CLEAR (CLEAR); ASCITES FL COLOR PALE YELLOW (COLORLESS); SOURCE, BODY FLUID ASCITES
[2024-12-03 12:00] VITALS: BP 134/66; TEMP 97.1; O2SAT 98
[2024-12-03 16:20] LABS: PHOSPHORUS LEVEL 3.3 MG/DL (2.4-5.1)
[2024-12-03 16:22] LABS: VITAMIN B12 LEVEL > 2000 PG/ML (211-911)
[2024-12-03 17:14] VITALS: BP 135/71; TEMP 97; O2SAT 98
[2024-12-03 20:53] VITALS: BP 141/86; TEMP 97.5; O2SAT 98
[2024-12-03] MEDS: AMITRIPTYLINE 25 MG TABLET PO SCH (21:47)
[2024-12-04 03:24] VITALS: BP 118/66; TEMP 97.7; O2SAT 93
[2024-12-04 06:51] LABS: PLATELET COUNT, AUTOMATED 92 10^3/uL (150-450)
[2024-12-04 06:58] LABS: ALT/SGPT 61 U/L (7.0-40); AST/SGOT 101 U/L (<34); CALCIUM LEVEL 7.6 MG/DL (8.3-10.6); CARBON DIOXIDE LEVEL 22 MMOL/L (20-31); CHLORIDE LEVEL 105 MMOL/L (98-107); CREATININE FOR GFR 0.58 MG/DL (0.55-1.30); GLOMERULAR FILTRATION RATE > 90.0 (>45); POTASSIUM SERUM 3.6 MMOL/L (3.5-5.1); SODIUM LEVEL 136 MMOL/L (136-145)
[2024-12-04 12:00] VITALS: BP 131/78; TEMP 97.5; O2SAT 96
[2024-12-04 19:53] VITALS: BP 134/79; TEMP 97.2; O2SAT 100
[2024-12-05 03:02] VITALS: BP 134/78; TEMP 97.5; O2SAT 95
[2024-12-05] MEDS ORDERED: LACTULOSE 20 GM/30 ML SYRUP UDC NG SCH (08:00)
[2024-12-05] MEDS: LACTULOSE 20 GM/30 ML SYRUP UDC PO SCH ×2 (09:31→17:12)
[2024-12-05 09:35] LABS: CALCIUM LEVEL 7.8 MG/DL (8.3-10.6); CARBON DIOXIDE LEVEL 18 MMOL/L (20-31); CHLORIDE LEVEL 106 MMOL/L (98-107); CREATININE FOR GFR 0.62 MG/DL (0.55-1.30); GLOMERULAR FILTRATION RATE > 90.0 (>45); MAGNESIUM LEVEL 1.7 MG/DL (1.8-2.4); POTASSIUM SERUM 3.4 MMOL/L (3.5-5.1); SODIUM LEVEL 138 MMOL/L (136-145)
[2024-12-05] MEDS ORDERED: POTASSIUM CHLORIDE 10MEQ SR TABLET PO ONE (11:10)
[2024-12-05] MEDS: MAGNESIUM CITRATE 300 ML BTL PO ONE (11:33)
[2024-12-05] MEDS ORDERED: POTASSIUM CHLORIDE 10% LIQ 20MEQ/15ML UDC PO ONE (11:40)
[2024-12-05 11:59] VITALS: BP 134/78; TEMP 97.5; O2SAT 92
[2024-12-05] MEDS ORDERED: LACTULOSE 20 GM/30 ML SYRUP UDC PR ONE (12:00)
[2024-12-05] MEDS: POTASSIUM CHLORIDE 10% LIQ 20MEQ/15ML UDC PO ONE (12:41)
[2024-12-05 13:27] LABS: CALCIUM LEVEL 8.4 MG/DL (8.3-10.6); CARBON DIOXIDE LEVEL 20 MMOL/L (20-31); CHLORIDE LEVEL 104 MMOL/L (98-107); CREATININE FOR GFR 0.61 MG/DL (0.55-1.30); GLOMERULAR FILTRATION RATE > 90.0 (>45); POTASSIUM SERUM 3.5 MMOL/L (3.5-5.1); SODIUM LEVEL 136 MMOL/L (136-145)
[2024-12-05 20:20] VITALS: BP 110/70; TEMP 97.3; O2SAT 94
[2024-12-05] MEDS: ANALGESIC BALM CRM 3 OZ TOP PRN (22:58)
[2024-12-06 03:08] VITALS: BP 112/69; TEMP 97.2; O2SAT 93
[2024-12-06 06:26] LABS: BASO # 0.0 10^3/uL (0.0-0.2); BASO % 0.5 % (0.0-1.0); EOS # 0.2 10^3/uL (0.0-0.5); EOS % 2.8 % (0.0-3.0); LYMPH # 0.8 10^3/uL (1.5-5.0); LYMPH % 12.0 % (24.0-44.0); MONO # 0.7 10^3/uL (0.0-0.8); MONO % 11.5 % (2.0-8.0); NEUTROPHILS # 4.7 10^3/uL (1.5-8.5); NEUTROPHILS % 72.9 % (36.0-66.0); PLATELET COUNT, AUTOMATED 115 10^3/uL (150-450)
[2024-12-06 06:52] LABS: CALCIUM LEVEL 8.0 MG/DL (8.3-10.6); CARBON DIOXIDE LEVEL 23 MMOL/L (20-31); CHLORIDE LEVEL 104 MMOL/L (98-107); CREATININE FOR GFR 0.56 MG/DL (0.55-1.30); GLOMERULAR FILTRATION RATE > 90.0 (>45); MAGNESIUM LEVEL 1.8 MG/DL (1.8-2.4); POTASSIUM SERUM 3.5 MMOL/L (3.5-5.1); SODIUM LEVEL 137 MMOL/L (136-145)
[2024-12-06] MEDS: MAGNESIUM CITRATE 300 ML BTL PO ONE (09:34)
[2024-12-06] MEDS: POTASSIUM CHLORIDE 10% LIQ 20MEQ/15ML UDC PO ONE (09:35)
[2024-12-06 09:36] VITALS: BP 137/85
[2024-12-06] MEDS: FUROSEMIDE 40 MG TAB PO SCH (09:36)
[2024-12-06] MEDS ORDERED: LEVO1TAB40 PO (10:36)
[2024-12-06 12:30] VITALS: BP 134/86; TEMP 97.7; O2SAT 97
[2024-12-08] MEDS ORDERED: VITAMIN D 50,000 UNITS CAPSULE (ERGOCALCIFEROL 1.25MG) PO SCH (09:00)
== END 2024-12-06 13:30 | disposition home health service (06) | DRG 441 ==
LOC: M ED 11:07 → M ED INP 11:08 → M MSPAV 11-26 12:27 → OBSVTOIN 11-27 09:33 → M ICU 11-30 08:40 → M MSPAV 12-03 17:11
PROVIDERS: ADMIT Student in an Organized Health Care Education/Training Program; ATTEND Student in an Organized Health Care Education/Training Program
PROC: 0W9G3ZX Drainage of Peritoneal Cavity, Percutaneous Approach, Diagnostic (ICD-10-PCS; principal; 2024-12-02 09:00)
PROC: 0W9G3ZZ Drainage of Peritoneal Cavity, Percutaneous Approach (ICD-10-PCS; 2024-12-03)
DX: K76.82 Hepatic encephalopathy (principal); J18.9 Pneumonia, unspecified organism; A41.9 Sepsis, unspecified organism; I50.22 Chronic systolic (congestive) heart failure; K76.6 Portal hypertension; F05 Delirium due to known physiological condition; E72.20 Disorder of urea cycle metabolism, unspecified; B37.0 Candidal stomatitis; J98.11 Atelectasis; N39.0 Urinary tract infection, site not specified; R18.8 Other ascites; S22.41XA Multiple fractures of ribs, right side, initial encounter for closed fracture; E78.5 Hyperlipidemia, unspecified; I11.0 Hypertensive heart disease with heart failure; K74.60 Unspecified cirrhosis of liver; F03.90 Unspecified dementia, unspecified severity, without behavioral disturbance, psychotic disturbance, mood disturbance, and anxiety; E03.9 Hypothyroidism, unspecified; I27.20 Pulmonary hypertension, unspecified; K21.9 Gastro-esophageal reflux disease without esophagitis; B96.5 Pseudomonas (aeruginosa) (mallei) (pseudomallei) as the cause of diseases classified elsewhere; G25.81 Restless legs syndrome; F41.9 Anxiety disorder, unspecified; F32.A Depression, unspecified; R29.6 Repeated falls; I34.0 Nonrheumatic mitral (valve) insufficiency; B37.31 Acute candidiasis of vulva and vagina; R13.10 Dysphagia, unspecified; D50.9 Iron deficiency anemia, unspecified; D69.59 Other secondary thrombocytopenia; Z91.148 Patient's other noncompliance with medication regimen for other reason; N32.0 Bladder-neck obstruction; W19.XXXA Unspecified fall, initial encounter; Y92.9 Unspecified place or not applicable; Y93.9 Activity, unspecified; Y99.8 Other external cause status; K59.00 Constipation, unspecified; Z79.890 Hormone replacement therapy; Z79.82 Long term (current) use of aspirin; Z79.899 Other long term (current) drug therapy; Z88.0 Allergy status to penicillin; Z88.6 Allergy status to analgesic agent; Z88.8 Allergy status to other drugs, medicaments and biological substances

== ENCOUNTER 2024-12-11 20:23 | Emergency (ER) | payer MEDICARE ==
[~2024-12-11] VITALS: Ht 172.7 cm; Wt 107.1 kg
[~2024-12-11 20:23] MED LIST changes: +LEVO1TAB40 PO; +XIFA550T PO
[2024-12-11 21:26] LABS: VENOUS BASE EXCESS 0.1 (-2.0-2.0); VENOUS HCO3 24.5 MMOL/L (23.0-27.0); VENOUS O2 SATURATION 53.6 % (60.0-80.0); VENOUS PARTIAL PRESSURE CO2 39.3 mmHg (38.0-50.0); VENOUS PARTIAL PRESSURE O2 31.2 mmHg (30.0-50.0); VENOUS PH 7.413 UNITS (7.330-7.430); VENOUS STANDARD HCO3 23.5 MMOL/L; VENOUS TOTAL CO2 25.7 MMOL/L (24.0-28.0)
[2024-12-11 21:31] LABS: BASO # 0.0 10^3/uL (0.0-0.2); BASO % 0.5 % (0.0-1.0); EOS # 0.1 10^3/uL (0.0-0.5); EOS % 1.4 % (0.0-3.0); LYMPH # 0.6 10^3/uL (1.5-5.0); LYMPH % 7.5 % (24.0-44.0); MONO # 0.8 10^3/uL (0.0-0.8); MONO % 9.9 % (2.0-8.0); NEUTROPHILS # 6.5 10^3/uL (1.5-8.5); NEUTROPHILS % 80.3 % (36.0-66.0); PLATELET COUNT, AUTOMATED 146 10^3/uL (150-450)
[2024-12-11 21:41] LABS: INR 1.34
[2024-12-11 22:08] LABS: CK-MB VALUE MASS 2.6 NG/ML (<3.6)
[2024-12-11 22:10] LABS: ALT/SGPT 55.0 U/L (7.0-40); AST/SGOT 95.0 U/L (<34); CALCIUM LEVEL 7.9 MG/DL (8.3-10.6); CARBON DIOXIDE LEVEL 25.0 MMOL/L (20-31); CHLORIDE LEVEL 100.0 MMOL/L (98-107); CPK CREATINE PHOSPHOKINASE 46.0 U/L (34-145); CREATININE FOR GFR 0.76 MG/DL (0.55-1.30); GLOMERULAR FILTRATION RATE 86.4 (>45); MB/CK RELATIVE INDEX 5.65 (< OR =4); POTASSIUM SERUM 4.0 MMOL/L (3.5-5.1); SODIUM LEVEL 137.0 MMOL/L (136-145)
[2024-12-11 22:12] LABS: THYROXINE (T4) 7.9 UG/DL (4.5-10.9)
[2024-12-12] MEDS ORDERED: PRAMIPEXOLE 0.125 MG TAB PO SCH ×2 (00:05→21:00)
[2024-12-12] MEDS: MONTELUKAST 10 MG TAB PO ONE (01:07)
[2024-12-12] MEDS: cefTRIAXone SOD 1 GM in DEXTROSE 5% (D5W) ADV/MINI-BAG 50 ML IV ONE (01:07)
[2024-12-12] MEDS: ATORVASTATIN 20 MG TAB PO ONE (01:07)
[2024-12-12] MEDS: PRAMIPEXOLE 0.125 MG TAB PO ONE (01:07)
[2024-12-12 01:29] LABS: APPEARANCE, URINE HAZY (CLEAR); BACTERIA, URINE AUTO NEGATIVE (NEGATIVE); BILIRUBIN, URINE AUTO NEGATIVE (NEGATIVE); BLOOD, URINE BLOOD 2+ (NEGATIVE); CALCIUM OXALATE CRYSTALS SMALL; GLUCOSE, URINE (UA) AUTO NEGATIVE (NEGATIVE); KETONE, URINE AUTO NEGATIVE (NEGATIVE); LEUKOCYTE ESTERASE, URINE AUTO 1+ (NEGATIVE); MUCUS, URINE LARGE (NEGATIVE); NITRITE, URINE AUTO NEGATIVE (NEGATIVE); PROTEIN, URINE AUTO 1+ mg/dL (NEGATIVE); RBC, URINE AUTO 94 /HPF (0-3); SPECIFIC GRAVITY URINE AUTO 1.020 (1.002-1.035); SQUAMOUS EPITHELIAL CELL UR AU 0 /HPF (0-6); UROBILINOGEN, URINE AUTO 2.0 mg/dL (0.0-2.0); WBC, URINE AUTO 60 /HPF (0-3)
[2024-12-12 07:45] VITALS: BP 114/75
[2024-12-12] MEDS: FUROSEMIDE 40 MG/4 ML VIAL IV ONE (07:45)
[2024-12-12] MEDS ORDERED: HOME MED LIST COMPLETE! XX SCH (07:50)
[2024-12-12] MEDS: MAG SULF 1GM/100ML (MAG RUN) 1 GM in IV 1 EA IV ONE (08:37)
[2024-12-12] MEDS ORDERED: FUROSEMIDE 40 MG/4 ML VIAL IV SCH (09:00)
[2024-12-12] MEDS ORDERED: CEFDINIR 300 MG CAP PO SCH (09:00)
[2024-12-12] MEDS ORDERED: FLUTICASONE PROPIONATE 0.05% NASAL SPRAY 16 GM NARES PRN (12:40)
[2024-12-12] MEDS ORDERED: FLEET ENEMA PR PRN (12:40)
[2024-12-12] MEDS ORDERED: ALBUTEROL 90 MCG/ACT 8 GM HFA INHALER INH PRN (12:40)
[2024-12-12] MEDS ORDERED: MOM 30 ML SUSPENSION UDC PO PRN (12:40)
[2024-12-12] MEDS: DOCUSATE SODIUM 100 MG CAPSULE PO SCH (14:56)
[2024-12-12] MEDS: GABAPENTIN 400 MG CAP PO SCH (14:56)
[2024-12-12] MEDS: LACTULOSE 20 GM/30 ML SYRUP UDC PO SCH (14:56)
[2024-12-12 15:19] VITALS: BP 131/65; TEMP 97.6; O2SAT 94
[2024-12-12] MEDS ORDERED: COMBIVENT RESPIMAT 100-20 MCG INHALER 4 GM INH SCH (20:00)
[2024-12-12] MEDS ORDERED: TAMSULOSIN 0.4 MG CAP PO SCH (21:00)
[2024-12-12] MEDS ORDERED: AMITRIPTYLINE 25 MG TABLET PO SCH (21:00)
[2024-12-12] MEDS ORDERED: ATORVASTATIN 20 MG TAB PO SCH (21:00)
[2024-12-12] MEDS ORDERED: ATORVASTATIN 20 MG TAB PO ONE (21:00)
[2024-12-12] MEDS ORDERED: MONTELUKAST 10 MG TAB PO SCH ×2 (21:00)
[2024-12-13] MEDS ORDERED: LEVOTHYROXINE 125 MCG TABLET (0.125 MG) PO SCH (06:00)
[2024-12-13] MEDS ORDERED: CALCIUM CARBONATE 500 MG CHEW U/D PO SCH (09:00)
[2024-12-13] MEDS ORDERED: SPIRONOLACTONE 50 MG TAB PO SCH (09:00)
[2024-12-13] MEDS ORDERED: FLUoxetine 20 MG CAP PO SCH (09:00)
[2024-12-13] MEDS ORDERED: ASPIRIN 81 MG ENTERIC TABLET PO SCH (09:00)
== END 2024-12-12 15:21 | disposition home or self-care (01) ==
LOC: M ED 20:23
DX: R18.8 Other ascites (principal); K72.90 Hepatic failure, unspecified without coma; R06.02 Shortness of breath; I50.22 Chronic systolic (congestive) heart failure; I11.0 Hypertensive heart disease with heart failure; E78.5 Hyperlipidemia, unspecified; J44.9 Chronic obstructive pulmonary disease, unspecified; K21.9 Gastro-esophageal reflux disease without esophagitis; Z88.1 Allergy status to other antibiotic agents; Z88.6 Allergy status to analgesic agent; Z79.51 Long term (current) use of inhaled steroids; Z79.1 Long term (current) use of non-steroidal anti-inflammatories (NSAID); Z79.899 Other long term (current) drug therapy; Z79.01 Long term (current) use of anticoagulants
CPT/HCPCS: 36415; 49083; 71045; 74176; 80048; 80076; 81001; 82140; 82550; 82553; 82803; 83605; 83735; 83880; 84436; 84443; 84484; 85025; 85610; 87040; 87088; 93005; 93041; 94760; 96374; 96375; 97161; 97165; 97530; 99285; J0696; J1938; J3475

== ENCOUNTER 2024-12-22 18:50 | Inpatient (IN) | payer MEDICARE ==
[~2024-12-22] VITALS: Ht 175.3 cm; Wt 104.4 kg
[2024-12-22 19:40] LABS: VENOUS BASE EXCESS 1.0 (-2.0-2.0); VENOUS HCO3 25.7 MMOL/L (23.0-27.0); VENOUS O2 SATURATION 67.2 % (60.0-80.0); VENOUS PARTIAL PRESSURE CO2 41.2 mmHg (38.0-50.0); VENOUS PARTIAL PRESSURE O2 36.9 mmHg (30.0-50.0); VENOUS PH 7.413 UNITS (7.330-7.430); VENOUS STANDARD HCO3 24.6 MMOL/L; VENOUS TOTAL CO2 27.0 MMOL/L (24.0-28.0)
[2024-12-22 19:55] LABS: BASO # 0.1 10^3/uL (0.0-0.2); BASO % 0.6 % (0.0-1.0); EOS # 0.1 10^3/uL (0.0-0.5); EOS % 0.8 % (0.0-3.0); LYMPH # 1.0 10^3/uL (1.5-5.0); LYMPH % 10.9 % (24.0-44.0); MONO # 0.9 10^3/uL (0.0-0.8); MONO % 8.9 % (2.0-8.0); NEUTROPHILS # 7.5 10^3/uL (1.5-8.5); NEUTROPHILS % 78.6 % (36.0-66.0); PLATELET COUNT, AUTOMATED 124 10^3/uL (150-450)
[2024-12-22 20:16] LABS: ALT/SGPT 57 U/L (7.0-40); AST/SGOT 147 U/L (<34); CALCIUM LEVEL 8.4 MG/DL (8.3-10.6); CARBON DIOXIDE LEVEL 27 MMOL/L (20-31); CHLORIDE LEVEL 99 MMOL/L (98-107); CREATININE FOR GFR 0.72 MG/DL (0.55-1.30); GLOMERULAR FILTRATION RATE > 90.0 (>45); POTASSIUM SERUM 3.6 MMOL/L (3.5-5.1); SODIUM LEVEL 137 MMOL/L (136-145)
[2024-12-22 20:26] LABS: OSMOLALITY SERUM 290 MOSM/KG (280-301)
[2024-12-22 21:17] LABS: KETONE, URINE AUTO RFX NEGATIVE (NEGATIVE); MUCUS, URINE RFX SMALL (NEGATIVE); NITRITE, URINE AUTO RFX NEGATIVE (NEGATIVE); RBC, URINE AUTO RFX 100 /HPF (0-3); SQUAM EPITHELIAL CELL UR AURFX 0 /HPF (0-6); WBC, URINE AUTO RFX 5 /HPF (0-3)
[2024-12-22 21:18] LABS: LEUKOCYTE ESTERASE UR AUTO RFX TRACE (NEGATIVE)
[2024-12-22 21:30] LABS: AMPHETAMINES LEVEL URINE NEGATIVE (NEGATIVE); BARBITURATES URINE NEGATIVE (NEGATIVE)
[2024-12-22 21:31] LABS: BENZODIAZEPINES URINE NEGATIVE (NEGATIVE); CANNABINOIDS URINE NEGATIVE (NEGATIVE); COCAINE METABOLITE URINE NEGATIVE (NEGATIVE); METHADONE URINE NEGATIVE (NEGATIVE); PHENCYCLIDINE URINE NEGATIVE (NEGATIVE)
[2024-12-22 21:33] LABS: OPIATES URINE POSITIVE (NEGATIVE)
[2024-12-22] MEDS: NS (Normal Saline) 0.9% 1,000 ML IV ONE (21:56)
[2024-12-22] MEDS ORDERED: MOM 30 ML SUSPENSION UDC PO PRN (23:15)
[2024-12-22] MEDS ORDERED: MAALOX 30 ML SUSP *UDC PO PRN (23:15)
[2024-12-22] MEDS: NS (Normal Saline) 0.9% 1,000 ML IV SCH (23:52)
[2024-12-23] MEDS: LACTULOSE 20 GM/30 ML SYRUP UDC PO SCH (00:12)
[2024-12-23] MEDS: IPRATROPIUM 0.5 MG/ALBUTEROL 2.5 MG INH SOL UD 3 ML NEB SCH (00:51)
[2024-12-23] MEDS ORDERED: LACT10SO94 PO (03:43)
[2024-12-23] MEDS ORDERED: HOME MED LIST COMPLETE! XX SCH (03:45)
[2024-12-23] MEDS ORDERED: CYCL-707 PO (04:00)
[2024-12-23] MEDS ORDERED: HALOPERIDOL LACTATE 5 MG/ML VIAL As Ordered ONE (06:15)
[2024-12-23] MEDS: HALOPERIDOL LACTATE 5 MG/ML VIAL IM STA (06:18)
[2024-12-23 08:34] LABS: PLATELET COUNT, AUTOMATED 119 10^3/uL (150-450)
[2024-12-23 09:02] LABS: ALT/SGPT 54 U/L (7.0-40); AST/SGOT 137 U/L (<34); CALCIUM LEVEL 8.1 MG/DL (8.3-10.6); CARBON DIOXIDE LEVEL 26 MMOL/L (20-31); CHLORIDE LEVEL 101 MMOL/L (98-107); CREATININE FOR GFR 0.67 MG/DL (0.55-1.30); GLOMERULAR FILTRATION RATE > 90.0 (>45); MAGNESIUM LEVEL 1.8 MG/DL (1.8-2.4); POTASSIUM SERUM 3.7 MMOL/L (3.5-5.1); SODIUM LEVEL 137 MMOL/L (136-145)
[2024-12-23 10:30] VITALS: BP 123/90; TEMP 97.7; O2SAT 97
[2024-12-23] MEDS: CALCIUM CARBONATE 500 MG CHEW U/D PO SCH (10:47)
[2024-12-23] MEDS: PANTOPRAZOLE 40MG TAB PO SCH (10:47)
[2024-12-23] MEDS: ASPIRIN 81 MG ENTERIC TABLET PO SCH (10:48)
[2024-12-23] MEDS: CEFEPIME HCL 2 GM in DEXTROSE 5% (D5W) ADV/MINI-BAG 50 ML IV SCH (10:48)
[2024-12-23] MEDS: LEVOTHYROXINE 125 MCG TABLET (0.125 MG) PO SCH (10:48)
[2024-12-23] MEDS: LACTULOSE 20 GM/30 ML SYRUP UDC PR ONE (12:17)
[2024-12-23 14:18] VITALS: BP 129/85; TEMP 97.4; O2SAT 96
[2024-12-23 15:05] LABS: APPEARANCE, BODY FLUID HAZY (CLEAR); ASCITES FL COLOR YELLOW (COLORLESS); SOURCE, BODY FLUID ASCITES
[2024-12-23] MEDS: HALOPERIDOL LACTATE 5 MG/ML VIAL IM PRN (17:54)
[2024-12-23] MEDS: BISACODYL 10 MG SUPP PR ONE (18:34)
[2024-12-23 20:40] VITALS: BP 129/82; TEMP 97.8; O2SAT 93
[2024-12-23] MEDS: HEPARIN SOD 5000 UNITS/ML 1 ML VIAL/SYRINGE SQ SCH (21:00)
[2024-12-23] MEDS: ACETAMINOPHEN 325 MG TAB PO PRN (21:17)
[2024-12-23] MEDS: PRAMIPEXOLE 0.125 MG TAB PO SCH (21:17)
[2024-12-23] MEDS: ATORVASTATIN 20 MG TAB PO SCH (21:17)
[2024-12-23] MEDS: traZODone 50 MG TAB PO ONE (21:46)
[2024-12-24] MEDS: HALOPERIDOL LACTATE 5 MG/ML VIAL IV ONE (03:25)
[2024-12-24 05:26] VITALS: BP 131/81; TEMP 97.7; O2SAT 93
[2024-12-24 06:28] LABS: BASO # 0.0 10^3/uL (0.0-0.2); BASO % 0.5 % (0.0-1.0); EOS # 0.1 10^3/uL (0.0-0.5); EOS % 1.1 % (0.0-3.0); LYMPH # 1.1 10^3/uL (1.5-5.0); LYMPH % 13.5 % (24.0-44.0); MONO # 1.0 10^3/uL (0.0-0.8); MONO % 11.9 % (2.0-8.0); NEUTROPHILS # 5.9 10^3/uL (1.5-8.5); NEUTROPHILS % 72.8 % (36.0-66.0); PLATELET COUNT, AUTOMATED 100 10^3/uL (150-450)
[2024-12-24 06:54] LABS: ALT/SGPT 53 U/L (7.0-40); AST/SGOT 135 U/L (<34); CALCIUM LEVEL 8.9 MG/DL (8.3-10.6); CARBON DIOXIDE LEVEL 26 MMOL/L (20-31); CHLORIDE LEVEL 104 MMOL/L (98-107); CREATININE FOR GFR 0.67 MG/DL (0.55-1.30); GLOMERULAR FILTRATION RATE > 90.0 (>45); POTASSIUM SERUM 3.7 MMOL/L (3.5-5.1); SODIUM LEVEL 140 MMOL/L (136-145)
== END 2024-12-24 13:28 | disposition home health service (06) | DRG 71 ==
LOC: M ED 18:50 → M ED INP 23:12 → M MS5PR 12-23 10:00
PROVIDERS: ADMIT Internal Medicine; ATTEND Internal Medicine
PROC: 0W9G3ZZ Drainage of Peritoneal Cavity, Percutaneous Approach (ICD-10-PCS; principal; 2024-12-23 14:00)
DX: G93.41 Metabolic encephalopathy (principal); I50.22 Chronic systolic (congestive) heart failure; K76.6 Portal hypertension; R18.8 Other ascites; K56.49 Other impaction of intestine; K74.60 Unspecified cirrhosis of liver; F03.90 Unspecified dementia, unspecified severity, without behavioral disturbance, psychotic disturbance, mood disturbance, and anxiety; I27.20 Pulmonary hypertension, unspecified; E03.9 Hypothyroidism, unspecified; I11.0 Hypertensive heart disease with heart failure; D69.6 Thrombocytopenia, unspecified; I34.0 Nonrheumatic mitral (valve) insufficiency; I25.10 Atherosclerotic heart disease of native coronary artery without angina pectoris; E78.5 Hyperlipidemia, unspecified; R27.8 Other lack of coordination; K21.9 Gastro-esophageal reflux disease without esophagitis; F32.A Depression, unspecified; K76.82 Hepatic encephalopathy; F41.9 Anxiety disorder, unspecified; R29.6 Repeated falls; D50.9 Iron deficiency anemia, unspecified; Z90.49 Acquired absence of other specified parts of digestive tract; Z79.82 Long term (current) use of aspirin; Z79.890 Hormone replacement therapy; Z79.899 Other long term (current) drug therapy; Z88.1 Allergy status to other antibiotic agents; Z88.6 Allergy status to analgesic agent; Z88.8 Allergy status to other drugs, medicaments and biological substances

== ENCOUNTER 2025-01-03 19:43 | Inpatient (IN) | payer MEDICARE ==
[~2025-01-03] VITALS: Ht 172.7 cm; Wt 88.2 kg
[~2025-01-03 19:43] MED LIST changes: +LACT10SO94 PO
[2025-01-03 21:07] LABS: VENOUS BASE EXCESS 2.9 (-2.0-2.0); VENOUS HCO3 28.4 MMOL/L (23.0-27.0); VENOUS O2 SATURATION 56.6 % (60.0-80.0); VENOUS PARTIAL PRESSURE CO2 46.5 mmHg (38.0-50.0); VENOUS PARTIAL PRESSURE O2 32.7 mmHg (30.0-50.0); VENOUS PH 7.403 UNITS (7.330-7.430); VENOUS STANDARD HCO3 26.0 MMOL/L; VENOUS TOTAL CO2 29.8 MMOL/L (24.0-28.0)
[2025-01-03 21:17] LABS: BASO # 0.0 10^3/uL (0.0-0.2); BASO % 0.3 % (0.0-1.0); EOS # 0.0 10^3/uL (0.0-0.5); EOS % 0.3 % (0.0-3.0); LYMPH # 0.8 10^3/uL (1.5-5.0); LYMPH % 9.2 % (24.0-44.0); MONO # 0.8 10^3/uL (0.0-0.8); MONO % 9.2 % (2.0-8.0); NEUTROPHILS # 7.1 10^3/uL (1.5-8.5); NEUTROPHILS % 80.8 % (36.0-66.0); PLATELET COUNT, AUTOMATED 175 10^3/uL (150-450)
[2025-01-03 21:37] LABS: ALT/SGPT 78.0 U/L (7.0-40); AST/SGOT 204.0 U/L (<34); CALCIUM LEVEL 9.1 MG/DL (8.3-10.6); CARBON DIOXIDE LEVEL 27.0 MMOL/L (20-31); CHLORIDE LEVEL 97.0 MMOL/L (98-107); CREATININE FOR GFR 0.94 MG/DL (0.55-1.30); GLOMERULAR FILTRATION RATE 66.9 (>45); POTASSIUM SERUM 4.9 MMOL/L (3.5-5.1); SODIUM LEVEL 135.0 MMOL/L (136-145)
[2025-01-03 21:51] LABS: INR 1.27
[2025-01-04] MEDS: OLANZapine INTRAMUSCULAR 10MG VIAL IM ONE (02:01)
[2025-01-04 07:42] LABS: BASO # 0.0 10^3/uL (0.0-0.2); BASO % 0.2 % (0.0-1.0); EOS # 0.0 10^3/uL (0.0-0.5); EOS % 0.2 % (0.0-3.0); LYMPH # 0.9 10^3/uL (1.5-5.0); LYMPH % 10.3 % (24.0-44.0); MONO # 0.8 10^3/uL (0.0-0.8); MONO % 8.5 % (2.0-8.0); NEUTROPHILS # 7.3 10^3/uL (1.5-8.5); NEUTROPHILS % 80.5 % (36.0-66.0)
[2025-01-04 08:20] LABS: ALT/SGPT 71.0 U/L (7.0-40); AST/SGOT 192.0 U/L (<34)
[2025-01-04] MEDS ORDERED: COMBAER6 INH (10:43)
[2025-01-04] MEDS ORDERED: VITA500T40 PO (10:43)
[2025-01-04] MEDS ORDERED: HOME MED LIST COMPLETE! XX SCH (10:45)
[2025-01-04] MEDS ORDERED: FLUTICASONE PROPIONATE 0.05% NASAL SPRAY 16 GM NARES PRN (11:50)
[2025-01-04] MEDS ORDERED: ALBUTEROL 90 MCG/ACT 8 GM HFA INHALER INH PRN (11:50)
[2025-01-04] MEDS ORDERED: COMBIVENT RESPIMAT 100-20 MCG INHALER 4 GM INH PRN (11:50)
[2025-01-04] MEDS ORDERED: FLEET ENEMA PR PRN (11:50)
[2025-01-04] MEDS ORDERED: MOM 30 ML SUSPENSION UDC PO PRN (11:50)
[2025-01-04] MEDS ORDERED: ALBUTEROL SULFATE 2.5 MG/0.5 ML INH CONCENTRATE NEB SOLN INH PRN (11:50)
[2025-01-04] MEDS ORDERED: MAALOX 30 ML SUSP *UDC PO PRN (12:15)
[2025-01-04 12:54] LABS: C REACTIVE PROTEIN QUANTITATIV 7.91 MG/DL (<1.0)
[2025-01-04] MEDS: LEVOTHYROXINE 125 MCG TABLET (0.125 MG) PO SCH (14:25)
[2025-01-04] MEDS: ASPIRIN 81 MG ENTERIC TABLET PO SCH (14:25)
[2025-01-04] MEDS: FLUoxetine 20 MG CAP PO SCH (14:26)
[2025-01-04] MEDS: cefTRIAXone SOD 2 GM in DEXTROSE 5% (D5W) ADV/MINI-BAG 50 ML IV SCH (14:31)
[2025-01-04 15:07] VITALS: BP 146/77; TEMP 96.7; O2SAT 96
[2025-01-04] MEDS: LACTULOSE 20 GM/30 ML SYRUP UDC PO SCH (16:27)
[2025-01-04] MEDS: DOXYCYCLINE HYCLATE 100 MG in DEXTROSE 5% (D5W) MINI-BAG PLU 100 ML IV SCH (16:27)
[2025-01-04] MEDS: LACTULOSE 20 GM/30 ML SYRUP UDC PR ONE (16:33)
[2025-01-04] MEDS ORDERED: FUROSEMIDE 40 MG/4 ML VIAL IV SCH (17:00)
[2025-01-04] MEDS: PIPERACILLIN/TAZOBACTAM SOD 4.5 GM in DEXTROSE 5% (D5W) ADV/MINI-BAG 50 ML IV SCH (17:45)
[2025-01-04] MEDS: FUROSEMIDE 40 MG/4 ML VIAL IV SCH (17:45)
[2025-01-04] MEDS: TAMSULOSIN 0.4 MG CAP PO SCH (20:00)
[2025-01-04] MEDS: PRAMIPEXOLE 0.125 MG TAB PO SCH (20:00)
[2025-01-04] MEDS: AMITRIPTYLINE 25 MG TABLET PO SCH (20:00)
[2025-01-04 20:01] LABS: KETONE, URINE AUTO RFX NEGATIVE (NEGATIVE); LEUKOCYTE ESTERASE UR AUTO RFX NEGATIVE (NEGATIVE); MUCUS, URINE RFX SMALL (NEGATIVE); NITRITE, URINE AUTO RFX NEGATIVE (NEGATIVE); RBC, URINE AUTO RFX 1 /HPF (0-3); SQUAM EPITHELIAL CELL UR AURFX 0 /HPF (0-6); WBC, URINE AUTO RFX 4 /HPF (0-3)
[2025-01-04] MEDS: MONTELUKAST 10 MG TAB PO SCH (20:01)
[2025-01-04] MEDS: DOCUSATE SODIUM 100 MG CAPSULE PO SCH (20:01)
[2025-01-04 20:12] VITALS: BP 141/87; TEMP 96.4; O2SAT 94
[2025-01-04 20:58] VITALS: TEMP 99.4
[2025-01-04] MEDS ORDERED: OLANZapine INTRAMUSCULAR 10MG VIAL IM STA (21:23)
[2025-01-04] MEDS: OLANZapine INTRAMUSCULAR 10MG VIAL IM STA (21:43)
[2025-01-05] VITALS (7 sets, daily range): BP systolic 106–145; BP diastolic 58–80; TEMP 96.5–98.3; O2SAT 92–96
[2025-01-05] MEDS: ENOXAPARIN 40 MG/0.4 ML SYRINGE (J1650 PER 10MG) SC SCH (08:53)
[2025-01-05 08:54] LABS: BASO # 0.0 10^3/uL (0.0-0.2); BASO % 0.5 % (0.0-1.0); EOS # 0.0 10^3/uL (0.0-0.5); EOS % 0.6 % (0.0-3.0); LYMPH # 0.7 10^3/uL (1.5-5.0); LYMPH % 10.1 % (24.0-44.0); MONO # 0.7 10^3/uL (0.0-0.8); MONO % 10.9 % (2.0-8.0); NEUTROPHILS # 5.2 10^3/uL (1.5-8.5); NEUTROPHILS % 77.7 % (36.0-66.0); PLATELET COUNT, AUTOMATED 128 10^3/uL (150-450)
[2025-01-05] MEDS: PANTOPRAZOLE 40MG TAB PO SCH (08:54)
[2025-01-05] MEDS: CALCIUM CARBONATE 500 MG CHEW U/D PO SCH (08:54)
[2025-01-05] MEDS: CYANOCOBALAMIN 500 MCG TAB PO SCH (08:55)
[2025-01-05] MEDS: LACTULOSE 20 GM/30 ML SYRUP UDC PR SCH (09:00)
[2025-01-05 09:35] LABS: ALT/SGPT 71.0 U/L (7.0-40); AST/SGOT 176.0 U/L (<34); CALCIUM LEVEL 8.5 MG/DL (8.3-10.6); CARBON DIOXIDE LEVEL 25.0 MMOL/L (20-31); CHLORIDE LEVEL 99.0 MMOL/L (98-107); CREATININE FOR GFR 1.02 MG/DL (0.55-1.30); GLOMERULAR FILTRATION RATE 60.7 (>45); POTASSIUM SERUM 4.0 MMOL/L (3.5-5.1); SODIUM LEVEL 137.0 MMOL/L (136-145)
[2025-01-05] MEDS: OLANZapine 5 MG TAB PO ONE (20:04)
[2025-01-06] VITALS (8 sets, daily range): BP systolic 107–144; BP diastolic 58–90; TEMP 97–97.5; O2SAT 93–96
[2025-01-06] MEDS: OLANZapine INTRAMUSCULAR 10MG VIAL IM ONE (02:11)
[2025-01-06 09:06] LABS: BASO # 0.0 10^3/uL (0.0-0.2); BASO % 0.5 % (0.0-1.0); EOS # 0.1 10^3/uL (0.0-0.5); EOS % 1.1 % (0.0-3.0); LYMPH # 0.8 10^3/uL (1.5-5.0); LYMPH % 13.0 % (24.0-44.0); MONO # 0.6 10^3/uL (0.0-0.8); MONO % 9.9 % (2.0-8.0); NEUTROPHILS # 4.7 10^3/uL (1.5-8.5); NEUTROPHILS % 75.3 % (36.0-66.0); PLATELET COUNT, AUTOMATED 132 10^3/uL (150-450)
[2025-01-06 09:42] LABS: ALT/SGPT 79.0 U/L (7.0-40); AST/SGOT 191.0 U/L (<34); CALCIUM LEVEL 8.3 MG/DL (8.3-10.6); CARBON DIOXIDE LEVEL 28.0 MMOL/L (20-31); CHLORIDE LEVEL 95.0 MMOL/L (98-107); CREATININE FOR GFR 1.01 MG/DL (0.55-1.30); GLOMERULAR FILTRATION RATE 61.4 (>45); POTASSIUM SERUM 2.4 MMOL/L (3.5-5.1); SODIUM LEVEL 136.0 MMOL/L (136-145)
[2025-01-06] MEDS: POTASSIUM CHLORIDE 10MEQ SR TABLET PO ONE (12:06)
[2025-01-06] MEDS: KCL 40MEQ IN D5/NS 1000ML 1,000 ML IV SCH (12:07)
[2025-01-06] MEDS: CYCLOBENZAPRINE 10 MG TABLET PO PRN (12:07)
[2025-01-06 13:57] LABS: MAGNESIUM LEVEL 1.7 MG/DL (1.8-2.4)
[2025-01-06 14:47] LABS: APPEARANCE, BODY FLUID HAZY (CLEAR); ASCITES FL COLOR YELLOW (COLORLESS); SOURCE, BODY FLUID ASCITES
[2025-01-06] MEDS: DOXYCYCLINE HYCLATE 100 MG TABLET PO SCH (18:10)
[2025-01-07 04:31] VITALS: BP 134/60; TEMP 97.3; O2SAT 93
[2025-01-07 05:45] LABS: PLATELET COUNT, AUTOMATED 114 10^3/uL (150-450)
[2025-01-07 06:12] LABS: ALT/SGPT 73.0 U/L (7.0-40); AST/SGOT 174.0 U/L (<34); CALCIUM LEVEL 7.9 MG/DL (8.3-10.6); CARBON DIOXIDE LEVEL 28.0 MMOL/L (20-31); CHLORIDE LEVEL 102.0 MMOL/L (98-107); CREATININE FOR GFR 0.99 MG/DL (0.55-1.30); GLOMERULAR FILTRATION RATE 62.9 (>45); MAGNESIUM LEVEL 1.6 MG/DL (1.8-2.4); POTASSIUM SERUM 3.5 MMOL/L (3.5-5.1); SODIUM LEVEL 139.0 MMOL/L (136-145)
[2025-01-07 07:48] VITALS: BP 118/60; TEMP 97; O2SAT 95
[2025-01-07] MEDS: POTASSIUM CHLORIDE 10MEQ SR TABLET PO ONE (08:00)
[2025-01-07] MEDS: MAG SULF 1GM/100ML (MAG RUN) 1 GM in IV 1 EA IV SCH (09:19)
[2025-01-07] MEDS: FLUZONE HIGH DOSE (65+) 0.5 ML SYRINGE (25-26) IM.IMMUN ONE (10:34)
[2025-01-07 11:35] VITALS: BP 108/56; TEMP 97; O2SAT 92
[2025-01-07] MEDS ORDERED: LEVO1TAB40 PO (11:44)
[2025-01-07] MEDS ORDERED: ONDA-83 PO (11:44)
== END 2025-01-07 15:56 | disposition home or self-care (01) | DRG 432 ==
LOC: M ED 19:43 → M ED INP 01-04 12:32 → M PCU 01-04 14:55
PROVIDERS: ADMIT Internal Medicine; ATTEND Internal Medicine
PROC: B246ZZZ Ultrasonography of Right and Left Heart (ICD-10-PCS; 2025-01-05)
PROC: 0W9G3ZZ Drainage of Peritoneal Cavity, Percutaneous Approach (ICD-10-PCS; principal; 2025-01-06 13:00)
DX: K74.69 Other cirrhosis of liver (principal); J69.0 Pneumonitis due to inhalation of food and vomit; I81 Portal vein thrombosis; K76.6 Portal hypertension; I85.10 Secondary esophageal varices without bleeding; I50.32 Chronic diastolic (congestive) heart failure; R18.8 Other ascites; K75.81 Nonalcoholic steatohepatitis (NASH); K76.82 Hepatic encephalopathy; I25.10 Atherosclerotic heart disease of native coronary artery without angina pectoris; I27.20 Pulmonary hypertension, unspecified; E03.9 Hypothyroidism, unspecified; I11.0 Hypertensive heart disease with heart failure; E78.5 Hyperlipidemia, unspecified; F03.90 Unspecified dementia, unspecified severity, without behavioral disturbance, psychotic disturbance, mood disturbance, and anxiety; K21.9 Gastro-esophageal reflux disease without esophagitis; F41.9 Anxiety disorder, unspecified; F32.A Depression, unspecified; E87.6 Hypokalemia; R27.0 Ataxia, unspecified; R29.6 Repeated falls; D50.9 Iron deficiency anemia, unspecified; R01.1 Cardiac murmur, unspecified; M72.2 Plantar fascial fibromatosis; J32.9 Chronic sinusitis, unspecified; K59.00 Constipation, unspecified; Z90.49 Acquired absence of other specified parts of digestive tract; Z79.82 Long term (current) use of aspirin; Z79.890 Hormone replacement therapy; Z79.899 Other long term (current) drug therapy; Z88.1 Allergy status to other antibiotic agents; Z88.6 Allergy status to analgesic agent; Z88.8 Allergy status to other drugs, medicaments and biological substances

== ENCOUNTER 2025-01-11 11:23 | Inpatient (IN) | payer MEDICARE ==
[~2025-01-11] VITALS: Ht 167.6 cm; Wt 88.5 kg
[~2025-01-11 11:23] MED LIST changes: +LACTULOSE 20 GM/30 ML SYRUP UDC PO SCH; +ONDA-83 PO; +VITA500T40 PO
[2025-01-11 12:00] LABS: BASO # 0.0 10^3/uL (0.0-0.2); BASO % 0.2 % (0.0-1.0); EOS # 0.0 10^3/uL (0.0-0.5); EOS % 0.4 % (0.0-3.0); LYMPH # 1.0 10^3/uL (1.5-5.0); LYMPH % 10.1 % (24.0-44.0); MONO # 1.2 10^3/uL (0.0-0.8); MONO % 11.8 % (2.0-8.0); NEUTROPHILS # 7.7 10^3/uL (1.5-8.5); NEUTROPHILS % 77.2 % (36.0-66.0); PLATELET COUNT, AUTOMATED 163 10^3/uL (150-450)
[2025-01-11 12:01] LABS: ABG BASE EXCESS 0.2 (-2.0-2.0); ABG HCO3 24.4 MMOL/L (22.0-26.0); ABG O2 SATURATION 95.1 % (95.0-99.0); ABG PARTIAL PRESSURE CO2 37.9 mmHg (35.0-45.0); ABG PARTIAL PRESSURE O2 77.6 mmHg (75.0-100.0); ABG STANDARD HCO3 24.6 MMOL/L. (22.0-26.0); ABG TOTAL CO2 25.5 MMOL/L (23.0-31.0); ABG pH (ARTERIAL) 7.426 UNITS (7.350-7.450)
[2025-01-11 12:22] LABS: KETONE, URINE AUTO RFX NEGATIVE (NEGATIVE); NITRITE, URINE AUTO RFX NEGATIVE (NEGATIVE); RBC, URINE AUTO RFX 28 /HPF (0-3); SQUAM EPITHELIAL CELL UR AURFX 0 /HPF (0-6); YEAST LIKE CELL URINE AUTO RFX LARGE
[2025-01-11 12:23] LABS: LEUKOCYTE ESTERASE UR AUTO RFX 2+ (NEGATIVE); WBC, URINE AUTO RFX 71 /HPF (0-3)
[2025-01-11 12:35] LABS: ETHYL ALCOHOL (ETHANOL) < 0.003 % (0.000-0.010)
[2025-01-11 12:36] LABS: AMPHETAMINES LEVEL URINE NEGATIVE (NEGATIVE); BARBITURATES URINE NEGATIVE (NEGATIVE); BENZODIAZEPINES URINE NEGATIVE (NEGATIVE); CANNABINOIDS URINE NEGATIVE (NEGATIVE); COCAINE METABOLITE URINE NEGATIVE (NEGATIVE); METHADONE URINE NEGATIVE (NEGATIVE); OPIATES URINE POSITIVE (NEGATIVE); PHENCYCLIDINE URINE NEGATIVE (NEGATIVE)
[2025-01-11 12:37] LABS: SALICYLATE LEVEL < 3.0 MG/DL (<30)
[2025-01-11] MEDS: LIDOCAINE 2% 5 ML JELLY UROJET TOP ONE (12:40)
[2025-01-11 12:43] LABS: CK-MB VALUE MASS 3.7 NG/ML (<3.6); CPK CREATINE PHOSPHOKINASE 121 U/L (34-145); MB/CK RELATIVE INDEX 3.05 (< OR =4)
[2025-01-11] MEDS: PIPERACILLIN/TAZOBACTAM SOD 4.5 GM in DEXTROSE 5% (D5W) ADV/MINI-BAG 50 ML IV ONE (12:44)
[2025-01-11] MEDS: NS (Normal Saline) 0.9% 1,000 ML IV ONE (12:45)
[2025-01-11 12:58] LABS: ALT/SGPT 63.0 U/L (7.0-40); AST/SGOT 129.0 U/L (<34); CALCIUM LEVEL 8.5 MG/DL (8.3-10.6); CARBON DIOXIDE LEVEL 24.0 MMOL/L (20-31); CHLORIDE LEVEL 97.0 MMOL/L (98-107); CREATININE FOR GFR 2.21 MG/DL (0.55-1.30); GLOMERULAR FILTRATION RATE 24.0 (>45); POTASSIUM SERUM 4.9 MMOL/L (3.5-5.1); SODIUM LEVEL 131.0 MMOL/L (136-145)
[2025-01-11 13:46] LABS: CK-MB VALUE MASS 2.8 NG/ML (<3.6); CPK CREATINE PHOSPHOKINASE 93.0 U/L (34-145); MB/CK RELATIVE INDEX 3.01 (< OR =4)
[2025-01-11] MEDS ORDERED: LEVO75TAB PO (14:53)
[2025-01-11] MEDS ORDERED: ONDA-83 PO (14:53)
[2025-01-11] MEDS ORDERED: HOME MED LIST COMPLETE! XX SCH (14:55)
[2025-01-11] MEDS ORDERED: CYCLOBENZAPRINE 10 MG TABLET PO PRN (15:55)
[2025-01-11] MEDS ORDERED: COMBIVENT RESPIMAT 100-20 MCG INHALER 4 GM INH PRN (15:55)
[2025-01-11] MEDS ORDERED: FLUTICASONE PROPIONATE 0.05% NASAL SPRAY 16 GM NARES PRN (15:55)
[2025-01-11] MEDS ORDERED: ALBUTEROL 90 MCG/ACT 8 GM HFA INHALER INH PRN (15:55)
[2025-01-11] MEDS ORDERED: ALBUTEROL SULFATE 2.5 MG/0.5 ML INH CONCENTRATE NEB SOLN INH PRN (15:55)
[2025-01-11] MEDS ORDERED: MOM 30 ML SUSPENSION UDC PO PRN (15:55)
[2025-01-11] MEDS ORDERED: FLEET ENEMA PR PRN (15:55)
[2025-01-11 16:38] LABS: APPEARANCE, BODY FLUID CLEAR (CLEAR); ASCITES FL COLOR YELLOW (COLORLESS); SOURCE, BODY FLUID ASCITES
[2025-01-11 16:40] LABS: SODIUM,RANDOM URINE < 10 MMOL/L
[2025-01-11 17:07] VITALS: BP 119/85
[2025-01-11] MEDS: CALCIUM CARBONATE 500 MG CHEW U/D PO SCH (17:09)
[2025-01-11] MEDS: FLUoxetine 20 MG CAP PO SCH (17:10)
[2025-01-11] MEDS: PANTOPRAZOLE 40MG TAB PO SCH (17:10)
[2025-01-11] MEDS: CYANOCOBALAMIN 500 MCG TAB PO SCH (17:10)
[2025-01-11 17:14] LABS: INR 1.63
[2025-01-11] MEDS: GABAPENTIN 100 MG CAP PO SCH (17:35)
[2025-01-11] MEDS: LACTULOSE 20 GM/30 ML SYRUP UDC PO SCH (17:36)
[2025-01-11 17:53] VITALS: BP 120/59; TEMP 99.8
[2025-01-11 17:57] VITALS: BP 120/59; TEMP 99.8; O2SAT 94
[2025-01-11 18:08] VITALS: BP 115/79; TEMP 97.9; O2SAT 96
[2025-01-11 19:54] VITALS: BP 118/55; TEMP 97.4; O2SAT 96
[2025-01-11] MEDS: MONTELUKAST 10 MG TAB PO SCH (20:59)
[2025-01-11] MEDS: AMITRIPTYLINE 25 MG TABLET PO SCH (21:00)
[2025-01-11] MEDS: PRAMIPEXOLE 0.125 MG TAB PO SCH (21:00)
[2025-01-11] MEDS: PIPERACILLIN/TAZOBACTAM SOD 4.5 GM in DEXTROSE 5% (D5W) ADV/MINI-BAG 50 ML IV SCH (21:13)
[2025-01-11 23:19] VITALS: BP 122/63; TEMP 96.8; O2SAT 96
[2025-01-12] VITALS (12 sets, daily range): BP systolic 111–162; BP diastolic 57–90; TEMP 96.9–98.5; O2SAT 94–99
[2025-01-12 05:32] LABS: PLATELET COUNT, AUTOMATED 109 10^3/uL (150-450)
[2025-01-12] MEDS: LEVOTHYROXINE 125 MCG TABLET (0.125 MG) PO SCH (05:54)
[2025-01-12 06:11] LABS: ALT/SGPT 55.0 U/L (7.0-40); AST/SGOT 114.0 U/L (<34); CALCIUM LEVEL 8.5 MG/DL (8.3-10.6); CARBON DIOXIDE LEVEL 26.0 MMOL/L (20-31); CHLORIDE LEVEL 99.0 MMOL/L (98-107); CREATININE FOR GFR 2.17 MG/DL (0.55-1.30); GLOMERULAR FILTRATION RATE 24.5 (>45); MAGNESIUM LEVEL 2.3 MG/DL (1.8-2.4); POTASSIUM SERUM 4.3 MMOL/L (3.5-5.1); SODIUM LEVEL 134.0 MMOL/L (136-145)
[2025-01-12] MEDS: LACTULOSE 20 GM/30 ML SYRUP UDC NG SCH ×2 (09:00→17:13)
[2025-01-12] MEDS ORDERED: OCTREOTIDE ACETATE 100 MCG/ML VIAL **IV ADMINISTRATION ONLY IV SCH (11:00)
[2025-01-12] MEDS ORDERED: MIDODRINE 5 MG TAB PO SCH (12:00)
[2025-01-12] MEDS: MIDODRINE 5 MG TAB PO SCH (12:00)
[2025-01-12] MEDS: LACTULOSE 20 GM/30 ML SYRUP UDC PR PRN (12:13)
[2025-01-12] MEDS: OCTREOTIDE ACETATE 100 MCG/ML VIAL **SC ADMINISTRATION ONLY SC SCH (13:58)
[2025-01-12] MEDS: MIDODRINE 5 MG TAB NG SCH (18:57)
[2025-01-12] MEDS: AMITRIPTYLINE 25 MG TABLET NG SCH (21:46)
[2025-01-12] MEDS: PRAMIPEXOLE 0.125 MG TAB NG SCH (21:47)
[2025-01-12] MEDS: MONTELUKAST 10 MG TAB NG SCH (21:47)
[2025-01-13] VITALS (21 sets, daily range): BP systolic 103–143; BP diastolic 54–67; TEMP 97.1–97.8; O2SAT 93–98
[2025-01-13] MEDS: LEVOTHYROXINE 125 MCG TABLET (0.125 MG) NG SCH (05:44)
[2025-01-13 06:16] LABS: PLATELET COUNT, AUTOMATED 110 10^3/uL (150-450)
[2025-01-13 06:42] LABS: ALT/SGPT 52.0 U/L (7.0-40); AST/SGOT 110.0 U/L (<34); CALCIUM LEVEL 8.9 MG/DL (8.3-10.6); CARBON DIOXIDE LEVEL 25.0 MMOL/L (20-31); CHLORIDE LEVEL 103.0 MMOL/L (98-107); CREATININE FOR GFR 2.08 MG/DL (0.55-1.30); GLOMERULAR FILTRATION RATE 25.8 (>45); MAGNESIUM LEVEL 2.5 MG/DL (1.8-2.4); POTASSIUM SERUM 3.9 MMOL/L (3.5-5.1); SODIUM LEVEL 139.0 MMOL/L (136-145)
[2025-01-13] MEDS: FLUoxetine 20 MG CAP NG SCH (08:47)
[2025-01-13] MEDS: PANTOPRAZOLE 40MG VIAL IV SCH (08:48)
[2025-01-13] MEDS: NS (Normal Saline) 0.9% 1,000 ML IV SCH (13:44)
== END 2025-01-13 17:07 | disposition short-term general hospital (02) | DRG 441 ==
LOC: M ED 11:23 → M ED INP 15:34 → M PCU 16:56
PROVIDERS: ADMIT Student in an Organized Health Care Education/Training Program; ATTEND Student in an Organized Health Care Education/Training Program
PROC: 30233J1 Transfusion of Nonautologous Serum Albumin into Peripheral Vein, Percutaneous Approach (ICD-10-PCS; principal; 2025-01-11)
PROC: 0W9G3ZZ Drainage of Peritoneal Cavity, Percutaneous Approach (ICD-10-PCS; 2025-01-11)
DX: K75.81 Nonalcoholic steatohepatitis (NASH) (principal); G93.41 Metabolic encephalopathy; J18.9 Pneumonia, unspecified organism; I85.10 Secondary esophageal varices without bleeding; K76.6 Portal hypertension; I50.22 Chronic systolic (congestive) heart failure; N17.9 Acute kidney failure, unspecified; R18.8 Other ascites; E87.1 Hypo-osmolality and hyponatremia; K74.69 Other cirrhosis of liver; K76.82 Hepatic encephalopathy; I25.10 Atherosclerotic heart disease of native coronary artery without angina pectoris; I27.20 Pulmonary hypertension, unspecified; I34.0 Nonrheumatic mitral (valve) insufficiency; E03.9 Hypothyroidism, unspecified; I11.0 Hypertensive heart disease with heart failure; E78.5 Hyperlipidemia, unspecified; F03.90 Unspecified dementia, unspecified severity, without behavioral disturbance, psychotic disturbance, mood disturbance, and anxiety; K21.9 Gastro-esophageal reflux disease without esophagitis; F41.9 Anxiety disorder, unspecified; F32.A Depression, unspecified; R27.0 Ataxia, unspecified; G89.29 Other chronic pain; R29.6 Repeated falls; D50.9 Iron deficiency anemia, unspecified; M72.2 Plantar fascial fibromatosis; D69.6 Thrombocytopenia, unspecified; Z87.891 Personal history of nicotine dependence; J45.909 Unspecified asthma, uncomplicated; K59.00 Constipation, unspecified; G25.81 Restless legs syndrome; Z79.82 Long term (current) use of aspirin; Z79.890 Hormone replacement therapy; Z79.899 Other long term (current) drug therapy; Z88.1 Allergy status to other antibiotic agents; Z88.6 Allergy status to analgesic agent; Z88.8 Allergy status to other drugs, medicaments and biological substances; Z85.79 Personal history of other malignant neoplasms of lymphoid, hematopoietic and related tissues; Z90.49 Acquired absence of other specified parts of digestive tract

== ENCOUNTER 2025-01-23 15:45 | Inpatient (IN) | payer MEDICARE ==
[2025-01-23] VITALS (32 sets, daily range): BP systolic 97–121; BP diastolic 53–69; TEMP 97.8–98.7; O2SAT 92–99
[~2025-01-23] VITALS: Ht 167.6 cm; Wt 85.1 kg
[~2025-01-23 15:45] MED LIST changes: -BACTDSTA PO; -LACTULOSE 20 GM/30 ML SYRUP UDC PO SCH; +LEVO75TAB PO; +SULF-8 PO
[2025-01-23] MEDS ORDERED: NOREPINEPHRINE 4 MG IN D5W 250 ML IVBAG (16 MCG/ML) As Ordered ONE (16:20)
[2025-01-23] MEDS ORDERED: dexmedeTOMIDine (4 MCG/ML) 200 MCG/50 ML BTL As Ordered ONE (16:20)
[2025-01-23] MEDS ORDERED: ALBUTEROL SULFATE 2.5 MG/0.5 ML INH CONCENTRATE NEB SOLN NEB PRN (16:25)
[2025-01-23] MEDS ORDERED: FENTANYL DRIP LOCK BOX KEY 1 EACH XX PRN (16:40)
[2025-01-23] MEDS ORDERED: fentaNYL CITRATE/NaCl 1,000 MCG in IV 1 EA IV SCH (16:40)
[2025-01-23 16:55] LABS: ABG BASE EXCESS -0.8 (-2.0-2.0); ABG HCO3 24.5 MMOL/L (22.0-26.0); ABG O2 SATURATION 97.3 % (95.0-99.0); ABG PARTIAL PRESSURE CO2 42.7 mmHg (35.0-45.0); ABG PARTIAL PRESSURE O2 93.9 mmHg (75.0-100.0); ABG STANDARD HCO3 23.8 MMOL/L. (22.0-26.0); ABG TOTAL CO2 25.8 MMOL/L (23.0-31.0); ABG pH (ARTERIAL) 7.376 UNITS (7.350-7.450)
[2025-01-23] MEDS: NOREPINEPHRINE 4MG IN D5 250ML 4 MG in IV 1 EA IV SCH (17:03)
[2025-01-23] MEDS: dexmedeTOMidine 200 MCG in IV 1 EA IV SCH (17:04)
[2025-01-23] MEDS ORDERED: HOME MED LIST COMPLETE! XX SCH (17:35)
[2025-01-23 17:47] LABS: PLATELET COUNT, AUTOMATED 125 10^3/uL (150-450)
[2025-01-23 18:02] LABS: ALT/SGPT 77.0 U/L (7.0-40); AST/SGOT 187.0 U/L (<34); CALCIUM LEVEL 8.3 MG/DL (8.3-10.6); CARBON DIOXIDE LEVEL 23.0 MMOL/L (20-31); CHLORIDE LEVEL 100.0 MMOL/L (98-107); CREATININE FOR GFR 1.77 MG/DL (0.55-1.30); GLOMERULAR FILTRATION RATE 31.3 (>45); MAGNESIUM LEVEL 2.2 MG/DL (1.8-2.4); POTASSIUM SERUM 5.8 MMOL/L (3.5-5.1); SODIUM LEVEL 133.0 MMOL/L (136-145)
[2025-01-23] MEDS ORDERED: HEPARIN 1,000 UNITS/ML 10 ML VIAL (FOR RADIOLOGY & DIALYSIS ONLY) CRRT PRN ×2 (18:55)
[2025-01-23] MEDS ORDERED: SODIUM CHLORIDE 0.9% INJ 10 ML SYR CRRT PRN ×2 (18:55)
[2025-01-23 20:13] LABS: PLATELET COUNT, AUTOMATED 125 10^3/uL (150-450)
[2025-01-23 20:42] LABS: CALCIUM LEVEL 8.3 MG/DL (8.3-10.6); CARBON DIOXIDE LEVEL 23.0 MMOL/L (20-31); CHLORIDE LEVEL 100.0 MMOL/L (98-107); CREATININE FOR GFR 1.92 MG/DL (0.55-1.30); GLOMERULAR FILTRATION RATE 28.4 (>45); INR 1.26; MAGNESIUM LEVEL 2.2 MG/DL (1.8-2.4); POTASSIUM SERUM 5.0 MMOL/L (3.5-5.1); SODIUM LEVEL 135.0 MMOL/L (136-145)
[2025-01-23] MEDS: HEPARIN SOD 5000 UNITS/ML 1 ML VIAL/SYRINGE SQ SCH (23:19)
[2025-01-23] MEDS: LACTULOSE 20 GM/30 ML SYRUP UDC PO SCH (23:19)
[2025-01-23] MEDS: MIDAZOLAM INJ 2 MG/2 ML VIAL IV PRN (23:46)
[2025-01-24] VITALS (103 sets, daily range): BP systolic 73–117; BP diastolic 44–68; TEMP 95.8–97.5; O2SAT 81–100
[2025-01-24 01:31] LABS: CALCIUM LEVEL 8.4 MG/DL (8.3-10.6); CARBON DIOXIDE LEVEL 22.0 MMOL/L (20-31); CHLORIDE LEVEL 99.0 MMOL/L (98-107); CREATININE FOR GFR 1.84 MG/DL (0.55-1.30); GLOMERULAR FILTRATION RATE 29.9 (>45); MAGNESIUM LEVEL 2.2 MG/DL (1.8-2.4); PHOSPHORUS LEVEL 4.2 MG/DL (2.4-5.1); POTASSIUM SERUM 5.4 MMOL/L (3.5-5.1); SODIUM LEVEL 133.0 MMOL/L (136-145)
[2025-01-24] MEDS: CALCIUM GLUCONATE 1,000 MG, VIAL MATE ADAPTER 1 EACH in NS 100 ML IV SCH ×3 (02:23→20:10)
[2025-01-24 05:50] LABS: ABG BASE EXCESS -3.3 (-2.0-2.0); ABG HCO3 21.6 MMOL/L (22.0-26.0); ABG O2 SATURATION 96.2 % (95.0-99.0); ABG PARTIAL PRESSURE CO2 38.2 mmHg (35.0-45.0); ABG PARTIAL PRESSURE O2 86.2 mmHg (75.0-100.0); ABG STANDARD HCO3 21.7 MMOL/L. (22.0-26.0); ABG TOTAL CO2 22.8 MMOL/L (23.0-31.0); ABG pH (ARTERIAL) 7.370 UNITS (7.350-7.450)
[2025-01-24] MEDS: LEVOTHYROXINE 125 MCG TABLET (0.125 MG) PO SCH (05:50)
[2025-01-24 07:45] LABS: ALT/SGPT 71.0 U/L (7.0-40); AST/SGOT 149.0 U/L (<34); CALCIUM LEVEL 8.4 MG/DL (8.3-10.6); CARBON DIOXIDE LEVEL 18.0 MMOL/L (20-31); CHLORIDE LEVEL 102.0 MMOL/L (98-107); CREATININE FOR GFR 1.48 MG/DL (0.55-1.30); GLOMERULAR FILTRATION RATE 38.8 (>45); MAGNESIUM LEVEL 2.2 MG/DL (1.8-2.4); PHOSPHORUS LEVEL 4.2 MG/DL (2.4-5.1); POTASSIUM SERUM 5.4 MMOL/L (3.5-5.1); SODIUM LEVEL 135.0 MMOL/L (136-145)
[2025-01-24 07:53] LABS: INR 1.26
[2025-01-24] MEDS: PANTOPRAZOLE 40MG VIAL IV SCH (07:56)
[2025-01-24] MEDS: MONTELUKAST 10 MG TAB PO SCH (07:56)
[2025-01-24] MEDS: ASPIRIN 81 MG ENTERIC TABLET PO SCH (07:56)
[2025-01-24] MEDS: MIDODRINE 5 MG TAB PO SCH (07:57)
[2025-01-24 08:19] LABS: PLATELET COUNT, AUTOMATED 120 10^3/uL (150-450)
[2025-01-24 08:43] LABS: ABG BASE EXCESS -3.0 (-2.0-2.0); ABG HCO3 21.2 MMOL/L (22.0-26.0); ABG O2 SATURATION 94.2 % (95.0-99.0); ABG PARTIAL PRESSURE CO2 35.4 mmHg (35.0-45.0); ABG PARTIAL PRESSURE O2 70.8 mmHg (75.0-100.0); ABG STANDARD HCO3 21.9 MMOL/L. (22.0-26.0); ABG TOTAL CO2 22.3 MMOL/L (23.0-31.0); ABG pH (ARTERIAL) 7.396 UNITS (7.350-7.450)
[2025-01-24] MEDS: HEPARIN 1000 UNIT/ML CRRT 20,000 UNITS in IV 1 EA CRRT SCH (10:03)
[2025-01-24] MEDS ORDERED: MIDAZOLAM INJ 2 MG/2 ML VIAL IV PRN (10:20)
[2025-01-24] MEDS: IPRATROPIUM 0.5 MG/ALBUTEROL 2.5 MG INH SOL UD 3 ML NEB SCH (11:04)
[2025-01-24] MEDS: LACTULOSE 20 GM/30 ML SYRUP UDC PO SCH (12:04)
[2025-01-24 18:00] LABS: PLATELET COUNT, AUTOMATED 144 10^3/uL (150-450)
[2025-01-24 18:24] LABS: CALCIUM LEVEL 8.7 MG/DL (8.3-10.6); CARBON DIOXIDE LEVEL 22.0 MMOL/L (20-31); CHLORIDE LEVEL 100.0 MMOL/L (98-107); CREATININE FOR GFR 1.18 MG/DL (0.55-1.30); GLOMERULAR FILTRATION RATE 50.9 (>45); MAGNESIUM LEVEL 2.2 MG/DL (1.8-2.4); PHOSPHORUS LEVEL 4.4 MG/DL (2.4-5.1); POTASSIUM SERUM 5.8 MMOL/L (3.5-5.1); SODIUM LEVEL 135.0 MMOL/L (136-145)
[2025-01-24] MEDS: PATIROMER SORBITEX CALCIUM 8.4GM POWDER PACKET PO ONE ×2 (18:56→23:00)
[2025-01-24] MEDS: BUDESONIDE 0.5 MG/2 ML INHALATION SUSPENSION NEB SCH (20:07)
[2025-01-24] MEDS: DEXTROSE 50% 50 ML SYRINGE IV STA (22:06)
[2025-01-24] MEDS: HumuLIN R (REGULAR) INSULIN (NovoLIN R) **100 U/ML** PER UNIT IV STA (22:06)
[2025-01-24] MEDS: NS 500 ML IV ONE (22:10)
[2025-01-24] MEDS: MORPHINE 10 MG/0.5 ML ORAL CONCENTRATE SOLUTION U/D SL PRN (23:03)
[2025-01-25] MEDS ORDERED: UNRESOLVED CLARIFICATION ENTRY XX SCH (00:01)
[2025-01-25] MEDS: ATROPINE SULFATE 1% OPHTH SOLN 2 ML BTL SL PRN (01:19)
== END 2025-01-25 03:35 | disposition expired | DRG 208 ==
LOC: M ICU 16:18
PROVIDERS: ADMIT Internal Medicine; ATTEND Internal Medicine
PROC: 5A1D90Z Performance of Urinary Filtration, Continuous, Greater than 18 hours Per Day (ICD-10-PCS; principal; 2025-01-23)
PROC: 5A1945Z Respiratory Ventilation, 24-96 Consecutive Hours (ICD-10-PCS; 2025-01-23)
PROC: 0BH17EZ Insertion of Endotracheal Airway into Trachea, Via Natural or Artificial Opening (ICD-10-PCS; 2025-01-23)
DX: J96.01 Acute respiratory failure with hypoxia (principal); J69.0 Pneumonitis due to inhalation of food and vomit; N18.6 End stage renal disease; K76.7 Hepatorenal syndrome; N17.9 Acute kidney failure, unspecified; R18.8 Other ascites; I13.2 Hypertensive heart and chronic kidney disease with heart failure and with stage 5 chronic kidney disease, or end stage renal disease; I50.32 Chronic diastolic (congestive) heart failure; I85.10 Secondary esophageal varices without bleeding; K76.6 Portal hypertension; E87.20 Acidosis, unspecified; K76.82 Hepatic encephalopathy; K75.81 Nonalcoholic steatohepatitis (NASH); F32.A Depression, unspecified; K74.69 Other cirrhosis of liver; R57.8 Other shock; Z51.5 Encounter for palliative care; Z66 Do not resuscitate; I27.20 Pulmonary hypertension, unspecified; D50.9 Iron deficiency anemia, unspecified; J45.909 Unspecified asthma, uncomplicated; F41.9 Anxiety disorder, unspecified; E03.9 Hypothyroidism, unspecified; E78.5 Hyperlipidemia, unspecified; I25.10 Atherosclerotic heart disease of native coronary artery without angina pectoris; I34.0 Nonrheumatic mitral (valve) insufficiency; E87.5 Hyperkalemia; R29.6 Repeated falls; R27.0 Ataxia, unspecified; D69.59 Other secondary thrombocytopenia; F03.90 Unspecified dementia, unspecified severity, without behavioral disturbance, psychotic disturbance, mood disturbance, and anxiety; Z87.891 Personal history of nicotine dependence; Z79.82 Long term (current) use of aspirin; Z79.899 Other long term (current) drug therapy; Z79.890 Hormone replacement therapy